=== PATIENT | female | born 1955 | race Caucasian/White ===

== ENCOUNTER 2018-04-08 09:37 | Inpatient (IN) | payer BC, SELFPAY ==
[2018-04-08] VITALS (13 sets, daily range): BP systolic 128–161; BP diastolic 90–116; PULSE 85–103; RESP 14–24; TEMP 36.3–36.7; O2SAT 93–98; BMI 27.7; BMI 28.2
--- NOTE | 2018-04-08 10:10 | EKG12_ITS ---
Test Reason : SOB Blood Pressure : / mmHG Vent. Rate : 084 BPM Atrial Rate : 084 BPM P-R Int : 236 ms QRS Dur : 114 ms QT Int : 410 ms P-R-T Axes : 074 -14 089 degrees QTc Int : 484 ms Sinus rhythm with 1st degree A-V block with occasional Premature ventricular complexes Possible Left atrial enlargement Nonspecific T wave abnormality Prolonged QT Abnormal ECG Confirmed by INGRID MALONE, JLUIS ([id number]), pictures editor ELVIA FIELD ([id number]) on 04/11/2018 1:54:45 PM Referred By: Michael Merino Confirmed By:JLUIS QUINTERO MD
[2018-04-08 10:29] LABS: Absolute Lymphocyte Count 1.28 X10^3/ul (0.83-4.51); Absolute Neutrophil Count 5.2 X10^3/uL (2.0-7.7); Basophil# 0.03 X10^3/uL; Basophil% 0.4 % (0-1); Eosinophil# 0.03 X10^3/uL; Eosinophils% 0.4 % (0-5); Hematocrit 42.3 % (37-47); Lymphocyte # 1.28 X10^3/ul (4.0); Lymphocyte % 18.2 % (19-41); Mean Corp Hgb Conc 33.1 g/gl (32-36); Mean Corpuscular Hgb 32.1 pg (27.0-32.0); Mean Platelet Vol. 11.6 fl (6.2-12.0); Monocyte# 0.46 X10^3/uL; Monocyte% 6.6 % (0-10); Neutrophil % 74.1 % (47-70); POSITIVE COUNT NO; POSITIVE DIFFERENTIAL NO; POSITIVE MORPHOLOGY NO; Platelet Count 203 K/mm3 (150-450); RBC Distribution Width CV 14.1 % (11.6-14.6); RBC Distribution Width SD 48.1 fl (35.1-43.9); Red Blood Count 4.36 M/mm3 (4.2-5.4)
[2018-04-08 10:45] LABS: Anion Gap 8 (5-15); BUN 15 mg/dL (7-18); BUN/Creat Ratio 19.9 RATIO (10-20); Calcium,Total 8.6 mg/dL (8.5-10.1); Chloride 110 mmol/L (98-107); Creatinine, Serum 0.75 mg/dL (0.55-1.02); D-Dimer Quantitative (DVT/PE) 2.89 FEU/ug/m (0.27-0.49); EST Glomerular Filtration Rate 82 mL/min (>60); Est Glom Filt Rate - Afr Amer 99 mL/min (>60); Estimated Creatinine Clearance 54.43 ml/min; Glucose 100 mg/dL (74-106); Potassium 3.8 mmol/L (3.5-5.1); Sodium Level 143 mmol/L (136-145)
[2018-04-08] MEDS: 0.9% Normal Saline 1,000 ML 150 ML IV (10:46)
--- NOTE | 2018-04-08 10:53 | CT_ITS ---
STUDY: CTA CHEST REASON FOR EXAM: Female, 62 years old. Shortness of breath. RADIATION DOSAGE (If Supplied By Facility): CTDIvol = ( 9.01 ) mGy, DLP = ( 245.35 ) mGycm TECHNIQUE: The examination was performed with the intravenous administration of 100 ml of Isovue 370 contrast material. Post-processing of the angiographic images was performed, with multiplanar reformation and 3D reconstruction. Individualized dose optimization techniques were used for this CT. COMPARISON: None. FINDINGS: Normal enhancement of the main pulmonary artery and right and left pulmonary arteries. Normal enhancement of the bilateral peripheral pulmonary arteries. There is no demonstrated pulmonary embolism. Normal thoracic aorta and visualized great vessels. There is no demonstrated aortic dissection. There are calcifications of the coronary arteries. Normal mediastinum. Normal hilar regions. Normal visualized trachea and bronchi. The lungs are well expanded. Bibasilar atelectasis. Small bilateral pleural effusions with fluid in the left major fissure. Normal chest wall structures. Focal sclerotic density measuring 8.2 mm x 9.1 mm seen along the posterior inferior aspect of the T7 or T8 thoracic vertebrae. Normal visualized upper abdomen. CT/CTA Chest W/WO Contrast IMPRESSION: Bilateral pleural effusions. Fluid is seen in the left major fissure. Bibasilar atelectasis. Focal sclerotic lesion is seen in the T7 or T8 vertebrae. Electronically Signed: Jayce Granger MD at 11:32 EST Tel [phone], Service support ,
[2018-04-08 10:55] LABS: Lactic Acid 1.1 mmol/L (0.4-2.0)
--- NOTE | 2018-04-08 11:32 | ED.DCSUM_ITS ---
- ER Visit Summary Date of Service: 04/08/18 Chief Complaint: Shortness of breath History of Present Illness: The patient is a [address] Jack Lorenzo. She reports she has shortness of breath with naproxen 1 week ago. States that severe when she walks around or lays flat. It is moderate at rest. Has a nonproductive cough that began 5 days ago. She denies any fever or chills. She reports that she has had intermittent chest tightness for the past week. She reports that this is increased with breathing or walking. She is pain-free currently. She reports her pain is 8 out of 10 at worst. Patient reports that they drove to [place] for Thanksgiving. This was a [address] She has bilateral calf pain. No ankle swelling. She also complains of a poor appetite. Physical Examination: Vitals: Stable. Afebrile. General: Well-nourished and well-developed. Head: Normocephalic atraumatic. Neck: Supple, no lymphadenopathy. No JVD. Nontender. Cardiovascular: Tachycardic regular rhythm. No murmurs. Respiratory: No respiratory distress. Clear to auscultation bilaterally. Abdominal: Soft, nontender, nondistended, normal bowel sounds. No guarding, rebound, or peritoneal signs. Back: Nontender. Extremities: Nontender, no edema. Skin: Normal color, no rash. Neurologic: Alert and oriented ?3. Cranial nerves II through XII are intact. Normal strength and sensation. Psych: Normal affect. Test Results: EKG is sinus at 84 with first-degree AV block and corrected QT interval of 484. Nonspecific ST changes. No old EKG for comparison. CBC is remarkable for 7 neutrophils 74 lymphocytes of 18. Chem-7 is more for chloride 110. Troponin 0 0.024. PT GROUP SEGMENT CONSULTANT is 1992.2. D-dimer is 2.89. CT of the chest shows no PE or dissection. She does have bilateral pleural effusions and bilateral atelectasis. There is fluid in the left major fissure. She has a focal sclerotic lesion in T7 or T8. Emergency Department Course and Treatment: Patient is resting comfortably. She was given a dose of Lasix IV. Treatment Plan: Patient was discussed with Dr. Merino. She will be admitted to the hospital for further evaluation and treatment. Disposition: Admitted in improved condition. Impression: 1. CHF, new onset. 2. Focal sclerotic lesion T7 or T8. This note was generated with [employer] dictation software. It may contain incorrect words, spelling, and punctuation that were not noted in review of the chart prior to signing ED Disposition - Plan for ED Patient: Chief Complaint: Shortness of Breath Referrals: Faina Cunningham NP-C [Primary Care Provider] -
[2018-04-08] MEDS: Furosemide 40 MG/4 ML Vial IV ×3 (12:32→22:14)
--- NOTE | 2018-04-08 13:39 | ED.RN ---
pt tp get echo prior to trasfer to unit. per dr plascencia.
--- NOTE | 2018-04-08 14:24 | ECHOD_ITS ---
Reason For Study: CHF Procedure This was a 2D Doppler, Color Flow transthoracic echocardiogram. Exam performed portable in ED. Left Ventricle Normal size and thickness. Moderately dilated left ventricle. The estimated ejection fraction is 10 %. Stage 2 diastolic dysfunction. There is severe global hypokinesis of the left ventricle. Right Ventricle Mildly dilated right ventricle. Normal systolic function. Atria The left atrium is moderately enlarged. Normal right atrium. Normal atrial septum. Mitral Valve The mitral valve is structurally normal. No prolapse or stenosis seen. Mild (1+) mitral valve insufficiency. Tricuspid Valve Normal tricuspid valve. Mild (1+) tricuspid valve insufficiency. Right ventricular systolic pressure estimated to be 35 mmHg. Aortic Valve Trisinus/trileaflet aortic valve. Normal aortic valve. Trivial aortic valve insufficiency. Pulmonic Valve Normal pulmonic valve. Trivial pulmonic valve insufficiency. Great Vessels Normal aortic root. Normal arch. Normal inferior vena cava. Inferior vena cava collapse with sniff. Pericardium/Pleural No pericardial effusion. Moderate size left pleural effusion. MMode/2D Measurements & Calculations LVIDd: 5.6 cm IVSd: 0.79 cm Ao root diam: 3.2 cm LVIDs: 5.1 cm LVPWd: 1.1 cm RVDd: 3.6 cm FS: 9.0 % LAV(MOD-bp): 87.2 ml EDV(MOD-sp4): 93.9 ml EDV(MOD-sp2): 100.7 ml LAV(MOD-bp) Indexed: 55.0 ml/m2 ESV(MOD-sp4): 81.0 ml EF(MOD-sp2): 24.9 % LAV(MOD-sp2): 81.0 ml EF(MOD-sp4): 13.7 % LAV(MOD-sp4): 86.0 ml SV(MOD-sp4): 12.9 ml SV(MOD-sp2): 25.1 ml LA A4 area: 23.4 cm2 LA dimension(2D): 3.9 cm RA A4 area: 18.2 cm2 Doppler Measurements & Calculations MV E max mellissa: 92.7 cm/sec Ao V2 max: 72.4 cm/sec LV V1 max: 69.6 cm/sec Ao max P.1 mmHg LV V1 max P.9 mmHg PA V2 max: 49.1 cm/sec TR max mellissa: 273.7 cm/sec TR max P.0 mmHg Interpretation Summary The estimated ejection fraction is 10 %. Stage 2 diastolic dysfunction. There is severe global hypokinesis of the left ventricle. Mildly dilated right ventricle. The left atrium is moderately enlarged. Mild (1+) mitral valve insufficiency. Mild (1+) tricuspid valve insufficiency. Right ventricular systolic pressure estimated to be 35 mmHg. Trivial aortic valve insufficiency. Moderate size left pleural effusion. d/w Dr Merino There is no comparison study available. Ordering Physician: Michael Merino Referring Physician: Michael Merino Performed By: Nickie Gillis RDCS, RVT
--- NOTE | 2018-04-08 15:07 | PCM.HP.STD ---
Problem List (1) Hypertension Status: Chronic History of Present Illness Date of Admission: 04/08/18 Chief Complaint: Shortness of breath. The patient is a 62 year old F who presents emergency room with 2 weeks of shortness of breath. Patient states over the past 2-3 days she has had to sleep sitting upright due to increased shortness of breath while lying flat. She complains of associated chest tightness. Denies cough, fever, chills. Was recently placed on antibiotics for suspected pneumonia which did not improve her dyspnea. She reports 10-12 pound weight gain over the past 2 weeks. She also reports lower extremity swelling, mostly at night. She states her thyroid medication was recently adjusted due to abnormal lab work. Her other past medical history includes hypertension. She denies other past medical history. Patient notes she has been under significant stress over the past few months due to her mother's poor health who lives in [place] and also a premature grandchild who has had significant medical issues. Past Medical History Past Medical History (Chronic Problems): Chronic Problems Hypertension (Chronic) Allergies acetaminophen [From Lortab] Adverse Reaction (Verified 04/08/18 09:42) Nausea hydrocodone [From Lortab] Adverse Reaction (Verified 04/08/18 09:42) Nausea Home Medications: Ambulatory Orders Medication Instructions Recorded Azithromycin [Zithromax] 250 mg PO DAILY 04/08/18 Calcium Citrate/Vitamin D3 1,000 mg PO DAILY 04/08/18 [Calcium Citrate +Vit D3 Tablet] Losartan Potassium [Cozaar] 75 mg PO DAILY 04/08/18 [place]-3 Fatty Acids [Fish Oil] 1,500 mg PO DAILY 04/08/18 Pnv No.121/Iron/Folic Acid 1 each PO DAILY 04/08/18 [ Multivitamin Tablet] Surgical History: - - Bilateral rotator cuff repair, x2, hysterectomy. 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 Review of Systems Constitutional: Denies: Chills, Fever, Weight Change HEENT: Denies: Head Aches, Sinus Congestion, Sinus Drainage Cardiovascular: Reports: Chest Tightness. Denies: Chest Pain, Edema, Palpitations, Syncope Respiratory: Reports: Shortness of Breath. Denies: Cough, Sputum production Gastrointestinal: Denies: Abdominal Pain, Nausea, Vomiting Genitourinary: Denies: Dysuria Musculoskeletal: Denies: Joint Pain, Joint Tenderness Skin: Denies: Rash, Wounds Neurological: Denies: Numbness, Tingling, Focal weakness Psychiatric: Denies: Anxiety, Depression, Homicidal Ideations, Suicidal Ideations Hematologic/ Lymphatic: Denies: Easy Bruising, Easy Bleeding VTE Information - Inpt Only VTE Present on Admission: No VTE Mechan Device Prophylaxis: None VTE Pharm Prophylaxis ordered?: Yes - Physical Exam General: Alert, Oriented x3, Cooperative, No apparent distress HEENT: Atraumatic, PERRLA, EOMI, Normocephalic Neck: Supple, No JVD, Negative Carotid Bruits Lungs: Normal air movement, - - Crackles bilateral bases Cardiovascular: Regular rate, Regular Rhythm, Normal S1, Normal S2, No murmurs Abdomen: Bowel Sounds Present, Soft, Non Tender, Non-Distended Extremities: No clubbing, No cyanosis, No edema, Capillary Refill Less than 3 Seconds Skin: No rashes, No breakdown Musculoskeletal: No Tenderness to Palpation of Joints or Extremities Neurological: Cranial nerves II-XII grossly intact, Neuro grossly intact Psych/Mental Status: Normal Affect, Appropriate Vital Signs Temp Pulse Resp BP Pulse Ox 97.7 F L 88 16 148/92 H 97 04/08/18 14:38 04/08/18 14:38 04/08/18 14:38 04/08/18 14:38 04/08/18 14:38 Oxygen Flow Rate (L/min) 2 Oxygen Delivery Method Room Air Weight: 139 lb 9.6 oz Body Mass Index (BMI) 28.2 Laboratory Tests Past 24 Hrs 04/08/18 04/08/18 04/08/18 10:13 10:13 10:13 WBC 7.0 RBC 4.36 Hgb 14.0 Hct 42.3 MCV 97.0 MCH 32.1 H MCHC 33.1 RDW 14.1 RDW Differential 48.1 H Plt Count 203 MPV 11.6 Immature Gran % (Auto) 0.300 Neut % (Auto) 74.1 H Lymph % (Auto) 18.2 L [place] % (Auto) 6.6 Eos % (Auto) 0.4 Baso % (Auto) 0.4 Absolute Neuts (auto) 5.2 Absolute Lymphs (auto) 1.28 Total Counted Not Reportable D-Dimer Quant (PE/DVT) 2.89 H* Sodium 143 Potassium 3.8 Chloride 110 H Carbon Dioxide 25.0 Anion Gap 8 BUN 15 Creatinine 0.75 Estim Creat Clear Calc 54.43 Est GFR (MDRD) Af Amer 99 Est GFR (MDRD) Non-Af 82 BUN/Creatinine Ratio 19.9 Glucose 100 Lactic Acid Calcium 8.6 Troponin I 0.024 B-Natriuretic Peptide 04/08/18 04/08/18 10:13 10:13 WBC RBC Hgb Hct MCV MCH MCHC RDW RDW Differential Plt Count MPV Immature Gran % (Auto) Neut % (Auto) Lymph % (Auto) [place] % (Auto) Eos % (Auto) Baso % (Auto) Absolute Neuts (auto) Absolute Lymphs (auto) Total Counted D-Dimer Quant (PE/DVT) Sodium Potassium Chloride Carbon Dioxide Anion Gap BUN Creatinine Estim Creat Clear Calc Est GFR (MDRD) Af Amer Est GFR (MDRD) Non-Af BUN/Creatinine Ratio Glucose Lactic Acid 1.1 Calcium Troponin I B-Natriuretic Peptide 1992.2 H Assessment/Plan 1. New onset CHF, unclear subtype- Trop 0.024. Trend enzymes. Cardiology consulted. Echo pending. Possible stress/cath pending cardiology evaluation. Continue IV Lasix. Strict I&O. Daily weight. Check TSH. 2. Hypertension- Stable, continue home losartan regimen. 3. Incidental finding focal sclerotic lesion T7 or T8 vertebrae- Obtain MRI thoracic spine. 4. Thyroid dysfunction-patient unclear which type of thyroid disorder she has. She reports she is taking a combination pill. Reports recent abnormal thyroid labs. No thyroid medication listed on home list. Check thyroid panel. We will need to reassess home medication list. 5. Elevated d-dimer-CTA without evidence of PE. DVT prophylaxis- Lovenox This patient was seen by FESTUS Miller under the supervision of Dr. Merino.
--- NOTE | 2018-04-08 15:39 | MRI_ITS ---
STUDY: MRI THORACIC SPINE WITH AND WITHOUT CONTRAST REASON FOR EXAM: Female, 62 years old. Abscess. SOB. Fluid in lungs. TECHNIQUE: 5 ml of Gadavist was administered intravenously for the contrast portion of the examination. COMPARISON: None. FINDINGS: This study is slightly limited by patient motion on multiple pulse sequences. Normal kyphosis of the thoracic spine. There is no substantial scoliosis. T1-2, T2-3, T3-4, T4-5, T5-6, T6-7, T7-8, T8-9, T9-10, T10-11, T11-12: Normal endplates. Normal disc hydration, heights and morphology of the corresponding intervertebral discs. Normal central canal and intervertebral neural foramina at the corresponding levels. Normal visualized thoracic cord. Normal conus medullaris that terminates at the T12-L1 level.. The soft tissue structures are unremarkable. There is no enhancing abnormality. Small bilateral pleural effusions are noted. The aorta is normal in caliber. MRI/Spine Thoracic W/WO Contrast IMPRESSION: Bilateral pleural effusions. Otherwise unremarkable MRI of the thoracic spine. Electronically Signed: Kareen Urban MD at 18:40 EST Tel , Service support ,
[2018-04-08 16:07] LABS: Free T3 2.6 pg/mL (2.18-3.98); Thyroid Stim Hormone (TSH) 1.98 uIU/mL (0.358-3.74)
[2018-04-08] MEDS: Enoxaparin 40 MG/0.4 ML Syringe SC (18:09)
[2018-04-08] MEDS: Losartan Potassium 50 MG Tablet PO (18:20)
[2018-04-09] VITALS (11 sets, daily range): BP systolic 109–129; BP diastolic 73–76; PULSE 74–106; RESP 14–18; TEMP 36.3–36.7; O2SAT 93–94
[2018-04-09] MEDS: Furosemide 40 MG/4 ML Vial IV ×2 (06:11→17:04)
[2018-04-09 06:44] LABS: Anion Gap 10 (5-15); BUN 13 mg/dL (7-18); BUN/Creat Ratio 16.4 RATIO (10-20); Calcium,Total 8.6 mg/dL (8.5-10.1); Chloride 100 mmol/L (98-107); Cholesterol 175 mg/dL (200); Creatinine, Serum 0.79 mg/dL (0.55-1.02); EST Glomerular Filtration Rate 78 mL/min (>60); Est Glom Filt Rate - Afr Amer 94 mL/min (>60); Estimated Creatinine Clearance 71.78 ml/min; Glucose 84 mg/dL (74-106); High Density Lipoprotein 53 mg/dL; Potassium 3.2 mmol/L (3.5-5.1); Sodium Level 142 mmol/L (136-145); Triglycerides 121 mg/dL; Very Low Density Lipoprotein 24 mg/dL (5-40)
[2018-04-09 08:05] LABS: Magnesium 1.6 mg/dL (1.6-2.6)
[2018-04-09] MEDS: Aspirin 81 MG TAB.CHEW PO (08:36)
[2018-04-09] MEDS: Enoxaparin 40 MG/0.4 ML Syringe SC (08:36)
[2018-04-09] MEDS: Losartan Potassium 100 MG Tablet PO (08:41)
--- NOTE | 2018-04-09 10:09 | PCM.CONS.C ---
Reason for Consult Date of Consultation: 04/09/18 Reason for Consultation: Shortness of breath History of Present Illness: The patient is a 62 year old F with no previous cardiac history other than hypertension who says that she has been feeling weak over the last few weeks. In addition she had market shortness of breath and saw her primary physician and was told that she probably had a pneumonia. She was treated with antibiotics and then went back to see her and was subsequently sent to the emergency room. In the emergency room she was evaluated and noted to have a dilated cardiac silhouette with an elevated natriuretic peptide level. She subsequently had an echocardiogram which demonstrated significant global left ventricular systolic dysfunction with an estimated ejection fraction of 15% plus minus. [She denies any chest pain or paroxysmal nocturnal dyspnea she has really not had any pedal edema. She has not been on any medication other than her antihypertensive medications. She has not received any chemotherapy in the past and does not know of any significant previous viral infection.] Past Medical History Allergies/Adverse Reactions: Allergies acetaminophen [From Lortab] Adverse Reaction (Verified 04/08/18 09:42) Nausea hydrocodone [From Lortab] Adverse Reaction (Verified 04/08/18 09:42) Nausea Home Medications: Ambulatory Orders Medication Instructions Recorded Azithromycin [Zithromax] 250 mg PO DAILY 04/08/18 Calcium Citrate/Vitamin D3 1,000 mg PO DAILY 04/08/18 [Calcium Citrate +Vit D3 Tablet] Losartan Potassium [Cozaar] 75 mg PO DAILY 04/08/18 [place]-3 Fatty Acids [Fish Oil] 1,500 mg PO DAILY 04/08/18 Pnv No.121/Iron/Folic Acid 1 each PO DAILY 04/08/18 [ Multivitamin Tablet] Past Medical History (Chronic Problems): Chronic Problems Hypertension (Chronic) Surgical History: - - Bilateral rotator cuff repair, x2, hysterectomy. 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 Lives: Spouse/ Significant Other Smoking Status: Never smoker Alcohol: Occasional Drugs: None Review of Systems - Review of Systems General: Reports: Fatigue. Denies: Fever, Night Sweats HEENT: Denies: Vision Change Cardiovascular: Reports: Shortness of Breath, Shortness of Breath at Rest, Shortness of Breath with Exertion, Orthopnea. Denies: Chest Discomfort, PND, Peripheral Edema, Palpitations, Lightheadedness, Dizziness, Near Syncope, Syncope Respiratory: Denies: Cough, Sputum Production, Hemoptysis Gastrointestinal: Denies: Indigestion, Hematemesis, Hematochezia, Melena Genitourinary: Denies: Dysuria, Hematuria Muscoloskeletal: Denies: Myalgias Skin: Denies: Rash Neurological: Denies: Dizziness Psychiatric: Denies: Anxiety Endocrine: Denies: Unexplained Weight Loss Hematologic/ Lymphatic: Denies: Anemia Subjectve: Pleasant lady in no apparent distress at this time sitting in bed Objective: Vital Signs Temp Pulse Resp BP Pulse Ox 98.1 F 79 14 129/76 H 93 04/09/18 04:10 04/09/18 06:47 04/09/18 04:10 04/09/18 04:10 04/09/18 04:10 Oxygen Flow Rate (L/min) 2 Oxygen Delivery Method Room Air Weight: 139 lb 5.314 oz Body Mass Index (BMI) 28.2 Intake and Output for Last 24 Hours 04/07/18 04/08/18 04/09/18 23:59 23:59 23:59 Intake Total 240 / 240 Output Total 1900 / 1900 500 / 500 Balance -1660 / -1660 -500 / -500 General: Awake, Alert, Oriented x 3 HEENT: PERRL, EOMI, Sclera Non Icteric Neck: Supple, Good ROM, No Lymph Node Enlargement Lungs: Clear to auscultation Cardiovascular: Regular Rhythm, Normal S1, Normal S2, No Murmurs, No Rubs, No Gallops, Positive S3 Vascular: No Carotid Bruits, Normal Femoral Pulses, Normal Radial Pulses, Normal Dorsalis Pedal Pulse, Normal Posterior Tibial Pulses Abdomen: Bowel Sounds Present, Soft, Non Tender, No HSM, No Organomegaly Extremities: No Cyanosis, No Clubbing, No edema Lymphatic: No Lymph Node Enlargement Neurological: No Focal Motor or Sensory Deficit Psych/Mental Status: Appropriate 04/08/18 10:13: WBC 7.0, RBC 4.36, Hgb 14.0, Hct 42.3, MCV 97.0, MCH 32.1 H, MCHC 33.1, RDW 14.1, RDW Differential 48.1 H, Plt Count 203, MPV 11.6, Immature Gran % (Auto) 0.300, Neut % (Auto) 74.1 H, Lymph % (Auto) 18.2 L, [place] % (Auto) 6.6, Eos % (Auto) 0.4, Baso % (Auto) 0.4, Absolute Neuts (auto) 5.2, Total Counted Not Reportable 04/08/18 10:13: D-Dimer Quant (PE/DVT) 2.89 H* 04/08/18 10:13: Sodium 143, Potassium 3.8, Chloride 110 H, Carbon Dioxide 25.0, Anion Gap 8, BUN 15, Creatinine 0.75, Est GFR (MDRD) Af Amer 99, Est GFR (MDRD) Non-Af 82, BUN/Creatinine Ratio 19.9, Glucose 100, Calcium 8.6, Troponin I 0.024 04/08/18 10:13: Lactic Acid 1.1 04/08/18 10:13: B-Natriuretic Peptide 1992.2 H 04/08/18 15:12: Troponin I 0.022 04/08/18 17:46: Troponin I 0.023 04/09/18 05:15: Sodium 142, Potassium 3.2 L, Chloride 100, Carbon Dioxide 32.0, Anion Gap 10, BUN 13, Creatinine 0.79, Est GFR (MDRD) Af Amer 94, Est GFR (MDRD) Non-Af 78, BUN/Creatinine Ratio 16.4, Glucose 84, Calcium 8.6, Triglycerides 121, Cholesterol 175, LDL Cholesterol 98, VLDL Cholesterol 24, HDL Cholesterol 53 04/09/18 05:15: Magnesium 1.6 Rhythm: EKG: Normal sinus rhythm with no acute changes ECHO: Globally reduced left ventricular ejection fraction estimated at 10-15% Assessment/Plan 1. Acute systolic congestive heart failure Patient presents with shortness of breath and orthopnea and is noted to have elevated natruretic peptide level as well as severely reduced left ventricular ejection fraction. Will recommend starting Coreg 3.125 mg twice a day Continue losartan Will start spironolactone Continue intravenous Lasix Would recommend a left heart catheterization to exclude obstructive coronary disease. Depending on those findings further recommendations will be made. 2. Left ventricular systolic dysfunction He has evidence of severe left ventricular systolic dysfunction. The etiology of the above is unclear as noted. We will continue to put her on the appropriate medications and then see how she does. Certainly if there is no improvement within 90 days she may need to be evaluated for possible implantable defibrillator. 3. Hypertension Her blood pressure appears to be under fairly good control at this time on the losartan. She will certainly need additional agents. Thank you for allowing me to participate in the care of your patient. Please don't hesitate to call if any issues arise
--- NOTE | 2018-04-09 10:14 | CON.PCM_ITS ---
Reason for Consult Date of Consultation: 04/09/18 Reason for Consultation: Shortness of breath History of Present Illness: The patient is a 62 year old F with no previous cardiac history other than hypertension who says that she has been feeling weak over the last few weeks. In addition she had market shortness of breath and saw her primary physician and was told that she probably had a pneumonia. She was treated with antibiotics and then went back to see her and was subsequently sent to the emergency room. In the emergency room she was evaluated and noted to have a dilated cardiac silhouette with an elevated natriuretic peptide level. She subsequently had an echocardiogram which demonstrated significant global left ventricular systolic dysfunction with an estimated ejection fraction of 15% plus minus. [She denies any chest pain or paroxysmal nocturnal dyspnea she has really not had any pedal edema. She has not been on any medication other than her antihypertensive medications. She has not received any chemotherapy in the past and does not know of any significant previous viral infection.] Past Medical History Allergies/Adverse Reactions: Allergies acetaminophen [From Lortab] Adverse Reaction (Verified 04/08/18 09:42) Nausea hydrocodone [From Lortab] Adverse Reaction (Verified 04/08/18 09:42) Nausea Home Medications: Ambulatory Orders Medication Instructions Recorded Azithromycin [Zithromax] 250 mg PO DAILY 04/08/18 Calcium Citrate/Vitamin D3 1,000 mg PO DAILY 04/08/18 [Calcium Citrate +Vit D3 Tablet] Losartan Potassium [Cozaar] 75 mg PO DAILY 04/08/18 [place]-3 Fatty Acids [Fish Oil] 1,500 mg PO DAILY 04/08/18 Pnv No.121/Iron/Folic Acid 1 each PO DAILY 04/08/18 [ Multivitamin Tablet] Past Medical History (Chronic Problems): Chronic Problems Hypertension (Chronic) Surgical History: - - Bilateral rotator cuff repair, x2, hysterectomy. 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 Lives: Spouse/ Significant Other Smoking Status: Never smoker Alcohol: Occasional Drugs: None Review of Systems - Review of Systems General: Reports: Fatigue. Denies: Fever, Night Sweats HEENT: Denies: Vision Change Cardiovascular: Reports: Shortness of Breath, Shortness of Breath at Rest, Shortness of Breath with Exertion, Orthopnea. Denies: Chest Discomfort, PND, Peripheral Edema, Palpitations, Lightheadedness, Dizziness, Near Syncope, Syncope Respiratory: Denies: Cough, Sputum Production, Hemoptysis Gastrointestinal: Denies: Indigestion, Hematemesis, Hematochezia, Melena Genitourinary: Denies: Dysuria, Hematuria Muscoloskeletal: Denies: Myalgias Skin: Denies: Rash Neurological: Denies: Dizziness Psychiatric: Denies: Anxiety Endocrine: Denies: Unexplained Weight Loss Hematologic/ Lymphatic: Denies: Anemia Subjectve: Pleasant lady in no apparent distress at this time sitting in bed Objective: Vital Signs Temp Pulse Resp BP Pulse Ox 98.1 F 79 14 129/76 H 93 04/09/18 04:10 04/09/18 06:47 04/09/18 04:10 04/09/18 04:10 04/09/18 04:10 Oxygen Flow Rate (L/min) 2 Oxygen Delivery Method Room Air Weight: 139 lb 5.314 oz Body Mass Index (BMI) 28.2 Intake and Output for Last 24 Hours 04/07/18 04/08/18 04/09/18 23:59 23:59 23:59 Intake Total 240 / 240 Output Total 1900 / 1900 500 / 500 Balance -1660 / -1660 -500 / -500 General: Awake, Alert, Oriented x 3 HEENT: PERRL, EOMI, Sclera Non Icteric Neck: Supple, Good ROM, No Lymph Node Enlargement Lungs: Clear to auscultation Cardiovascular: Regular Rhythm, Normal S1, Normal S2, No Murmurs, No Rubs, No Gallops, Positive S3 Vascular: No Carotid Bruits, Normal Femoral Pulses, Normal Radial Pulses, Normal Dorsalis Pedal Pulse, Normal Posterior Tibial Pulses Abdomen: Bowel Sounds Present, Soft, Non Tender, No HSM, No Organomegaly Extremities: No Cyanosis, No Clubbing, No edema Lymphatic: No Lymph Node Enlargement Neurological: No Focal Motor or Sensory Deficit Psych/Mental Status: Appropriate 04/08/18 10:13: WBC 7.0, RBC 4.36, Hgb 14.0, Hct 42.3, MCV 97.0, MCH 32.1 H, MCHC 33.1, RDW 14.1, RDW Differential 48.1 H, Plt Count 203, MPV 11.6, Immature Gran % (Auto) 0.300, Neut % (Auto) 74.1 H, Lymph % (Auto) 18.2 L, Osborne % (Auto) 6.6, Eos % (Auto) 0.4, Baso % (Auto) 0.4, Absolute Neuts (auto) 5.2, Total Counted Not Reportable 04/08/18 10:13: D-Dimer Quant (PE/DVT) 2.89 H* 04/08/18 10:13: Sodium 143, Potassium 3.8, Chloride 110 H, Carbon Dioxide 25.0, Anion Gap 8, BUN 15, Creatinine 0.75, Est GFR (MDRD) Af Amer 99, Est GFR (MDRD) Non-Af 82, BUN/Creatinine Ratio 19.9, Glucose 100, Calcium 8.6, Troponin I 0.024 04/08/18 10:13: Lactic Acid 1.1 04/08/18 10:13: B-Natriuretic Peptide 1992.2 H 04/08/18 15:12: Troponin I 0.022 04/08/18 17:46: Troponin I 0.023 04/09/18 05:15: Sodium 142, Potassium 3.2 L, Chloride 100, Carbon Dioxide 32.0, Anion Gap 10, BUN 13, Creatinine 0.79, Est GFR (MDRD) Af Amer 94, Est GFR (MDRD) Non-Af 78, BUN/Creatinine Ratio 16.4, Glucose 84, Calcium 8.6, Triglycerides 121, Cholesterol 175, LDL Cholesterol 98, VLDL Cholesterol 24, HDL Cholesterol 53 04/09/18 05:15: Magnesium 1.6 Rhythm: EKG: Normal sinus rhythm with no acute changes ECHO: Globally reduced left ventricular ejection fraction estimated at 10-15% Assessment/Plan 1. Acute systolic congestive heart failure * Patient presents with shortness of breath and orthopnea and is noted to have elevated natruretic peptide level as well as severely reduced left ventricular ejection fraction. * Will recommend starting Coreg 3.125 mg twice a day * Continue losartan * Will start spironolactone * Continue intravenous Lasix * Would recommend a left heart catheterization to exclude obstructive coronary disease. Depending on those findings further recommendations will be made. * 2. Left ventricular systolic dysfunction * He has evidence of severe left ventricular systolic dysfunction. The etiology of the above is unclear as noted. * We will continue to put her on the appropriate medications and then see how she does. * Certainly if there is no improvement within 90 days she may need to be evaluated for possible implantable defibrillator. * 3. Hypertension * Her blood pressure appears to be under fairly good control at this time on the losartan. She will certainly need additional agents. * * Thank you for allowing me to participate in the care of your patient. Please don't hesitate to call if any issues arise
--- NOTE | 2018-04-09 12:27 | PCM.PROGNOTE ---
Subjective: Patient seen and examined. Breathing improved. Patient voices concern over significant reduced EF. Dr. Carvajal entered room for further discussion on plan of care. Patient denies chest pain. - Physical Exam General: Alert, Oriented x3, Cooperative HEENT: Atraumatic, PERRLA, EOMI, Normocephalic Neck: Supple, No JVD, Negative Carotid Bruits Lungs: Clear to auscultation, Normal air movement Cardiovascular: Regular rate, Regular Rhythm, Normal S1, Normal S2, No murmurs Abdomen: Bowel Sounds Present, Soft, Non Tender, Non-Distended Extremities: No clubbing, No cyanosis, No edema, Capillary Refill Less than 3 Seconds Skin: No rashes, No breakdown Musculoskeletal: No Tenderness to Palpation of Joints or Extremities Neurological: Cranial nerves II-XII grossly intact, Neuro grossly intact Psych/Mental Status: Normal Affect, Appropriate Vital Signs Temp Pulse Resp BP Pulse Ox 97.4 F L 106 H 16 111/75 94 04/09/18 10:10 04/09/18 10:59 04/09/18 10:10 04/09/18 10:10 04/09/18 10:10 Oxygen Flow Rate (L/min) 2 Oxygen Delivery Method Room Air Weight: 139 lb 5.314 oz Body Mass Index (BMI) 28.2 Intake and Output for Last 24 Hours 04/07/18 04/08/18 04/09/18 23:59 23:59 23:59 Intake Total 240 / 240 Output Total 1900 / 1900 500 / 500 Balance -1660 / -1660 -500 / -500 Laboratory Tests Past 24 Hrs 04/08/18 04/08/18 04/08/18 15:12 15:12 17:46 Sodium Potassium Chloride Carbon Dioxide Anion Gap BUN Creatinine Estim Creat Clear Calc Est GFR (MDRD) Af Amer Est GFR (MDRD) Non-Af BUN/Creatinine Ratio Glucose Calcium Magnesium Troponin I 0.022 0.023 Triglycerides Cholesterol LDL Cholesterol VLDL Cholesterol HDL Cholesterol TSH 1.98 Free T4 1.00 Free T3 pg/dL 2.6 04/09/18 04/09/18 05:15 05:15 Sodium 142 Potassium 3.2 L Chloride 100 Carbon Dioxide 32.0 Anion Gap 10 BUN 13 Creatinine 0.79 Estim Creat Clear Calc 71.78 Est GFR (MDRD) Af Amer 94 Est GFR (MDRD) Non-Af 78 BUN/Creatinine Ratio 16.4 Glucose 84 Calcium 8.6 Magnesium 1.6 Troponin I Triglycerides 121 Cholesterol 175 LDL Cholesterol 98 VLDL Cholesterol 24 HDL Cholesterol 53 TSH Free T4 Free T3 pg/dL Medical Necessity - Tobacco Use Smoking Status: Never smoker Assessment/Plan 1. New onset systolic CHF- Cardiology consulted. Echo shows an EF of 10%, stage II diastolic dysfunction, mild mitral valve insufficiency, mild tricuspid valve insufficiency, RVSP estimated to be 35 mmHg. Continue IV Lasix. Strict I&O. Daily weight. Continue home losartan regimen. Started on carvedilol and spironolactone. Patient to undergo left heart cath Wednesday with further recommendations to follow per cardiology. 2. Hypertension- Stable, continue home losartan regimen. Carvedilol added as noted above. 3. Incidental finding focal sclerotic lesion T7 or T8 vertebrae- MRI thoracic spine unremarkable. 4. Hypothyroidism-thyroid levels within normal limits. Continue home regimen. 5. Elevated d-dimer-CTA without evidence of PE. DVT prophylaxis- Lovenox This patient was seen by FESTUS Miller under the supervision of Dr. Merino.
--- NOTE | 2018-04-09 12:47 | CM.UR ---
See clay puddler. Met face to face with patient and her . Plan is to do heart cath on Wednesday and as long as no blockages will send home on medications and monitor x 3 months. If still symptomatic or no improvement at that time--will consider pacemaker. Patient and are not anticipating any needs. Instructed that case management will remain available should any needs arise. Verb understanding. Tasia Kong RN, CCM.
--- NOTE | 2018-04-09 14:48 | CM.UR ---
Heart Cath planned for Wednesday. If transfer becomes necessary the following facilities are in-network according to [facility] website: [facility]. [facility] Should any questions arise, please contact case mgmt.
[2018-04-09] MEDS: Bisacodyl 5 MG Tablet PO (15:31)
[2018-04-09] MEDS: 0.9% NaCl Peripheral Flush Adult/Peds IV (17:04)
[2018-04-09] MEDS: Magnesium Oxide 400 MG Tablet PO (17:04)
[2018-04-09] MEDS: Carvedilol 3.125 MG TABLET PO (21:07)
[2018-04-10] VITALS (16 sets, daily range): BP systolic 108–128; BP diastolic 68–87; PULSE 73–92; RESP 14–16; TEMP 35.6–36.7; O2SAT 93–97
[2018-04-10] MEDS: NON-FORMULARY 1 PO (03:41)
[2018-04-10 06:20] LABS: Anion Gap 9 (5-15); BUN 16 mg/dL (7-18); BUN/Creat Ratio 23.7 RATIO (10-20); Calcium,Total 8.9 mg/dL (8.5-10.1); Chloride 101 mmol/L (98-107); Creatinine, Serum 0.67 mg/dL (0.55-1.02); EST Glomerular Filtration Rate 93 mL/min (>60); Est Glom Filt Rate - Afr Amer 113 mL/min (>60); Estimated Creatinine Clearance 83.43 ml/min; Glucose 105 mg/dL (74-106); Potassium 3.9 mmol/L (3.5-5.1); Sodium Level 139 mmol/L (136-145)
[2018-04-10] MEDS: Aspirin 81 MG TAB.CHEW PO (08:23)
[2018-04-10] MEDS: Magnesium Oxide 400 MG Tablet PO ×2 (08:23→17:26)
[2018-04-10] MEDS: Spironolactone 25 MG Tablet PO (09:45)
[2018-04-10] MEDS: Enoxaparin 40 MG/0.4 ML Syringe SC (09:45)
[2018-04-10] MEDS: Carvedilol 3.125 MG TABLET PO ×2 (09:45→20:44)
[2018-04-10] MEDS: Losartan Potassium 100 MG Tablet PO (09:46)
--- NOTE | 2018-04-10 09:50 | RAD_ITS ---
STUDY: X-RAY CHEST REASON FOR EXAM: Female, 62 years old. CHF TECHNIQUE: PA and lateral views of the chest. COMPARISON: None. FINDINGS: The lungs are clear and expanded. There is no demonstrated pleural abnormality. There is borderline cardiomegaly. Normal mediastinum and lea. Normal visualized pulmonary arteries. Normal visualized aortic arch and descending thoracic aorta. Normal visualized thoracic spine. Normal visualized ribs, clavicles, and shoulders. There is no demonstrated abnormality of the visualized soft tissue structures of the upper abdomen. RAD/Chest PA and Lateral IMPRESSION: Lungs are clear Electronically Signed: Omer Mayorga DO at 11:31 EST Tel , Service support ,
[2018-04-10] MEDS: Furosemide 40 MG/4 ML Vial IV (10:11)
[2018-04-10] MEDS: 0.9% NaCl Peripheral Flush Adult/Peds IV (10:11)
--- NOTE | 2018-04-10 10:25 | PN.CARD_ITS ---
Subjectve: Patient seen and evaluated. Appears to be breathing much better Objective: Vital Signs Temp Pulse Resp BP Pulse Ox 97.9 F 83 16 114/79 97 04/10/18 09:36 04/10/18 09:36 04/10/18 09:36 04/10/18 09:36 04/10/18 09:36 Oxygen Flow Rate (L/min) 2 Oxygen Delivery Method Room Air Weight: 137 lb 5.568 oz Body Mass Index (BMI) 28.2 Intake and Output for Last 24 Hours 04/08/18 04/09/18 04/10/18 23:59 23:59 23:59 Intake Total 240 / 240 1460 / 1460 30 / 30 Output Total 1900 / 1900 2200 / 2200 400 / 400 Balance -1660 / -1660 -740 / -740 -370 / -370 General: Awake, Alert, Oriented x 3 HEENT: PERRL, EOMI, Sclera Non Icteric Neck: Supple, Good ROM, No Lymph Node Enlargement Lungs: Clear to auscultation Cardiovascular: Regular Rhythm, Normal S1, Normal S2, No Murmurs, No Rubs, No Gallops, Positive S3 Vascular: No Carotid Bruits, Normal Femoral Pulses, Normal Radial Pulses, Normal Dorsalis Pedal Pulse, Normal Posterior Tibial Pulses Abdomen: Bowel Sounds Present, Soft, Non Tender, No HSM, No Organomegaly Extremities: No Cyanosis, No Clubbing, No edema Neurological: No Focal Motor or Sensory Deficit 04/10/18 05:08: Sodium 139, Potassium 3.9, Chloride 101, Carbon Dioxide 29.0, Anion Gap 9, BUN 16, Creatinine 0.67, Est GFR (MDRD) Af Amer 113, Est GFR (MDRD) Non-Af 93, BUN/Creatinine Ratio 23.7 H, Glucose 105, Calcium 8.9 Rhythm: EKG: ECHO: Stress Test: Cardiac Cath: PCI: CT Surgery: Holter monitor: EPS: PPM: CXR: Chest CT Scan: Medical Necessity - Tobacco Use Smoking Status: Never smoker Assessment/Plan 1. Acute systolic congestive heart failure * Patient presents with shortness of breath and orthopnea and is noted to have elevated natruretic peptide level as well as severely reduced left ventricular ejection fraction. * Will recommend continue Coreg 3.125 mg twice a day * Continue losartan * Will continue spironolactone * Continue Lasix * Would recommend a left heart catheterization to exclude obstructive coronary disease. Depending on those findings further recommendations will be made. The risks benefits and alternatives have been explained to them they understand and agreed to proceed * 2. Left ventricular systolic dysfunction * He has evidence of severe left ventricular systolic dysfunction. The etiology of the above is unclear as noted. * We will continue to put her on the appropriate medications and then see how she does. * Certainly if there is no improvement within 90 days she may need to be evaluated for possible implantable defibrillator. * 3. Hypertension * Her blood pressure appears to be under fairly good control at this time on the losartan. She will certainly need additional agents. * * Thank you for allowing me to participate in the care of your patient. Please don't hesitate to call if any issues arise
--- NOTE | 2018-04-10 11:24 | PCM.PROGNOTE ---
Subjective: Patient seen and examined. Notes improvement in breathing. States she slept comfortably, lying flat overnight. Reports anxiety regarding cath tomorrow. Further information provided and patient was given iPad with education regarding cardiac catheterization. - Physical Exam General: Alert, Oriented x3, Cooperative HEENT: Atraumatic, PERRLA, EOMI, Normocephalic Neck: Supple, No JVD, Negative Carotid Bruits Lungs: Clear to auscultation, Normal air movement Cardiovascular: Regular rate, Regular Rhythm, Normal S1, Normal S2, No murmurs Abdomen: Bowel Sounds Present, Soft, Non Tender, Non-Distended Extremities: No clubbing, No cyanosis, No edema, Capillary Refill Less than 3 Seconds Skin: No rashes, No breakdown Musculoskeletal: No Tenderness to Palpation of Joints or Extremities Neurological: Cranial nerves II-XII grossly intact, Neuro grossly intact Psych/Mental Status: Normal Affect, Appropriate Vital Signs Temp Pulse Resp BP Pulse Ox 97.9 F 83 16 114/79 97 04/10/18 09:36 04/10/18 09:36 04/10/18 09:36 04/10/18 09:36 04/10/18 09:36 Oxygen Flow Rate (L/min) 2 Oxygen Delivery Method Room Air Weight: 137 lb 5.568 oz Body Mass Index (BMI) 28.2 Intake and Output for Last 24 Hours 04/08/18 04/09/18 04/10/18 23:59 23:59 23:59 Intake Total 240 / 240 1460 / 1460 30 / 30 Output Total 1900 / 1900 2200 / 2200 400 / 400 Balance -1660 / -1660 -740 / -740 -370 / -370 Microbiology Past 72 Hours 04/08/18 10:45 Blood Culture - Preliminary Blood Culture (Wb) #2 - Left Hand No growth in 48 hours. 04/08/18 10:13 Blood Culture - Preliminary Blood Culture (Wb) - Anticubital Left No growth in 48 hours. Laboratory Tests Past 24 Hrs 04/10/18 05:08 Sodium 139 Potassium 3.9 Chloride 101 Carbon Dioxide 29.0 Anion Gap 9 BUN 16 Creatinine 0.67 Estim Creat Clear Calc 83.43 Est GFR (MDRD) Af Amer 113 Est GFR (MDRD) Non-Af 93 BUN/Creatinine Ratio 23.7 H Glucose 105 Calcium 8.9 Medical Necessity - Tobacco Use Smoking Status: Never smoker Assessment/Plan 1. New onset systolic CHF- Cardiology consulted. Echo shows an EF of 10%, stage II diastolic dysfunction, mild mitral valve insufficiency, mild tricuspid valve insufficiency, RVSP estimated to be 35 mmHg. Continue Lasix, transitioned to oral. Strict I&O. Daily weight. Continue home losartan regimen. Started on carvedilol and spironolactone. Patient to undergo left heart cath 04/11/19 with further recommendations to follow per cardiology. 2. Hypertension- Stable, continue home losartan regimen. Carvedilol added as noted above. 3. Incidental finding focal sclerotic lesion T7 or T8 vertebrae- MRI thoracic spine unremarkable. 4. Hypothyroidism-thyroid levels within normal limits. Continue home regimen. 5. Elevated d-dimer-CTA without evidence of PE. DVT prophylaxis- Lovenox This patient was seen by FESTUS Miller under the supervision of Dr. Merino.
[2018-04-10] MEDS: Furosemide 40 MG Tablet PO (17:25)
[2018-04-10] MEDS: ALPRAZolam 0.25 MG Tablet PO (22:52)
[2018-04-10 23:05] LABS: Bacteria 0 SEEN /hpf (None Seen); Mucous, Urine 0 SEEN /hpf (<or=2+); Red Blood Cells-Urine 0 SEEN /hpf (0-5); White Blood Cells 0 SEEN /hpf (0-5)
[2018-04-10 23:19] LABS: Color, Urine Yellow (Yellow); Glucose, Dipstick Normal (Normal); Ketone-Dipstick Negative (Negative); Leukocyte Esterase-Dipstick Negative /ul (Negative); Nitrite-Dipstick Negative (Negative); Occult Blood-Urine Negative /ul (Negative); Protein-Dipstick Negative (Negative); Urine Bilirubin Dipstick Negative (Negative); Urine Clarity Clear (Clear); Urine Urobilinogen Normal (Normal); Urine pH 6.5 (5.0 - 8.0)
[2018-04-10 23:30] LABS: Squamous Epithelial Cells - UA 0-5 SEEN /hpf (5-10)
[2018-04-11] VITALS (13 sets, daily range): BP systolic 90–117; BP diastolic 51–76; PULSE 70–85; RESP 16; TEMP 36.1–36.7; O2SAT 93–96
[2018-04-11 05:02] LABS: Absolute Lymphocyte Count 1.16 X10^3/ul (0.83-4.51); Absolute Neutrophil Count 3.7 X10^3/uL (2.0-7.7); Basophil# 0.03 X10^3/uL; Basophil% 0.6 % (0-1); Eosinophil# 0.07 X10^3/uL; Eosinophils% 1.3 % (0-5); Hematocrit 49.7 % (37-47); Hemoglobin 16.5 g/dl (12.0-15.0); Lymphocyte # 1.16 X10^3/ul (4.0); Lymphocyte % 21.5 % (19-41); Mean Corp Hgb Conc 33.2 g/gl (32-36); Mean Corpuscular Hgb 31.9 pg (27.0-32.0); Mean Corpuscular Volume 96.1 fL (81-99); Mean Platelet Vol. 11.4 fl (6.2-12.0); Monocyte% 7.4 % (0-10); Neutrophil # 3.73 X10^3/uL (2.7-7.7); Platelet Count 235 K/mm3 (150-450); RBC Distribution Width CV 13.8 % (11.6-14.6); RBC Distribution Width SD 47.3 fl (35.1-43.9); Red Blood Count 5.17 M/mm3 (4.2-5.4); White Blood Count 5.4 K/mm3 (4.4-11.0)
[2018-04-11 05:05] LABS: POSITIVE COUNT NO; POSITIVE DIFFERENTIAL NO; POSITIVE MORPHOLOGY NO
[2018-04-11 05:09] LABS: Prothrombin Time (Protime)PT. 13.2 SECONDS (11.7-14.9)
[2018-04-11 05:10] LABS: Partial Thromboplast Time 25.1 Seconds (24.1-36.2)
[2018-04-11 05:28] LABS: Anion Gap 10 (5-15); BUN 27 mg/dL (7-18); BUN/Creat Ratio 32.6 RATIO (10-20); Calcium,Total 9.2 mg/dL (8.5-10.1); Chloride 101 mmol/L (98-107); Creatinine, Serum 0.83 mg/dL (0.55-1.02); EST Glomerular Filtration Rate 74 mL/min (>60); Est Glom Filt Rate - Afr Amer 89 mL/min (>60); Estimated Creatinine Clearance 67.35 ml/min; Glucose 113 mg/dL (74-106); Potassium 4.5 mmol/L (3.5-5.1); Sodium Level 139 mmol/L (136-145)
[2018-04-11] MEDS: Aspirin 81 MG TAB.CHEW PO (05:52)
[2018-04-11] MEDS: NON-FORMULARY 1 PO (05:53)
[2018-04-11] MEDS: 0.9% NaCl Peripheral Flush Adult/Peds IV (05:53)
[2018-04-11] MEDS: Carvedilol 3.125 MG TABLET PO (05:53)
[2018-04-11] MEDS: Losartan Potassium 100 MG Tablet PO (05:53)
[2018-04-11] MEDS: 0.9% Normal Saline 1,000 ML 15 ML IV (05:54)
--- NOTE | 2018-04-11 05:55 | EKG12_ITS ---
Test Reason : AM EKG Blood Pressure : / mmHG Vent. Rate : 050 BPM Atrial Rate : 050 BPM P-R Int : 164 ms QRS Dur : 070 ms QT Int : 472 ms P-R-T Axes : 042 003 011 degrees QTc Int : 430 ms Sinus bradycardia Otherwise normal ECG When compared with ECG of 08-APR-2018 10:26, MANUAL COMPARISON REQUIRED, DATA IS UNCONFIRMED Confirmed by INGRID MALONE, JLUIS ([id number]), state editor ELVIA FIELD ([id number] on 04/12/2018 9:04:14 AM Referred By: Michael Merino Confirmed By:JLUIS QUINTERO MD
--- NOTE | 2018-04-11 08:16 | PCM.PN.CARD ---
Subjectve: Patient seen and evaluated. Appears to be doing well and underwent cardiac catheterization Objective: Vital Signs Temp Pulse Resp BP Pulse Ox 97.6 F L 81 16 100/63 95 04/11/18 05:45 04/11/18 07:00 04/11/18 05:45 04/11/18 05:45 04/11/18 05:45 Oxygen Flow Rate (L/min) 2 Oxygen Delivery Method Room Air Weight: 130 lb 8.218 oz Body Mass Index (BMI) 28.2 Intake and Output for Last 24 Hours 04/09/18 04/10/18 04/11/18 23:59 23:59 23:59 Intake Total 1460 / 1460 1090 / 1090 30 / 30 Output Total 2200 / 2200 2900 / 2900 300 / 300 Balance -740 / -740 -1810 / -1810 -270 / -270 General: Awake, Alert, Oriented x 3 HEENT: PERRL, EOMI, Sclera Non Icteric Neck: Supple, Good ROM, No Lymph Node Enlargement Lungs: Clear to auscultation Cardiovascular: Regular Rhythm, Normal S1, Normal S2, No Murmurs, No Rubs, No Gallops Vascular: No Carotid Bruits, Normal Femoral Pulses, Normal Radial Pulses, Normal Dorsalis Pedal Pulse, Normal Posterior Tibial Pulses Abdomen: Bowel Sounds Present, Soft, Non Tender, No HSM, No Organomegaly Extremities: No Cyanosis, No Clubbing, No edema Neurological: No Focal Motor or Sensory Deficit 04/10/18 22:55: Urine Color Yellow, Urine Clarity Clear, Urine pH 6.5, Ur Specific Justin 1.010, Urine Protein Negative, Urine Glucose (UA) Normal, Urine Ketones Negative, Urine Occult Blood Negative, Urine Nitrite Negative, Urine Bilirubin Negative, Urine Urobilinogen Normal, Ur Leukocyte Esterase Negative, Urine RBC 0 SEEN, Urine WBC 0 SEEN 04/11/18 04:48: WBC 5.4, RBC 5.17, Hgb 16.5 H, Hct 49.7 H, MCV 96.1, MCH 31.9, MCHC 33.2, RDW 13.8, RDW Differential 47.3 H, Plt Count 235, MPV 11.4, Immature Gran % (Auto) 0.200, Neut % (Auto) 69.0, Lymph % (Auto) 21.5, Warren % (Auto) 7.4, Eos % (Auto) 1.3, Baso % (Auto) 0.6, Absolute Neuts (auto) 3.7, Total Counted Not Reportable 04/11/18 04:48: PT 13.2, INR 1.0, APTT 25.1 04/11/18 04:48: Sodium 139, Potassium 4.5, Chloride 101, Carbon Dioxide 28.0, Anion Gap 10, BUN 27 H, Creatinine 0.83, Est GFR (MDRD) Af Amer 89, Est GFR (MDRD) Non-Af 74, BUN/Creatinine Ratio 32.6 H, Glucose 113 H, Calcium 9.2 Rhythm: EKG: ECHO: Stress Test: Cardiac Cath: PCI: CT Surgery: Holter monitor: EPS: PPM: CXR: Chest CT Scan: Medical Necessity - Tobacco Use Smoking Status: Never smoker Assessment/Plan 1. Acute systolic congestive heart failure Patient presents with shortness of breath and orthopnea and is noted to have elevated natriuretic peptide level as well as severely reduced left ventricular ejection fraction. Will recommend continue Coreg 3.125 mg twice a day Continue losartan Will continue spironolactone Continue Lasix Cardiac catheterization performed this morning demonstrated essentially normal coronary arteries with an estimated ejection fraction of 10-15%. 2. Left ventricular systolic dysfunction He has evidence of severe left ventricular systolic dysfunction. The etiology of the above is unclear as noted. We will continue to put her on the appropriate medications and then see how she does. Certainly if there is no improvement within 90 days she may need to be evaluated for possible implantable defibrillator. 3. Hypertension Her blood pressure appears to be under fairly good control at this time on the losartan. She will certainly need additional agents. She can probably be discharged later today for outpatient follow-up in my office Thank you for allowing me to participate in the care of your patient. Please don't hesitate to call if any issues arise
--- NOTE | 2018-04-11 08:25 | CL.D_ITS ---
Patient Name: TOOTIE CONNER Study Date: 04/11/2018 Performing: Med Carvajal MD Ht: 59 inches 150 cm : 1955 Wt: 130.2 lbs 59 kg Age: 62 Gender: female BSA: 1.54 PROCEDURE(S) PERFORMED TR14-DTY/COR/LV CLINICAL PROFILE AND INDICATIONS Indications: Cardiomyopathy Heart Failure: NYHA Class: 3, NYHA Class: 3, Newly Diagnosed: Yes, Heart Failure Type: Systolic Stress/Imaging Stress/Image Study Performed: No CAD Presentations: No Sxs, no angina. CONCLUSIONS Normal coronary arteries Cardiomyopathy: Dilated RECOMMENDATIONS Medical therapy DESCRIPTION OF PROCEDURE The patient arrived to the procedure lab. The risks and benefits of the procedure as well as a full d escription of our services here and current unavailability of surgical backup were fully explained to the patient and/or their significant other prior to the catheterization. The Timeout was completed, verifying the correct patient and procedure. The patient's procedural site was prepped and draped in the usual fashion. Local anesthetic was given subcutaneously to right groin region with Lidocaine 2%. Using a modified Seldinger technique, arterial access was obtained via the right femoral artery, a 5 Fr sheath was inserted. Left Coronary Artery selective angiography was performed in multiple views u sing a 5 Fr. JL 5 catheter. Right Coronary Artery selective angiography was then performed in multipl e views using a 5 Fr. 3DRC (Oneil) catheter. Left Ventriculography was performed in LANDERS projection using a 5 Fr. Pigtail catheter. LV to AO pullback pressures were then recorded.Contrast was injected through the sheath and the Right Iliac and Femoral artery were assessed for possible diana sure device.The arterial sheath was pulled and a Mynx closure device was deployed for hemostasis CORONARY ANGIOGRAPHY DOMINANCE: Right Dominant LEFT HEART ASSESSMENT Left Ventricular Ejection Fraction: by LV Gram 10 % Global Hypokinesis - Severe Depressed Left Ventricular systolic function Cardiomyopathy: Dilated LEFT MAIN: Angiographically normal LEFT ANTERIOR DECENDING ARTERY: Angiographically normal CIRCUMFLEX ARTERY: Angiographically normal RIGHT CORONARY ARTERY: Angiographically normal COMPLICATIONS No Complications PROCEDURE MEDICATIONS Versed 1 mg IV Oxygen: 2 L/min via nasal cannula SUMMARY OF HEMODYNAMIC DATA Time AIR REST ECG 07:32:29 AO 116/73 (91) SA 07:50:47 LV 112/2, 5 07:55:40 LV 112/3, 5 07:55:47 LV 96/0, 3 07:57:01 LV 99/-2, 3 07:57:05 AO 108/52 (74) 07:57:10 Signed By Med Carvajal MD On 04/11/2018 08:24:08 Med Carvajal MD
--- NOTE | 2018-04-11 08:57 | CASEMGMT ---
According to [facility] website, the following are in-network tertiary facilities: [facility], [facility], [facility], [facility], [facility], [facility], and . Farida SWEENEY CM
--- NOTE | 2018-04-11 09:02 | PN.CARD_ITS ---
Subjectve: Patient seen and evaluated. Appears to be doing well and underwent cardiac catheterization Objective: Vital Signs Temp Pulse Resp BP Pulse Ox 97.6 F L 81 16 100/63 95 04/11/18 05:45 04/11/18 07:00 04/11/18 05:45 04/11/18 05:45 04/11/18 05:45 Oxygen Flow Rate (L/min) 2 Oxygen Delivery Method Room Air Weight: 130 lb 8.218 oz Body Mass Index (BMI) 28.2 Intake and Output for Last 24 Hours 04/09/18 04/10/18 04/11/18 23:59 23:59 23:59 Intake Total 1460 / 1460 1090 / 1090 30 / 30 Output Total 2200 / 2200 2900 / 2900 300 / 300 Balance -740 / -740 -1810 / -1810 -270 / -270 General: Awake, Alert, Oriented x 3 HEENT: PERRL, EOMI, Sclera Non Icteric Neck: Supple, Good ROM, No Lymph Node Enlargement Lungs: Clear to auscultation Cardiovascular: Regular Rhythm, Normal S1, Normal S2, No Murmurs, No Rubs, No Gallops Vascular: No Carotid Bruits, Normal Femoral Pulses, Normal Radial Pulses, Normal Dorsalis Pedal Pulse, Normal Posterior Tibial Pulses Abdomen: Bowel Sounds Present, Soft, Non Tender, No HSM, No Organomegaly Extremities: No Cyanosis, No Clubbing, No edema Neurological: No Focal Motor or Sensory Deficit 04/10/18 22:55: Urine Color Yellow, Urine Clarity Clear, Urine pH 6.5, Ur Specific [place] 1.010, Urine Protein Negative, Urine Glucose (UA) Normal, Urine Ketones Negative, Urine Occult Blood Negative, Urine Nitrite Negative, Urine Bilirubin Negative, Urine Urobilinogen Normal, Ur Leukocyte Esterase Negative, Urine RBC 0 SEEN, Urine WBC 0 SEEN 04/11/18 04:48: WBC 5.4, RBC 5.17, Hgb 16.5 H, Hct 49.7 H, MCV 96.1, MCH 31.9, MCHC 33.2, RDW 13.8, RDW Differential 47.3 H, Plt Count 235, MPV 11.4, Immature Gran % (Auto) 0.200, Neut % (Auto) 69.0, Lymph % (Auto) 21.5, [place] % (Auto) 7.4, Eos % (Auto) 1.3, Baso % (Auto) 0.6, Absolute Neuts (auto) 3.7, Total Counted Not Reportable 04/11/18 04:48: PT 13.2, INR 1.0, APTT 25.1 04/11/18 04:48: Sodium 139, Potassium 4.5, Chloride 101, Carbon Dioxide 28.0, Anion Gap 10, BUN 27 H, Creatinine 0.83, Est GFR (MDRD) Af Amer 89, Est GFR (MDRD) Non-Af 74, BUN/Creatinine Ratio 32.6 H, Glucose 113 H, Calcium 9.2 Rhythm: EKG: ECHO: Stress Test: Cardiac Cath: PCI: CT Surgery: Holter monitor: EPS: PPM: CXR: Chest CT Scan: Medical Necessity - Tobacco Use Smoking Status: Never smoker Assessment/Plan 1. Acute systolic congestive heart failure * Patient presents with shortness of breath and orthopnea and is noted to have elevated natriuretic peptide level as well as severely reduced left ventricular ejection fraction. * Will recommend continue Coreg 3.125 mg twice a day * Continue losartan * Will continue spironolactone * Continue Lasix * Cardiac catheterization performed this morning demonstrated essentially normal coronary arteries with an estimated ejection fraction of 10-15%. 2. Left ventricular systolic dysfunction * He has evidence of severe left ventricular systolic dysfunction. The etiology of the above is unclear as noted. * We will continue to put her on the appropriate medications and then see how she does. * Certainly if there is no improvement within 90 days she may need to be evaluat ed for possible implantable defibrillator. * 3. Hypertension * Her blood pressure appears to be under fairly good control at this time on the losartan. She will certainly need additional agents. * * * She can probably be discharged later today for outpatient follow-up in my office * Thank you for allowing me to participate in the care of your patient. Please don't hesitate to call if any issues arise
[2018-04-11] MEDS: Magnesium Oxide 400 MG Tablet PO (09:34)
[2018-04-11] MEDS: Spironolactone 25 MG Tablet PO (09:34)
--- NOTE | 2018-04-11 11:06 | NURSING ---
Patient walked in marte at this time - end of bedrest. Pt sat at side of bed. Puncture site WNL - No signs of hematoma or bleeding. Pt denies any pain. Pulses present in right lower extrem. Pt ambulated in marte around nurses station. Pt tolerated well. Site still remains WNL.
--- NOTE | 2018-04-11 11:33 | PCM.DC ---
- Discharge Diagnoses Current Active Problems: Current Active and Chronic Problems Acute systolic CHF Hypertension You will use the following diet at home:: Cardiac Discharge Activity: - - Follow post-op cath instructions. Call your doctor if you observe: Shortness of breath, Dizziness, Fainting spells, Chest pain Instructions: Tips for Using Less Salt, Low-Salt Choices, Heart Failure: Making Changes to Your Diet Allergies/Adverse Reactions: Allergies acetaminophen [From Lortab] Adverse Reaction (Verified 04/08/18 09:42) Nausea hydrocodone [From Lortab] Adverse Reaction (Verified 04/08/18 09:42) Nausea Medications to take at Discharge Calcium Citrate/Vitamin D3 [Calcium Citrate-Vit D3 Tablet] 1,000 mg PO DAILY 04/08/18 Losartan Potassium [Cozaar] 75 mg PO DAILY 04/08/18 [place]-3 Fatty Acids [Fish Oil] 1,500 mg PO DAILY 04/08/18 Pnv No.121/Iron/Folic Acid [ Multivitamin Tablet] 1 each PO DAILY 04/08/18 Aspirin [Aspirin, Baby] 81 mg PO DAILY@0800 #30 tab.chew 04/11/18 Carvedilol [Coreg (Beta Argenis)] 3.125 mg PO BID #60 tablet 04/11/18 Furosemide [Lasix] 40 mg PO BID@1000,1800 #60 tablet 04/11/18 Magnesium Oxide [Mag-Ox 400] 400 mg PO BIDCM #60 tablet 04/11/18 Spironolactone [Aldactone] 25 mg PO DAILY #30 tablet 04/11/18 The following prescriptions were given: Aspirin [Aspirin, Baby] 81 mg PO DAILY@0800 #30 tab.chew Furosemide [Lasix] 40 mg PO BID@1000,1800 #60 tablet Spironolactone [Aldactone] 25 mg PO DAILY #30 tablet Carvedilol [Coreg (Beta Argenis)] 3.125 mg PO BID #60 tablet Magnesium Oxide [Mag-Ox 400] 400 mg PO BIDCM #60 tablet Primary Care Physician: Faina Cunningham NP-C [Primary Care Provider] - Please follow up with your Primary Care Physician in: 1 Week Test Results: Test results from this visit will be discussed in further detail at your follow-up appointment, if applicable. Please Follow Up With: Med Carvajal MD - See MATE CHIEF/PA When: 1-2 Weeks Proposed Discharge Date: 04/11/18
--- NOTE | 2018-04-11 11:36 | DCINST_ITS ---
- Discharge Diagnoses Current Active Problems: Current Active and Chronic Problems Acute systolic CHF Hypertension You will use the following diet at home:: Cardiac Discharge Activity: - - Follow post-op cath instructions. Call your doctor if you observe: Shortness of breath, Dizziness, Fainting spells, Chest pain Instructions: Tips for Using Less Salt, Low-Salt Choices, Heart Failure: Making Changes to Your Diet Allergies/Adverse Reactions: Allergies acetaminophen [From Lortab] Adverse Reaction (Verified 04/08/18 09:42) Nausea hydrocodone [From Lortab] Adverse Reaction (Verified 04/08/18 09:42) Nausea Medications to take at Discharge Calcium Citrate/Vitamin D3 [Calcium Citrate-Vit D3 Tablet] 1,000 mg PO DAILY 04/08/18 Losartan Potassium [Cozaar] 75 mg PO DAILY 04/08/18 [place]-3 Fatty Acids [Fish Oil] 1,500 mg PO DAILY 04/08/18 Pnv No.121/Iron/Folic Acid [ Multivitamin Tablet] 1 each PO DAILY 04/08/18 Aspirin [Aspirin, Baby] 81 mg PO DAILY@0800 #30 tab.chew 04/11/18 Carvedilol [Coreg (Beta Argenis)] 3.125 mg PO BID #60 tablet 04/11/18 Furosemide [Lasix] 40 mg PO BID@1000,1800 #60 tablet 04/11/18 Magnesium Oxide [Mag-Ox 400] 400 mg PO BIDCM #60 tablet 04/11/18 Spironolactone [Aldactone] 25 mg PO DAILY #30 tablet 04/11/18 The following prescriptions were given: Aspirin [Aspirin, Baby] 81 mg PO DAILY@0800 #30 tab.chew Furosemide [Lasix] 40 mg PO BID@1000,1800 #60 tablet Spironolactone [Aldactone] 25 mg PO DAILY #30 tablet Carvedilol [Coreg (Beta Argenis)] 3.125 mg PO BID #60 tablet Magnesium Oxide [Mag-Ox 400] 400 mg PO BIDCM #60 tablet Primary Care Physician: Faina Cunningham NP-C [Primary Care Provider] - Please follow up with your Primary Care Physician in: 1 Week Test Results: Test results from this visit will be discussed in further detail at your follow- up appointment, if applicable. Please Follow Up With: Med Carvajal MD - See DIRECT MARKETING SPECIALIST/PA When: 1-2 Weeks Proposed Discharge Date: 04/11/18
--- NOTE | 2018-04-11 11:37 | PCM.DC.SUM ---
<Catalina Bhardwaj - Last Filed: 04/11/18 11:50> Discharge Date and Diagnosis Date of Admission: 04/08/18 Date of Discharge: 04/11/18 - Primary Discharge Diagnosis 1. New onset systolic CHF 2. Hypertension 3. Hypothyroidism 4. Elevated d-dimer, PE ruled out - Secondary Discharge Diagnosis Chronic Problems Hypertension (Chronic) Hospital Course and Treatment Imaging Results: Diagnostic Data Chest CTA 04/08/18 10:53 IMPRESSION: Bilateral pleural effusions. Fluid is seen in the left major fissure. Bibasilar atelectasis. Focal sclerotic lesion is seen in the T7 or T8 vertebrae. Electronically Signed: Jayce Granger MD at 11:32 EST Tel [phone], Service support , Thoracic Spine MRI 04/08/18 15:39 IMPRESSION: Bilateral pleural effusions. Otherwise unremarkable MRI of the thoracic spine. Electronically Signed: Kareen Urban MD at 18:40 EST Tel , Service support , Chest X-Ray 04/10/18 09:50 IMPRESSION: Lungs are clear Electronically Signed: Omer Mayorga DO at 11:31 EST Tel , Service support , Dr. Carvajal- Cardiology Operations: None Procedures: 2-D Echocardiogram, Cardiac catheterization Summary of Care Provided: The patient is a 62 year old F admitted 04/08/2018 due to shortness of breath. 1. New onset systolic CHF- Cardiology consulted during admission. Echo shows an EF of 10%, stage II diastolic dysfunction, mild mitral valve insufficiency, mild tricuspid valve insufficiency, RVSP estimated to be 35 mmHg. Patient underwent left heart catheterization which showed essentially normal coronary arteries with an estimated ejection fraction of 10-15%. Patient will continue aspirin, carvedilol, losartan, spironolactone, Lasix. Follow-up with cardiology in 1-2 weeks. Plan for patient to have repeat echo in 60-90 days to reassess left ventricular systolic function. Follow-up with primary care physician in 1 week. 2. Hypertension- Stable, continue losartan, carvedilol, spironolactone, Lasix. 3. Incidental finding focal sclerotic lesion T7 or T8 vertebrae- MRI thoracic spine unremarkable. 4. Hypothyroidism-thyroid levels within normal limits. Continue home regimen. 5. Elevated d-dimer-CTA without evidence of PE. General: Alert, Oriented x3, Cooperative HEENT: Atraumatic, PERRLA, EOMI, Normocephalic Neck: Supple, No JVD, Negative Carotid Bruits Lungs: Clear to auscultation, Normal air movement Cardiovascular: Regular rate, Regular Rhythm, Normal S1, Normal S2, No murmurs Abdomen: Bowel Sounds Present, Soft, Non Tender, Non-Distended Extremities: No clubbing, No cyanosis, No edema, Capillary Refill Less than 3 Seconds Skin: No rashes, No breakdown Musculoskeletal: No Tenderness to Palpation of Joints or Extremities Neurological: Cranial nerves II-XII grossly intact, Neuro grossly intact Psych/Mental Status: Normal Affect, Appropriate Patient seen and examined prior to discharge. Physical assessment as noted above. Patient is stable for discharge with follow up recommendations as noted above. This patient was seen by FESTUS Miller under the supervision of Dr. Falk. - Physical Exam Vital Signs Temp Pulse Resp BP Pulse Ox 97.0 F L 80 16 90/51 L 94 04/11/18 11:00 04/11/18 11:00 04/11/18 11:00 04/11/18 11:00 04/11/18 11:00 Oxygen Flow Rate (L/min) 2 Oxygen Delivery Method Room Air Weight: 130 lb 8.218 oz Body Mass Index (BMI) 28.2 Intake and Output for Last 24 Hours 04/09/18 04/10/18 04/11/18 23:59 23:59 23:59 Intake Total 1460 / 1460 1090 / 1090 30 / 30 Output Total 2200 / 2200 2900 / 2900 300 / 300 Balance -740 / -740 -1810 / -1810 -270 / -270 Microbiology Past 72 Hours 04/08/18 10:45 Blood Culture - Preliminary Blood Culture (Wb) #2 - Left Hand No growth in 48 hours. 04/08/18 10:13 Blood Culture - Preliminary Blood Culture (Wb) - Anticubital Left No growth in 48 hours. Laboratory Tests Past 24 Hrs 04/10/18 04/11/18 04/11/18 22:55 04:48 04:48 WBC 5.4 RBC 5.17 Hgb 16.5 H Hct 49.7 H MCV 96.1 MCH 31.9 MCHC 33.2 RDW 13.8 RDW Differential 47.3 H Plt Count 235 MPV 11.4 Immature Gran % (Auto) 0.200 Neut % (Auto) 69.0 Lymph % (Auto) 21.5 [place] % (Auto) 7.4 Eos % (Auto) 1.3 Baso % (Auto) 0.6 Absolute Neuts (auto) 3.7 Absolute Lymphs (auto) 1.16 Total Counted Not Reportable PT 13.2 INR 1.0 APTT 25.1 Sodium Potassium Chloride Carbon Dioxide Anion Gap BUN Creatinine Estim Creat Clear Calc Est GFR (MDRD) Af Amer Est GFR (MDRD) Non-Af BUN/Creatinine Ratio Glucose Calcium Urine Color Yellow Urine Clarity Clear Urine pH 6.5 Ur Specific [place] 1.010 Urine Protein Negative Urine Glucose (UA) Normal Urine Ketones Negative Urine Occult Blood Negative Urine Nitrite Negative Urine Bilirubin Negative Urine Urobilinogen Normal Ur Leukocyte Esterase Negative Urine RBC 0 SEEN Urine WBC 0 SEEN Ur Squamous Epith Cells 0-5 SEEN Urine Bacteria 0 SEEN Urine Mucus 0 SEEN 04/11/18 04:48 WBC RBC Hgb Hct MCV MCH MCHC RDW RDW Differential Plt Count MPV Immature Gran % (Auto) Neut % (Auto) Lymph % (Auto) [place] % (Auto) Eos % (Auto) Baso % (Auto) Absolute Neuts (auto) Absolute Lymphs (auto) Total Counted PT INR APTT Sodium 139 Potassium 4.5 Chloride 101 Carbon Dioxide 28.0 Anion Gap 10 BUN 27 H Creatinine 0.83 Estim Creat Clear Calc 67.35 Est GFR (MDRD) Af Amer 89 Est GFR (MDRD) Non-Af 74 BUN/Creatinine Ratio 32.6 H Glucose 113 H Calcium 9.2 Urine Color Urine Clarity Urine pH Ur Specific [place] Urine Protein Urine Glucose (UA) Urine Ketones Urine Occult Blood Urine Nitrite Urine Bilirubin Urine Urobilinogen Ur Leukocyte Esterase Urine RBC Urine WBC Ur Squamous Epith Cells Urine Bacteria Urine Mucus Discharge Diet: Low fat/ Low Cholesterol, 2000 mg Sodium Diet Discharge Activity: - - Follow post-op cath instructions. Call your doctor if you observe: Shortness of breath, Dizziness, Fainting spells, Chest pain Home Medications: Medications to take at Discharge Calcium Citrate/Vitamin D3 [Calcium Citrate-Vit D3 Tablet] 1,000 mg PO DAILY 04/08/18 Losartan Potassium [Cozaar] 75 mg PO DAILY 04/08/18 [place]-3 Fatty Acids [Fish Oil] 1,500 mg PO DAILY 04/08/18 Pnv No.121/Iron/Folic Acid [ Multivitamin Tablet] 1 each PO DAILY 04/08/18 Aspirin [Aspirin, Baby] 81 mg PO DAILY@0800 #30 tab.chew 04/11/18 Carvedilol [Coreg (Beta Argenis)] 3.125 mg PO BID #60 tablet 04/11/18 Furosemide [Lasix] 40 mg PO BID@1000,1800 #60 tablet 04/11/18 Magnesium Oxide [Mag-Ox 400] 400 mg PO BIDCM #60 tablet 04/11/18 Spironolactone [Aldactone] 25 mg PO DAILY #30 tablet 04/11/18 Following Prescrptions Were Given to Patient: Aspirin [Aspirin, Baby] 81 mg PO DAILY@0800 #30 tab.chew Furosemide [Lasix] 40 mg PO BID@1000,1800 #60 tablet Spironolactone [Aldactone] 25 mg PO DAILY #30 tablet Carvedilol [Coreg (Beta Argenis)] 3.125 mg PO BID #60 tablet Magnesium Oxide [Mag-Ox 400] 400 mg PO BIDCM #60 tablet Primary Care Physician: Faina Cunningham NP-C [Primary Care Provider] - Please follow up with your Primary Care Physician in: 1 Week Please Follow Up With: Med Carvajal MD - See QC CHEMIST/PA When: 1-2 Weeks Patient Instructions: Tips for Using Less Salt, Low-Salt Choices, Heart Failure: Making Changes to Your Diet Disposition: Home Minutes spent on discharge:: 35 Patient Condition:: Stable Medical Necessity - Tobacco Use Smoking Status: Never smoker Meaningful Use Info Meaningful Use Diagnoses (Choose all that apply): CHF - CHF JANEL/ARB ordered at discharge?: Yes Documented LVEF (%): 10 <Magdy Falk - Last Filed: 04/11/18 14:40> Discharge Date and Diagnosis - Secondary Discharge Diagnosis Chronic Problems Hypertension (Chronic) Hospital Course and Treatment Operations: None Procedures: 2-D Echocardiogram, Cardiac catheterization Summary of Care Provided: Patient seen and examined independently. Data reviewed. I agree with the above note by the nurse practitioner. The patient is a 62 year old F presents with shortness of breath. Patient had bilateral pleural effusions and a BNP 1992. Patient was in clinical heart failure and was started on Lasix. Patient improved from that standpoint is currently on room air. Patient had an ejection fraction of 10-15% on echocardiogram. Patient underwent a left heart catheterization that showed normal coronaries. The etiology of the patient's cardiomyopathy is unknown at this time but it may be viral. Patient will continue with losartan, Lasix, spironolactone and carvedilol. Patient will follow up with cardiology for further left ventricular assessment. [] - Physical Exam General: Alert, Cooperative, No apparent distress HEENT: Atraumatic, Normocephalic Oral: Moist Mucosa, No Gingival or Mucosal Lesions/ Ulcerations Neck: No Nodes, Thyroid Normal Size and Texture Lungs: Clear to auscultation, Normal air movement, No rhonchi, No wheeze Cardiovascular: Regular rate, Regular Rhythm, Normal S1, Normal S2, No murmurs Abdomen: Bowel Sounds Present, Soft, Non Tender, Non-Distended, No Hepato-splenomegaly Extremities: No edema, No Calf Tenderness Skin: No rashes, No breakdown Vital Signs Temp Pulse Resp BP Pulse Ox 36.7 C 82 16 101/72 94 04/11/18 13:36 04/11/18 13:36 04/11/18 13:36 04/11/18 13:36 04/11/18 13:36 Oxygen Flow Rate (L/min) 2 Oxygen Delivery Method Room Air Weight: 59.2 kg Body Mass Index (BMI) 28.2 Intake and Output for Last 24 Hours 04/09/18 04/10/18 04/11/18 23:59 23:59 23:59 Intake Total 1460 / 1460 1090 / 1090 680 / 680 Output Total 2200 / 2200 2900 / 2900 300 / 300 Balance -740 / -740 -1810 / -1810 380 / 380 Microbiology Past 72 Hours 04/08/18 10:45 Blood Culture - Preliminary Blood Culture (Wb) #2 - Left Hand No growth in 48 hours. 04/08/18 10:13 Blood Culture - Preliminary Blood Culture (Wb) - Anticubital Left No growth in 48 hours. Laboratory Tests Past 24 Hrs 04/10/18 04/11/18 04/11/18 22:55 04:48 04:48 WBC 5.4 RBC 5.17 Hgb 16.5 H Hct 49.7 H MCV 96.1 MCH 31.9 MCHC 33.2 RDW 13.8 RDW Differential 47.3 H Plt Count 235 MPV 11.4 Immature Gran % (Auto) 0.200 Neut % (Auto) 69.0 Lymph % (Auto) 21.5 [place] % (Auto) 7.4 Eos % (Auto) 1.3 Baso % (Auto) 0.6 Absolute Neuts (auto) 3.7 Absolute Lymphs (auto) 1.16 Total Counted Not Reportable PT 13.2 INR 1.0 APTT 25.1 Sodium Potassium Chloride Carbon Dioxide Anion Gap BUN Creatinine Estim Creat Clear Calc Est GFR (MDRD) Af Amer Est GFR (MDRD) Non-Af BUN/Creatinine Ratio Glucose Calcium Urine Color Yellow Urine Clarity Clear Urine pH 6.5 Ur Specific [place] 1.010 Urine Protein Negative Urine Glucose (UA) Normal Urine Ketones Negative Urine Occult Blood Negative Urine Nitrite Negative Urine Bilirubin Negative Urine Urobilinogen Normal Ur Leukocyte Esterase Negative Urine RBC 0 SEEN Urine WBC 0 SEEN Ur Squamous Epith Cells 0-5 SEEN Urine Bacteria 0 SEEN Urine Mucus 0 SEEN 04/11/18 04:48 WBC RBC Hgb Hct MCV MCH MCHC RDW RDW Differential Plt Count MPV Immature Gran % (Auto) Neut % (Auto) Lymph % (Auto) [place] % (Auto) Eos % (Auto) Baso % (Auto) Absolute Neuts (auto) Absolute Lymphs (auto) Total Counted PT INR APTT Sodium 139 Potassium 4.5 Chloride 101 Carbon Dioxide 28.0 Anion Gap 10 BUN 27 H Creatinine 0.83 Estim Creat Clear Calc 67.35 Est GFR (MDRD) Af Amer 89 Est GFR (MDRD) Non-Af 74 BUN/Creatinine Ratio 32.6 H Glucose 113 H Calcium 9.2 Urine Color Urine Clarity Urine pH Ur Specific [place] Urine Protein Urine Glucose (UA) Urine Ketones Urine Occult Blood Urine Nitrite Urine Bilirubin Urine Urobilinogen Ur Leukocyte Esterase Urine RBC Urine WBC Ur Squamous Epith Cells Urine Bacteria Urine Mucus Discharge Diet: Low fat/ Low Cholesterol, 2000 mg Sodium Diet Discharge Activity: - Call your doctor if you observe: Shortness of breath, Dizziness, Fainting spells, Chest pain Disposition: Home Minutes spent on discharge:: 35 Patient Condition:: Stable Medical Necessity - Tobacco Use Smoking Status: Never smoker Meaningful Use Info Meaningful Use Diagnoses (Choose all that apply): CHF - CHF JANEL/ARB ordered at discharge?: Yes Documented LVEF (%): 10 Code Visit Inpatient E&M: 85963 Disch Hosp
--- NOTE | 2018-04-11 11:50 | DS.PCM_ITS ---
<Catalina Bhardwaj - Last Filed: 04/11/18 11:50> Discharge Date and Diagnosis Date of Admission: 04/08/18 Date of Discharge: 04/11/18 - Primary Discharge Diagnosis 1. New onset systolic CHF 2. Hypertension 3. Hypothyroidism 4. Elevated d-dimer, PE ruled out - Secondary Discharge Diagnosis Chronic Problems Hypertension (Chronic) Hospital Course and Treatment Imaging Results: Diagnostic Data Chest CTA 04/08/18 10:53 IMPRESSION: Bilateral pleural effusions. Fluid is seen in the left major fissure. Bibasilar atelectasis. Focal sclerotic lesion is seen in the T7 or T8 vertebrae. Electronically Signed: Jayce Granger MD at 11:32 EST Tel [phone], Service support , Thoracic Spine MRI 04/08/18 15:39 IMPRESSION: Bilateral pleural effusions. Otherwise unremarkable MRI of the thoracic spine. Electronically Signed: Kareen Urban MD at 18:40 EST Tel , Service support , Chest X-Ray 04/10/18 09:50 IMPRESSION: Lungs are clear Electronically Signed: Omer Mayorga DO at 11:31 EST Tel , Service support , Dr. Carvajal- Cardiology Operations: None Procedures: 2-D Echocardiogram, Cardiac catheterization Summary of Care Provided: The patient is a 62 year old F admitted 04/08/2018 due to shortness of breath. 1. New onset systolic CHF- Cardiology consulted during admission. Echo shows an EF of 10%, stage II diastolic dysfunction, mild mitral valve insufficiency, mild tricuspid valve insufficiency, RVSP estimated to be 35 mmHg. Patient underwent left heart catheterization which showed essentially normal coronary arteries with an estimated ejection fraction of 10-15%. Patient will continue aspirin, carvedilol, losartan, spironolactone, Lasix. Follow-up with cardiology in 1-2 weeks. Plan for patient to have repeat echo in 60-90 days to reassess left ventricular systolic function. Follow-up with primary care physician in 1 week. 2. Hypertension- Stable, continue losartan, carvedilol, spironolactone, Lasix. 3. Incidental finding focal sclerotic lesion T7 or T8 vertebrae- MRI thoracic spine unremarkable. 4. Hypothyroidism-thyroid levels within normal limits. Continue home regimen. 5. Elevated d-dimer-CTA without evidence of PE. General: Alert, Oriented x3, Cooperative HEENT: Atraumatic, PERRLA, EOMI, Normocephalic Neck: Supple, No JVD, Negative Carotid Bruits Lungs: Clear to auscultation, Normal air movement Cardiovascular: Regular rate, Regular Rhythm, Normal S1, Normal S2, No murmurs Abdomen: Bowel Sounds Present, Soft, Non Tender, Non-Distended Extremities: No clubbing, No cyanosis, No edema, Capillary Refill Less than 3 Seconds Skin: No rashes, No breakdown Musculoskeletal: No Tenderness to Palpation of Joints or Extremities Neurological: Cranial nerves II-XII grossly intact, Neuro grossly intact Psych/Mental Status: Normal Affect, Appropriate Patient seen and examined prior to discharge. Physical assessment as noted above. Patient is stable for discharge with follow up recommendations as noted above. This patient was seen by FESTUS Miller under the supervision of Dr. Falk. - Physical Exam Vital Signs Temp Pulse Resp BP Pulse Ox 97.0 F L 80 16 90/51 L 94 04/11/18 11:00 04/11/18 11:00 04/11/18 11:00 04/11/18 11:00 04/11/18 11:00 Oxygen Flow Rate (L/min) 2 Oxygen Delivery Method Room Air Weight: 130 lb 8.218 oz Body Mass Index (BMI) 28.2 Intake and Output for Last 24 Hours 04/09/18 04/10/18 04/11/18 23:59 23:59 23:59 Intake Total 1460 / 1460 1090 / 1090 30 / 30 Output Total 2200 / 2200 2900 / 2900 300 / 300 Balance -740 / -740 -1810 / -1810 -270 / -270 Microbiology Past 72 Hours 04/08/18 10:45 Blood Culture - Preliminary Blood Culture (Wb) #2 - Left Hand No growth in 48 hours. 04/08/18 10:13 Blood Culture - Preliminary Blood Culture (Wb) - Anticubital Left No growth in 48 hours. Laboratory Tests Past 24 Hrs 04/10/18 04/11/18 04/11/18 22:55 04:48 04:48 WBC 5.4 RBC 5.17 Hgb 16.5 H Hct 49.7 H MCV 96.1 MCH 31.9 MCHC 33.2 RDW 13.8 RDW Differential 47.3 H Plt Count 235 MPV 11.4 Immature Gran % (Auto) 0.200 Neut % (Auto) 69.0 Lymph % (Auto) 21.5 [place] % (Auto) 7.4 Eos % (Auto) 1.3 Baso % (Auto) 0.6 Absolute Neuts (auto) 3.7 Absolute Lymphs (auto) 1.16 Total Counted Not Reportable PT 13.2 INR 1.0 APTT 25.1 Sodium Potassium Chloride Carbon Dioxide Anion Gap BUN Creatinine Estim Creat Clear Calc Est GFR (MDRD) Af Amer Est GFR (MDRD) Non-Af BUN/Creatinine Ratio Glucose Calcium Urine Color Yellow Urine Clarity Clear Urine pH 6.5 Ur Specific [place] 1.010 Urine Protein Negative Urine Glucose (UA) Normal Urine Ketones Negative Urine Occult Blood Negative Urine Nitrite Negative Urine Bilirubin Negative Urine Urobilinogen Normal Ur Leukocyte Esterase Negative Urine RBC 0 SEEN Urine WBC 0 SEEN Ur Squamous Epith Cells 0-5 SEEN Urine Bacteria 0 SEEN Urine Mucus 0 SEEN 04/11/18 04:48 WBC RBC Hgb Hct MCV MCH MCHC RDW RDW Differential Plt Count MPV Immature Gran % (Auto) Neut % (Auto) Lymph % (Auto) [place] % (Auto) Eos % (Auto) Baso % (Auto) Absolute Neuts (auto) Absolute Lymphs (auto) Total Counted PT INR APTT Sodium 139 Potassium 4.5 Chloride 101 Carbon Dioxide 28.0 Anion Gap 10 BUN 27 H Creatinine 0.83 Estim Creat Clear Calc 67.35 Est GFR (MDRD) Af Amer 89 Est GFR (MDRD) Non-Af 74 BUN/Creatinine Ratio 32.6 H Glucose 113 H Calcium 9.2 Urine Color Urine Clarity Urine pH Ur Specific [place] Urine Protein Urine Glucose (UA) Urine Ketones Urine Occult Blood Urine Nitrite Urine Bilirubin Urine Urobilinogen Ur Leukocyte Esterase Urine RBC Urine WBC Ur Squamous Epith Cells Urine Bacteria Urine Mucus Discharge Diet: Low fat/ Low Cholesterol, 2000 mg Sodium Diet Discharge Activity: - - Follow post-op cath instructions. Call your doctor if you observe: Shortness of breath, Dizziness, Fainting spells, Chest pain Home Medications: Medications to take at Discharge Calcium Citrate/Vitamin D3 [Calcium Citrate-Vit D3 Tablet] 1,000 mg PO DAILY 04/08/18 Losartan Potassium [Cozaar] 75 mg PO DAILY 04/08/18 [place]-3 Fatty Acids [Fish Oil] 1,500 mg PO DAILY 04/08/18 Pnv No.121/Iron/Folic Acid [ Multivitamin Tablet] 1 each PO DAILY 04/08/18 Aspirin [Aspirin, Baby] 81 mg PO DAILY@0800 #30 tab.chew 04/11/18 Carvedilol [Coreg (Beta Argenis)] 3.125 mg PO BID #60 tablet 04/11/18 Furosemide [Lasix] 40 mg PO BID@1000,1800 #60 tablet 04/11/18 Magnesium Oxide [Mag-Ox 400] 400 mg PO BIDCM #60 tablet 04/11/18 Spironolactone [Aldactone] 25 mg PO DAILY #30 tablet 04/11/18 Following Prescrptions Were Given to Patient: Aspirin [Aspirin, Baby] 81 mg PO DAILY@0800 #30 tab.chew Furosemide [Lasix] 40 mg PO BID@1000,1800 #60 tablet Spironolactone [Aldactone] 25 mg PO DAILY #30 tablet Carvedilol [Coreg (Beta Argenis)] 3.125 mg PO BID #60 tablet Magnesium Oxide [Mag-Ox 400] 400 mg PO BIDCM #60 tablet Primary Care Physician: Faina Cunningham NP-C [Primary Care Provider] - Please follow up with your Primary Care Physician in: 1 Week Please Follow Up With: Med Carvaajl MD - See PATTERN DATA OPERATOR/PA When: 1-2 Weeks Patient Instructions: Tips for Using Less Salt, Low-Salt Choices, Heart Fa ilure: Making Changes to Your Diet Disposition: Home Minutes spent on discharge:: 35 Patient Condition:: Stable Medical Necessity - Tobacco Use Smoking Status: Never smoker Meaningful Use Info Meaningful Use Diagnoses (Choose all that apply): CHF - CHF JANEL/ARB ordered at discharge?: Yes Documented LVEF (%): 10 <Magdy Falk - Last Filed: 04/11/18 14:40> Discharge Date and Diagnosis - Secondary Discharge Diagnosis Chronic Problems Hypertension (Chronic) Hospital Course and Treatment Operations: None Procedures: 2-D Echocardiogram, Cardiac catheterization Summary of Care Provided: Patient seen and examined independently. Data reviewed. I agree with the above note by the nurse practitioner. The patient is a 62 year old F presents with shortness of breath. Patient had bilateral pleural effusions and a BNP 1992. Patient was in clinical heart failure and was started on Lasix. Patient improved from that standpoint is currently on room air. Patient had an ejection fraction of 10-15% on echocardiogram. Patient underwent a left heart catheterization that showed normal coronaries. The etiology of the patient's cardiomyopathy is unknown at this time but it may be viral. Patient will continue with losartan, Lasix, spironolactone and carvedilol. Patient will follow up with cardiology for further left ventricular assessment. [] - Physical Exam General: Alert, Cooperative, No apparent distress HEENT: Atraumatic, Normocephalic Oral: Moist Mucosa, No Gingival or Mucosal Lesions/ Ulcerations Neck: No Nodes, Thyroid Normal Size and Texture Lungs: Clear to auscultation, Normal air movement, No rhonchi, No wheeze Cardiovascular: Regular rate, Regular Rhythm, Normal S1, Normal S2, No murmurs Abdomen: Bowel Sounds Present, Soft, Non Tender, Non-Distended, No Hepato- splenomegaly Extremities: No edema, No Calf Tenderness Skin: No rashes, No breakdown Vital Signs Temp Pulse Resp BP Pulse Ox 36.7 C 82 16 101/72 94 04/11/18 13:36 04/11/18 13:36 04/11/18 13:36 04/11/18 13:36 04/11/18 13:36 Oxygen Flow Rate (L/min) 2 Oxygen Delivery Method Room Air Weight: 59.2 kg Body Mass Index (BMI) 28.2 Intake and Output for Last 24 Hours 04/09/18 04/10/18 04/11/18 23:59 23:59 23:59 Intake Total 1460 / 1460 1090 / 1090 680 / 680 Output Total 2200 / 2200 2900 / 2900 300 / 300 Balance -740 / -740 -1810 / -1810 380 / 380 Microbiology Past 72 Hours 04/08/18 10:45 Blood Culture - Preliminary Blood Culture (Wb) #2 - Left Hand No growth in 48 hours. 04/08/18 10:13 Blood Culture - Preliminary Blood Culture (Wb) - Anticubital Left No growth in 48 hours. Laboratory Tests Past 24 Hrs 04/10/18 04/11/18 04/11/18 22:55 04:48 04:48 WBC 5.4 RBC 5.17 Hgb 16.5 H Hct 49.7 H MCV 96.1 MCH 31.9 MCHC 33.2 RDW 13.8 RDW Differential 47.3 H Plt Count 235 MPV 11.4 Immature Gran % (Auto) 0.200 Neut % (Auto) 69.0 Lymph % (Auto) 21.5 Baldwin % (Auto) 7.4 Eos % (Auto) 1.3 Baso % (Auto) 0.6 Absolute Neuts (auto) 3.7 Absolute Lymphs (auto) 1.16 Total Counted Not Reportable PT 13.2 INR 1.0 APTT 25.1 Sodium Potassium Chloride Carbon Dioxide Anion Gap BUN Creatinine Estim Creat Clear Calc Est GFR (MDRD) Af Amer Est GFR (MDRD) Non-Af BUN/Creatinine Ratio Glucose Calcium Urine Color Yellow Urine Clarity Clear Urine pH 6.5 Ur Specific [place] 1.010 Urine Protein Negative Urine Glucose (UA) Normal Urine Ketones Negative Urine Occult Blood Negative Urine Nitrite Negative Urine Bilirubin Negative Urine Urobilinogen Normal Ur Leukocyte Esterase Negative Urine RBC 0 SEEN Urine WBC 0 SEEN Ur Squamous Epith Cells 0-5 SEEN Urine Bacteria 0 SEEN Urine Mucus 0 SEEN 04/11/18 04:48 WBC RBC Hgb Hct MCV MCH MCHC RDW RDW Differential Plt Count MPV Immature Gran % (Auto) Neut % (Auto) Lymph % (Auto) [place] % (Auto) Eos % (Auto) Baso % (Auto) Absolute Neuts (auto) Absolute Lymphs (auto) Total Counted PT INR APTT Sodium 139 Potassium 4.5 Chloride 101 Carbon Dioxide 28.0 Anion Gap 10 BUN 27 H Creatinine 0.83 Estim Creat Clear Calc 67.35 Est GFR (MDRD) Af Amer 89 Est GFR (MDRD) Non-Af 74 BUN/Creatinine Ratio 32.6 H Glucose 113 H Calcium 9.2 Urine Color Urine Clarity Urine pH Ur Specific [place] Urine Protein Urine Glucose (UA) Urine Ketones Urine Occult Blood Urine Nitrite Urine Bilirubin Urine Urobilinogen Ur Leukocyte Esterase Urine RBC Urine WBC Ur Squamous Epith Cells Urine Bacteria Urine Mucus Discharge Diet: Low fat/ Low Cholesterol, 2000 mg Sodium Diet Discharge Activity: - Call your doctor if you observe: Shortness of breath, Dizziness, Fainting spells, Chest pain Disposition: Home Minutes spent on discharge:: 35 Patient Condition:: Stable Medical Necessity - Tobacco Use Smoking Status: Never smoker Meaningful Use Info Meaningful Use Diagnoses (Choose all that apply): CHF - CHF JANEL/ARB ordered at discharge?: Yes Documented LVEF (%): 10 Code Visit Inpatient E&M: 38800 Disch Hosp
--- NOTE | 2018-04-11 13:55 | NURSING ---
Went over discharge with patient - patient wanted clarification of losartan dose and cardiac rehab. Spoke with Catalina Bronson LOCOMOTIVE CRANE OPERATOR - No changes to losartan at this time based on BP's and no cardiac rehab until follow up with cardiology. Family to readdress palomo with f/u. No further questions on concerns at this time per pt
== END 2018-04-11 14:09 | disposition home or self-care (01) | DRG 286 ==
LOC: ED 10:30 → PCU 04-11 07:10
PROVIDERS: Internal Medicine Cardiovascular Disease; Nurse Practitioner Family; Admitting Provider Internal Medicine; Emergency Provider Emergency Medicine; Family Provider Nurse Practitioner Adult Health; PCP Nurse Practitioner Adult Health; Referring Provider Internal Medicine
DX: I11.0 Hypertensive heart disease with heart failure (principal); I50.21 Acute systolic (congestive) heart failure; E03.9 Hypothyroidism, unspecified; Z79.899 Other long term (current) drug therapy; R79.1 Abnormal coagulation profile
CPT/HCPCS: 36415; 71046; 71275; 72157; 80048; 80061; 81001; 83605; 83735; 83880; 84439; 84443; 84481; 84484; 85025; 85379; 85610; 85730; 87040; 93005; 93306; 93458; 97802; 99152; 99284; A9585; C1760; J7030; Q9967; A4216; J1940

== ENCOUNTER → 2018-04-15 10:47 | Outpatient (CLI) | payer BC, SELFPAY ==
[2018-04-15 09:36] VITALS: BMI 26.0
[2018-04-15 14:02] LABS: Anion Gap 11 (5-15); BUN 45 mg/dL (7-18); BUN/Creat Ratio 36.9 RATIO (10-20); Calcium,Total 9.6 mg/dL (8.5-10.1); Chloride 101 mmol/L (98-107); Creatinine, Serum 1.22 mg/dL (0.55-1.02); EST Glomerular Filtration Rate 47 mL/min (>60); Est Glom Filt Rate - Afr Amer 57 mL/min (>60); Glucose 104 mg/dL (74-106); Potassium 4.4 mmol/L (3.5-5.1); Sodium Level 136 mmol/L (136-145)
--- OUTSIDE RECORDS SUMMARY | 2018-06-01 01:49 | XMS RPT_ITS ---
:1955 Author Organization OHIP Support Name Relationship Address Phone [place], [place] Unavailable Unavailable + UE Unavailable Unavailable Unavailable DALILA, LUCERO T Unavailable [address] + [place] [address] UE Unavailable Unavailable Unavailable DALILA, LUCERO T Unavailable [address] + [place] [address] UE Unavailable Unavailable Unavailable DALILA, LUCERO T Unavailable [address] + [place] [address] UE Unavailable Unavailable Unavailable DALILA, LUCERO T Unavailable [address] + [place] [address] UE Unavailable Unavailable Unavailable DALILA, LUCERO T Unavailable [address] + [place] [address] UE Unavailable Unavailable Unavailable DALILA, LUCERO T Unavailable [address] + [place] [address] UE Unavailable Unavailable Unavailable DALILA, LUCERO T Unavailable [address] + [place] [address] UE Unavailable Unavailable Unavailable DALILA, LUCERO T Unavailable [address] + [place] [address] UE Unavailable Unavailable Unavailable DALILA, LUCERO T Unavailable [address] + [place] [address] UE Unavailable Unavailable Unavailable DALILA, LUCERO T Unavailable [address] + [place] [address] UE Unavailable Unavailable Unavailable DALILA, LUCERO T Unavailable [address] + [place] [address] UE Unavailable Unavailable Unavailable DALILA, LUCERO T Unavailable [address] + [place] [address] Care Team Providers Name Role Phone ELHAM PALACIOS Attending Unavailable ELHAM PALACIOS Referring Unavailable SABINE HARDING (MACHINE BURRER) Attending Unavailable ADRI GOMEZ (IT INSTRUCTOR) Referring Unavailable ADRI GOMEZ (IT INSTRUCTOR) Attending Unavailable ELHAM PALACIOS Attending Unavailable RADHA, VANESSA (MACHINE BURRER) Referring Unavailable RADHA, VANESSA ([facility]) Referring Unavailable CORNIELLO, FAINA L ([facility]) Attending Unavailable CORNIELLO, FAINA L ([facility]) Referring Unavailable CORNIELLO, FAINA L ([facility]) Referring Unavailable CORNIELLO, FAINA L ([facility]) Referring Unavailable CORNIELLO, FAINA L ([facility]) Attending Unavailable CORNIELLO, FAINA L ([facility]) Attending Unavailable AMALFITANO, JANET L Attending Unavailable CORNIELLO, FAINA L ([facility]) Referring Unavailable AMALFITANO, JANET L Referring Unavailable MARTA VARGAS ([facility]) Attending Unavailable CORNIELLO, FAINA L ([facility]) Referring Unavailable CORNIELLO, FAINA L ([facility]) Referring Unavailable AMALFITANO, JANET L Referring Unavailable ELHAM BRAMBILA ([facility]) Attending Unavailable AMALFITANO, JANET L Referring Unavailable Magdy Falk Attending Unavailable Tereletsky, Michael Admitting Unavailable Tereletsky, Michael Referring Unavailable Corniello, Faina IT INSTRUCTOR-C Primary Care Unavailable Alena, [place] Consulting Unavailable Dileep, Magdy Consulting Unavailable Amanda Franks Attending Unavailable Corniello, Faina IT INSTRUCTOR-C Referring Unavailable Amanda Franks Attending Unavailable Corniello, Faina IT INSTRUCTOR-C Primary Care Unavailable Jax Neri Attending Unavailable Tereletsky, Michael Referring Unavailable Alena, Med Attending Unavailable Tereletsky, Michael Referring Unavailable SABINE VERDIN Attending Unavailable SABINE VERDIN Referring Unavailable Corniello, Faina IT INSTRUCTOR-C Primary Care Unavailable Alena, Med Consulting Unavailable Corniello, Faina IT INSTRUCTOR-C Primary Care Unavailable Tereletsky, Michael Admitting Unavailable Tereletsky, Michael Referring Unavailable Alena, Med Consulting Unavailable Magdy Falk Attending Unavailable Tereletsky, Michael Admitting Unavailable Tereletsky, Michael Referring Unavailable Corniello, Faina IT INSTRUCTOR-C Primary Care Unavailable Alena, [place] Consulting Unavailable Tereletsky, Michael Attending Unavailable Tereletsky, Michael Consulting Unavailable Tereletsky, Michael Admitting Unavailable Tereletsky, Michael Referring Unavailable Corniello, Faina IT INSTRUCTOR-C Primary Care Unavailable Alena, [place] Consulting Unavailable Tereletsky, Michael Attending Unavailable Tereletsky, Michael Consulting Unavailable Tereletsky, Michael Admitting Unavailable Alena, [place] Attending Unavailable Tereletsky, Michael Referring Unavailable Corniello, Faina IT INSTRUCTOR-C Primary Care Unavailable Alena, [place] Consulting Unavailable Tereletsky, Michael Consulting Unavailable Tereletsky, Michael Admitting Unavailable Tereletsky, Michael Referring Unavailable Corniello, Faina IT INSTRUCTOR-C Primary Care Unavailable Alena, Med Consulting Unavailable Tereletsky, Michael Attending Unavailable Tereletsky, Michael Consulting Unavailable Tereletsky, Michael Admitting Unavailable Alena, Med Attending Unavailable Tereletsky, Michael Referring Unavailable Corniello, Faina IT INSTRUCTOR-C Primary Care Unavailable Alena, [place] Consulting Unavailable Jopperi, Magdy Consulting Unavailable PROBLEMS PROBLEMS DATE TYPE CONDITION / CODE ATTENDING STATUS SOURCE 05/24/2018 Unknown I50.21 - Acute SABINE VERDIN Active [place] systolic [facility] (congestive[facility] heart Hospital failure / Repository I50.21(ICD-10) 05/16/2018 Active Other specified NA Active [place] hypothyroidism / Clinic Main E03.8(ICD-10) [place] Repository 05/16/2018 Active Autoimmune NA Active [place] thyroiditis / Clinic Main E06.3(ICD-10) [place] Repository 05/19/2018 Active Abnormal levels of NA Active [place] other serum enzymes Clinic Main / R74.8(ICD-10) [place] Repository 05/19/2018 Active Other specified NA Active [place] abnormal [facility] Main immunological [place] findings in serum / Repository R76.8(ICD-10) 04/13/2018 Active Other specified NA Active [place] symptoms and signs Clinic Main involving the [place] circulatory and Repository respiratory systems / R09.89(ICD-10) 05/09/2018 Active Acute on chronic NA Active [place] systolic [facility] Main (congestive) heart [place] failure / Repository I50.23(ICD-10) 04/15/2018 Unknown I10 - Essential [place], Active [place] (primary) [facility] Community hypertension / Hospital I10(ICD-10) Repository 04/15/2018 Unknown I42.9 - Franks, Active [place] Cardiomyopathy, [facility] Community unspecified / Hospital I42.9(ICD-10) Repository 04/27/2018 Unknown I11.0 - Hypertensive Med Carvajal Active [place] heart disease with Community heart failure / Hospital I11.0(ICD-10) Repository 04/05/2018 Active Palpitations / [facility], Active [place] R00.2(ICD-10) FAINA L (MACHINE BURRER) Clinic Main [place] Repository 04/05/2018 Active Shortness of breath [facility], Active [place] / R06.02(ICD-10) FAINA L (MACHINE BURRER) Clinic Main [place] Repository 04/05/2018 Active Lower abdominal JOBSTOWNIELLO, Active [place] pain, unspecified / FAINA L (MACHINE BURRER) Clinic Main R10.30(ICD-10) [place] Repository 02/08/2018 Active Other specified NA Active [place] abnormal findings of Clinic Main blood chemistry / [place] R79.89(ICD-10) Repository 02/07/2018 Active Disorder of thyroid, NA [facility] unspecified / Clinic Main E07.9(ICD-10) [place] Repository 02/07/2018 Active Essential (primary) ADRI GOMEZ Active [place] hypertension / (IT INSTRUCTOR) Clinic Main I10(ICD-10) [place] Repository 02/03/2018 Active Encounter for NA Active [place] general adult [facility] Main medical examination [place] without abnormal Repository findings / Z00.00(ICD-10) 12/22/2017 Active Unknown / SABINE HARDING Active [place] UNK(Unknown) (MACHINE BURRER) Clinic Main [place] Repository 11/26/2017 Active Other hair color and NA Active [place] hair shaft Clinic Main abnormalities / [place] L67.8(ICD-10) Repository 11/26/2017 Active Hirsutism / NA Active [place] L68.0(ICD-10) Clinic Main [place] Repository 11/26/2017 Active [place] / NA Active [place] R23.2(ICD-10) Clinic Main [place] Repository PROCEDURES PROCEDURES No Procedure Records FoundRESULTS RESULTS PROGRESS Observed: 05/23/2018 Status: COMPLETED Source: [place] 10:54 AM [facility] REPOSITORY HNO ID: [id number] Author: Todd Terrazas (Rcep) Service: (none) Author Type: Brickmason Supervisor Type: Progress Notes Filed: 05/23/2018 10:54 AM Note Text: Preliminary report complete; results under cardiac tab. T. COLETTE Ch CNOV Observed: 05/23/2018 Status: COMPLETED Source: [place] 10:00 AM [facility] REPOSITORY Office Visit ([facility]) TOOTIE WANG ([id number]) 1955 F Date Time Provider Department 05/23/18 10:00 [facility] During your visit today, we recorded the following information about you: COLETTE Delgado 05/23/2018 10:54 AM Signed Preliminary report complete; results under cardiac tab. COLETTE Delgado Referring Provider: JANET HINDS [[id number]] Allergies As of Date: 05/23/2018 Noted Allergy Reaction LORTAB (HYDROCODONE-ACETAMINOPHEN)02/07/2018 8 - GI Upset Comments: Severe nausea Date Reviewed: 05/16/2018 Reviewed by: Martha Marina Ma - Fully Assessed Primary Visit Diagnosis:Cardiomyopathy, nonischemic (HCC) [I42.8] Order(s):STRESS REGULAR W/TREAD [[id number]] Order #: [id number]: 1 FUTURE STRESS REGULAR W/TREAD [[id number]] Order #: [id number]: 1 Prescriptions as of 05/23/2018 Sig: LEVOTHYROXINE 75 MCG TABLET Take 1 tablet by mouth daily * FISH OIL ORAL Take 2,000 mg by mouth once d* MULTIVITAMIN CAPSULE Take 4 capsules by mouth once* CALCIUM ORAL Take 4 tablets by mouth once * PANTOTHENIC ACID ORAL Take 500 mcg by mouth once da* PERFLUTREN LIPID MICROSPHERES* Inject 1.3 mL intravenously a* SACUBITRIL 24 MG-VALSARTAN 26* Take 1 tablet by mouth twice * ASPIRIN 81 MG TABLET,DELAYED * Take 1 tablet by mouth once d* FUROSEMIDE 40 MG TABLET Take 1 tablet by mouth twice * MAGNESIUM OXIDE 400 MG CAPSULE Take 400 mg by mouth once abbey* SPIRONOLACTONE 25 MG TABLET Take 1 tablet by mouth once d* LOW-DOSE ASPIRIN ORAL Take 81 mg by mouth once marques* FUROSEMIDE 40 MG TABLET Take 40 mg by mouth twice abbey* MAGNESIUM OXIDE 420 MG TABLET Take 1 tablet by mouth twice * SPIRONOLACTONE 25 MG TABLET Take 25 mg by mouth once marques* IBUPROFEN 200 MG TABLET Take 1-2 tablets by mouth anders* OMEGA-3 FATTY ACIDS-FISH OIL * Take 1 capsule by mouth daily* VIT NO.95-FERROUS FU* Take 2 tablets by mouth once * CALCIUM CITRATE 250 MG TABLET Take 2 tablets by mouth once * COMPOUNDED PRESCRIPTION progesterone 40 mg/ML cream, * COMPOUNDED PRESCRIPTION estriol vaginal 0.1 % cream, * PROBIOTIC ORAL Take 1 capsule by mouth once * Problem List As Of Date 05/23/2018 Noted Resolved Hypertension, essential [I10] INVALID FOR* Family history of breast cancer [Z80.3] INVALID FOR* More... 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 [*INVALID FOR* Encounter Status:Closed by Todd LANZA on 05/23/18 COMP METABOLIC PANEL Collected: 05/19/2018 Status: F Source: [place] 10:42 AM [facility] [place] REPOSITORY TYPE CODE TESTS RESULT OUT OF REFERENCE UNITS RANGE LAB TP 6.3-8.0 g/dL Protein, Total 8.0 LAB ALB 3.9-4.9 g/dL Albumin 4.8 LAB CA 8.5-10.2 mg/dL Calcium, High Total 10.3 LAB TBIL 0.2-1.3 mg/dL Bilirubin, Total 0.4 LAB ALKP 34-123 U/L Alkaline Phosphatase 76 LAB AST 13-35 U/L AST 31 LAB GLU 74-99 mg/dL Low Glucose 46 Result Comment: The [place] [employer] (ADA) provides guidance for cutoff values for fasting glucose and random glucose. The ADA defines fasting as no caloric intake for at least 8 hours. Fas ting plasma glucose results between 100 to 125 mg/dL indicate increased risk for diabetes (prediabetes). Fasting plasma glucose results greater than or equal to 126 mg/dL meet the criteria for diagnosis of diabetes. In the absence of unequivocal hyperglycemia, results should be confirmed by repeat testing. In a patient with classic symptoms of hyperglycemia or hyperglycemic crisis, random plasma glucose results greater than or equal to 200 mg/dL meet the criteria for diagnosis of diabetes. Reference: Standards of Medical Care in Diabetes 2016, [place] [employer] Association. Diabetes Care. 2016.39(Suppl 1). This specimen may have been in contact with cells for a prolonged time. This causes a falsely decreased glucose value that will not be called as a critical value. Interpret results with caution. No call per procedure. 05/19/2018 [address] Jafrate. LAB BUN 7-21 mg/dL BUN High 27 LAB CRET 0.58-0.96 mg/dL Creatinine 0.84 LAB NA 136-144 mmol/L Sodium 140 LAB K 3.7-5.1 mmol/L Potassium 4.4 Result Comment: This specimen may have been in contact with cells for a prolonged time. This causes a falsely increased potassium value. Interpret with caution. LAB CL 97-105 mmol/L Chloride 97 LAB CO2 22-30 mmol/L CO2 High 31 LAB AGAP 9-18 mmol/L Anion Gap 12 LAB ALT 7-38 U/L ALT 28 LAB GFRAA eGFR- Amer. >60 LAB GFRNAA . eGFR-All Other Races >60 Result Comment: eGFR (Estimated GFR) Units of measure: mL/min/1.73 meters squared eGFR is derived from the reexpressed MDRD Study equation using the following parameters: serum creatinine, age, gender and race. The creatinine assay has been calibrated to be traceable to IDMS. An eGFR <60 mL/min/1.73m2 for >3 months is consistent with chronic kidney disease. Refer to KDOQI guidelines for clinical interpretation. In patients with unstable renal function, e.g. those with acute kidney injury, the eGFR may not accurately reflect actual GFR. Performed By: #### CMP, TSH, T4FTI, MICRO #### [facility] [address] [place], [place] [address] TSH Collected: 05/19/2018 Status: F Source: [place] 10:42 AM [facility] REPOSITORY TYPE CODE TESTS RESULT OUT OF RANGE REFERENCE UNITS LAB TSH 0.400-5.500 uU/mL TSH 1.220 Performed By: #### CMP, TSH, T4FTI, MICRO #### [facility] [address] [place], [place] [address] T4/FTI Collected: 05/19/2018 Status: F Source: [place] 10:42 AM [facility] REPOSITORY TYPE CODE TESTS RESULT OUT OF REFERENCE UNITS RANGE LAB T4 5.5-10.2 ug/dL T4 6.5 LAB T4U 0.91-1.19 T4 Uptake 1.08 LAB FTI 5.3-10.8 ug/dL FTI 6.0 Performed By: #### CMP, TSH, T4FTI, MICRO #### [facility] [address] [place] [address] TPO ANTIBODY Collected: 05/19/2018 Status: F Source: [place] 10:42 AM [facility] REPOSITORY TYPE CODE TESTS RESULT OUT OF REFERENCE UNITS RANGE LAB MICRO <5.6 IU/mL High TPO Antibody 11.9 Performed By: #### CMP, TSH, T4FTI, MICRO #### [facility] [address] [place] [address] FREE T3 Collected: 05/19/2018 Status: F Source: [place] 10:42 AM [facility] REPOSITORY TYPE CODE TESTS RESULT OUT OF RANGE REFERENCE UNITS LAB FREET3 2.3-4.1 pg/mL High Free T3 6.1 Performed By: #### FREET3, FT4 #### [facility] [address] [address] FREE T4 Collected: 05/19/2018 Status: F Source: [place] 10:42 AM [facility] REPOSITORY TYPE CODE TESTS RESULT OUT OF RANGE REFERENCE UNITS LAB FT4 0.9-1.7 ng/dL Free T4 1.2 Performed By: #### FREET3, FT4 #### [facility] [address] [place], [place] [address] PROGRESS Observed: 05/16/2018 Status: COMPLETED Source: [place] 12:45 PM [facility] REPOSITORY HNO ID: [id number] Author: Marta Vargas Service: (none) Author Type: Nurse Practitioner Type: Progress Notes Filed: 05/17/2018 1:27 PM Note Text: THYROID VISIT HISTORIES FAMILY HISTORY Problem Relation Age of Onset - Macular Degen Mother - COPD Mother - Heart Mother - other (Gastroparesis) Mother - other (Lung Cancer) Father - Hypertension Brother - Hypertension Maternal Grandmother passed at age 95 - Heart Maternal Grandmother - Stroke Maternal Grandmother - Stroke Paternal Grandfather - Breast Cancer Paternal Aunt - Breast Cancer Paternal Aunt - Breast Cancer Paternal Aunt - Breast Cancer Paternal Aunt - Breast Cancer Paternal Aunt PAST MEDICAL HISTORY Diagnosis Date - Arthritis - Dilated cardiomyopathy (HCC) EF % 10, following with Dr. Sullivan. negative cardiac cath - Hypertension - Pneumonia 2014 - Squamous cell skin cancer 2016 right hand - Thyroid disorder PAST SURGICAL HISTORY Procedure Laterality Date - COLONOSCOPY 04/04/2013 splenic fixure polyp, removed and sent for path- hyperplastic polyp; [facility] - LAPAROSCOPIC BLADDER REPAIR 2014 - ROTATOR CUFF REPAIR Bilateral 2015 Left arm. 2017 Right arm. 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 CR TVT 2012 done in [place] uncertain brand - VAGINAL HYSTERECTOMY Social History Marital status: Spouse name: Kris Pickard Years of education: Number of children: 3 Social History Main Topics Smoking status: Never Smoker Smokeless tobacco: Never Used Alcohol use: Yes Comment: Rare, wine Social History Narrative Lives in [place], relocated from [place], 3 adult children and 3 grandchildren in [place], and 1 in [place]. Immunization History Administered Date(s) Administered Influenza Seasonal Inj Age 3+ 01/18/2015 03/01/2017 Influenza Seasonal Inj Quadrivalent Age 3+ 02/07/2018 Pneumococcal-13 Vac Conjugate 05/17/2014 Pneumovax 01/29/2014 Tdap (Age 7+) 01/18/2015 04/13/2018 Zostavax 01/18/2015 ALLERGIES Allergen Reactions - Lortab [Hydrocodone* GI Upset Severe nausea Current Outpatient Prescriptions on File Prior to Visit: perflutren lipid microspheres (DEFINEnigmatec) 1.1 mg/mL injection (to be provided with echo procedure) Inject 1.3 mL intravenously as directed. sacubitril-valsartan (ENTRESTO) 24-26 mg tablet Take 1 tablet by mouth twice daily. Do not start until 05/11/17 when you have been off the losartan for 36 hours aspirin, enteric coated (ASPIRIN, ENTERIC COATED) 81 mg EC tablet Take 1 tablet by mouth once daily. furosemide (LASIX) 40 mg tablet Take 1 tablet by mouth twice daily. magnesium oxide 400 mg cap Take 1 capsule by mouth twice daily. spironolactone (ALDACTONE) 25 mg tablet Take 1 tablet by mouth once daily. LOW-DOSE ASPIRIN ORAL Take 81 mg by mouth once daily. furosemide (LASIX) 40 mg tablet Take 40 mg by mouth twice daily. Magnesium Oxide 420 mg tab Take 1 tablet by mouth twice daily. spironolactone (ALDACTONE) 25 mg tablet Take 25 mg by mouth once daily. COMPOUNDED PRESCRIPTION T4/T3 E4M 60 mcg/20 mcg capsule. Take 8 tablets by mouth weekly azithromycin (ZITHROMAX Z-LYDIA) 250 mg tablet Take 2 tablets by mouth day one, then 1 tablet daily until gone. (Patient not taking: Reported on 04/13/2018 ) ibuprofen (MOTRIN) 200 mg tablet Take 1-2 tablets by mouth every 4 hours as needed for Pain (Take with food.). [place]-3 Fatty Acids, FISH OIL, (FISH OIL) 360-1,200 mg cap Take 1 capsule by mouth daily with breakfast. vit-iron fumarate-fa ( MULTIVITAMINS) 28 mg iron- 800 mcg tab Take 2 tablets by mouth once daily. Calcium Citrate 250 mg calcium tab Take 2 tablets by mouth once daily. COMPOUNDED PRESCRIPTION progesterone 40 mg/ML cream, apply 0.5 ml twice daily, rub in well and rotate sites COMPOUNDED PRESCRIPTION estriol vaginal 0.1 % cream, insert one gram vaginally qhs twice per week, 0.5 gram once per week Lactobacillus acidophilus (PROBIOTIC ORAL) Take 1 capsule by mouth once daily. No current facility-administered medications on file prior to visit. LABS Component Latest Ref Rng AND Units 11/26/2017 02/07/2018 02/08/2018 04/05/2018 T3 79 - 165 ng/dL 78 (L) 108 120 T4 5.5 - 10.2 ug/dL 7.0 Microsomal Antibody <5.6 IU/mL 22.9 (H) 16.3 (H) 11.3 (H) TSH 0.400 - 5.500 uU/mL 1.760 Patient brings results (04/11/15) of Salivary hormone labs--labs reviewed Labs drawn Apr 11, 2018 ([facility]) showed TSH 1.98, free T4 1.0, free T3 2.6--all WNL I reviewed the Commercial Print Salesman's notes with this visit for vital signs, current allergies, medications, electronic medical record, lab(s), outside lab(s), and or back office lab(s) results, history of vaccinations, and chief complaints. I edited the information obtained, as required. HISTORY OF PRESENT ILLNESS Tootie Wang is a 62 year old female who is presenting today for an intial office visit for hypothyroidism. She reports having an autoimmune thyroid problem since 2014. She was treated with compounding Rxs by her INDUSTRIAL SPECIALIST when she lived in [place] and moved to [place] this past spring due to 's career. The patient is presently taking compounded thyroid hormone from [facility] in [place] with T3 20 mcg + T4 60 mcg one tablet daily except on Wednesday when she takes 2 tablets to manage her hypothyroidism (she has been on this dosage since Apr 11--it was increased from T4 40 mcg to 60 mcg and one extra tablet was added per week also). She was admitted to [facility] with SOB and edema, with the suspicion that she had pneumonia but was found to have CHF. States she has always been healthy--this hospitalization and diagnosis of CHF was a shock to her. She reports being under much stress this summer -elderly mother in [place] was ill -- she travelled to care for her -her daughter (daughter is a nurse) who lives in [place] had difficult and had premature of grandson---she went to assist with care also Has been busy and stressed with helping family She is accompanied by today, he is very supportive of her ROS: Weight: significant weight gain when in CHF and hospitalized Energy: Has improved since starting Entresto ~ 1 week ago Moods: good Sleep: Normal sleep pattern Temp. Intolerance: None; Diaphoresis: Not significant Memory: Good Thyroid Pain: no; Mass Effect: Patient states she notes hoarseness when her thyroid levels are off presently has mildchange in voice (hoarsenss), denies difficulty swallowing or local pressure CV: recent diagnosis of CHF, no pedal edema Resp:No cough, hemoptysis, asthma, recent chest infection, wheezing GI:No blood in stool, pain with BM, tarry stool, persistent diarrhea or constipation REPRODUCTIVE/Gyne: using compounding creams --followed by LABORATORY GENETICIST Eyes: denies any recent visual changes ; Skin: Negative M/S: negative ; Neuro: negative PHYSICAL EXAM BP 107/76 Pulse 87 Ht 4' 10.622 (1.49m) Wt 132 lb (59.9kg) SpO2 98% BMI 27.01 kg/(m2). Last weight and BMI: Wt: 60 kg (132 lb 4.8 oz) BMI: 26.72 kg/(m2) Wt: 60 kg (132 lb 4.8 oz) BMI: 26.72 kg/(m2) Last 2 Encounter Wt Readings: Date: Wt: 05/09/2018 60 kg (132 lb 4.8 oz) 04/13/2018 59 kg (130 lb) APPEARANCE: Well appearing, alert, in no acute distress, well-hydrated, well nourished. 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 She reports having an autoimmune thyroid problem since 2014. She was treated with compounding Rxs by her INDUSTRIAL SPECIALIST when she lived in [place] and moved to [place] this past spring due to 's career. The patient is presently taking compounded thyroid hormone from [facility] in [place] with T3 20 mcg + T4 60 mcg one tablet daily except on Wednesday when she takes 2 tablets to manage her hypothyroidism (she has been on this dosage since Apr 11--it was increased from T4 40 mcg to 60 mcg and one extra tablet was added per week also). She was admitted to [facility] last month for CHF. Plan -labs: TSH BLD, T3 FREE BLD, T4 FREE/FREE THYROX -medications: Continue present compounded Rx -discussed that after I review her labs, will switch to levothyroxine Patient to continue to follow up with her PCP and with other consultants regarding her other medical problems. Entire visit was 55 min with >50% of time spent as face to face counseling regarding Plan of Care and review of risks, benefits, and side effects of medication(s), explanation of diagnosis, further management and cordination of care Follow up in 3 months. Marta Vargas MSN, MACHINE BURRER, CDE Department of Endocrinology, Diabetes and Metabolism CNOV Observed: 05/16/2018 Status: COMPLETED Source: [place] 12:45 PM [facility] [place] REPOSITORY Office Visit (ENDMED) TOOTIE WANG ([id number]) 1955 F Date Time Provider Department 05/16/18 12:45 PM MARTA VARGAS (ISAIAS) CRIS During your visit today, we recorded the following information about you: Pulse Blood pressure Weight Height 87/minute 107/76 59.9 kg 1.489 m Marta Vargas APRN.CNP 05/17/2018 1:27 PM Signed THYROID VISIT HISTORIES FAMILY HISTORY Problem Relation Age of Onset - Macular Degen Mother - COPD Mother - Heart Mother - other (Gastroparesis) Mother - other (Lung Cancer) Father - Hypertension Brother - Hypertension Maternal Grandmother passed at age 95 - Heart Maternal Grandmother - Stroke Maternal Grandmother - Stroke Paternal Grandfather - Breast Cancer Paternal Aunt - Breast Cancer Paternal Aunt - Breast Cancer Paternal Aunt - Breast Cancer Paternal Aunt - Breast Cancer Paternal Aunt PAST MEDICAL HISTORY Diagnosis Date - Arthritis - Dilated cardiomyopathy (HCC) EF % 10, following with Dr. Sullivan. negative cardiac cath - Hypertension - Pneumonia 2014 - Squamous cell skin cancer 2016 right hand - Thyroid disorder PAST SURGICAL HISTORY Procedure Laterality Date - COLONOSCOPY 04/04/2013 splenic fixure polyp, removed and sent for path- hyperplastic polyp; [facility] - LAPAROSCOPIC BLADDER REPAIR 2013 - ROTATOR CUFF REPAIR Bilateral 2015 Left arm. 2017 Right arm. 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 CR TVT 2012 done in [place] uncertain brand - VAGINAL HYSTERECTOMY Social History Marital status: Spouse name: Lucero, Kris Years of education: Number of children: 3 Social History Main Topics Smoking status: Never Smoker Smokeless tobacco: Never Used Alcohol use: Yes Comment: Rare, wine Social History Narrative Lives in [place], relocated from [place], 3 adult children and 3 grandchildren in [place], and 1 in [place]. Immunization History Administered Date(s) Administered Influenza Seasonal Inj Age 3+ 01/18/2015 03/01/2017 Influenza Seasonal Inj Quadrivalent Age 3+ 02/07/2018 Pneumococcal-13 Vac Conjugate 05/17/2014 Pneumovax 01/29/2014 Tdap (Age 7+) 01/18/2015 04/13/2018 Zostavax 01/18/2015 ALLERGIES Allergen Reactions - Lortab [Hydrocodone* GI Upset Severe nausea Current Outpatient Prescriptions on File Prior to Visit: perflutren lipid microspheres ([employer]) 1.1 mg/mL injection (to be provided with echo procedure) Inject 1.3 mL intravenously as directed. sacubitril-valsartan (ENTRESTO) 24-26 mg tablet Take 1 tablet by mouth twice daily. Do not start until 05/11/17 when you have been off the losartan for 36 hours aspirin, enteric coated (ASPIRIN, ENTERIC COATED) 81 mg EC tablet Take 1 tablet by mouth once daily. furosemide (LASIX) 40 mg tablet Take 1 tablet by mouth twice daily. magnesium oxide 400 mg cap Take 1 capsule by mouth twice daily. spironolactone (ALDACTONE) 25 mg tablet Take 1 tablet by mouth once daily. LOW-DOSE ASPIRIN ORAL Take 81 mg by mouth once daily. furosemide (LASIX) 40 mg tablet Take 40 mg by mouth twice daily. Magnesium Oxide 420 mg tab Take 1 tablet by mouth twice daily. spironolactone (ALDACTONE) 25 mg tablet Take 25 mg by mouth once daily. COMPOUNDED PRESCRIPTION T4/T3 E4M 60 mcg/20 mcg capsule. Take 8 tablets by mouth weekly azithromycin (ZITHROMAX Z-LYDIA) 250 mg tablet Take 2 tablets by mouth day one, then 1 tablet daily until gone. (Patient not taking: Reported on 04/13/2018 ) ibuprofen (MOTRIN) 200 mg tablet Take 1-2 tablets by mouth every 4 hours as needed for Pain (Take with food.). [place]-3 Fatty Acids, FISH OIL, (FISH OIL) 360-1,200 mg cap Take 1 capsule by mouth daily with breakfast. vit-iron fumarate-fa ( MULTIVITAMINS) 28 mg iron- 800 mcg tab Take 2 tablets by mouth once daily. Calcium Citrate 250 mg calcium tab Take 2 tablets by mouth once daily. COMPOUNDED PRESCRIPTION progesterone 40 mg/ML cream, apply 0.5 ml twice daily, rub in well and rotate sites COMPOUNDED PRESCRIPTION estriol vaginal 0.1 % cream, insert one gram vaginally qhs twice per week, 0.5 gram once per week Lactobacillus acidophilus (PROBIOTIC ORAL) Take 1 capsule by mouth once daily. No current facility-administered medications on file prior to visit. LABS Component Latest Ref Rng AND Units 11/26/2017 02/07/2018 02/08/2018 04/05/2018 T3 79 - 165 ng/dL 78 (L) 108 120 T4 5.5 - 10.2 ug/dL 7.0 Microsomal Antibody <5.6 IU/mL 22.9 (H) 16.3 (H) 11.3 (H) TSH 0.400 - 5.500 uU/mL 1.760 Patient brings results (04/11/15) of Salivary hormone labs--labs reviewed Labs drawn Apr 11, 2018 ([facility]) showed TSH 1.98, free T4 1.0, free T3 2.6--all WNL I reviewed the Commercial Print Salesman's notes with this visit for vital signs, current allergies, medications, electronic medical record, lab(s), outside lab(s), and or back office lab(s) results, history of vaccinations, and chief complaints. I edited the information obtained, as required. HISTORY OF PRESENT ILLNESS Tootie Wang is a 62 year old female who is presenting today for an intial office visit for hypothyroidism. She reports having an autoimmune thyroid problem since 2014. She was treated with compounding Rxs by her INDUSTRIAL SPECIALIST when she lived in [place] and moved to [place] ([place] this past spring due to 's career. The patient is presently taking compounded thyroid hormone from [facility] in [place] with T3 20 mcg + T4 60 mcg one tablet daily except on Wednesday when she takes 2 tablets to manage her hypothyroidism (she has been on this dosage since Apr 11--it was increased from T4 40 mcg to 60 mcg and one extra tablet was added per week also). She was admitted to [facility] with SOB and edema, with the suspicion that she had pneumonia but was found to have CHF. States she has always been healthy--this hospitalization and diagnosis of CHF was a shock to her. She reports being under much stress this summer -elderly mother in [place] was ill -- she travelled to care for her -her daughter (daughter is a nurse) who lives in [place] had difficult and had premature of grandson---she went to assist with care also Has been busy and stressed with helping family She is accompanied by today, he is very supportive of her ROS: Weight: significant weight gain when in CHF and hospitalized Energy: Has improved since starting Entresto ~ 1 week ago Moods: good Sleep: Normal sleep pattern Temp. Intolerance: None; Diaphoresis: Not significant Memory: Good Thyroid Pain: no; Mass Effect: Patient states she notes hoarseness when her thyroid levels are off presently has mildchange in voice (hoarsenss), denies difficulty swallowing or local pressure CV: recent diagnosis of CHF, no pedal edema Resp:No cough, hemoptysis, asthma, recent chest infection, wheezing GI:No blood in stool, pain with BM, tarry stool, persistent diarrhea or constipation REPRODUCTIVE/Gyne: using compounding creams --followed by LABORATORY GENETICIST Eyes: denies any recent visual changes ; Skin: Negative M/S: negative ; Neuro: negative PHYSICAL EXAM BP 107/76 Pulse 87 Ht 4' 10.622 (1.49m) Wt 132 lb (59.9kg) SpO2 98% BMI 27.01 kg/(m2). Last weight and BMI: Wt: 60 kg (132 lb 4.8 oz) BMI: 26.72 kg/(m2) Wt: 60 kg (132 lb 4.8 oz) BMI: 26.72 kg/(m2) Last 2 Encounter Wt Readings: Date: Wt: 05/09/2018 60 kg (132 lb 4.8 oz) 04/13/2018 59 kg (130 lb) APPEARANCE: Well appearing, alert, in no acute distress, well- hydrated, well nourished. 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 She reports having an autoimmune thyroid problem since 2014. She was treated with compounding Rxs by her INDUSTRIAL SPECIALIST when she lived in [place] and moved to [place] ([facility] this past spring due to 's career. The patient is presently taking compounded thyroid hormone from [facility] in [place] with T3 20 mcg + T4 60 mcg one tablet daily except on Wednesday when she takes 2 tablets to manage her hypothyroidism (she has been on this dosage since Apr 11--it was increased from T4 40 mcg to 60 mcg and one extra tablet was added per week also). She was admitted to [facility] last month for CHF. Plan -labs: TSH BLD, T3 FREE BLD, T4 FREE/FREE THYROX -medications: Continue present compounded Rx -discussed that after I review her labs, will switch to levothyroxine Patient to continue to follow up with her PCP and with other consultants regarding her other medical problems. Entire visit was 55 min with >50% of time spent as face to face counseling regarding Plan of Care and review of risks, benefits, and side effects of medication(s), explanation of diagnosis, further management and cordination of care Follow up in 3 months. Marta Vargas MSN, MACHINE BURRER, CDE Department of Endocrinology, Diabetes and Metabolism Marta Vargas APRN.ISAIAS 05/16/2018 1:58 PM Signed Have labs drawn at the end of this week Free T3 Free T4 TSH I will send you message via The Shared Web and will send Rx of levothyroxine to your [facility] pharmacy after I review the labs Follow up here in 3 months AACE Referring Provider: FAINA KWON (MACHINE BURRER) [[id number]] Allergies As of Date: 05/16/2018 Noted Allergy Reaction LORTAB (HYDROCODONE-ACETAMINOPHEN)02/07/2018 8 - GI Upset Comments: Severe nausea Date Reviewed: 05/16/2018 Reviewed by: Martha Marina Ma - Fully Assessed Reason for Visit: Thyroid Problem [110] Visit Diagnosis: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 [E03.8, E06.3] Order(s):TSH BLD [SQTSH] Order #: [id number] FUTURE T3 FREE BLD [SQFREET3] Order #: [id number] FUTURE T4 FREE/FREE THYROX [SQFT4] Order #: [id number] FUTURE COMPOUNDED PRESCRIPTIONCompounded formulation of T3 20 mcg + T4 60 mcg one tablet daily except two tablet on WednesdayDisp: Rfl: Prescriptions as of 05/16/2018 Sig: COMPOUNDED PRESCRIPTION Compounded formulation of T3 * FISH OIL ORAL Take 2,000 mg by mouth once d* MULTIVITAMIN CAPSULE Take 4 capsules by mouth once* CALCIUM ORAL Take 4 tablets by mouth once * PANTOTHENIC ACID ORAL Take 500 mcg by mouth once da* SACUBITRIL 24 MG-VALSARTAN 26* Take 1 tablet by mouth twice * ASPIRIN 81 MG TABLET,DELAYED * Take 1 tablet by mouth once d* FUROSEMIDE 40 MG TABLET Take 1 tablet by mouth twice * MAGNESIUM OXIDE 400 MG CAPSULE Take 400 mg by mouth once abbey* SPIRONOLACTONE 25 MG TABLET Take 1 tablet by mouth once d* COMPOUNDED PRESCRIPTION T4/T3 E4M 60 mcg/20 mcg capsu* IBUPROFEN 200 MG TABLET Take 1-2 tablets by mouth anders* COMPOUNDED PRESCRIPTION progesterone 40 mg/ML cream, * COMPOUNDED PRESCRIPTION estriol vaginal 0.1 % cream, * PROBIOTIC ORAL Take 1 capsule by mouth once * PERFLUTREN LIPID MICROSPHERES* Inject 1.3 mL intravenously a* LOW-DOSE ASPIRIN ORAL Take 81 mg by mouth once marques* FUROSEMIDE 40 MG TABLET Take 40 mg by mouth twice abbey* MAGNESIUM OXIDE 420 MG TABLET Take 1 tablet by mouth twice * SPIRONOLACTONE 25 MG TABLET Take 25 mg by mouth once marques* AZITHROMYCIN 250 MG TABLET Take 2 tablets by mouth day o* Patient not taking: Reported on 04/13/2018 OME[place]-3 FATTY ACIDS-FISH OIL * Take 1 capsule by mouth daily* VIT NO.95-FERROUS FU* Take 2 tablets by mouth once * CALCIUM CITRATE 250 MG TABLET Take 2 tablets by mouth once * Problem List As Of Date 05/16/2018 Noted Resolved Hypertension, essential [I10] INVALID FOR* Family history of breast cancer [Z80.3] INVALID FOR* More... 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 [*INVALID FOR* Other instructions from your clinician: Have labs drawn at the end of this week Free T3 Free T4 TSH I will send you message via The Shared Web and will send Rx of levothyroxine to your [facility] pharmacy after I review the labs Follow up here in 3 months AACE Prescriptions ordered this encounter Disp Refills Start End COMPOUNDED PRESCRIPTION 05/17/2018 Class: Med Update Sig: Compounded formulation of T3 20 mcg + T4 60 mcg one tablet daily except two tablet on Wednesday Medications Discontinued During This Encounter COMPOUNDED PRESCRIPTION 05/17/2018 Class: Historical Med Route: ORAL Sig: Take 1 tablet by mouth once daily. Thyroid Supplement Disc: Reason for discontinue is not on file. Disposition: Return in about 3 months (around 08/14/2018). Follow-up and Disposition History Recorded Encounter Status:Closed by MARTA VARGAS CNP on 05/17/18 MANUEL Observed: 05/12/2018 Status: COMPLETED Source: [place] 12:00 AM [facility] [facility] REPOS[facility] Telephone (CARDMM) TOOTIE WANG ([id number]) 1955 F Date Time Provider Department 05/12/18 JANET HINDS During your visit today, we recorded the following information about you: Terrell Wynn RN 05/12/2018 11:24 AM Signed Patient started on Entresto on 05/11, took one at 6A, then another dose at 6P Patient had trouble sleeping, woke up many times with her hands and feet tingling throughout the night. Patient actually states she felt like th medication made her feel better. Patient states she did not have the hurting around her heart like she had, actually felt stronger, even commented that he noticed above. Took another dose this an, is not having any S/E. Please advise about above. Elham Tyson APRN.ISAIAS 05/12/2018 3:31 PM Signed Glad to hear she thinks the medication is making her feel better. I reviewed this with Dr. Hinds: Continue the medication, and let us know if this becomes a recurrent and bothersome issue. Make sure you're checking blood pressure and heart rate daily for the first week on Entresto, and then can move to 2-3 times a week. Let us know of any abnormally high or low readings. Thanks, Elham Tyson APRN.ISAIAS Wynn RN 05/13/2018 12:16 PM Signed Patient did not have any numbness or tingling last night. 79/44-79 last pm at 9:30 P Check 15 minutes later 90/60- 100% o2 today 129.2 weight Patient has cut out fast food, salt, alcohol. Feels pretty good today. Has an Endo appt. Wednesday at [facility] Elham Tyson APRN.ISAIAS 05/13/2018 3:51 PM Signed Tell her thank you for calling and giving us an update. If she's not having any symptoms, Dr. Hinds is okay with your blood pressures trending high-80's to 90's on the top number (systolic). Make sure you're drinking 5 8oz glasses of water a day. Let us know if the blood pressures continue to trend lower than high-80's, or if you develop any new symptoms. Thanks, Elham Tyson APRN.ISAIAS Wynn RN 05/16/2018 11:08 AM Signed Message given to patient. Had one low reading of 86/44 then went to 96/77 Feels better, still gets tired but feels better until later in the day. Sees Endo today, will start Cardiac Rehab the end of the month . Allergies As of Date: 05/12/2018 Noted Allergy Reaction LORTAB (HYDROCODONE-ACETAMINOPHEN)02/07/2018 8 - GI Upset Comments: Severe nausea Date Reviewed: 05/09/2018 Reviewed by: Genie Dee Ma - Fully Assessed Reason for Visit: question about medication [Other] Prescriptions as of 05/12/2018 Sig: PERFLUTREN LIPID MICROSPHERES* Inject 1.3 mL intravenously a* SACUBITRIL 24 MG-VALSARTAN 26* Take 1 tablet by mouth twice * ASPIRIN 81 MG TABLET,DELAYED * Take 1 tablet by mouth once d* FUROSEMIDE 40 MG TABLET Take 1 tablet by mouth twice * MAGNESIUM OXIDE 400 MG CAPSULE Take 1 capsule by mouth twice* SPIRONOLACTONE 25 MG TABLET Take 1 tablet by mouth once d* LOW-DOSE ASPIRIN ORAL Take 81 mg by mouth once marques* FUROSEMIDE 40 MG TABLET Take 40 mg by mouth twice abbey* MAGNESIUM OXIDE 420 MG TABLET Take 1 tablet by mouth twice * SPIRONOLACTONE 25 MG TABLET Take 25 mg by mouth once marques* COMPOUNDED PRESCRIPTION T4/T3 E4M 60 mcg/20 mcg capsu* AZITHROMYCIN 250 MG TABLET Take 2 tablets by mouth day o* Patient not taking: Reported on 04/13/2018 IBUPROFEN 200 MG TABLET Take 1-2 tablets by mouth anders* [place]ME[place]-3 FATTY ACIDS-FISH OIL * Take 1 capsule by mouth daily* VIT NO.95-FERROUS FU* Take 2 tablets by mouth once * CALCIUM CITRATE 250 MG TABLET Take 2 tablets by mouth once * COMPOUNDED PRESCRIPTION progesterone 40 mg/ML cream, * COMPOUNDED PRESCRIPTION estriol vaginal 0.1 % cream, * PROBIOTIC ORAL Take 1 capsule by mouth once * Problem List As Of Date 05/12/2018 Noted Resolved Hypertension, essential [I10] INVALID FOR* Family history of breast cancer [Z80.3] INVALID FOR* More... Cardiac LV ejection fraction 10-20% [R09.89] INVALID FOR* Encounter Status:Closed by TERRELL WYNN RN on 05/13/18 ECG COMPLETE W Observed: 05/09/2018 Status: F Source: [place] INTERPRETATION 2:00 PM CLINIC MAIN [facility]AMP[facility] REPOSITORY NAME : TOOTIE WANG PID : [id number] : 1955 Gender : Female Race : ORD : [id number] Procedure Date : May 09 2018 14:00:39 Edit Date : May 11 2018 15:09:42 Diagnosis:SINUS RHYTHM WITH 1ST DEGREE AV BLOCK BIATRIAL ENLARGEMENT INCOMPLETE RIGHT BUNDLE BRANCH BLOCK LEFT VENTRICULAR HYPERTROPHY WITH REPOLARIZATION ABNORMALITY ABNORMAL ECG Confirmed by JANET HINDS D.O. ([id number]) on 05/11/2018 3:09:41 PM Ventricular Rate : 78 BPM Atrial Rate : 78 BPM P-R Interval : 220 ms QRS Duration : 112 ms Q-T Interval : 418 ms QTC Calculation(Bezet) : 476 ms P [place] : 74 degrees R [place]coe : 1 degrees T [place] : 67 degrees Test Reason : Location : 158 : MEFM Overread By : JANET HINDS D.O. Edited By : JANET HINDS D.O. Referred By : JANET HINDS Acquired by : PDG, PROGRESS Observed: 05/09/2018 Status: COMPLETED Source: [place] 1:59 PM [facility] [place] REPOSITORY HNO ID: [id number] Author: Janet Hinds Service: (none) Author Type: Physician Type: Progress Notes Filed: 05/09/2018 6:01 PM Note Text: [facility] [place] Rosy Wade Department of Cardiovascular Medicine SECTION OF REGIONAL CARDIOLOGY Consultation requested by Faina Kwon APRN.CNP for an opinion regarding Tootie Wang. My final recommendations will be communicated back to the requesting physician by way of shared Medical record or letter to requesting physician via US mail. CC: shortness of breath HPI: Tootie Wang is a 62 year old female who is here today for establishment of cardiac care, shortness of breath, palpitations, abnormal echo findings, congestive heart failure and cardiomyopathy. She presents for another opinion after the admission to [facility] to the hospital for progressive shortness of breath early last month in April 2018. She states that she had been doing well and quite active with exercising using the T 25 disc program through the middle of last year without difficulty. She relocated from [place] in July 2017 and had some challenges with her daughter's requiring her to go back and forth to [place] this past summer in October where she spent 2 weeks there and then came back and immediately had to go to assist her mother in [place]. She states socially quite stressful period for her. She also relates that her mother had congestive heart failure in her early 60s. She was very short of breath and is slightly better now since discharge but is fairly tired after doing her usual activities daily living. During her admit at [facility] she had an echocardiogram on 04/08/18 and this reported a LVEF of 10%. She underwent left heart catheterization demonstrating normal coronaries. She does have a history of hypertension and thyroid issues with possible auto immune basis and had a TSH of over 20 during that admit. She is pending endo follow up. She was placed on losartan 75 mg daily, aspirin, carvedilol 3.125 twice a day, Lasix 40 mg twice a day magnesium and spironolactone 25 mg daily. She does have improved orthopnea after this regimen. She denies any lower extremity edema. She admits to 2 glasses of alcohol a day. The patient is involved in sporadic irregular exercise Patient denies chest pain, dizziness, lightheadedness, lower extremity edema, PND, presyncope, syncope or claudication symptoms. PAST MEDICAL HISTORY Diagnosis Date - Arthritis - Dilated cardiomyopathy (HCC) EF % 10, following with Dr. Sullivan. negative cardiac cath - Hypertension - Pneumonia 2014 - Squamous cell skin cancer 2016 right hand - Thyroid disorder PAST SURGICAL HISTORY Procedure Laterality Date - COLONOSCOPY 04/04/2013 splenic fixure polyp, removed and sent for path- hyperplastic polyp; [facility] - LAPAROSCOPIC BLADDER REPAIR 2013 - ROTATOR CUFF REPAIR Bilateral 2015 Left arm. 2017 Right arm. 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 CR TVT 2013 done in [place] uncertain brand - VAGINAL HYSTERECTOMY FAMILY HISTORY Problem Relation Age of Onset - Macular Degen Mother - COPD Mother - Heart Mother - other (Gastroparesis) Mother - other (Lung Cancer) Father - Hypertension Brother - Hypertension Maternal Grandmother passed at age 95 - Heart Maternal Grandmother - Stroke Maternal Grandmother - Stroke Paternal Grandfather - Breast Cancer Paternal Aunt - Breast Cancer Paternal Aunt - Breast Cancer Paternal Aunt - Breast Cancer Paternal Aunt - Breast Cancer Paternal Aunt SOCIAL HISTORY Social History Marital status: Spouse name: Kris Pickard Years of education: Number of children: 3 Social History Main Topics Smoking status: Never Smoker Smokeless tobacco: Never Used Alcohol use: Yes Comment: Rare, wine Social History Narrative Lives in [place], relocated from [place], 3 adult children and 3 grandchildren in [place], and 1 in [place]. ALLERGIES: Lortab [Hydrocodone-Acetaminophen] CURRENT MEDICATIONS: Current Outpatient Prescriptions: losartan (COZAAR) 50 mg tablet Take 1.5 tablets by mouth once daily. aspirin, enteric coated (ASPIRIN, ENTERIC COATED) 81 mg EC tablet Take 1 tablet by mouth once daily. carvedilol (COREG) 3.125 mg tablet Take 1 tablet by mouth twice daily. furosemide (LASIX) 40 mg tablet Take 1 tablet by mouth twice daily. magnesium oxide 400 mg cap Take 1 capsule by mouth twice daily. spironolactone (ALDACTONE) 25 mg tablet Take 1 tablet by mouth once daily. LOW-DOSE ASPIRIN ORAL Take 81 mg by mouth once daily. carvedilol (COREG) 3.125 mg tablet Take 3.125 mg by mouth twice daily with meals. COMPOUNDED PRESCRIPTION T4/T3 E4M 60 mcg/20 mcg capsule. Take 8 tablets by mouth weekly ibuprofen (MOTRIN) 200 mg tablet Take 1-2 tablets by mouth every 4 hours as needed for Pain (Take with food.). [place]-3 Fatty Acids, FISH OIL, (FISH OIL) 360-1,200 mg cap Take 1 capsule by mouth daily with breakfast. vit-iron fumarate-fa ( MULTIVITAMINS) 28 mg iron- 800 mcg tab Take 2 tablets by mouth once daily. Calcium Citrate 250 mg calcium tab Take 2 tablets by mouth once daily. COMPOUNDED PRESCRIPTION progesterone 40 mg/ML cream, apply 0.5 ml twice daily, rub in well and rotate sites COMPOUNDED PRESCRIPTION estriol vaginal 0.1 % cream, insert one gram vaginally qhs twice per week, 0.5 gram once per week Lactobacillus acidophilus (PROBIOTIC ORAL) Take 1 capsule by mouth once daily. furosemide (LASIX) 40 mg tablet Take 40 mg by mouth twice daily. Magnesium Oxide 420 mg tab Take 1 tablet by mouth twice daily. spironolactone (ALDACTONE) 25 mg tablet Take 25 mg by mouth once daily. losartan (COZAAR) 50 mg tablet Take 1.5 tablets by mouth once daily. azithromycin (ZITHROMAX Z-LYDIA) 250 mg tablet Take 2 tablets by mouth day one, then 1 tablet daily until gone. (Patient not taking: Reported on 04/13/2018 ) No current facility-administered medications for this visit. ROS: Card: See present history. Pulm: See HPI Gastro: No nausea, vomiting, or diarrhea GenUr: No history of dysuria, frequency or incontinence Endo: Negative for cold or heat intolerance, polyuria or polydipsia. Neuro: no focal weakness, focal sensory loss, headache, visual changes, seizure activity, ataxia, speech/language loss. Musculoskeletal: Negative for joint or muscle pain, back pain, or swelling. Infect: no fevers, chills, rigors or night sweats. Skin: Negative for lesions, rash, and itching. Heme: Negative for prolonged bleeding, bruising easily or swollen nodes. The remainder of the review of systems is negative. PHYSICAL EXAMINATION: GENERAL: alert cooperative, pleasant oriented x 3 (self, time and place) in no acute distress BP 130/70 (BP Site: Left Arm, BP Position: Sitting, BP Cuff Size: Regular Adult) Pulse 76 Ht 149.9 cm (4' 11) Wt 60 kg (132 lb 4.8 oz) SpO2 99% BMI 26.72 kg/m? Last 3 Encounter BP Readings: Date: BP: 05/09/2018 130/70 04/13/2018 104/60 04/08/2018 164/110 Last 3 Encounter Pulse Readings: Date: Pulse: 05/09/2018 76 04/13/2018 88 04/08/2018 108 Last 3 Encounter Wt Readings: Date: Wt: 05/09/2018 60 kg (132 lb 4.8 oz) 04/13/2018 59 kg (130 lb) 04/08/2018 64 kg (141 lb) SKIN: warm, dry, no rash. NECK: supple, no palpable masses, no JVD, carotids well felt, no bruits. CARDIAC: [place] palpable in the 5th intercostal space mid clavicular line, normal S1 and S2, no murmurs, gallops, or rubs. CHEST: Normal respiratory efforts, lungs clear to auscultation bilaterally. ABDOMEN: Soft, no tenderness, rigidity, or masses. No palpable liver or spleen. Normal bowel sounds, no bruits. NEURO: intact cranial nerves II through XII, no motor or sensory deficits in all 4 extremities. EXTREMITIES: No cyanosis, clubbing, or edema. Peripheral pulses well felt. CARDIAC (AND OTHER IMPORTANT) TESTING: [place] Echo: ECHOCARDIOGRAM COMPLETE Observed: 04/08/2018 4:11 PM Status: F Source: [facility] REPOSITORY [facility] Cardiovascular Services [address] [place] [address] Echo Complete 04/08/18 1347 MR#: [id number] Acct: [id number] Name: TOOTIE WANG Rep #: [id number] : 1955 62 From: Jax Neri MD Attending Dr: Michael Merino DO Status: ADM IN Ordering Dr: Michael Merino DO Date: 04/08/18 Location: [facility] Sex: F C Admitted: 04/08/18 Reason For Study: CHF Procedure This was a 2D Doppler, Color Flow transthoracic echocardiogram. Exam performed portable in ED. Left Ventricle Normal size and thickness. Moderately dilated left ventricle. The estimated ejection fraction is 10 %. Stage 2 diastolic dysfunction. There is severe global hypokinesis of the left ventricle. Right Ventricle Mildly dilated right ventricle. Normal systolic function. Atria The left atrium is moderately enlarged. Normal right atrium. Normal atrial septum. Mitral Valve The mitral valve is structurally normal. No prolapse or stenosis seen. Mild (1+) mitral valve insufficiency. Tricuspid Valve Normal tricuspid valve. Mild (1+) tricuspid valve insufficiency. Right ventricular systolic pressure estimated to be 35 mmHg. Aortic Valve Trisinus/trileaflet aortic valve. Normal aortic valve. Trivial aortic valve insufficiency. Pulmonic Valve Normal pulmonic valve. Trivial pulmonic valve insufficiency. Great Vessels Normal aortic root. Normal arch. Normal inferior vena cava. Inferior vena cava collapse with sniff. Pericardium/Pleural No pericardial effusion. Moderate size left pleural effusion. MMode/2D Measurements AND Calculations LVIDd: 5.6 cm IVSd: 0.79 cm Ao root diam: 3.2 cm LVIDs: 5.1 cm LVPWd: 1.1 cm RVDd: 3.6 cm FS: 9.0 % LAV(MOD-bp): 87.2 ml EDV(MOD-sp4): 93.9 ml EDV(MOD-sp2): 100.7 ml LAV(MOD-bp) Indexed: 55.0 ml/m2 ESV(MOD-sp4): 81.0 ml EF(MOD- sp2): 24.9 % LAV(MOD-sp2): 81.0 ml EF(MOD-sp4): 13.7 % LAV(MOD-sp4): 86.0 ml SV(MOD-sp4): 12.9 ml SV(MOD-sp2): 25.1 ml LA A4 area: 23.4 cm2 LA dimension(2D): 3.9 cm RA A4 area: 18.2 cm2 Doppler Measurements AND Calculations MV E max mellissa: 92.7 cm/sec Ao V2 max: 72.4 cm/sec LV V1 max: 69.6 cm/sec Ao max P.1 mmHg LV V1 max P.9 mmHg PA V2 max: 49.1 cm/sec TR max mellissa: 273.7 cm/sec TR max P.0 mmHg Interpretation Summary The estimated ejection fraction is 10 %. Stage 2 diastolic dysfunction. There is severe global hypokinesis of the left ventricle. Mildly dilated right ventricle. The left atrium is moderately enlarged. Mild (1+) mitral valve insufficiency. Mild (1+) tricuspid valve insufficiency. Right ventricular systolic pressure estimated to be 35 mmHg. Trivial aortic valve insufficiency. Moderate size left pleural effusion. d/w Dr Merino There is no comparison study available. LABS: Cholesterol, Total (mg/dL) Date Value 02/03/2018 232 HDL Cholesterol (mg/dL) Date Value 02/03/2018 79 LDL Cholesterol (mg/dL) Date Value 02/03/2018 134 Triglyceride (mg/dL) Date Value 02/03/2018 96 ASSESSMENT/PLAN: 1. Acute on chronic systolic heart failure (HCC) - ICD9: 428.23, ICD10: I50.23 (primary diagnosis) - NYHA III - Etiology unclear at this time - [facility] [place] with normal coronaries 04/2018 - ECHO 3 months - CONSULT TO CARD REHAB PHASE II - switch to ARNI (Entresto) from losartan after hold 36 hrs - Titrate carvedilol and ARNI as tolerated - Continue spironolactone and furosemide however we will cut down Lasix to once daily 2. Cardiac LV ejection fraction 10-20% - ICD9: 785.9, ICD10: R09.89 3. Hypertension, essential - ICD9: 401.9, ICD10: I10 - good control - Encouraged dietary sodium restriction/DASH diet - Recommended regular aerobic exercise. - Discussed need and benefit for weight loss. - Goal of BP <130/80 4. Hypothyroidism, unspecified type - ICD9: 244.9, ICD10: E03.9 - Pending follow-up with endocrinology We had a long discussion regarding her recent findings of acute systolic heart failure and severe LV systolic dysfunction with ejection fraction of 10%. It is not clear as to the etiology of this however she did not have any evidence of coronary artery disease on left heart catheterization. She has had a stressful summer and certainly a stress-induced cardiomyopathy can be considered however these are usually short lived post stress and the echocardiogram did not describe a classic Takotsubo morphology. She does have other contributing issues such as hypertension and hypothyroidism. She has had a prolonged viral illness however this was only for approximately 10 days or so. I did go over the pathophysiology, treatment and prognosis of heart failure with she and her in great detail. We will adjust her medications and follow her closely. I will switch her to sacubitril-valsartan after holding losartan for 36 hrs due to a borderline BP. We will titrate both the ARNI and carvedilol as tolerated from a BP standpoint. I will cut back Lasix to once a day from twice a day to help with blood pressure support for her medication changes as she does not appear to be fluid overloaded and in fact is slightly volume contracted per examination. She should continue spironolactone. We discuss cardiac rehabilitation for congestive heart flow we will try to arrange this for her as well. We will recheck her echocardiogram in July which will be 3 months after her initial study and I will see her at that time. If this shows her EF is still less than 35% we will recommend evaluation for primary prevention ICD. She states that they did discuss getting a polysomnogram in the future and while this is not unreasonable she does not seem to have classic sleep apnea symptoms at this time. I will hold off on this test for now however we will reconsider in the future. Thank you for allowing me the privilege of participating in the care of your patient. Please do not hesitate to contact me if there are any questions. Janet Hinds DO, FACC, FCCP, FACOI CC: Faina Kwon APRN.[facility] [address] [place] [address] CNOV Observed: 05/09/2018 Status: COMPLETED Source: [place] 1:40 PM [facility] REPOSITORY Office Visit (DANIELA) TOOTIE WANG ([id number]) 1955 F Date Time Provider Department 05/09/18 1:40 PM JANET HINDS During your visit today, we recorded the following information about you: Pulse Blood pressure Weight Height 78/minute 130/70 60 kg 1.499 m Janet Hinds DO 05/09/2018 6:01 PM Signed [facility] [place] Rosy Wade Department of Cardiovascular Medicine SECTION OF REGIONAL CARDIOLOGY Consultation requested by Faina Kwon APRN.CNP for an opinion regarding Tootie Wang. My final recommendations will be communicated back to the requesting physician by way of shared Medical record or letter to requesting physician via US mail. CC: shortness of breath HPI: Tootie Wang is a 62 year old female who is here today for establishment of cardiac care, shortness of breath, palpitations, abnormal echo findings, congestive heart failure and cardiomyopathy. She presents for another opinion after the admission to [facility] to the hospital for progressive shortness of breath early last month in April 2018. She states that she had been doing well and quite active with exercising using the T 25 disc program through the middle of last year without difficulty. She relocated from [place] in July 2017 and had some challenges with her daughter's requiring her to go back and forth to [place] this past summer in October where she spent 2 weeks there and then came back and immediately had to go to assist her mother in [place]. She states socially quite stressful period for her. She also relates that her mother had congestive heart failure in her early 60s. She was very short of breath and is slightly better now since discharge but is fairly tired after doing her usual activities daily living. During her admit at [facility] she had an echocardiogram on 04/08/18 and this reported a LVEF of 10%. She underwent left heart catheterization demonstrating normal coronaries. She does have a history of hypertension and thyroid issues with possible auto immune basis and had a TSH of over 20 during that admit. She is pending endo follow up. She was placed on losartan 75 mg daily, aspirin, carvedilol 3.125 twice a day, Lasix 40 mg twice a day magnesium and spironolactone 25 mg daily. She does have improved orthopnea after this regimen. She denies any lower extremity edema. She admits to 2 glasses of alcohol a day. The patient is involved in sporadic irregular exercise Patient denies chest pain, dizziness, lightheadedness, lower extremity edema, PND, presyncope, syncope or claudication symptoms. PAST MEDICAL HISTORY Diagnosis Date - Arthritis - Dilated cardiomyopathy (HCC) EF % 10, following with Dr. Sullivan. negative cardiac cath - Hypertension - Pneumonia 2014 - Squamous cell skin cancer 2016 right hand - Thyroid disorder PAST SURGICAL HISTORY Procedure Laterality Date - COLONOSCOPY 04/04/2013 splenic fixure polyp, removed and sent for path- hyperplastic polyp; [facility] - LAPAROSCOPIC BLADDER REPAIR 2014 - ROTATOR CUFF REPAIR Bilateral 2015 Left arm. 2017 Right arm. 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 CR TVT 2012 done in [place] uncertain brand - VAGINAL HYSTERECTOMY FAMILY HISTORY Problem Relation Age of Onset - Macular Degen Mother - COPD Mother - Heart Mother - other (Gastroparesis) Mother - other (Lung Cancer) Father - Hypertension Brother - Hypertension Maternal Grandmother passed at age 95 - Heart Maternal Grandmother - Stroke Maternal Grandmother - Stroke Paternal Grandfather - Breast Cancer Paternal Aunt - Breast Cancer Paternal Aunt - Breast Cancer Paternal Aunt - Breast Cancer Paternal Aunt - Breast Cancer Paternal Aunt SOCIAL HISTORY Social History Marital status: Spouse name: Kris Pickard Years of education: Number of children: 3 Social History Main Topics Smoking status: Never Smoker Smokeless tobacco: Never Used Alcohol use: Yes Comment: Rare, wine Social History Narrative Lives in [place], relocated from [place], 3 adult children and 3 grandchildren in [place], and 1 in [place]. ALLERGIES: Lortab [Hydrocodone-Acetaminophen] CURRENT MEDICATIONS: Current Outpatient Prescriptions: losartan (COZAAR) 50 mg tablet Take 1.5 tablets by mouth once daily. aspirin, enteric coated (ASPIRIN, ENTERIC COATED) 81 mg EC tablet Take 1 tablet by mouth once daily. carvedilol (COREG) 3.125 mg tablet Take 1 tablet by mouth twice daily. furosemide (LASIX) 40 mg tablet Take 1 tablet by mouth twice daily. magnesium oxide 400 mg cap Take 1 capsule by mouth twice daily. spironolactone (ALDACTONE) 25 mg tablet Take 1 tablet by mouth once daily. LOW-DOSE ASPIRIN ORAL Take 81 mg by mouth once daily. carvedilol (COREG) 3.125 mg tablet Take 3.125 mg by mouth twice daily with meals. COMPOUNDED PRESCRIPTION T4/T3 E4M 60 mcg/20 mcg capsule. Take 8 tablets by mouth weekly ibuprofen (MOTRIN) 200 mg tablet Take 1-2 tablets by mouth every 4 hours as needed for Pain (Take with food.). [place]-3 Fatty Acids, FISH OIL, (FISH OIL) 360-1,200 mg cap Take 1 capsule by mouth daily with breakfast. vit-iron fumarate-fa ( MULTIVITAMINS) 28 mg iron- 800 mcg tab Take 2 tablets by mouth once daily. Calcium Citrate 250 mg calcium tab Take 2 tablets by mouth once daily. COMPOUNDED PRESCRIPTION progesterone 40 mg/ML cream, apply 0.5 ml twice daily, rub in well and rotate sites COMPOUNDED PRESCRIPTION estriol vaginal 0.1 % cream, insert one gram vaginally qhs twice per week, 0.5 gram once per week Lactobacillus acidophilus (PROBIOTIC ORAL) Take 1 capsule by mouth once daily. furosemide (LASIX) 40 mg tablet Take 40 mg by mouth twice daily. Magnesium Oxide 420 mg tab Take 1 tablet by mouth twice daily. spironolactone (ALDACTONE) 25 mg tablet Take 25 mg by mouth once daily. losartan (COZAAR) 50 mg tablet Take 1.5 tablets by mouth once daily. azithromycin (ZITHROMAX Z-LYDIA) 250 mg tablet Take 2 tablets by mouth day one, then 1 tablet daily until gone. (Patient not taking: Reported on 04/13/2018 ) No current facility-administered medications for this visit. ROS: Card: See present history. Pulm: See HPI Gastro: No nausea, vomiting, or diarrhea GenUr: No history of dysuria, frequency or incontinence Endo: Negative for cold or heat intolerance, polyuria or polydipsia. Neuro: no focal weakness, focal sensory loss, headache, visual changes, seizure activity, ataxia, speech/language loss. Musculoskeletal: Negative for joint or muscle pain, back pain, or swelling. Infect: no fevers, chills, rigors or night sweats. Skin: Negative for lesions, rash, and itching. Heme: Negative for prolonged bleeding, bruising easily or swollen nodes. The remainder of the review of systems is negative. PHYSICAL EXAMINATION: GENERAL: alert cooperative, pleasant oriented x 3 (self, time and place) in no acute distress BP 130/70 (BP Site: Left Arm, BP Position: Sitting, BP Cuff Size: Regular Adult) Pulse 76 Ht 149.9 cm (4' 11) Wt 60 kg (132 lb 4.8 oz) SpO2 99% BMI 26.72 kg/m? Last 3 Encounter BP Readings: Date: BP: 05/09/2018 130/70 04/13/2018 104/60 04/08/2018 164/110 Last 3 Encounter Pulse Readings: Date: Pulse: 05/09/2018 76 04/13/2018 88 04/08/2018 108 Last 3 Encounter Wt Readings: Date: Wt: 05/09/2018 60 kg (132 lb 4.8 oz) 04/13/2018 59 kg (130 lb) 04/08/2018 64 kg (141 lb) SKIN: warm, dry, no rash. NECK: supple, no palpable masses, no JVD, carotids well felt, no bruits. CARDIAC: [place] palpable in the 5th intercostal space mid clavicular line, normal S1 and S2, no murmurs, gallops, or rubs. CHEST: Normal respiratory efforts, lungs clear to auscultation bilaterally. ABDOMEN: Soft, no tenderness, rigidity, or masses. No palpable liver or spleen. Normal bowel sounds, no bruits. NEURO: intact cranial nerves II through XII, no motor or sensory deficits in all 4 extremities. EXTREMITIES: No cyanosis, clubbing, or edema. Peripheral pulses well felt. CARDIAC (AND OTHER IMPORTANT) TESTING: [place] Echo: ECHOCARDIOGRAM COMPLETE Observed: 04/08/2018 4:11 PM Status: F Source: [facility] REPOSITORY [facility] Cardiovascular Services [address] [place] [id number] Echo Complete 04/08/18 1347 MR#: [id number] Acct: [id number] Name: TOOTIE WANG Rep #: [id number] : 1955 62 From: Jax Neri MD Attending Dr: Michael Merino DO Status: ADM IN Ordering Dr: Michael Merino DO Date: 04/08/18 Location: U Sex: F C Admitted: 04/08/18 Reason For Study: CHF Procedure This was a 2D Doppler, Color Flow transthoracic echocardiogram. Exam performed portable in ED. Left Ventricle Normal size and thickness. Moderately dilated left ventricle. The estimated ejection fraction is 10 %. Stage 2 diastolic dysfunction. There is severe global hypokinesis of the left ventricle. Right Ventricle Mildly dilated right ventricle. Normal systolic function. Atria The left atrium is moderately enlarged. Normal right atrium. Normal atrial septum. Mitral Valve The mitral valve is structurally normal. No prolapse or stenosis seen. Mild (1+) mitral valve insufficiency. Tricuspid Valve Normal tricuspid valve. Mild (1+) tricuspid valve insufficiency. Right ventricular systolic pressure estimated to be 35 mmHg. Aortic Valve Trisinus/trileaflet aortic valve. Normal aortic valve. Trivial aortic valve insufficiency. Pulmonic Valve Normal pulmonic valve. Trivial pulmonic valve insufficiency. Great Vessels Normal aortic root. Normal arch. Normal inferior vena cava. Inferior vena cava collapse with sniff. Pericardium/Pleural No pericardial effusion. Moderate size left pleural effusion. MMode/2D Measurements AND Calculations LVIDd: 5.6 cm IVSd: 0.79 cm Ao root diam: 3.2 cm LVIDs: 5.1 cm LVPWd: 1.1 cm RVDd: 3.6 cm FS: 9.0 % - __ LAV(MOD-bp): 87.2 ml EDV(MOD-sp4): 93.9 ml EDV(MOD-sp2): 100.7 ml LAV(MOD-bp) Indexed: 55.0 ml/m2 ESV(MOD-sp4): 81.0 ml EF(MOD- sp2): 24.9 % LAV(MOD-sp2): 81.0 ml EF(MOD-sp4): 13.7 % LAV(MOD-sp4): 86.0 ml - __ SV(MOD-sp4): 12.9 ml SV(MOD-sp2): 25.1 ml LA A4 area: 23.4 cm2 - __ LA dimension(2D): 3.9 cm RA A4 area: 18.2 cm2 Doppler Measurements AND Calculations MV E max mellissa: 92.7 cm/sec Ao V2 max: 72.4 cm/sec LV V1 max: 69.6 cm/sec Ao max P.1 mmHg LV V1 max P.9 mmHg - __ PA V2 max: 49.1 cm/sec TR max mellissa: 273.7 cm/sec TR max P.0 mmHg Interpretation Summary The estimated ejection fraction is 10 %. Stage 2 diastolic dysfunction. There is severe global hypokinesis of the left ventricle. Mildly dilated right ventricle. The left atrium is moderately enlarged. Mild (1+) mitral valve insufficiency. Mild (1+) tricuspid valve insufficiency. Right ventricular systolic pressure estimated to be 35 mmHg. Trivial aortic valve insufficiency. Moderate size left pleural effusion. d/w Dr Merino There is no comparison study available. LABS: Cholesterol, Total (mg/dL) Date Value 02/03/2018 232 HDL Cholesterol (mg/dL) Date Value 02/03/2018 79 LDL Cholesterol (mg/dL) Date Value 02/03/2018 134 Triglyceride (mg/dL) Date Value 02/03/2018 96 ASSESSMENT/PLAN: 1. Acute on chronic systolic heart failure (HCC) - ICD9: 428.23, ICD10: I50.23 (primary diagnosis) - NYHA III - Etiology unclear at this time - [facility] [place] with normal coronaries 04/2018 - ECHO 3 months - CONSULT TO CARD REHAB PHASE II - switch to ARNI (Entresto) from losartan after hold 36 hrs - Titrate carvedilol and ARNI as tolerated - Continue spironolactone and furosemide however we will cut down Lasix to once daily 2. Cardiac LV ejection fraction 10-20% - ICD9: 785.9, ICD10: R09.89 3. Hypertension, essential - ICD9: 401.9, ICD10: I10 - good control - Encouraged dietary sodium restriction/DASH diet - Recommended regular aerobic exercise. - Discussed need and benefit for weight loss. - Goal of BP <130/80 4. Hypothyroidism, unspecified type - ICD9: 244.9, ICD10: E03.9 - Pending follow-up with endocrinology We had a long discussion regarding her recent findings of acute systolic heart failure and severe LV systolic dysfunction with ejection fraction of 10%. It is not clear as to the etiology of this however she did not have any evidence of coronary artery disease on left heart catheterization. She has had a stressful summer and certainly a stress-induced cardiomyopathy can be considered however these are usually short lived post stress and the echocardiogram did not describe a classic Takotsubo morphology. She does have other contributing issues such as hypertension and hypothyroidism. She has had a prolonged viral illness however this was only for approximately 10 days or so. I did go over the pathophysiology, treatment and prognosis of heart failure with she and her in great detail. We will adjust her medications and follow her closely. I will switch her to sacubitril-valsartan after holding losartan for 36 hrs due to a borderline BP. We will titrate both the ARNI and carvedilol as tolerated from a BP standpoint. I will cut back Lasix to once a day from twice a day to help with blood pressure support for her medication changes as she does not appear to be fluid overloaded and in fact is slightly volume contracted per examination. She should continue spironolactone. We discuss cardiac rehabilitation for congestive heart flow we will try to arrange this for her as well. We will recheck her echocardiogram in July which will be 3 months after her initial study and I will see her at that time. If this shows her EF is still less than 35% we will recommend evaluation for primary prevention ICD. She states that they did discuss getting a polysomnogram in the future and while this is not unreasonable she does not seem to have classic sleep apnea symptoms at this time. I will hold off on this test for now however we will reconsider in the future. Thank you for allowing me the privilege of participating in the care of your patient. Please do not hesitate to contact me if there are any questions. Janet Hinds DO, JEANC, FCCP, FACOI CC: Faina Kwon APRN.[facility] [address] [place] [address] Janet Hinds DO 05/09/2018 2:54 PM Addendum We will have you hold the losartan and on 05/11/17 if you blood pressure is over 100 on the top number start taking the Entresto medicine twice a day We will increase carvedilol in the future but will wait to see how you do with the Entresto first Return in 2 weeks to check everything with our cardiology nurse practitioner, Elham Hinds DO, JEANC, FCCP, FACOI Referring Provider: FAINA KWON ([facility]) [[id number]] Allergies As of Date: 05/09/2018 Noted Allergy Reaction LORTAB (HYDROCODONE-ACETAMINOPHEN)02/07/2018 8 - GI Upset Comments: Severe nausea Date Reviewed: 05/09/2018 Reviewed by: Genie Dee Ma - Fully Assessed Reason for Visit: CARD New Patient Consult [1228] Primary Visit Diagnosis:Acute on chronic systolic heart failure (HCC) [I50.23] Other Visit Diagnoses:Cardiac LV ejection fraction 10-20% [R09.89] Hypertension, essential [I10] Essential hypertension [I10] Hypothyroidism, unspecified type [E03.9] Order(s):ECG COMPLETE W INTERPRETATION [ECG01] Order #: [id number] FUTURE ECHO [703967] Order #: [id number]: 1 FUTURE perflutren lipid microspheres (DEFINITY) 1.1 mg/mL injection (to be provided with echo procedure)Inject 1.3 mL intravenously as directed.Disp: 1.3 mLRfl: 0 sacubitril-valsartan (ENTRESTO) 24-26 mg tabletTake 1 tablet by mouth twice daily. Do not start until 05/11/17 when you have been off the losartan for 36 hoursDisp: 60 tabletRfl: 1 CONSULT TO [facility] PHASE II [] Order #: [id number]: 1 Prescriptions as of 05/09/2018 Sig: ASPIRIN 81 MG TABLET,DELAYED * Take 1 tablet by mouth once d* FUROSEMIDE 40 MG TABLET Take 1 tablet by mouth twice * MAGNESIUM OXIDE 400 MG CAPSULE Take 1 capsule by mouth twice* SPIRONOLACTONE 25 MG TABLET Take 1 tablet by mouth once d* LOW-DOSE ASPIRIN ORAL Take 81 mg by mouth once marques* COMPOUNDED PRESCRIPTION T4/T3 E4M 60 mcg/20 mcg capsu* IBUPROFEN 200 MG TABLET Take 1-2 tablets by mouth anders* [place]-3 FATTY ACIDS-FISH OIL * Take 1 capsule by mouth daily* VIT NO.95-FERROUS FU* Take 2 tablets by mouth once * CALCIUM CITRATE 250 MG TABLET Take 2 tablets by mouth once * COMPOUNDED PRESCRIPTION progesterone 40 mg/ML cream, * COMPOUNDED PRESCRIPTION estriol vaginal 0.1 % cream, * PROBIOTIC ORAL Take 1 capsule by mouth once * PERFLUTREN LIPID MICROSPHERES* Inject 1.3 mL intravenously a* SACUBITRIL 24 MG-VALSARTAN 26* Take 1 tablet by mouth twice * FUROSEMIDE 40 MG TABLET Take 40 mg by mouth twice abbey* MAGNESIUM OXIDE 420 MG TABLET Take 1 tablet by mouth twice * SPIRONOLACTONE 25 MG TABLET Take 25 mg by mouth once marques* AZITHROMYCIN 250 MG TABLET Take 2 tablets by mouth day o* Patient not taking: Reported on 04/13/2018 Medication notes this encounter FUROSEMIDE 40 MG TABLET >> Genie Dee Ma 05/09/2018 1:44 PM >> GENIE DEE MA WedMay 09, 2018 1:44 PM duplicate SPIRONOLACTONE 25 MG TABLET >> Genie Dee Ma 05/09/2018 1:46 PM >> GENIE DEE MA May 09, 2018 1:46 PM duplicate CARVEDILOL 3.125 MG TABLET >> Genie HurtadoFrandyBalbirrahul Man 05/09/2018 1:44 PM >> LISYFrandyBALBIRRAHUL GENIE MAN WedMay 09, 2018 1:44 PM duplicate LOSARTAN 50 MG TABLET >> Genie Campbellrahul Man 05/09/2018 1:45 PM >> GENIE DEE MA WedMay 09, 2018 1:45 PM duplicate Problem List As Of Date 05/09/2018 Noted Resolved Hypertension, essential [I10] INVALID FOR* Family history of breast cancer [Z80.3] INVALID FOR* More... Cardiac LV ejection fraction 10-20% [R09.89] INVALID FOR* Other instructions from your clinician: We will have you hold the losartan and on 05/11/17 if you blood pressure is over 100 on the top number start taking the Entresto medicine twice a day We will increase carvedilol in the future but will wait to see how you do with the Entresto first Return in 2 weeks to check everything with our cardiology nurse practitioner, Elham Hinds, DO, FACC, FCCP, FACOI Prescriptions ordered this encounter Disp Refills Start End PERFLUTREN LIPID MICROSPHERES 1.1 MG* 1.3 * 0 05/09/2018 05/09/2019 Class: In Office Route: INTRAVENOUS Sig: Inject 1.3 mL intravenously as directed. SACUBITRIL 24 MG-VALSARTAN 26 MG TAB* 60 t* 1 05/09/2018 Route: ORAL Sig: Take 1 tablet by mouth twice daily. Do not start until 05/11/17 when you have been off the losartan for 36 hours CARVEDILOL 6.25 MG TABLET 60 t* 6 05/09/2018 05/09/2018 Route: ORAL Sig: Take 1 tablet by mouth twice daily. Medications Discontinued During This Encounter losartan (COZAAR) 50 mg tablet 30 t* 2 04/12/2018 05/09/2018 Class: Historical Med Route: ORAL Sig: Take 1.5 tablets by mouth once daily. Disc: Clinical Decision losartan (COZAAR) 50 mg tablet 135 * 1 04/13/2018 05/09/2018 Route: ORAL Sig: Take 1.5 tablets by mouth once daily. Disc: Clinical Decision carvedilol (COREG) 3.125 mg tablet 05/09/2018 Class: Historical Med Route: ORAL Sig: Take 3.125 mg by mouth twice daily with meals. Disc: Reason for discontinue is not on file. carvedilol (COREG) 3.125 mg tablet 04/12/2018 05/09/2018 Class: Historical Med Route: ORAL Sig: Take 1 tablet by mouth twice daily. Disc: Reason for discontinue is not on file. carvedilol (COREG) 6.25 mg tablet 60 t* 6 05/09/2018 05/09/2018 Route: ORAL Sig: Take 1 tablet by mouth twice daily. Disc: Reason for discontinue is not on file. Disposition: Return in about 3 weeks (around 05/30/2018). Follow-up and Disposition History Recorded Encounter Status:Closed by JANET HINDS DO on 05/09/18 CARDIOLOGY VISIT Observed: 04/16/2018 Status: F Source: [place] [facility] 11:46 AM [facility] REPOSITORY [facility] [address] [place] [address]. [address] [place] [address] OFFICE VISIT Date of Service: 04/15/18 MR#: [id number] Acct: [id number] Name: TOOTIE WANG Rep #: [id number] : 1955 Provider: Amanda Franks Age/Sex: 62/F Location: [facility] Status: Signed HPI HPI Chief Complaint: CHF Details: TOOTIE WANG, is a 62 F who presents to the office today for newly diagnosed cardiomyopathy. Patient was in the hospital last week for acute shortness of breath. She was noted to have an ejection fraction of 10%. Patient underwent a heart catheterization which demonstrated normal coronary arteries. Prior to hospitalization patient does have a history of hypertension and autoimmune concerns with her thyroid. Patient does have multiple questions since her hospitalization. She is getting ready to leave to visit her grandchildren next week. Patient states that now she is able to lay flat, previously she was unable to lay flat. She thinks her symptoms were slowly worsening since October of this year. She does have multiple stressors at home. She currently does not have any chest pain or heaviness. She does have some shortness of breath with exertion but it is improved since her hospital stay. She normally is a very active person and would like to get back to this. She does not have any palpitations. She does not have any lightheadedness or dizziness. She currently does not have any lower extremity edema. Intake Vital Signs04/15/18 Height 4 ft 11 in 04/15/18 Weight: 129 lb 04/15/18 Body Mass Index (BMI) 26.0 04/15/18 Blood Pressure 110/74 04/15/18 Blood Pressure Location Lt brachial Intake Visit Reasons: DC 12-10 post-cath, wants sooner than 1 mo Furnace Cleaner Required: No Accompanied by: none Is patient in pain?: No Allergies acetaminophen [From Lortab] Adverse Reaction (Verified 04/15/18 09:36) Nausea hydrocodone [From Lortab] Adverse Reaction (Verified 04/15/18 09:36) Nausea Medications Calcium Citrate/Vitamin D3 [Calcium Citrate-Vit D3 Tablet] 1,000 mg PO DAILY 04/08/18 [History Confirmed 04/08/18] Losartan Potassium [Cozaar] 75 mg PO DAILY 04/08/18 [History Confirmed 04/08/18] [place]-3 Fatty Acids [Fish Oil] 1,500 mg PO DAILY 04/08/18 [History Confirmed 04/08/18] Pnv No.121/Iron/Folic Acid [ Multivitamin Tablet] 1 ea PO DAILY 04/08/18 [History Confirmed 04/08/18] Aspirin [Aspirin, Baby] 81 mg PO DAILY@0800 #30 tab.chew 04/11/18 [Rx] carvedilol 3.125 mg tablet 3.125 mg PO BID #60 tab 04/15/18 [Rx Confirmed 04/15/18] furosemide 40 mg tablet 40 mg PO BID #60 tab 04/15/18 [Rx Confirmed 04/15/18] magnesium oxide 400 mg (241.3 mg magnesium) tablet 400 mg PO BIDCM #60 tab 04/15/18 [Rx Confirmed 04/15/18] spironolactone 25 mg tablet 25 mg PO DAILY #30 tab 04/15/18 [Rx Confirmed 04/15/18] PFSH Social History Smoking Status: Never smoker Assessment AND Plan 1. Dilated cardiomyopathy I42.0 Plan - ERIN Hu Did review in detail disease process with patient. Reviewed the benefits of each 1 of the medications. After patient returns from her trip to see her grandchildren she will call her office with an update on her blood pressure readings. If she is able to tolerate it we will then increase her Coreg. For now she will continue on her current dose of losartan. She will continue with her spironolactone and her diuretic. Would also like to refer patient to cardiac rehab when she returns from her vacation. Patient is aware that we will repeat her echocardiogram in 3 months. If her EF has not improved she may need a prophylactic ICD. Orders Referrals: 2. Essential hypertension I10 Plan - ERIN Hu Blood pressure is adequately controlled on current medications. Will not make any adjustments. Orders Orders: Plan Detail Other Orders Orders: Referrals: Other Medications Changed: Refilled: Additional Comments - ERIN Hu The above patient was discussed with Dr. Carvajal, he agrees with plan of care. Thank you for allowing us to participate in patient's plan of care, if you have any questions please do not hesitate to call. This note was generated using a voice recognition system and there may be incorrect words, spelling or punctuation errors that were not noted when reviewing the office note prior to saving. Follow Up 1 Month ([employer]/MMM) Coding Level of Care Code Off vis,est,level 4 Diagnoses Dilated cardiomyopathy I42.0 Cardiomyopathy type: dilated Essential hypertension I10 Hypertension type: essential hypertension Coding Level of Care Code Off vis,est,level 4 Diagnoses Dilated cardiomyopathy I42.0 Cardiomyopathy type: dilated Essential hypertension I10 Hypertension type: essential hypertension 04/16/18 0927 <Electronically signed by Amanda KHAN> Date Amanda KHAN 04/16/18 1146<Electronically signed by Med Carvajal MD> Cosigner Signature: Date (if applicable) Med Carvajal MD CC: MAHAD Kwon BASIC METABOLIC Collected: 04/15/2018 Status: F Source: [place] [facility] ([facility]) 10:49 AM [facility] REPOSITORY TYPE CODE TESTS RESULT OUT OF RANGE REFERENCE UNITS LAB L501.0100 74-106 mg/dL Normal GLU 104 Result Comment: Fasting Glucose result from 100 to 125 mg/dL suggests IMPAIRED HOMEOSTASIS per A.D.A. criteria. Please note revised GLUCOSE reference range effective 2017. LAB L501.1000 7-18 mg/dL High BUN 45 LAB L501.1100 0.55-1.02 mg/dL High CREAT,SERUM 1.22 Result Comment: The validity of the calculated GFR AND GFRAA in patients over 70 years has not been determined. Clinical correlation is essential. LAB L501.1110 >60 mL/min Low EST GFR 47 Result Comment: Non- GFR Calc LAB L501.1115 >60 mL/min Low EST GFR - AA 57 Result Comment: GFR Calc LAB L501.1300 10-20 RATIO High BUN/CRE 36.9 LAB L501.2200 8.5-10.1 mg/dL CA Normal 9.6 LAB L501.5300 136-145 mmol/L NA Normal 136 LAB L501.5600 3.5-5.1 mmol/L K Normal 4.4 Result Comment: Slight Hemolysis, Result may be falsely increased. LAB L501.5900 98-107 mmol/L Normal CL 101 LAB L501.6100 21.0-32.0 mmol/L Normal CO2 24.0 LAB L501.6200 5-15 Normal GAP 11 Performed By: #### L500.2500 #### [facility] [address] [place], [address] PROGRESS Observed: 04/14/2018 Status: COMPLETED Source: [place] 11:42 AM [facility] [place] REPOSITORY HNO ID: [id number] Author: Marc Steel (Rn) Service: (none) Author Type: Registered Nurse Type: Progress Notes Filed: 04/14/2018 5:46 PM Note Text: PRIMARY CARE COORDINATION FOLLOW-UP NOTE Provider Action/FYI The new / changed medications were pended 04/12/18 for PCP/MACHINE BURRER review Patient identified by name and date of . YES Signature Tawny Tran RN April 14, 2018 PROGRESS Observed: 04/13/2018 Status: COMPLETED Source: [place] 3:22 PM [facility] REPOSITORY HNO ID: [id number] Author: Manjit Sandhu (Sw) Service: (none) Author Type: Ride Attendant Type: Progress Notes Filed: 04/13/2018 3:23 PM Note Text: Sw provided patient and spouse both with healthcare poa and living will copies. Patient and spouse will review and then have witnesses sign forms. PROGRESS Observed: 04/13/2018 Status: COMPLETED Source: [place] 3:04 PM [facility] REPOSITORY HNO ID: [id number] Author: Faina Wilson) Marisa Service: (none) Author Type: Nurse Practitioner Type: Progress Notes Filed: 04/13/2018 4:36 PM Note Text: Transitional Care Management TCM Eligibility Documentation The following information was gathered during the initial Patient Outreach Encounter. Date of Outreach: 04/12/2018 Outreach Attempt 1: Contact Made Date of Discharge 04/11/2018 Some recent data might be hidden Provider Documentation: Tootie Wang is a 62 year old female here today for a follow up to recent hospitalization. I have reviewed the patient's hospital course including diagnostic testing performed during this hospitalization, their discharge medications, and my assessment and plan with the patient and any family members present at today's visit. HPI/CC: Tootie Wang is a 62 year old female who presents for TCM after hospitalization at [facility] New onset CHF, EF 10%. PHYSICAL EXAMINATION BP 104/60 Pulse 88 Temp (Src) 98.1 (Temporal Artery) Resp 12 Wt 130 lb (59.0kg) General appearance: well appearing, alert, in no acute distress and well-hydrated, well nourished, motor and sensory appear to be normal Lungs: clear to auscultation no wheezing or rhonchi Heart: RRR without murmur, gallop, or rubs. No ectopy Abdomen: Normal abdominal exam, Abdomen soft, non-tender. Bowel sounds normal. No masses, organomegaly Extremities: Extremities normal. No deformities, edema, or skin discoloration. Good capillary refill. ASSESSMENT/PLAN: 1. Acute systolic CHF (congestive heart failure) (HCC) - ICD9: 428.21, 428.0, ICD10: I50.21 (primary diagnosis) 2. Cardiac LV ejection fraction 10-20% - ICD9: 785.9, ICD10: R09.89 - continue care as discussed - f/u with cardiology. 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 - per patient request would like to see endocrinology - f/u in 1 month Faina Kwon APRN.ISAIAS CNOV Observed: 04/13/2018 Status: COMPLETED Source: [place] 1:20 PM [facility] REPOSITORY Office Visit (FAMPWS) DALILATOOTIE Bautista ([id number]) 1955 F Date Time Provider Department 04/13/18 1:20 PM FAINA KWON (ISAIAS) [facility] During your visit today, we recorded the following information about you: Temperature Pulse Respiration Blood pressure 98.1 degrees 88/minute 12/minute 104/60 Weight 59 kg Suzy Coates LPN 04/13/2018 2:00 PM Signed Transitional Care Management Progress Note The patients TCM visit was performed within the 7 days of discharge. TCM Eligibility Documentation The following information was gathered during the initial Patient Outreach Encounter. Date of Outreach: 04/12/2018 Outreach Attempt 1: Contact Made Date of Discharge 04/11/2018 Some recent data might be hidden If no data exists please enter it manually. If data exists please delete date of discharge and date of initial contact seen below. Patient's Date of discharge: 04/11/2018 Date of initial coordinator contact after discharge: 04/12/2018 Discharge diagnosis: New onset systolic CHF, HTN, Hypothyroidism, Elevated d-dimer, PE ruled out Medication review completed Yes Suzy Coates LPN Provider Documentation: In follow-up of hospitalization, Tootieabhishek Wang is a 62 year old female with the chief complaint of n/a I have reviewed the patient?s last hospital course including diagnostic testing performed during this hospitalization, their discharge medications, and my assessment and plan with the patient and any family members present at today?s visit. TRANSITION CARE MANAGEMENT (TCM) INITIAL CONTACT ? ? Provider Action/FYI: 1. Pt denies CP, Sob on RA, calves and ankles are not tight like they were, no edema, or other unusual symptoms 2. Pt is traveling out of town next week awaiting a call from Dr. Carvajal's office for appt 3. Pt noted wt was 141 on 04/08/18, now is 130 lbs, Instructed to weigh daily and report wt gain of 3 lbs or more. Pt verbalized understanding. 3. Pt denies feeling light headed or dizziness, BP 118/80 P 81, Pulse ox 99%, Instructed to get up slowly to avoid falls, with new medications. Pt verbalized understanding. 3. Reviewed foods high in sodium to avoid, rinse canned vegetables 4. Medications reviewed in detail. 5. Pt will discuss at Appt -wants to verify if she should take more than 1500 mg of Fish oil per day? 6. Discussed ACP: Left a vm for Manjit Sandhu Pt is from [place] and wants to complete POA paper work. ? Initial contact with patient post discharge, spoke to Pt. Patient identified by name and . ? TRANSITION CARE MANAGEMENT: Date of Outreach: 04/12/2018 Outreach Attempt 1: Contact Made Date of Discharge 04/11/2018 Some recent data might be hidden ? ? SUMMARY: -Pt discharged from [facility] on 04/11/18. -Follow up appointment on 04/13/18. -Medication review done 04/12/18. -Admitted for: CHF ? NEW MEDICATIONS: Medications pended for review ? MEDS HELD/DISCONTINUED: ? ? BRIEF HOSPITAL COURSE: [facility] Discharge Excerpt ? Pt is a 62 yr old with New Onset CHF, Cardiology Consulted Echo EF 10%, stage 2 diastolic Dysfunction, Mild mitral valve insufficiency, mild tricuspid valve insufficiency, RVSP est to be 35 mmHg, Pt underwent a heart cath which showed essentially normal coronary arteries with est EF 10-15% Pt will continue ASA, Carvedilol, Losartan, spironolactone, Lasix, f/u with cardiology 1-2 wks, plan for repeat echo in 60-90 days, f/u with Pcp in 1 wk. ? Received Discharge info to Pcp/MACHINE BURRER for review Tawny Tran RN April 12, 2018 10:11 AM ? ? Patient Outreach Open 04/12/2018 Family Medicine Siobhan Steel (Rn) Transition Of Care Reason for Visit Progress Notes Unsigned TRANSITION CARE MANAGEMENT (TCM) INITIAL CONTACT ? ? Provider Action/FYI: 1. Pt denies CP, Sob on RA, calves and ankles are not tight like they were, no edema, or other unusual symptoms 2. Pt is traveling out of town next week awaiting a call from Dr. Carvajal's office for appt 3. Pt noted wt was 141 on 04/08/18, now is 130 lbs, Instructed to weigh daily and report wt gain of 3 lbs or more. Pt verbalized understanding. 3. Pt denies feeling light headed or dizziness, BP 118/80 P 81, Pulse ox 99%, Instructed to get up slowly to avoid falls, with new medications. Pt verbalized understanding. 3. Reviewed foods high in sodium to avoid, rinse canned vegetables 4. Medications reviewed in detail. 5. Pt will discuss at Appt -wants to verify if she should take more than 1500 mg of Fish oil per day? 6. Discussed ACP: Left a vm for Manjit Sandhu Pt is from [place] and wants to complete POA paper work. ? Initial contact with patient post discharge, spoke to Pt. Patient identified by name and . ? TRANSITION CARE MANAGEMENT: Date of Outreach: 04/12/2018 Outreach Attempt 1: Contact Made Date of Discharge 04/11/2018 Some recent data might be hidden ? ? SUMMARY: -Pt discharged from [facility] on 04/11/18. -Follow up appointment on 04/13/18. -Medication review done 04/12/18. -Admitted for: CHF ? NEW MEDICATIONS: Medications pended for review ? MEDS HELD/DISCONTINUED: ? ? BRIEF HOSPITAL COURSE: [facility] Discharge Excerpt ? Pt is a 62 yr old with New Onset CHF, Cardiology Consulted Echo EF 10%, stage 2 diastolic Dysfunction, Mild mitral valve insufficiency, mild tricuspid valve insufficiency, RVSP est to be 35 mmHg, Pt underwent a heart cath which showed essentially normal coronary arteries with est EF 10-15% Pt will continue ASA, Carvedilol, Losartan, spironolactone, Lasix, f/u with cardiology 1-2 wks, plan for repeat echo in 60-90 days, f/u with Pcp in 1 wk. ? Received Discharge info to Pcp/MACHINE BURRER for review Tawny Tran RN April 12, 2018 10:11 AM ? Faina Kwon APRN.CNP 04/13/2018 4:36 PM Signed Transitional Care Management TCM Eligibility Documentation The following information was gathered during the initial Patient Outreach Encounter. Date of Outreach: 04/12/2018 Outreach Attempt 1: Contact Made Date of Discharge 04/11/2018 Some recent data might be hidden Provider Documentation: Tootie Wang is a 62 year old female here today for a follow up to recent hospitalization. I have reviewed the patient's hospital course including diagnostic testing performed during this hospitalization, their discharge medications, and my assessment and plan with the patient and any family members present at today's visit. HPI/CC: Tootie Wang is a 62 year old female who presents for TCM after hospitalization at [facility] New onset CHF, EF 10%. PHYSICAL EXAMINATION BP 104/60 Pulse 88 Temp (Src) 98.1 (Temporal Artery) Resp 12 Wt 130 lb (59.0kg) General appearance: well appearing, alert, in no acute distress and well-hydrated, well nourished, motor and sensory appear to be normal Lungs: clear to auscultation no wheezing or rhonchi Heart: RRR without murmur, gallop, or rubs. No ectopy Abdomen: Normal abdominal exam, Abdomen soft, non-tender. Bowel sounds normal. No masses, organomegaly Extremities: Extremities normal. No deformities, edema, or skin discoloration. Good capillary refill. ASSESSMENT/PLAN: 1. Acute systolic CHF (congestive heart failure) (HCC) - ICD9: 428.21, 428.0, ICD10: I50.21 (primary diagnosis) 2. Cardiac LV ejection fraction 10-20% - ICD9: 785.9, ICD10: R09.89 - continue care as discussed - f/u with cardiology. 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 - per patient request would like to see endocrinology - f/u in 1 month Faina Kwon APRN.CNP Referring Provider: ER STAFF [[id number]] Allergies As of Date: 04/13/2018 Noted Allergy Reaction LORTAB (HYDROCODONE-ACETAMINOPHEN)02/07/2018 8 - GI Upset Comments: Severe nausea Date Reviewed: 04/13/2018 Reviewed by: Suzy Coates LPN - Fully Assessed Reason for Visit: TCM [Other] Reason For Visit History Recorded Primary Visit Diagnosis:Acute systolic CHF (congestive heart failure) (HCC) [I50.21] Other Visit Diagnoses:Cardiac LV ejection fraction 10-20% [R09.89] Jt's disease [E06.3] Order(s):losartan (COZAAR) 50 mg tabletTake 1.5 tablets by mouth once daily.Disp: 135 tabletRfl: 1 TDAP VACCINE AGE 7+ IM [[id number]] Order #: [id number] Prescriptions as of 04/13/2018 Sig: CALCIUM CITRATE 250 MG TABLET Take 2 tablets by mouth once * CARVEDILOL 3.125 MG TABLET Take 3.125 mg by mouth twice * COMPOUNDED PRESCRIPTION progesterone 40 mg/ML cream, * COMPOUNDED PRESCRIPTION estriol vaginal 0.1 % cream, * COMPOUNDED PRESCRIPTION T4/T3 E4M 60 mcg/20 mcg capsu* FUROSEMIDE 40 MG TABLET Take 40 mg by mouth twice abbey* IBUPROFEN 200 MG TABLET Take 1-2 tablets by mouth anders* PROBIOTIC ORAL Take 1 capsule by mouth once * LOSARTAN 50 MG TABLET Take 1.5 tablets by mouth onc* LOW-DOSE ASPIRIN ORAL Take 81 mg by mouth once marques* MAGNESIUM OXIDE 420 MG TABLET Take 1 tablet by mouth twice * [place]ME[place]-3 FATTY ACIDS-FISH OIL * Take 1 capsule by mouth daily* VIT NO.95-FERROUS FU* Take 2 tablets by mouth once * SPIRONOLACTONE 25 MG TABLET Take 25 mg by mouth once marques* AZITHROMYCIN 250 MG TABLET Take 2 tablets by mouth day o* Patient not taking: Reported on 04/13/2018 Problem List As Of Date 04/13/2018 Noted Resolved Hypertension, essential [I10] INVALID FOR* Family history of breast cancer [Z80.3] INVALID FOR* More... Cardiac LV ejection fraction 10-20% [R09.89] INVALID FOR* Visit Notes: >> Suzy Coates LPN WedApr 13, 2018 1:46 PM Status: Signed Transitional Care Management Progress Note The patients TCM visit was performed within the 7 days of discharge. TCM Eligibility Documentation The following information was gathered during the initial Patient Outreach Encounter. Date of Outreach: 04/12/2018 Outreach Attempt 1: Contact Made Date of Discharge 04/11/2018 Some recent data might be hidden If no data exists please enter it manually. If data exists please delete date of discharge and date of initial contact seen below. Patient's Date of discharge: 04/11/2018 Date of initial coordinator contact after discharge: 04/12/2018 Discharge diagnosis: New onset systolic CHF, HTN, Hypothyroidism, Elevated d-dimer, PE ruled out Medication review completed Yes Suzy Coates LPN Provider Documentation: In follow-up of hospitalization, Tootie Wang is a 62 year old female with the chief complaint of n/a I have reviewed the patient?s last hospital course including diagnostic testing performed during this hospitalization, their discharge medications, and my assessment and plan with the patient and any family members present at today?s visit. TRANSITION CARE MANAGEMENT (TCM) INITIAL CONTACT ? ? Provider Action/FYI: 1. Pt denies CP, Sob on RA, calves and ankles are not tight like they were, no edema, or other unusual symptoms 2. Pt is traveling out of town next week awaiting a call from Dr. Carvajal's office for appt 3. Pt noted wt was 141 on 04/08/18, now is 130 lbs, Instructed to weigh daily and report wt gain of 3 lbs or more. Pt verbalized understanding. 3. Pt denies feeling light headed or dizziness, BP 118/80 P 81, Pulse ox 99%, Instructed to get up slowly to avoid falls, with new medications. Pt verbalized understanding. 3. Reviewed foods high in sodium to avoid, rinse canned vegetables 4. Medications reviewed in detail. 5. Pt will discuss at Appt -wants to verify if she should take more than 1500 mg of Fish oil per day? 6. Discussed ACP: Left a for Manjit Sandhu Pt is from [place] and wants to complete POA paper work. ? Initial contact with patient post discharge, spoke to Pt. Patient identified by name and . ? TRANSITION CARE MANAGEMENT: Date of Outreach: 04/12/2018 Outreach Attempt 1: Contact Made Date of Discharge 04/11/2018 Some recent data might be hidden ? ? SUMMARY: -Pt discharged from [facility] on 04/11/18. -Follow up appointment on 04/13/18. -Medication review done 04/12/18. -Admitted for: CHF ? NEW MEDICATIONS: Medications pended for review ? MEDS HELD/DISCONTINUED: ? ? BRIEF HOSPITAL COURSE: [facility] Discharge Excerpt ? Pt is a 62 yr old with New Onset CHF, Cardiology Consulted Echo EF 10%, stage 2 diastolic Dysfunction, Mild mitral valve insufficiency, mild tricuspid valve insufficiency, RVSP est to be 35 mmHg, Pt underwent a heart cath which showed essentially normal coronary arteries with est EF 10-15% Pt will continue ASA, Carvedilol, Losartan, spironolactone, Lasix, f/u with cardiology 1-2 wks, plan for repeat echo in 60-90 days, f/u with Pcp in 1 wk. ? Received Discharge info to Pcp/MACHINE BURRER for review Tawny Tran RN April 12, 2018 10:11 AM ? ? Patient Outreach Open 04/12/2018 Family Medicine [place] Marc Steel (Rn) Transition Of Care Reason for Visit Progress Notes Unsigned TRANSITION CARE MANAGEMENT (TCM) INITIAL CONTACT ? ? Provider Action/FYI: 1. Pt denies CP, Sob on RA, calves and ankles are not tight like they were, no edema, or other unusual symptoms 2. Pt is traveling out of town next week awaiting a call from Dr. Carvajal's office for appt 3. Pt noted wt was 141 on 04/08/18, now is 130 lbs, Instructed to weigh daily and report wt gain of 3 lbs or more. Pt verbalized understanding. 3. Pt denies feeling light headed or dizziness, BP 118/80 P 81, Pulse ox 99%, Instructed to get up slowly to avoid falls, with new medications. Pt verbalized understanding. 3. Reviewed foods high in sodium to avoid, rinse canned vegetables 4. Medications reviewed in detail. 5. Pt will discuss at Appt -wants to verify if she should take more than 1500 mg of Fish oil per day? 6. Discussed ACP: Left a vm for Manjit Sandhu Pt is from [place] and wants to complete POA paper work. ? Initial contact with patient post discharge, spoke to Pt. Patient identified by name and . ? TRANSITION CARE MANAGEMENT: Date of Outreach: 04/12/2018 Outreach Attempt 1: Contact Made Date of Discharge 04/11/2018 Some recent data might be hidden ? ? SUMMARY: -Pt discharged from [facility] on 04/11/18. -Follow up appointment on 04/13/18. -Medication review done 04/12/18. -Admitted for: CHF ? NEW MEDICATIONS: Medications pended for review ? MEDS HELD/DISCONTINUED: ? ? BRIEF HOSPITAL COURSE: [facility] Discharge Excerpt ? Pt is a 62 yr old with New Onset CHF, Cardiology Consulted Echo EF 10%, stage 2 diastolic Dysfunction, Mild mitral valve insufficiency, mild tricuspid valve insufficiency, RVSP est to be 35 mmHg, Pt underwent a heart cath which showed essentially normal coronary arteries with est EF 10-15% Pt will continue ASA, Carvedilol, Losartan, spironolactone, Lasix, f/u with cardiology 1-2 wks, plan for repeat echo in 60-90 days, f/u with Pcp in 1 wk. ? Received Discharge info to Pcp/MACHINE BURRER for review Tawny Tran RN April 12, 2018 10:11 AM ? Prescriptions ordered this encounter Disp Refills Start End LOSARTAN 50 MG TABLET 135 * 1 04/13/2018 10/10/2018 Route: ORAL Sig: Take 1.5 tablets by mouth once daily. Medications Discontinued During This Encounter losartan (COZAAR) 50 mg tablet 02/07/2018 04/13/2018 Class: Med Update Route: ORAL Sig: Take 1 tablet by mouth once daily. Patient taking differently: Take 75 mg by mouth once daily. Disc: Reason for discontinue is not on file. Encounter Status:Closed by FAINA KWON CNP on 04/13/18 CNSW Observed: 04/13/2018 Status: COMPLETED Source: [place] 12:00 AM [facility] REPOSITORY Social Work (ANDREAS) TOOTIE WANG ([id number]) 1955 F Date Time Provider Department 04/13/18 MANJIT SANDHU (SW) During your visit today, we recorded the following information about you: IRIS Mukherjee-VARINDER 04/13/2018 3:23 PM Signed Sw provided patient and spouse both with healthcare poa and living will copies. Patient and spouse will review and then have witnesses sign forms. Allergies As of Date: 04/13/2018 Noted Allergy Reaction LORTAB (HYDROCODONE-ACETAMINOPHEN)02/07/2018 8 - GI Upset Comments: Severe nausea Date Reviewed: 04/13/2018 Reviewed by: Suzy Coates LPN - Fully Assessed Prescriptions as of 04/13/2018 Sig: AZITHROMYCIN 250 MG TABLET Take 2 tablets by mouth day o* Patient not taking: Reported on 04/13/2018 CALCIUM CITRATE 250 MG TABLET Take 2 tablets by mouth once * CARVEDILOL 3.125 MG TABLET Take 3.125 mg by mouth twice * COMPOUNDED PRESCRIPTION progesterone 40 mg/ML cream, * COMPOUNDED PRESCRIPTION estriol vaginal 0.1 % cream, * COMPOUNDED PRESCRIPTION T4/T3 E4M 60 mcg/20 mcg capsu* FUROSEMIDE 40 MG TABLET Take 40 mg by mouth twice abbey* IBUPROFEN 200 MG TABLET Take 1-2 tablets by mouth anders* PROBIOTIC ORAL Take 1 capsule by mouth once * LOSARTAN 50 MG TABLET Take 1.5 tablets by mouth onc* LOW-DOSE ASPIRIN ORAL Take 81 mg by mouth once marques* MAGNESIUM OXIDE 420 MG TABLET Take 1 tablet by mouth twice * OMEGA-3 FATTY ACIDS-FISH OIL * Take 1 capsule by mouth daily* VIT NO.95-FERROUS FU* Take 2 tablets by mouth once * SPIRONOLACTONE 25 MG TABLET Take 25 mg by mouth once marques* Problem List As Of Date 04/13/2018 Noted Resolved Hypertension, essential [I10] INVALID FOR* Family history of breast cancer [Z80.3] INVALID FOR* More... Cardiac LV ejection fraction 10-20% [R09.89] INVALID FOR* Encounter Status:Closed by MANJIT KAY on 04/13/18 PROGRESS Observed: 04/12/2018 Status: COMPLETED Source: [place] 10:10 AM [facility] REPOSITORY [facility] ID: [id number] Author: Marc Steel (Rn) Service: (none) Author Type: Registered Nurse Type: Progress Notes Filed: 04/14/2018 5:46 PM Note Text: TRANSITION CARE MANAGEMENT (TCM) INITIAL CONTACT Provider Action/FYI: 1. Pt denies CP, Sob on RA, calves and ankles are not tight like they were, no edema, or other unusual symptoms 2. Pt is traveling out of town next week awaiting a call from Dr. Carvajal's office for appt 3. Pt noted wt was 141 on 04/08/18, now is 130 lbs, Instructed to weigh daily and report wt gain of 3 lbs or more. Pt verbalized understanding. 3. Pt denies feeling light headed or dizziness, BP 118/80 P 81, Pulse ox 99%, Instructed to get up slowly to avoid falls, with new medications. Pt verbalized understanding. 3. Reviewed foods high in sodium to avoid, rinse canned vegetables 4. Medications reviewed in detail. 5. Pt will discuss at Appt -wants to verify if she should take more than 1500 mg of Fish oil per day? 6. Discussed ACP: Left a vm for Manjit Phoebe Pt is from [place] and wants to complete POA paper work. Initial contact with patient post discharge, spoke to Pt. Patient identified by name and . TRANSITION CARE MANAGEMENT: Date of Outreach: 04/12/2018 Outreach Attempt 1: Contact Made Date of Discharge 04/11/2018 Some recent data might be hidden SUMMARY: -Pt discharged from [facility] on 04/11/18. -Follow up appointment on 04/13/18. -Medication review done 04/12/18. -Admitted for: CHF NEW MEDICATIONS: Medications pended for review MEDS HELD/DISCONTINUED: BRIEF HOSPITAL COURSE: [facility] Discharge Excerpt Pt is a 62 yr old with New Onset CHF, Cardiology Consulted Echo EF 10%, stage 2 diastolic Dysfunction, Mild mitral valve insufficiency, mild tricuspid valve insufficiency, RVSP est to be 35 mmHg, Pt underwent a heart cath which showed essentially normal coronary arteries with est EF 10-15% Pt will continue ASA, Carvedilol, Losartan, spironolactone, Lasix, f/u with cardiology 1-2 wks, plan for repeat echo in 60-90 days, f/u with Pcp in 1 wk. Received Discharge info to Pcp/MACHINE BURRER for review Tawny Tran RN April 12, 2018 10:11 AM 12 LEAD ELECTROCARDIOGRAM Observed: 04/12/2018 Status: F Source: [place] 9:02 AM [facility] REPOSITORY [facility] Cardiovascular Services [facility] [place] [address] 12 Lead EKG 04/11/18 0459 MR#: [id number] Acct: [id number] Name: TOOTIE WANG Rep #: [id number] : 1955 62 From: Med Carvajal MD Attending Dr: Magdy Falk DO Status: DIS IN Ordering Dr: Med Carvajal MD Date: 04/11/18 Location: [facility] Sex: F C Admitted: 04/08/18 Test Reason : AM EKG Blood Pressure : / mmHG Vent. Rate : 050 BPM Atrial Rate : 050 BPM P-R Int : 164 ms QRS Dur : 070 ms QT Int : 472 ms P-R-T Axes : 042 003 011 degrees QTc Int : 430 ms Sinus bradycardia Otherwise normal ECG When compared with ECG of 08-APR-2018 10:26, MANUAL COMPARISON REQUIRED, DATA IS UNCONFIRMED Confirmed by ALENA MALONE, MED ([id number]), graphics editor ELVIA FIELD ([id number]) on 04/12/2018 9:04:14 AM Referred By: Michael Merino Confirmed By:MED CARVAJAL MD 04/12/18 0904 Date Med Carvajal MD CC: MAHAD Kwon; Med Carvajal MD; Magdy Falk DO; Michael Merino DO Signed CNPTOUTREA Observed: 04/12/2018 Status: COMPLETED Source: [place] 12:00 AM [facility] REPOSITORY Patient Outreach (FAMPWS) TOOTIE WANG ([id number]) 1955 F Date Time Provider Department 04/12/18 MARC LOPEZ) FAMPWS During your visit today, we recorded the following information about you: Tawny Tran RN 04/14/2018 5:46 PM Signed TRANSITION CARE MANAGEMENT (TCM) INITIAL CONTACT Provider Action/FYI: 1. Pt denies CP, Sob on RA, calves and ankles are not tight like they were, no edema, or other unusual symptoms 2. Pt is traveling out of town next week awaiting a call from Dr. Carvajal's office for appt 3. Pt noted wt was 141 on 04/08/18, now is 130 lbs, Instructed to weigh daily and report wt gain of 3 lbs or more. Pt verbalized understanding. 3. Pt denies feeling light headed or dizziness, BP 118/80 P 81, Pulse ox 99%, Instructed to get up slowly to avoid falls, with new medications. Pt verbalized understanding. 3. Reviewed foods high in sodium to avoid, rinse canned vegetables 4. Medications reviewed in detail. 5. Pt will discuss at Appt -wants to verify if she should take more than 1500 mg of Fish oil per day? 6. Discussed ACP: Left a vm for Manjit Sandhu Pt is from [place] and wants to complete POA paper work. Initial contact with patient post discharge, spoke to Pt. Patient identified by name and . TRANSITION CARE MANAGEMENT: Date of Outreach: 04/12/2018 Outreach Attempt 1: Contact Made Date of Discharge 04/11/2018 Some recent data might be hidden SUMMARY: -Pt discharged from [facility] on 04/11/18. -Follow up appointment on 04/13/18. -Medication review done 04/12/18. -Admitted for: CHF NEW MEDICATIONS: Medications pended for review MEDS HELD/DISCONTINUED: BRIEF HOSPITAL COURSE: [facility] Discharge Excerpt Pt is a 62 yr old with New Onset CHF, Cardiology Consulted Echo EF 10%, stage 2 diastolic Dysfunction, Mild mitral valve insufficiency, mild tricuspid valve insufficiency, RVSP est to be 35 mmHg, Pt underwent a heart cath which showed essentially normal coronary arteries with est EF 10-15% Pt will continue ASA, Carvedilol, Losartan, spironolactone, Lasix, f/u with cardiology 1-2 wks, plan for repeat echo in 60-90 days, f/u with Pcp in 1 wk. Received Discharge info to Pcp/MACHINE BURRER for review Tawny Tran RN April 12, 2018 10:11 AM Tawny Tran RN 04/14/2018 5:46 PM Signed PRIMARY CARE COORDINATION FOLLOW-UP NOTE Provider Action/FYI The new / changed medications were pended 04/12/18 for PCP/MACHINE BURRER review Patient identified by name and date of . YES Signature Tawny Tran RN April 14, 2018 Allergies As of Date: 04/12/2018 Noted Allergy Reaction LORTAB (HYDROCODONE-ACETAMINOPHEN)02/07/2018 8 - GI Upset Comments: Severe nausea Date Reviewed: 04/08/2018 Reviewed by: Bucky Cavanaugh LPN - Fully Assessed Reason for Visit: Transition Of Care [4074] Cmt: [facility] D/C 04/11/18 DX: CHF Reason For Visit History Recorded Prescriptions as of 04/12/2018 Sig: CALCIUM CITRATE 250 MG TABLET Take 2 tablets by mouth once * COMPOUNDED PRESCRIPTION progesterone 40 mg/ML cream, * COMPOUNDED PRESCRIPTION estriol vaginal 0.1 % cream, * COMPOUNDED PRESCRIPTION T4/T3 E4M 60 mcg/20 mcg capsu* PROBIOTIC ORAL Take 1 capsule by mouth once * OMEGA-3 FATTY ACIDS-FISH OIL * Take 1 capsule by mouth daily* VIT NO.95-FERROUS FU* Take 2 tablets by mouth once * ASPIRIN 81 MG TABLET,DELAYED * Take 1 tablet by mouth once d* AZITHROMYCIN 250 MG TABLET Take 2 tablets by mouth day o* Patient not taking: Reported on 04/13/2018 CARVEDILOL 3.125 MG TABLET Take 1 tablet by mouth twice * FUROSEMIDE 40 MG TABLET Take 1 tablet by mouth twice * IBUPROFEN 200 MG TABLET Take 1-2 tablets by mouth anders* LOSARTAN 50 MG TABLET Take 1.5 tablets by mouth onc* MAGNESIUM OXIDE 400 MG CAPSULE Take 1 capsule by mouth twice* SPIRONOLACTONE 25 MG TABLET Take 1 tablet by mouth once d* X LOSARTAN 50 MG TABLET Take 1 tablet by mouth once d* Patient taking differently: Take 75 mg by mouth once marques* Problem List As Of Date 04/12/2018 Noted Resolved Hypertension, essential [I10] INVALID FOR* Family history of breast cancer [Z80.3] INVALID FOR* More... Encounter Status:Closed by TAWNY TRAN on 04/14/18 DISCHARGE SUMMARY Observed: 04/11/2018 Status: F Source: [place] 2:40 PM [facility] REPOSITORY [facility] Medical Records Department [address] [place] [address] Discharge Summary 04/11/18 1137 MR#: [id number] Acct: [id number] Name: TOOTIE WANG Rep #: [id number] : 1955 62 From: Catalina Bhardwaj IT INSTRUCTOR-C PCP: Faina Kwon NP Status: DIS IN Y Location: [place] [id number] <Catalina Bhardwaj - Last Filed: 04/11/18 11:50> Discharge Date and Diagnosis Date of Admission: 04/08/18 Date of Discharge: 04/11/18 - Primary Discharge Diagnosis 1. New onset systolic CHF 2. Hypertension 3. Hypothyroidism 4. Elevated d-dimer, PE ruled out - Secondary Discharge Diagnosis Chronic Problems Hypertension (Chronic) Hospital Course and Treatment Imaging Results: Diagnostic Data Chest CTA 04/08/18 10:53 IMPRESSION: Bilateral pleural effusions. Fluid is seen in the left major fissure. Bibasilar atelectasis. Focal sclerotic lesion is seen in the T7 or T8 vertebrae. Electronically Signed: Jayce Granger MD at 11:32 EST Tel [phone], Service support , Thoracic Spine MRI 04/08/18 15:39 IMPRESSION: Bilateral pleural effusions. Otherwise unremarkable MRI of the thoracic spine. Electronically Signed: Kareen Urban MD at 18:40 EST Tel , Service support , Chest X-Ray 04/10/18 09:50 IMPRESSION: Lungs are clear Electronically Signed: Omer Mayorga DO at 11:31 EST Tel , Service support , Dr. Carvajal- Cardiology Operations: None Procedures: 2-D Echocardiogram, Cardiac catheterization Summary of Care Provided: The patient is a 62 year old F admitted 04/08/2018 due to shortness of breath. 1. New onset systolic CHF- Cardiology consulted during admission. Echo shows an EF of 10%, stage II diastolic dysfunction, mild mitral valve insufficiency, mild tricuspid valve insufficiency, RVSP estimated to be 35 mmHg. Patient underwent left heart catheterization which showed essentially normal coronary arteries with an estimated ejection fraction of 10-15%. Patient will continue aspirin, carvedilol, losartan, spironolactone, Lasix. Follow-up with cardiology in 1-2 weeks. Plan for patient to have repeat echo in 60-90 days to reassess left ventricular systolic function. Follow-up with primary care physician in 1 week. 2. Hypertension- Stable, continue losartan, carvedilol, spironolactone, Lasix. 3. Incidental finding focal sclerotic lesion T7 or T8 vertebrae- MRI thoracic spine unremarkable. 4. Hypothyroidism-thyroid levels within normal limits. Continue home regimen. 5. Elevated d-dimer-CTA without evidence of PE. General: Alert, Oriented x3, Cooperative HEENT: Atraumatic, PERRLA, EOMI, Normocephalic Neck: Supple, No JVD, Negative Carotid Bruits Lungs: Clear to auscultation, Normal air movement Cardiovascular: Regular rate, Regular Rhythm, Normal S1, Normal S2, No murmurs Abdomen: Bowel Sounds Present, Soft, Non Tender, Non-Distended Extremities: No clubbing, No cyanosis, No edema, Capillary Refill Less than 3 Seconds Skin: No rashes, No breakdown Musculoskeletal: No Tenderness to Palpation of Joints or Extremities Neurological: Cranial nerves II-XII grossly intact, Neuro grossly intact Psych/Mental Status: Normal Affect, Appropriate Patient seen and examined prior to discharge. Physical assessment as noted above. Patient is stable for discharge with follow up recommendations as noted above. This patient was seen by FESTUS Miller under the supervision of Dr. Falk. - Physical Exam Vital Signs Temp Pulse Resp BP Pulse Ox 97.0 F L 80 16 90/51 L 94 04/11/18 11:00 04/11/18 11:00 04/11/18 11:00 04/11/18 11:00 04/11/18 11:00 Oxygen Flow Rate (L/min) 2 Oxygen Delivery Method Room Air Weight: 130 lb 8.218 oz Body Mass Index (BMI) 28.2 Intake and Output for Last 24 Hours Intake Total 1460 / 1460 1090 / 1090 30 / 30 Output Total 2200 / 2200 2900 / 2900 300 / 300 Balance -740 / -740 -1810 / -1810 -270 / -270 Microbiology Past 72 Hours 04/08/18 10:45 Blood Culture - Preliminary Laboratory Tests Past 24 Hrs WBC RBC Hgb Hct MCV MCH MCHC RDW RDW Differential Plt Count Discharge Diet: Low fat/ Low Cholesterol, 2000 mg Sodium Diet Discharge Activity: - - Follow post-op cath instructions. Call your doctor if you observe: Shortness of breath, Dizziness, Fainting spells, Chest pain Home Medications: Medications to take at Discharge Calcium Citrate/Vitamin D3 [Calcium Citrate-Vit D3 Tablet] 1,000 mg PO DAILY 04/08/18 Losartan Potassium [Cozaar] 75 mg PO DAILY 04/08/18 [place]-3 Fatty Acids [Fish Oil] 1,500 mg PO DAILY 04/08/18 Pnv No.121/Iron/Folic Acid [ Multivitamin Tablet] 1 each PO DAILY 04/08/18 Aspirin [Aspirin, Baby] 81 mg PO DAILY@0800 #30 tab.chew 04/11/18 Carvedilol [Coreg (Beta Argenis)] 3.125 mg PO BID #60 tablet 04/11/18 Furosemide [Lasix] 40 mg PO BID@1000,1800 #60 tablet 04/11/18 Magnesium Oxide [Mag-Ox 400] 400 mg PO BIDCM #60 tablet 04/11/18 Spironolactone [Aldactone] 25 mg PO DAILY #30 tablet 04/11/18 Following Prescrptions Were Given to Patient: Aspirin [Aspirin, Baby] 81 mg PO DAILY@0800 #30 tab.chew Furosemide [Lasix] 40 mg PO BID@1000,1800 #60 tablet Spironolactone [Aldactone] 25 mg PO DAILY #30 tablet Carvedilol [Coreg (Beta Argenis)] 3.125 mg PO BID #60 tablet Magnesium Oxide [Mag-Ox 400] 400 mg PO BIDCM #60 tablet Primary Care Physician: Faina Kwon NP-C [Primary Care Provider] - Please follow up with your Primary Care Physician in: 1 Week Please Follow Up With: Med Carvajal MD - See IT INSTRUCTOR/PA When: 1-2 Weeks Patient Instructions: Tips for Using Less Salt, Low-Salt Choices, Heart Failure: Making Changes to Your Diet Disposition: Home Minutes spent on discharge:: 35 Patient Condition:: Stable Medical Necessity - Tobacco Use Smoking Status: Never smoker Meaningful Use Info Meaningful Use Diagnoses (Choose all that apply): CHF - CHF JANEL/ARB ordered at discharge?: Yes Documented LVEF (%): 10 <Magdy Falk - Last Filed: 04/11/18 14:40> Discharge Date and Diagnosis - Secondary Discharge Diagnosis Chronic Problems Hypertension (Chronic) Hospital Course and Treatment Operations: None Procedures: 2-D Echocardiogram, Cardiac catheterization Summary of Care Provided: Patient seen and examined independently. Data reviewed. I agree with the above note by the nurse practitioner. The patient is a 62 year old F presents with shortness of breath. Patient had bilateral pleural effusions and a BNP 1991. Patient was in clinical heart failure and was started on Lasix. Patient improved from that standpoint is currently on room air. Patient had an ejection fraction of 10-15% on echocardiogram. Patient underwent a left heart catheterization that showed normal coronaries. The etiology of the patient's cardiomyopathy is unknown at this time but it may be viral. Patient will continue with losartan, Lasix, spironolactone and carvedilol. Patient will follow up with cardiology for further left ventricular assessment. [] - Physical Exam General: Alert, Cooperative, No apparent distress HEENT: Atraumatic, Normocephalic Oral: Moist Mucosa, No Gingival or Mucosal Lesions/ Ulcerations Neck: No Nodes, Thyroid Normal Size and Texture Lungs: Clear to auscultation, Normal air movement, No rhonchi, No wheeze Cardiovascular: Regular rate, Regular Rhythm, Normal S1, Normal S2, No murmurs Abdomen: Bowel Sounds Present, Soft, Non Tender, Non-Distended, No Hepato-splenomegaly Extremities: No edema, No Calf Tenderness Skin: No rashes, No breakdown Vital Signs Temp Pulse Resp BP Pulse Ox 36.7 C 82 16 101/72 94 04/11/18 13:36 04/11/18 13:36 04/11/18 13:36 04/11/18 13:36 04/11/18 13:36 Oxygen Flow Rate (L/min) 2 Oxygen Delivery Method Room Air Weight: 59.2 kg Body Mass Index (BMI) 28.2 Intake and Output for Last 24 Hours Intake Total 1460 / 1460 1090 / 1090 680 / 680 Output Total 2200 / 2200 2900 / 2900 300 / 300 Balance -740 / -740 -1810 / -1810 380 / 380 Microbiology Past 72 Hours 04/08/18 10:45 Blood Culture - Preliminary Laboratory Tests Past 24 Hrs WBC RBC Hgb Hct MCV MCH MCHC RDW RDW Differential Plt Count Discharge Diet: Low fat/ Low Cholesterol, 2000 mg Sodium Diet Discharge Activity: - Call your doctor if you observe: Shortness of breath, Dizziness, Fainting spells, Chest pain Disposition: Home Minutes spent on discharge:: 35 Patient Condition:: Stable Medical Necessity - Tobacco Use Smoking Status: Never smoker Meaningful Use Info Meaningful Use Diagnoses (Choose all that apply): CHF - CHF JANEL/ARB ordered at discharge?: Yes Documented LVEF (%): 10 Code Visit Inpatient E AND M: [id number] Disch Hosp 04/11/18 1151 <Electronically signed by Catalina POSEYC> Date Catalina POSEYC 04/11/18 1440<Electronically signed by Magdy Falk DO> Cosigner Signature (if applicable): Date Magdy Falk DO CC: MAHAD Kwon; IT INSTRUCTOR-C Catalina Bhardwaj; Magdy Falk DO Signed 12 LEAD ELECTROCARDIOGRAM Observed: 04/11/2018 Status: F Source: [place] 1:55 PM [facility] REPOSITORY [facility] Cardiovascular Services [address] [place] [address] 12 Lead EKG 04/08/18 1026 MR#: [id number] Acct: [id number] Name: TOOTIE WANG Rep #: [id number] : 1955 62 From: Med Carvajal MD Attending Dr: Magdy Falk DO Status: ADM IN Ordering Dr: Lucero Vicente MD Date: 04/08/18 Location: [facility] Sex: F C Admitted: 04/08/18 Test Reason : SOB Blood Pressure : / mmHG Vent. Rate : 084 BPM Atrial Rate : 084 BPM P-R Int : 236 ms QRS Dur : 114 ms QT Int : 410 ms P-R-T Axes : 074 -14 089 degrees QTc Int : 484 ms Sinus rhythm with 1st degree A-V block with occasional Premature ventricular complexes Possible Left atrial enlargement Nonspecific T wave abnormality Prolonged QT Abnormal ECG Confirmed by MED CARVAJAL MD ([id number]), graphics editor ELVIA FIELD ([id number]) on 04/11/2018 1:54:45 PM Referred By: Michael Merino Confirmed By:MED CARVAJAL MD 04/11/18 1354 Date Med Carvajal MD CC: MAHAD Kwon; Magdy Falk DO; Michael Merino DO; Lucero Vicente MD Signed DISCHARGE INSTRUCTION Observed: 04/11/2018 Status: F Source: [place] 11:37 [facility] REPOSITORY [facility] Medical Records Department [address] [place] [address] Instructions for Home/Discharge Instructions 04/11/18 1133 MR#: [id number] Acct: [id number] Name: TOOTIE WANG Rep #: [id number] : 1955 62 From: Catalina POSEYC PCP: Faina Kwon NP Status: ADM IN - Discharge Diagnoses Current Active Problems: Current Active and Chronic Problems Acute systolic CHF Hypertension You will use the following diet at home:: Cardiac Discharge Activity: - - Follow post-op cath instructions. Call your doctor if you observe: Shortness of breath, Dizziness, Fainting spells, Chest pain Instructions: Tips for Using Less Salt, Low-Salt Choices, Heart Failure: Making Changes to Your Diet Allergies/Adverse Reactions: Allergies acetaminophen [From Lortab] Adverse Reaction (Verified 04/08/18 09:42) Nausea hydrocodone [From Lortab] Adverse Reaction (Verified 04/08/18 09:42) Nausea Medications to take at Discharge Calcium Citrate/Vitamin D3 [Calcium Citrate-Vit D3 Tablet] 1,000 mg PO DAILY 04/08/18 Losartan Potassium [Cozaar] 75 mg PO DAILY 04/08/18 [place]-3 Fatty Acids [Fish Oil] 1,500 mg PO DAILY 04/08/18 Pnv No.121/Iron/Folic Acid [ Multivitamin Tablet] 1 each PO DAILY 04/08/18 Aspirin [Aspirin, Baby] 81 mg PO DAILY@0800 #30 tab.chew 04/11/18 Carvedilol [Coreg (Beta Argenis)] 3.125 mg PO BID #60 tablet 04/11/18 Furosemide [Lasix] 40 mg PO BID@1000,1800 #60 tablet 04/11/18 Magnesium Oxide [Mag-Ox 400] 400 mg PO BIDCM #60 tablet 04/11/18 Spironolactone [Aldactone] 25 mg PO DAILY #30 tablet 04/11/18 The following prescriptions were given: Aspirin [Aspirin, Baby] 81 mg PO DAILY@0800 #30 tab.chew Furosemide [Lasix] 40 mg PO BID@1000,1800 #60 tablet Spironolactone [Aldactone] 25 mg PO DAILY #30 tablet Carvedilol [Coreg (Beta Argenis)] 3.125 mg PO BID #60 tablet Magnesium Oxide [Mag-Ox 400] 400 mg PO BIDCM #60 tablet Primary Care Physician: Faina Kwon NP-C [Primary Care Provider] - Please follow up with your Primary Care Physician in: 1 Week Test Results: Test results from this visit will be discussed in further detail at your follow-up appointment, if applicable. Please Follow Up With: Med Carvajal MD - See IT INSTRUCTOR/PA When: 1-2 Weeks Proposed Discharge Date: 04/11/18 04/11/18 1137 <Electronically signed by Catalina MORTENSEN> Date Catalina MORTENSEN CC: MAHAD Kwon; Med Carvajal MD CONSULTATION Observed: 04/11/2018 Status: F Source: [place] 7:29 AM [facility] Medical Records Department [address] [place] [address] [place] [address] Consultation 04/09/18 1009 MR#: [id number] Acct: [id number] Name: TOOTIE WANG Rep #: [id number] : 1955 62 From: Med Carvajal MD PCP: Faina Kwon NP Status: ADM IN Y Location: [place] [address] Reason for Consult Date of Consultation: 04/09/18 Reason for Consultation: Shortness of breath History of Present Illness: The patient is a 62 year old F with no previous cardiac history other than hypertension who says that she has been feeling weak over the last few weeks. In addition she had market shortness of breath and saw her primary physician and was told that she probably had a pneumonia. She was treated with antibiotics and then went back to see her and was subsequently sent to the emergency room. In the emergency room she was evaluated and noted to have a dilated cardiac silhouette with an elevated natriuretic peptide level. She subsequently had an echocardiogram which demonstrated significant global left ventricular systolic dysfunction with an estimated ejection fraction of 15% plus minus. [She denies any chest pain or paroxysmal nocturnal dyspnea she has really not had any pedal edema. She has not been on any medication other than her antihypertensive medications. She has not received any chemotherapy in the past and does not know of any significant previous viral infection.] Past Medical History Allergies/Adverse Reactions: Allergies acetaminophen [From Lortab] Adverse Reaction (Verified 04/08/18 09:42) Nausea hydrocodone [From Lortab] Adverse Reaction (Verified 04/08/18 09:42) Nausea Home Medications: Ambulatory Orders Medication Instructions Recorded Azithromycin [Zithromax] 250 mg PO DAILY 04/08/18 Calcium Citrate/Vitamin D3 1,000 mg PO DAILY 04/08/18 [Calcium Citrate +Vit D3 Tablet] Losartan Potassium [Cozaar] 75 mg PO DAILY 04/08/18 Past Medical History (Chronic Problems): Chronic Problems Hypertension (Chronic) Surgical History: - - Bilateral rotator cuff repair, x2, hysterectomy. Psychiatric History: No pertinent psych hx LABORATORY GENETICIST History: No pertinent LABORATORY GENETICIST history - *Family History Maternal History Items: - - Atrial fibrillation Paternal History Items: Stroke, - - from lung cancer. Lives: Spouse/ Significant Other Smoking Status: Never smoker Alcohol: Occasional Drugs: None Review of Systems - Review of Systems General: Reports: Fatigue. Denies: Fever, Night Sweats HEENT: Denies: Vision Change Cardiovascular: Reports: Shortness of Breath, Shortness of Breath at Rest, Shortness of Breath with Exertion, Orthopnea. Denies: Chest Discomfort, PND, Peripheral Edema, Palpitations, Lightheadedness, Dizziness, Near Syncope, Syncope Respiratory: Denies: Cough, Sputum Production, Hemoptysis Gastrointestinal: Denies: Indigestion, Hematemesis, Hematochezia, Melena Genitourinary: Denies: Dysuria, Hematuria Muscoloskeletal: Denies: Myalgias Skin: Denies: Rash Neurological: Denies: Dizziness Psychiatric: Denies: Anxiety Endocrine: Denies: Unexplained Weight Loss Hematologic/ Lymphatic: Denies: Anemia Subjectve: Pleasant lady in no apparent distress at this time sitting in bed Objective: Vital Signs Temp Pulse Resp BP Pulse Ox 98.1 F 79 14 129/76 H 93 04/09/18 04:10 04/09/18 06:47 04/09/18 04:10 04/09/18 04:10 04/09/18 04:10 Oxygen Flow Rate (L/min) 2 Oxygen Delivery Method Room Air Weight: 139 lb 5.314 oz Body Mass Index (BMI) 28.2 Intake and Output for Last 24 Hours Intake Total 240 / 240 Output Total 1900 / 1900 500 / 500 Balance -1660 / -1660 -500 / -500 General: Awake, Alert, Oriented x 3 HEENT: PERRL, EOMI, Sclera Non Icteric Neck: Supple, Good ROM, No Lymph Node Enlargement Lungs: Clear to auscultation Cardiovascular: Regular Rhythm, Normal S1, Normal S2, No Murmurs, No Rubs, No Gallops, Positive S3 Vascular: No Carotid Bruits, Normal Femoral Pulses, Normal Radial Pulses, Normal Dorsalis Pedal Pulse, Normal Posterior Tibial Pulses Abdomen: Bowel Sounds Present, Soft, Non Tender, No HSM, No Organomegaly Extremities: No Cyanosis, No Clubbing, No edema Lymphatic: No Lymph Node Enlargement Neurological: No Focal Motor or Sensory Deficit Psych/Mental Status: Appropriate 04/08/18 10:13: WBC 7.0, RBC 4.36, Hgb 14.0, Hct 42.3, MCV 97.0, MCH 32.1 H, MCHC 33.1, RDW 14.1, RDW Differential 48.1 H, Plt Count 203, MPV 11.6, Immature Gran % (Auto) 0.300, Neut % (Auto) 74.1 H, Lymph % (Auto) 18.2 L, Dillon % (Auto) 6.6, Eos % (Auto) 0.4, Baso % (Auto) 0.4, Absolute Neuts (auto) 5.2, Total Counted Not Reportable 04/08/18 10:13: D-Dimer Quant (PE/DVT) 2.89 H* 04/08/18 10:13: Sodium 143, Potassium 3.8, Chloride 110 H, Carbon Dioxide 25.0, Anion Gap 8, BUN 15, Creatinine 0.75, Est GFR (MDRD) Af Amer 99, Est GFR (MDRD) Non-Af 82, BUN/Creatinine Ratio 19.9, Glucose 100, Calcium 8.6, Troponin I 0.024 04/08/18 10:13: Lactic Acid 1.1 04/08/18 10:13: B-Natriuretic Peptide 1992.2 H 04/08/18 15:12: Troponin I 0.022 04/08/18 17:46: Troponin I 0.023 04/09/18 05:15: Sodium 142, Potassium 3.2 L, Chloride 100, Carbon Dioxide 32.0, Anion Gap 10, BUN 13, Creatinine 0.79, Est GFR (MDRD) Af Amer 94, Est GFR (MDRD) Non-Af 78, BUN/Creatinine Ratio 16.4, Glucose 84, Calcium 8.6, Triglycerides 121, Cholesterol 175, LDL Cholesterol 98, VLDL Cholesterol 24, HDL Cholesterol 53 04/09/18 05:15: Magnesium 1.6 Rhythm: EKG: Normal sinus rhythm with no acute changes ECHO: Globally reduced left ventricular ejection fraction estimated at 10-15% Assessment/Plan 1. Acute systolic congestive heart failure * Patient presents with shortness of breath and orthopnea and is noted to have elevated natruretic peptide level as well as severely reduced left ventricular ejection fraction. * Will recommend starting Coreg 3.125 mg twice a day * Continue losartan * Will start spironolactone * Continue intravenous Lasix * Would recommend a left heart catheterization to exclude obstructive coronary disease. Depending on those findings further recommendations will be made. * 2. Left ventricular systolic dysfunction * He has evidence of severe left ventricular systolic dysfunction. The etiology of the above is unclear as noted. * We will continue to put her on the appropriate medications and then see how she does. * Certainly if there is no improvement within 90 days she may need to be evaluated for possible implantable defibrillator. * 3. Hypertension * Her blood pressure appears to be under fairly good control at this time on the losartan. She will certainly need additional agents. * * Thank you for allowing me to participate in the care of your patient. Please don't hesitate to call if any issues arise 04/11/18 0729 <Electronically signed by Med Carvajal MD> Date Med Carvajal MD Cosigner Signature (if applicable): Date CC: IT INSTRUCTOR Faina Kwon; Med Carvajal MD; Michael Merino DO Signed CBC W/DIFF, AUTOMATED Collected: 04/11/2018 Status: F Source: [place] 4:48 AM [facility] REPOSITORY TYPE CODE TESTS RESULT OUT OF RANGE REFERENCE UNITS LAB L100.1000 4.4-11.0 K/mm3 Normal WBC 5.4 LAB L100.1200 4.2-5.4 M/mm3 Normal RBC 5.17 LAB L100.1300 12.0-15.0 g/dl High HGB 16.5 LAB L100.1400 37-47 % High HCT 49.7 LAB L100.1500 81-99 fL Normal MCV 96.1 LAB L100.1600 27.0-32.0 pg Normal MCH 31.9 LAB L100.1700 32-36 g/gl Normal MCHC 33.2 LAB L100.1810 11.6-14.6 % Normal RDW CV 13.8 LAB L100.1820 35.1-43.9 fl High RDW SD 47.3 LAB L100.1900 150-450 K/mm3 Normal PLT 235 LAB L100.2000 6.2-12.0 fl Normal MPV 11.4 LAB L100.2100 47-70 % Normal NEUT% 69.0 LAB L100.2200 19-41 % Normal LY% 21.5 LAB L100.2300 0-10 % Normal MONO% 7.4 LAB L100.2400 0-5 % Normal EO% 1.3 LAB L100.2500 0-1 % Normal BASO% 0.6 LAB L100.2550 0.0-0.9 % Normal IM GRAN % 0.200 Result Comment: IG% - Immature Granulocytes (promyelocytes, myelocytes and metamyelocytes) > 1% indicates that a LEFT SHIFT is Present. LAB L100.2620 2.0-7.7 X10 3/uL Normal Absolute Neut 3.7 LAB L100.2720 0.83-4.51 X10 3/ul Normal Absolute Lymph 1.16 Performed By: #### L100.0100 #### [facility] [address] [place], [place], [id number] PROTHROMBIN TIME W/INR Collected: 04/11/2018 Status: F Source: [place] 4:48 AM [facility] REPOSITORY TYPE CODE TESTS RESULT OUT OF RANGE REFERENCE UNITS LAB L300.4150 11.7-14.9 SECONDS Normal PROTIME 13.2 LAB L300.4200 Normal INR 1.0 Performed By: #### L300.3900, L300.4310 #### [facility] [address] [facility] [id number] PARTIAL THROMBOPLAST Collected: 04/11/2018 Status: F Source: [place] TIME 4:48 AM [facility] REPOSITORY TYPE CODE TESTS RESULT OUT OF RANGE REFERENCE UNITS LAB L300.4310 24.1-36.2 Seconds Normal PTT 25.1 Performed By: #### L300.3900, L300.4310 #### [facility] [address] [place], [place], [id number] BASIC METABOLIC Collected: 04/11/2018 Status: F Source: [place] PROFILE (BMP) 4:48 AM [facility] REPOSITORY TYPE CODE TESTS RESULT OUT OF RANGE REFERENCE UNITS LAB L501.0100 74-106 mg/dL High GLU 113 Result Comment: Fasting Glucose result from 100 to 125 mg/dL suggests IMPAIRED HOMEOSTASIS per A.D.A. criteria. Please note revised GLUCOSE reference range effective 2017. LAB L501.1000 7-18 mg/dL High BUN 27 LAB L501.1100 0.55-1.02 mg/dL Normal CREAT,SERUM 0.83 Result Comment: The validity of the calculated GFR AND GFRAA in patients over 70 years has not been determined. Clinical correlation is essential. LAB L501.1110 >60 mL/min Normal EST GFR 74 Result Comment: Non- GFR Calc LAB L501.1115 >60 mL/min Normal EST GFR - AA 89 Result Comment: GFR Calc LAB L501.1255 ml/min Normal Estimated CRCL 67.35 LAB L501.1300 10-20 RATIO High BUN/CRE 32.6 LAB L501.2200 8.5-10 mg/dL Normal .1 CA 9.2 LAB L501.5300 136-14 mmol/L Normal 5 NA 139 LAB L501.5600 3.5-5. mmol/L Normal 1 K 4.5 LAB L501.5900 98-107 mmol/L Normal CL 101 LAB L501.6100 21.0-3 mmol/L Normal 2.0 CO2 28.0 LAB L501.6200 5-15 Normal GAP 10 Performed By: #### L500.2500 #### [facility] [address] [place], [address] URINALYSIS, COMPLETE Collected: 04/10/2018 Status: F Source: [place] 10:55 PM [facility] REPOSITORY Order Comment: How was Urine Obtained? EXPLOSIVE OPERATOR SUPERVISOR TO SPECIFY TYPE CODE TESTS RESULT OUT OF RANGE REFERENCE UNITS LAB L400.3000 Yellow COLOR Normal Yellow LAB L400.3050 Clear Normal CLARITY Clear LAB L400.3200 Normal mg/dl Normal GLUCOSE, UR Normal LAB L400.3300 Negative mg/dL Normal BILIRUBIN URINE Negative LAB L400.3400 Negative mg/dl Normal KETONE UR Negative LAB L400.3465 1.002-1.030 Normal SP.GR. DIPSTX 1.010 LAB L400.3550 5.0 - 8.0 pH UR Normal 6.5 LAB L400.3600 Negative mg/dl PROT Normal DIPSTX Negative LAB L400.3700 Normal mg/dl Normal UROBILI Normal LAB L400.3750 Negative Normal NITRITE UR Negative LAB L400.3780 Negative /ul Normal OCCULT BLOOD-UR Negative LAB L400.3800 Negative /ul LEUK Normal ESTERASE Negative LAB L400.4050 0-5 /hpf WBC 0 Normal SEEN LAB L400.4100 0-5 /hpf 0 Normal RBC-UA SEEN LAB L400.4150 5-10 /hpf SQUAM Normal EPI 0-5 SEEN LAB L400.4300 None Seen /hpf 0 Normal BACTERIA SEEN LAB L400.4350 <or=2+ /hpf 0 Normal MUCUS, URINE SEEN Performed By: #### L400.0001 #### [facility] [address] [place], [address] CHEST PA AND LATERAL Observed: 04/10/2018 Status: F Source: [place] 7:54 AM [facility] REPOSITORY [facility] Imaging Services [address] [place] [address] Chest PA and Lateral MR#: [id number] Acct: [id number] Name: TOOTIE WANG Rep #: [id number] : 1955 F 62 From: Omer Mayorga DO PCP: Faina Kwon NP Status: ADM IN Study: Chest PA and Lateral Date of Exam: 04/10/18 Exam# [id number] Ordering Dr: Michael Merino DO STUDY: X-RAY CHEST REASON FOR EXAM: Female, 62 years old. CHF TECHNIQUE: PA and lateral views of the chest. COMPARISON: None. FINDINGS: The lungs are clear and expanded. There is no demonstrated pleural abnormality. There is borderline cardiomegaly. Normal mediastinum and lea. Normal visualized pulmonary arteries. Normal visualized aortic arch and descending thoracic aorta. Normal visualized thoracic spine. Normal visualized ribs, clavicles, and shoulders. There is no demonstrated abnormality of the visualized soft tissue structures of the upper abdomen. RAD/Chest PA and Lateral IMPRESSION: Lungs are clear Electronically Signed: Omer Mayorga DO at 11:31 EST Tel , Service support , CC: MAHAD Kwon; Michael Merino DO Ring Striker: Signed BASIC METABOLIC Collected: 04/10/2018 Status: F Source: [place] PROFILE (BMP) 5:08 AM [facility] REPOSITORY TYPE CODE TESTS RESULT OUT OF RANGE REFERENCE UNITS LAB L501.0100 74-106 mg/dL Normal GLU 105 Result Comment: Fasting Glucose result from 100 to 125 mg/dL suggests IMPAIRED HOMEOSTASIS per A.D.A. criteria. Please note revised GLUCOSE reference range effective 2017. LAB L501.1000 7-18 mg/dL Normal BUN 16 LAB L501.1100 0.55-1.02 mg/dL Normal CREAT,SERUM 0.67 Result Comment: The validity of the calculated GFR AND GFRAA in patients over 70 years has not been determined. Clinical correlation is essential. LAB L501.1110 >60 mL/min Normal EST GFR 93 Result Comment: Non- GFR Calc LAB L501.1115 >60 mL/min Normal EST GFR - AA 113 Result Comment: GFR Calc LAB L501.1255 ml/min Normal Estimated CRCL 83.43 LAB L501.1300 10-20 RATIO High BUN/CRE 23.7 LAB L501.2200 8.5-10 mg/dL Normal .1 CA 8.9 LAB L501.5300 136-14 mmol/L Normal 5 NA 139 LAB L501.5600 3.5-5. mmol/L Normal 1 K 3.9 LAB L501.5900 98-107 mmol/L Normal CL 101 LAB L501.6100 21.0-3 mmol/L Normal 2.0 CO2 29.0 LAB L501.6200 5-15 Normal GAP 9 Performed By: #### L500.2500 #### [facility] [address] [place], [address] BASIC METABOLIC Collected: 04/09/2018 Status: F Source: [place] PROFILE (BMP) 5:15 AM [facility] REPOSITORY TYPE CODE TESTS RESULT OUT OF RANGE REFERENCE UNITS LAB L501.0100 74-106 mg/dL Normal GLU 84 Result Comment: Please note revised GLUCOSE reference range effective 2017. LAB L501.1000 7-18 mg/dL Normal BUN 13 LAB L501.1100 0.55-1.02 mg/dL Normal CREAT,SERUM 0.79 Result Comment: The validity of the calculated GFR AND GFRAA in patients over 70 years has not been determined. Clinical correlation is essential. LAB L501.1110 >60 mL/min Normal EST GFR 78 Result Comment: Non- GFR Calc LAB L501.1115 >60 mL/min Normal EST GFR - AA 94 Result Comment: GFR Calc LAB L501.1255 ml/min Normal Estimated CRCL 71.78 LAB L501.1300 10-20 RATIO Normal BUN/CRE 16.4 LAB L501.2200 8.5-10 mg/dL Normal .1 CA 8.6 LAB L501.5300 136-14 mmol/L Normal 5 NA 142 LAB L501.5600 3.5-5. mmol/L Low 1 K 3.2 LAB L501.5900 98-107 mmol/L Normal CL 100 LAB L501.6100 21.0-3 mmol/L Normal 2.0 CO2 32.0 LAB L501.6200 5-15 Normal GAP 10 Performed By: #### L500.2500, L500.4100 #### [facility] [address] [place], [address] LIPID PROFILE Collected: 04/09/2018 Status: F Source: [place] 5:15 AM [facility] REPOSITORY TYPE CODE TESTS RESULT OUT OF RANGE REFERENCE UNITS LAB L501.4900 200 mg/dL Normal CHOL 175 Result Comment: <200 mg/dL Desirable 200-240 mg/dL Borderline >240 mg/dL High Risk LAB L501.5000 mg/dL Normal TRIG 121 Result Comment: The drugs N-Acetylcysteine and Metamizole may falsely depress this assay. Serum Triglycerides Reference Interval Normal <150 mg/dL Borderline high 150 - 199 mg/dL High 200 - 499 mg/dL Very High > or = 500 mg/dL LAB L501.6400 mg/dL Normal HDL 53 Result Comment: The drugs N-Acetylcysteine and Metamizole may falsely depress this assay. Reference Range HDL <40 mg/dL Low HDL Cholesterol HDL >or= 60 mg/dL High HDL Cholesterol LAB L501.6500 0-130 mg/dL Normal LDL 98 LAB L501.6600 5-40 mg/dL Normal VLDL 24 Performed By: #### L500.2500, L500.4100 #### [facility] [address] [place], [address] MAGNESIUM Collected: 04/09/2018 Status: F Source: [place] 5:15 AM [facility] REPOSITORY TYPE CODE TESTS RESULT OUT OF RANGE REFERENCE UNITS LAB L501.5200 1.6-2.6 mg/dL Normal MG 1.6 Performed By: #### L501.5200 #### [facility] [address] [place], [address] HISTORY AND PHYSICAL Observed: 04/08/2018 Status: F Source: [place] EXAM 6:57 PM [facility] REPOSITORY [facility] Medical Records Department [address] [facility] [place] [address] History and Physical 04/08/18 1507 MR#: [id number] Acct: [id number] Name: TOOTIE WANG Rep #: [id number] : 1955 62 From: Catalina Bhardwaj IT INSTRUCTOR-C PCP: Faina Kwon NP Status: ADM IN Y Location: [place] [address] ADDENDUM by Michael Merino DO on 04/08/18 at 1856 Code Visit Patient was seen and examined today in the emergency room independently of Catalina Bhardwaj, she came to the emergency room for evaluation of shortness of breath. Patient was found to have bilateral pleural effusions on her chest CTA, patient's beta natruretic peptide was markedly elevated. Patient required no supplemental oxygen on ambulation but her pulse ox was 89%. EKG showed normal sinus rhythm with 1 PVC. Patient's CTA of her chest indicated an abnormality of T7 or T8 of the thoracic vertebrae, she underwent an MRI this afternoon which did not show any abnormality. Patient was admitted to [facility] for acute congestive heart failure, echocardiogram was performed which showed a severely reduced ejection fraction at 10%. Patient will be seen by cardiology, she will continue on IV Lasix and continue her Cozaar. Patient will undoubtedly need a cardiac catheterization performed which will probably be this Wednesday. Cardiac enzymes will be cycled and she will be monitored on telemetry. Physical exam: On examination she appeared fatigued but in good spirits. Vital signs as documented. Skin warm and dry and without overt rashes. Neck without JVD. Lungs clear. Heart exam notable for regular rhythm, normal sounds and absence of murmurs, rubs or gallops. Abdomen unremarkable and without evidence of organomegaly, masses, or abdominal aortic enlargement. Extremities-+1 mm pitting edema was noted in the pretibial areas bilaterally. Neuro: Cranial nerves II through XII are grossly intact, no focal motor deficits were noted. Psych: Patient is alert and oriented x3, she does not appear depressed or anxious I have reviewed Catalina Bhardwaj's history and physical including her assessment and medical plan of care and endorse it Inpatient E AND M: [id number] Init Hosp L3 04/08/18 8287 <Electronically signed by Michael Merino DO> Date Michael Merino DO cc: MAHAD Kwon; FESTUS Bhardwaj; Michael Merino DO * Signed Problem List (1) Hypertension Status: Chronic History of Present Illness Date of Admission: 04/08/18 Chief Complaint: Shortness of breath. The patient is a 62 year old F who presents emergency room with 2 weeks of shortness of breath. Patient states over the past 2-3 days she has had to sleep sitting upright due to increased shortness of breath while lying flat. She complains of associated chest tightness. Denies cough, fever, chills. Was recently placed on antibiotics for suspected pneumonia which did not improve her dyspnea. She reports 10-12 pound weight gain over the past 2 weeks. She also reports lower extremity swelling, mostly at night. She states her thyroid medication was recently adjusted due to abnormal lab work. Her other past medical history includes hypertension. She denies other past medical history. Patient notes she has been under significant stress over the past few months due to her mother's poor health who lives in [place] and also a premature grandchild who has had significant medical issues. Past Medical History Past Medical History (Chronic Problems): Chronic Problems Hypertension (Chronic) Allergies acetaminophen [From Lortab] Adverse Reaction (Verified 04/08/18 09:42) Nausea hydrocodone [From Lortab] Adverse Reaction (Verified 04/08/18 09:42) Nausea Home Medications: Ambulatory Orders Medication Instructions Recorded Azithromycin [Zithromax] 250 mg PO DAILY 04/08/18 Calcium Citrate/Vitamin D3 1,000 mg PO DAILY 04/08/18 [Calcium Citrate +Vit D3 Tablet] Losartan Potassium [Cozaar] 75 mg PO DAILY 04/08/18 Surgical History: - - Bilateral rotator cuff repair, x2, hysterectomy. Psychiatric History: No pertinent psych hx LABORATORY GENETICIST History: No pertinent LABORATORY GENETICIST history Lives: Spouse/ Significant Other Smoking Status: Never smoker Alcohol: Occasional Drugs: None - *Family History Maternal History Items: - - Atrial fibrillation Paternal History Items: Stroke, - - from lung cancer. Review of Systems Constitutional: Denies: Chills, Fever, Weight Change HEENT: Denies: Head Aches, Sinus Congestion, Sinus Drainage Cardiovascular: Reports: Chest Tightness. Denies: Chest Pain, Edema, Palpitations, Syncope Respiratory: Reports: Shortness of Breath. Denies: Cough, Sputum production Gastrointestinal: Denies: Abdominal Pain, Nausea, Vomiting Genitourinary: Denies: Dysuria Musculoskeletal: Denies: Joint Pain, Joint Tenderness Skin: Denies: Rash, Wounds Neurological: Denies: Numbness, Tingling, Focal weakness Psychiatric: Denies: Anxiety, Depression, Homicidal Ideations, Suicidal Ideations Hematologic/ Lymphatic: Denies: Easy Bruising, Easy Bleeding VTE Information - Inpt Only VTE Present on Admission: No VTE Mechan Device Prophylaxis: None VTE Pharm Prophylaxis ordered?: Yes - Physical Exam General: Alert, Oriented x3, Cooperative, No apparent distress HEENT: Atraumatic, PERRLA, EOMI, Normocephalic Neck: Supple, No JVD, Negative Carotid Bruits Lungs: Normal air movement, - - Crackles bilateral bases Cardiovascular: Regular rate, Regular Rhythm, Normal S1, Normal S2, No murmurs Abdomen: Bowel Sounds Present, Soft, Non Tender, Non-Distended Extremities: No clubbing, No cyanosis, No edema, Capillary Refill Less than 3 Seconds Skin: No rashes, No breakdown Musculoskeletal: No Tenderness to Palpation of Joints or Extremities Neurological: Cranial nerves II-XII grossly intact, Neuro grossly intact Psych/Mental Status: Normal Affect, Appropriate Vital Signs Temp Pulse Resp BP Pulse Ox 97.7 F L 88 16 148/92 H 97 04/08/18 14:38 04/08/18 14:38 04/08/18 14:38 04/08/18 14:38 04/08/18 14:38 Oxygen Flow Rate (L/min) 2 Oxygen Delivery Method Room Air Weight: 139 lb 9.6 oz Body Mass Index (BMI) 28.2 Laboratory Tests Past 24 Hrs WBC 7.0 RBC 4.36 WBC RBC Assessment/Plan 1. New onset CHF, unclear subtype- Trop 0.024. Trend enzymes. Cardiology consulted. Echo pending. Possible stress/cath pending cardiology evaluation. Continue IV Lasix. Strict I AND O. Daily weight. Check TSH. 2. Hypertension- Stable, continue home losartan regimen. 3. Incidental finding focal sclerotic lesion T7 or T8 vertebrae- Obtain MRI thoracic spine. 4. Thyroid dysfunction-patient unclear which type of thyroid disorder she has. She reports she is taking a combination pill. Reports recent abnormal thyroid labs. No thyroid medication listed on home list. Check thyroid panel. We will need to reassess home medication list. 5. Elevated d-dimer-CTA without evidence of PE. DVT prophylaxis- Lovenox This patient was seen by FESTUS Miller under the supervision of Dr. Merino. 04/08/18 1544 <Electronically signed by Catalina MORTENSEN> Date Catalina MORTENSEN 04/08/18 1831<Electronically signed by Michael Merino DO> Cosigner Signature: Date (if applicable) Michael Merino DO CC: MAHAD Kwon; FESTUS Bhardwaj; Michael Merino DO Signed EMERGENCY DEPARTMENT Observed: 04/08/2018 Status: F Source: [place] SUMMARY 5:53 PM [facility] REPOSITORY [facility] Medical Records Department [address] [place] [address] Emergency Department Summary 04/08/18 1130 MR#: [id number] Acct: [id number] Name: TOOTIE WANG Rep #: [id number] : 1955 62 From: Lucero Vicente MD PCP: Faina Kwon NP Status: ADM IN - ER Visit Summary Date of Service: 04/08/18 Chief Complaint: Shortness of breath History of Present Illness: The patient is a [address] Jack Lorenzo. She reports she has shortness of breath with naproxen 1 week ago. States that severe when she walks around or lays flat. It is moderate at rest. Has a nonproductive cough that began 5 days ago. She denies any fever or chills. She reports that she has had intermittent chest tightness for the past week. She reports that this is increased with breathing or walking. She is pain-free currently. She reports her pain is 8 out of 10 at worst. Patient reports that they drove to [place] for Thanksgiving. This was a [address] She has bilateral calf pain. No ankle swelling. She also complains of a poor appetite. Physical Examination: Vitals: Stable. Afebrile. General: Well-nourished and well-developed. Head: Normocephalic atraumatic. Neck: Supple, no lymphadenopathy. No JVD. Nontender. Cardiovascular: Tachycardic regular rhythm. No murmurs. Respiratory: No respiratory distress. Clear to auscultation bilaterally. Abdominal: Soft, nontender, nondistended, normal bowel sounds. No guarding, rebound, or peritoneal signs. Back: Nontender. Extremities: Nontender, no edema. Skin: Normal color, no rash. Neurologic: Alert and oriented 3. Cranial nerves II through XII are intact. Normal strength and sensation. Psych: Normal affect. Test Results: EKG is sinus at 84 with first-degree AV block and corrected QT interval of 484. Nonspecific ST changes. No old EKG for comparison. CBC is remarkable for 7 neutrophils 74 lymphocytes of 18. Chem-7 is more for chloride 110. Troponin 0 0.024. PT IT INSTRUCTOR is 1991.2. D-dimer is 2.89. CT of the chest shows no PE or dissection. She does have bilateral pleural effusions and bilateral atelectasis. There is fluid in the left major fissure. She has a focal sclerotic lesion in T7 or T8. Emergency Department Course and Treatment: Patient is resting comfortably. She was given a dose of Lasix IV. Treatment Plan: Patient was discussed with Dr. Merino. She will be admitted to the hospital for further evaluation and treatment. Disposition: Admitted in improved condition. Impression: 1. CHF, new onset. 2. Focal sclerotic lesion T7 or T8. This note was generated with [employer] dictation software. It may contain incorrect words, spelling, and punctuation that were not noted in review of the chart prior to signing ED Disposition - Plan for ED Patient: Chief Complaint: Shortness of Breath Referrals: Faina Kwon, TATYC [Primary Care Provider] - What to do if you have Problems For any increased pain, shortness of breath, bleeding, nausea or vomiting, chest pain, or any unexpected problems, contact your Primary Care Provider. Call [facility] ([phone]) or report to the closest Emergency Room. Call 911 if necessary. 04/08/18 5784 <Electronically signed by Lucero Vicente MD> Date Lucero Vicente MD Cosigner Signature (If Indicated): Date CC: MAHAD Kwon TROPONIN-I Collected: 04/08/2018 Status: F Source: [place] 5:46 PM [facility] REPOSITORY Order Comment: 'TROP' Serial specimen #1, #2 or #3: 3 TYPE CODE TESTS RESULT OUT OF RANGE REFERENCE UNITS LAB L501.4010 <0.045 ng/mL Normal 0.023 TROPONIN-I Result Comment: TROPONIN-I EXPECTED VALUES <0.045 Negative 0.045 - 0.590 Consistent with Cardiac Damage > OR = 0.600 Critical Value Not every elevated troponin is indicative of OK. These values should be used with clinical judgement in examining the patient's clinical picture for diagnosis. To establish a diagnosis of OK versus myocardial injury, there must be a demonstrated rise and/or fall in the troponin values, in addition to ischemic symptoms, EKG changes, new regional wall motion abnormality, and/or angiographical evidence. PLEASE NOTE: REFERENCE RANGES EDITED 17 Performed By: #### L501.4010 #### [facility] [address] [place], [address] ECHOCARDIOGRAM COMPLETE Observed: 04/08/2018 Status: F Source: [place] 4:11 PM [facility] REPOSITORY [facility] Cardiovascular Services [address] [place] [address] Echo Complete 04/08/18 1347 MR#: [id number] Acct: [id number] Name: TOOTIE WANG Rep #: [id number] : 1955 62 From: Jax Neri MD Attending Dr: Michael Merino DO Status: ADM IN Ordering Dr: Michael Merino DO Date: 04/08/18 Location: PCU Sex: F C Admitted: 04/08/18 Reason For Study: CHF Procedure This was a 2D Doppler, Color Flow transthoracic echocardiogram. Exam performed portable in ED. Left Ventricle Normal size and thickness. Moderately dilated left ventricle. The estimated ejection fraction is 10 %. Stage 2 diastolic dysfunction. There is severe global hypokinesis of the left ventricle. Right Ventricle Mildly dilated right ventricle. Normal systolic function. Atria The left atrium is moderately enlarged. Normal right atrium. Normal atrial septum. Mitral Valve The mitral valve is structurally normal. No prolapse or stenosis seen. Mild (1+) mitral valve insufficiency. Tricuspid Valve Normal tricuspid valve. Mild (1+) tricuspid valve insufficiency. Right ventricular systolic pressure estimated to be 35 mmHg. Aortic Valve Trisinus/trileaflet aortic valve. Normal aortic valve. Trivial aortic valve insufficiency. Pulmonic Valve Normal pulmonic valve. Trivial pulmonic valve insufficiency. Great Vessels Normal aortic root. Normal arch. Normal inferior vena cava. Inferior vena cava collapse with sniff. Pericardium/Pleural No pericardial effusion. Moderate size left pleural effusion. MMode/2D Measurements AND Calculations LVIDd: 5.6 cm IVSd: 0.79 cm Ao root diam: 3.2 cm LVIDs: 5.1 cm LVPWd: 1.1 cm RVDd: 3.6 cm FS: 9.0 % LAV(MOD-bp): 87.2 ml EDV(MOD-sp4): 93.9 ml EDV(MOD-sp2): 100.7 ml LAV(MOD-bp) Indexed: 55.0 ml/m2 ESV(MOD-sp4): 81.0 ml EF(MOD-sp2): 24.9 % LAV(MOD-sp2): 81.0 ml EF(MOD-sp4): 13.7 % LAV(MOD-sp4): 86.0 ml SV(MOD-sp4): 12.9 ml SV(MOD-sp2): 25.1 ml LA A4 area: 23.4 cm2 LA dimension(2D): 3.9 cm RA A4 area: 18.2 cm2 Doppler Measurements AND Calculations MV E max mellissa: 92.7 cm/sec Ao V2 max: 72.4 cm/sec LV V1 max: 69.6 cm/sec Ao max P.1 mmHg LV V1 max P.9 mmHg PA V2 max: 49.1 cm/sec TR max mellissa: 273.7 cm/sec TR max P.0 mmHg Interpretation Summary The estimated ejection fraction is 10 %. Stage 2 diastolic dysfunction. There is severe global hypokinesis of the left ventricle. Mildly dilated right ventricle. The left atrium is moderately enlarged. Mild (1+) mitral valve insufficiency. Mild (1+) tricuspid valve insufficiency. Right ventricular systolic pressure estimated to be 35 mmHg. Trivial aortic valve insufficiency. Moderate size left pleural effusion. d/w Dr Merino There is no comparison study available. Ordering Physician: Michael Merino Referring Physician: Michael Merino Performed By: Nickie Gillis, BARBARA, RVT 04/08/181609 Date Jax Neri MD CC: MAHAD Kwon; Michael Merino DO Date Dictated: 04/08/18 1347 Date Transcribed: 04/08/181609 Ring Striker: Signed SPINE THORACIC W/WO Observed: 04/08/2018 Status: F Source: [place] CONTRAST 3:40 PM [facility] REPOSITORY [facility] Imaging Services [address] [place] [address] Spine Thoracic W/WO Contrast MR#: [id number] Acct: [id number] Name: TOOTIE WANG Rep #: [id number] : 1955 F 62 From: Kareen Urban MD PCP: Faina Kwon NP Status: ADM IN Study: Spine Thoracic W/WO Contrast Date of Exam: 04/08/18 Exam# [id number] Ordering Dr: Catalina Bhardwaj STUDY: MRI THORACIC SPINE WITH AND WITHOUT CONTRAST REASON FOR EXAM: Female, 62 years old. Abscess. SOB. Fluid in lungs. TECHNIQUE: 5 ml of Gadavist was administered intravenously for the contrast portion of the examination. COMPARISON: None. FINDINGS: This study is slightly limited by patient motion on multiple pulse sequences. Normal kyphosis of the thoracic spine. There is no substantial scoliosis. T1-2, T2-3, T3-4, T4-5, T5-6, T6-7, T7-8, T8-9, T9-10, T10- 11, T11-12: Normal endplates. Normal disc hydration, heights and morphology of the corresponding intervertebral discs. Normal central canal and intervertebral neural foramina at the corresponding levels. Normal visualized thoracic cord. Normal conus medullaris that terminates at the T12-L1 level.. The soft tissue structures are unremarkable. There is no enhancing abnormality. Small bilateral pleural effusions are noted. The aorta is normal in caliber. MRI/Spine Thoracic W/WO Contrast IMPRESSION: Bilateral pleural effusions. Otherwise unremarkable MRI of the thoracic spine. Electronically Signed: Kareen Urban MD at 18:40 EST Tel , Service support , CC: MAHAD Kwon; FESTUS Bhardwaj Ring Striker: Signed TROPONIN-I Collected: 04/08/2018 Status: F Source: [place] 3:12 PM [facility] REPOSITORY Order Comment: 'TROP' Serial specimen #1, #2 or #3: 2 TYPE CODE TESTS RESULT OUT OF RANGE REFERENCE UNITS LAB L501.4010 <0.045 ng/mL Normal 0.022 TROPONIN-I Result Comment: TROPONIN-I EXPECTED VALUES <0.045 Negative 0.045 - 0.590 Consistent with Cardiac Damage > OR = 0.600 Critical Value Not every elevated troponin is indicative of OK. These values should be used with clinical judgement in examining the patient's clinical picture for diagnosis. To establish a diagnosis of OK versus myocardial injury, there must be a demonstrated rise and/or fall in the troponin values, in addition to ischemic symptoms, EKG changes, new regional wall motion abnormality, and/or angiographical evidence. PLEASE NOTE: REFERENCE RANGES EDITED 17 Performed By: #### L501.4010 #### [facility] [address] [place], [place], [id number] FREE T3 Collected: 04/08/2018 Status: F Source: [place] 3:12 PM [facility] REPOSITORY Order Comment: Comments: add on to admission labs if possible TYPE CODE TESTS RESULT OUT OF RANGE REFERENCE UNITS LAB L501.72808 2.18-3.98 pg/mL Normal FREE T3 2.6 Performed By: #### L501.50149, L501.9520, L506.0400 #### [facility] [address] [place], [place], [id number] THYROID STIM HORMONE Collected: 04/08/2018 Status: F Source: [place] (TSH) 3:12 PM [facility] REPOSITORY Order Comment: Comments: add on to admission labs if possible TYPE CODE TESTS RESULT OUT OF RANGE REFERENCE UNITS LAB L501.9520 0.358-3.74 uIU/mL Normal TSH 1.98 Performed By: #### L501.21097, L501.9520, L506.0400 #### [facility] [address] [place], [address] T4 FREE DIRECT Collected: 04/08/2018 Status: F Source: [place] 3:12 [facility] REPOSITORY Order Comment: Comments: add on to admission labs if possible TYPE CODE TESTS RESULT OUT OF RANGE REFERENCE UNITS LAB L506.0400 0.76-1.46 ng/dL Normal T4 FREE 1.00 DIRECT Performed By: #### L501.96819, L501.9520, L506.0400 #### [facility] [address] [place], [address] CTA CHEST W/WO Observed: 04/08/2018 Status: F Source: [place] CONTRAST 10:53 AM [facility] REPOSITORY [facility] Imaging Services [address] [place] [address] CTA Chest W/WO Contrast MR#: [id number] Acct: [id number] Name: TOOTIE WANG Rep #: [id number] : 1955 F 62 From: Jayce Granger MD PCP: Faina Kwon NP Status: REG ER Study: CTA Chest W/WO Contrast Date of Exam: 04/08/18 Exam# [id number] Ordering Dr: Lucero Vicente MD STUDY: CTA CHEST REASON FOR EXAM: Female, 62 years old. Shortness of breath. RADIATION DOSAGE (If Supplied By Facility): CTDIvol = ( 9.01 ) mGy, DLP = ( 245.35 ) mGycm TECHNIQUE: The examination was performed with the intravenous administration of 100 ml of Isovue 370 contrast material. Post-processing of the angiographic images was performed, with multiplanar reformation and 3D reconstruction. Individualized dose optimization techniques were used for this CT. COMPARISON: None. FINDINGS: Normal enhancement of the main pulmonary artery and right and left pulmonary arteries. Normal enhancement of the bilateral peripheral pulmonary arteries. There is no demonstrated pulmonary embolism. Normal thoracic aorta and visualized great vessels. There is no demonstrated aortic dissection. There are calcifications of the coronary arteries. Normal mediastinum. Normal hilar regions. Normal visualized trachea and bronchi. The lungs are well expanded. Bibasilar atelectasis. Small bilateral pleural effusions with fluid in the left major fissure. Normal chest wall structures. Focal sclerotic density measuring 8.2 mm x 9.1 mm seen along the posterior inferior aspect of the T7 or T8 thoracic vertebrae. Normal visualized upper abdomen. CT/CTA Chest W/WO Contrast IMPRESSION: Bilateral pleural effusions. Fluid is seen in the left major fissure. Bibasilar atelectasis. Focal sclerotic lesion is seen in the T7 or T8 vertebrae. Electronically Signed: Jayce Granger MD at 11:32 EST Tel [phone], Service support , CC: MAHAD Kwon; Lucero Vicente MD Ring Striker: Signed Observed: 04/08/2018 Status: F Source: [place] CULTURE, BLOOD (WB) 10:45 AM [facility] REPOSITORY BC No growth in 5 days. Performed By: #### M200.1000 #### [facility] [place], [address] CBC W/DIFF, AUTOMATED Collected: 04/08/2018 Status: F Source: [place] 10:13 AM [facility] REPOSITORY TYPE CODE TESTS RESULT OUT OF RANGE REFERENCE UNITS LAB L100.1000 4.4-11.0 K/mm3 Normal WBC 7.0 LAB L100.1200 4.2-5.4 M/mm3 Normal RBC 4.36 LAB L100.1300 12.0-15.0 g/dl Normal HGB 14.0 LAB L100.1400 37-47 % Normal HCT 42.3 LAB L100.1500 81-99 fL Normal MCV 97.0 LAB L100.1600 27.0-32.0 pg High MCH 32.1 LAB L100.1700 32-36 g/gl Normal MCHC 33.1 LAB L100.1810 11.6-14.6 % Normal RDW CV 14.1 LAB L100.1820 35.1-43.9 fl High RDW SD 48.1 LAB L100.1900 150-450 K/mm3 Normal PLT 203 LAB L100.2000 6.2-12.0 fl Normal MPV 11.6 LAB L100.2100 47-70 % High NEUT% 74.1 LAB L100.2200 19-41 % Low LY% 18.2 LAB L100.2300 0-10 % Normal MONO% 6.6 LAB L100.2400 0-5 % Normal EO% 0.4 LAB L100.2500 0-1 % Normal BASO% 0.4 LAB L100.2550 0.0-0.9 % Normal IM GRAN % 0.300 Result Comment: IG% - Immature Granulocytes (promyelocytes, myelocytes and metamyelocytes) > 1% indicates that a LEFT SHIFT is Present. LAB L100.2620 2.0-7.7 X10 3/uL Normal Absolute Neut 5.2 LAB L100.2720 0.83-4.51 X10 3/ul Normal Absolute Lymph 1.28 Performed By: #### L100.0100 #### [facility] [address] [place], [place], [id number] D-DIMER QUANTITATIVE Collected: 04/08/2018 Status: F Source: [place] (DVT/PE) 10:13 AM [facility] REPOSITORY TYPE CODE TESTS RESULT OUT OF RANGE REFERENCE UNITS LAB L300.8000 0.27-0.49 FEU/ug/m High alert D-DIMER 2.89 QUANT Result Comment: CRITICAL VALUE VERIFIED. CALLED TO [facility] 04/08/18 Carolin5 Rinku Navas. RESULTS READ BACK BY SAME . D-Dimer ELEVATED (>0.49): Additional studies and clinical assessments are indicated to conclude diagnosis of: Deep Vein Thrombosis (DVT) or Pulmonary Embolism (PE) Performed By: #### L300.8000 #### [facility] [address] [place], [place], [id number] BASIC METABOLIC Collected: 04/08/2018 Status: F Source: [place] PROFILE (BMP) 10:13 AM [facility] REPOSITORY TYPE CODE TESTS RESULT OUT OF RANGE REFERENCE UNITS LAB L501.0100 74-106 mg/dL Normal GLU 100 Result Comment: Fasting Glucose result from 100 to 125 mg/dL suggests IMPAIRED HOMEOSTASIS per A.D.A. criteria. Please note revised GLUCOSE reference range effective 2017. LAB L501.1000 7-18 mg/dL Normal BUN 15 LAB L501.1100 0.55-1.02 mg/dL Normal CREAT,SERUM 0.75 Result Comment: The validity of the calculated GFR AND GFRAA in patients over 70 years has not been determined. Clinical correlation is essential. LAB L501.1110 >60 mL/min Normal EST GFR 82 Result Comment: Non- GFR Calc LAB L501.1115 >60 mL/min Normal EST GFR - AA 99 Result Comment: GFR Calc LAB L501.1255 ml/min Normal Estimated CRCL 54.43 LAB L501.1300 10-20 RATIO Normal BUN/CRE 19.9 LAB L501.2200 8.5-10 mg/dL Normal .1 CA 8.6 LAB L501.5300 136-14 mmol/L Normal 5 NA 143 LAB L501.5600 3.5-5. mmol/L Normal 1 K 3.8 LAB L501.5900 98-107 mmol/L High CL 110 LAB L501.6100 21.0-3 mmol/L Normal 2.0 CO2 25.0 LAB L501.6200 5-15 Normal GAP 8 Performed By: #### L500.2500, L501.4010 #### [facility] [address] [place], [place], [address] TROPONIN-I Collected: 04/08/2018 Status: F Source: [place] 10:13 AM [facility] REPOSITORY TYPE CODE TESTS RESULT OUT OF RANGE REFERENCE UNITS LAB L501.4010 <0.045 ng/mL Normal 0.024 TROPONIN-I Result Comment: TROPONIN-I EXPECTED VALUES <0.045 Negative 0.045 - 0.590 Consistent with Cardiac Damage > OR = 0.600 Critical Value Not every elevated troponin is indicative of OK. These values should be used with clinical judgement in examining the patient's clinical picture for diagnosis. To establish a diagnosis of OK versus myocardial injury, there must be a demonstrated rise and/or fall in the troponin values, in addition to ischemic symptoms, EKG changes, new regional wall motion abnormality, and/or angiographical evidence. PLEASE NOTE: REFERENCE RANGES EDITED 17 Performed By: #### L500.2500, L501.4010 #### [facility] [address] [place], [address] LACTIC ACID Collected: 04/08/2018 Status: F Source: [place] 10:13 AM [facility] REPOSITORY Order Comment: Yes/No query for Sepsis Lactate Rule Y TYPE CODE TESTS RESULT OUT OF RANGE REFERENCE UNITS LAB L503.6005 0.4-2.0 mmol/L Normal LACTIC ACID 1.1 Performed By: #### L503.6005 #### [facility] [address] [place], [address] BNP,B-TYPE NATRIURETIC Collected: 04/08/2018 Status: F Source: [place] PEPTIDE 10:13 AM [facility] REPOSITORY TYPE CODE TESTS RESULT OUT OF RANGE REFERENCE UNITS LAB L503.6620 0-100 pg/mL High B-TYPE 1992.2 JESSICA PEP Performed By: #### L503.6620 #### [facility] [address] [place], [address] Observed: 04/08/2018 Status: F Source: [place] CULTURE, BLOOD (WB) 10:13 AM [facility] REPOSITORY BC No growth in 5 days. Performed By: #### M200.1000 #### [facility] [address] [place], [address] PROGRESS Observed: 04/08/2018 Status: COMPLETED Source: [place] 9:16 AM [facility] REPOSITORY HNO ID: [id number] Author: Faina Lei (Suhail Kwon Service: (none) Author Type: Nurse Practitioner Type: Progress Notes Filed: 04/08/2018 11:34 AM Note Text: HPI/CC: Tootie Wang is a 62 year old female who presents for Recheck (pneumonia- not feeling any better, felt more short of breath last night when lying down, difficulty sleeping). Patient seen on 04/05 for the same. Xray showed Patchy airspace opacities right medial lower lung may represent atelectasis or developing infiltrate. Started on zpak, patient states overall worsening SOB and fatigue. ROS as above, otherwise non-contributory. Reviewed PMHx, PSHx, social Hx, medications and allergies. PHYSICAL EXAMINATION: BP 164/110 Pulse 108 Resp 16 Wt 64 kg (141 lb) SpO2 97% BMI 28.48 kg/m? eneral appearance: Well appearing, alert, in no acute distress, well-hydrated, well nourished. Skin: Skin color, texture, turgor normal, no suspicious rashes or lesions Lungs: lungs diminished to auscultation. No wheezing Heart: RRR without murmur, gallop, or rubs. No ectopy Extremities: No deformities, edema, skin discoloration, clubbing or cyanosis. Good capillary refill. ASSESSMENT/PLAN: 1. Pneumonia due to infectious organism, unspecified laterality, unspecified part of lung - ICD9: 136.9, 484.8, ICD10: J18.9 - recommended eval in ER d/t worsening s/s, low pulse ox (see nurse notes), elevated BP and HR. Patient agreeable to [facility] ER - called report to ER. Faina Kwon APRN.CNP CNOV Observed: 04/08/2018 Status: COMPLETED Source: [place] 9:00 AM [facility] REPOSITORY Office Visit (FAMPWS) TOOTIE WANG ([id number]) 1955 F Date Time Provider Department 04/08/18 9:00 AM FAINA KWON (ISAIAS) FAMPWS During your visit today, we recorded the following information about you: Pulse Respiration Blood pressure Weight 108/minute 16/minute 164/110 64 kg Faina Kwon APRN.CNP 04/08/2018 11:34 AM Signed HPI/CC: Tootie Wang is a 62 year old female who presents for Recheck (pneumonia- not feeling any better, felt more short of breath last night when lying down, difficulty sleeping). Patient seen on 04/05 for the same. Xray showed Patchy airspace opacities right medial lower lung may represent atelectasis or developing infiltrate. Started on zpak, patient states overall worsening SOB and fatigue. ROS as above, otherwise non-contributory. Reviewed PMHx, PSHx, social Hx, medications and allergies. PHYSICAL EXAMINATION: BP 164/110 Pulse 108 Resp 16 Wt 64 kg (141 lb) SpO2 97% BMI 28.48 kg/m? eneral appearance: Well appearing, alert, in no acute distress, well-hydrated, well nourished. Skin: Skin color, texture, turgor normal, no suspicious rashes or lesions Lungs: lungs diminished to auscultation. No wheezing Heart: RRR without murmur, gallop, or rubs. No ectopy Extremities: No deformities, edema, skin discoloration, clubbing or cyanosis. Good capillary refill. ASSESSMENT/PLAN: 1. Pneumonia due to infectious organism, unspecified laterality, unspecified part of lung - ICD9: 136.9, 484.8, ICD10: J18.9 - recommended eval in ER d/t worsening s/s, low pulse ox (see nurse notes), elevated BP and HR. Patient agreeable to [facility] ER - called report to ER. Faina Kwon APRN.MACHINE BURRER Referring Provider: SELF [200] Allergies As of Date: 04/08/2018 Noted Allergy Reaction LORTAB (HYDROCODONE-ACETAMINOPHEN)02/07/2018 8 - GI Upset Comments: Severe nausea Date Reviewed: 04/08/2018 Reviewed by: Bucky Cavanaugh LPN - Fully Assessed Reason for Visit: Recheck [92] Cmt: pneumonia- not feeling any better, felt more short of breath last night when lying down, difficulty sleeping Primary Visit Diagnosis:Pneumonia due to infectious organism, unspecified laterality, unspecified part of lung [J18.9] Prescriptions as of 04/08/2018 Sig: COMPOUNDED PRESCRIPTION T4/T3 E4M 60 mcg/20 mcg capsu* AZITHROMYCIN 250 MG TABLET Take 2 tablets by mouth day o* LOSARTAN 50 MG TABLET Take 1 tablet by mouth once d* IBUPROFEN 200 MG TABLET Take 1-2 tablets by mouth anders* OMEGA-3 FATTY ACIDS-FISH OIL * Take 1 capsule by mouth daily* VIT NO.95-FERROUS FU* Take 2 tablets by mouth once * CALCIUM CITRATE 250 MG TABLET Take 4 tablets by mouth once * COMPOUNDED PRESCRIPTION progesterone 40 mg/ML cream, * COMPOUNDED PRESCRIPTION estriol vaginal 0.1 % cream, * PROBIOTIC ORAL Take 1 capsule by mouth once * Problem List As Of Date 04/08/2018 Noted Resolved Hypertension, essential [I10] INVALID FOR* Family history of breast cancer [Z80.3] INVALID FOR* More... Encounter Status:Closed by FAINA KWON CNP on 04/08/18 PROGRESS Observed: 04/05/2018 Status: COMPLETED Source: [place] 1:39 PM [facility] [place] REPOSITORY HNO ID: [id number] Author: Faina Lei (Isaias) Marisa Service: (none) Author Type: Nurse Practitioner Type: Progress Notes Filed: 04/05/2018 1:48 PM Note Text: HPI/CC: Tootie Wang is a 62 year old female who presents for Acute Visit. Reports fluctuating blood pressure (take BP ans HR BID), palpitations, elevated HR, loss of appetite, SOB,+ hoarse voice, intermittent chest tightness, cough, fatigue, lower abdominal disocmfort and headache. Symptoms have occurred daily over the last 1.5- 2 weeks. Denies fever, chills, vomiting, sore throat, ear pain/fullness, vomiting, edema, dizziness, lightheadedness, syncope, change in bowel or bladder function. Recently with change to thyroid compound. ROS as above, otherwise non-contributory. Reviewed PMHx, PSHx, social Hx, medications and allergies. PHYSICAL EXAMINATION: BP 144/96 Pulse 104 Resp 16 Wt 63.5 kg (140 lb) BMI 28.28 kg/m? General appearance: Well appearing, alert, in no acute distress, well-hydrated, well nourished. Skin: Skin color, texture, turgor normal, no suspicious rashes or lesions Head: Normocephalic, Eyes: Anicteric sclera. Lungs: lungs clear to auscultation. No wheezing, rhonchi, rales Heart: RRR without murmur, gallop, or rubs. No ectopy. ECG ST with 1 degree AVB, LVH, ?left atrial enlargement, nonspecific ST and T wave abnormality. No previous ECG to conpare. Abdomen: Normal abdominal exam, Abdomen soft, non-tender. Bowel sounds normal. No masses, organomegaly Extremities: No edema, skin discoloration ASSESSMENT/PLAN: 1. Palpitations - ICD9: 785.1, ICD10: R00.2 (primary diagnosis) - TSH BLD - T3 BLD - T4 FREE/FREE THYROX - THYROID PEROXIDASE ANTIBODY BLOOD - CBC + DIFF - COMP METABOLIC PANEL 2. SOB (shortness of breath) - ICD9: 786.05, ICD10: R06.02 - ECG COMPLETE W INTERPRETATION - TSH BLD - T3 BLD - T4 FREE/FREE THYROX - THYROID PEROXIDASE ANTIBODY BLOOD - CBC + DIFF - XR CHEST 2V FRONTAL/LAT - COMP METABOLIC PANEL 3. Hypertension, essential - ICD9: 401.9, ICD10: I10 - TSH BLD - T3 BLD - T4 FREE/FREE THYROX - THYROID PEROXIDASE ANTIBODY BLOOD - COMP METABOLIC PANEL 4. Lower abdominal pain - ICD9: 789.09, ICD10: R10.30 - URINE CULTURE - UA DIP W/MICRO B/O - COMP METABOLIC PANEL - f/u based on above. May need echo, cardiology. Faina Kwon APRN.MACHINE BURRER XR CHEST 2V FRONTAL/LAT Observed: 04/05/2018 Status: F Source: [place] 12:34 PM [facility]POS[facility] * * *Final Report* * * DATE OF EXAM: Apr 05 2018 12:34PM WOX [id number] - XR CHEST 2V FRONTAL/LAT / PROCEDURE REASON: SOB (shortness of breath) * * * * Physician Interpretation * * * * EXAMINATION: CHEST RADIOGRAPH (2 VIEW FRONTAL and LATERAL) CLINICAL HISTORY: SOB (shortness of breath) MQ: XC2_5 Comparison: None RESULT: There is mild pulmonary interstitial edema. Subtle patchy airspace opacities in the right medial lower lung may represent atelectasis and/or developing infiltrate. No pneumothorax. Heart size is mildly enlarged. Atherosclerotic calcifications along the aortic arch, minimal. No acute osseous findings. IMPRESSION: Patchy airspace opacities right medial lower lung may represent atelectasis or developing infiltrate. Follow-up to resolution recommended. Ring Striker: PSCB Transcribe Date/Time: Apr 06 2018 9:00A Dictated by : GARY FORDE MD This examination was interpreted and the report reviewed and electronically signed by: GARY FORDE MD on Apr 06 2018 9:13AM EST [id number] Observed: 04/05/2018 Status: F Source: [place] URINE CULTURE 12:24 PM [facility] REPOS[facility] Sp. Request/Comment: - Specimen received in preservative Culture Result - 10,000 - <50,000 CFU/ml Normal urogenital power Performed By: #### URCUL #### [facility] [address] [place], [place] [address] PROGRESS Observed: 04/05/2018 Status: COMPLETED Source: [place] 12:22 PM [facility] HNO ID: [id number] Author: Amelia Lei (Rt) Vance Singh Service: (none) Author Type: Radiographic Technologist Type: Progress Notes Filed: 04/05/2018 12:35 PM Note Text: Radiology Service Progress Note PATIENT NAME: Tootie Wang DATE OF SERVICE: April 05, 2018 TIME: 12:22 PM PATIENT IDENTITY VERIFICATION COMPLETED USING TWO (2) METHODS: Patient confirmed name verbally and Date of . PATIENT GENDER DATA: Female. status: : No status: NO. PATIENT RELEVANT IMPLANT DATA REVIEWED: Not Applicable RADIOLOGY DEPARTMENT: General X-ray: Exam(s) Completed: Chest X-Ray PERIPHERAL IV DATA: Not applicable SIGNED BY: RT Hermila April 05, 2018 12:22 PM CBC AND DIFFERENTIAL Collected: 04/05/2018 Status: F Source: [place] 12:20 PM [facility] REPOS[facility] TYPE CODE TESTS RESULT OUT OF REFERENCE UNITS RANGE LAB WBC 3.70-11.00 k/uL WBC 5.84 LAB RBC 3.90-5.20 m/uL RBC 4.31 LAB HGB 11.5-15.5 g/dL Hemoglobin 13.8 LAB HCT 36.0-46.0 % Hematocrit 42.9 LAB MCV 80.0-100.0 fL MCV 99.5 LAB MCH 26.0-34.0 pG MCH 32.0 LAB MCHC 30.5-36.0 g/dL MCHC 32.2 LAB RDWCV 11.5-15.0 % RDW-CV 13.7 LAB PLTCT 150-400 k/uL Platelet Count 202 Result Comment: No clot detected. LAB MPV 9.0-12.7 fL MPV 11.9 LAB ANEUT % Neut% 71.8 LAB AANEUT 1.45-7.50 k/uL Abs Neut 4.18 LAB ALYMP % Lymph% 19.2 LAB AALYMP 1.00-4.00 k/uL Abs Lymph 1.12 LAB AMONO % Dillon% 7.4 LAB AAMONO <0.87 k/uL Abs Dillon 0.43 LAB AEOS % Eosin% 0.7 LAB AAEOS <0.46 k/uL Abs Eosin 0.04 LAB ABASO % Baso% 0.9 LAB AABASO <0.11 k/uL Abs Baso 0.05 LAB AUNRBC 0 /100 WBC NRBCs 0.0 LAB ABNRBC <0.01 k/uL Absolute nRBC <0.01 LAB DTYP DTYPE Auto Diff Performed By: #### CBCDIF, CMP, TSH, FT4, T3, MICRO #### [facility] [address] [place], [place] [address] COMP METABOLIC PANEL Collected: 04/05/2018 Status: F Source: [place] 12:20 PM [facility] REPOSITORY TYPE CODE TESTS RESULT OUT OF REFERENCE UNITS RANGE LAB TP 6.3-8.0 g/dL Protein, Total 6.8 LAB ALB 3.9-4.9 g/dL Albumin 4.3 LAB CA 8.5-10.2 mg/dL Calcium, Total 9.0 LAB TBIL 0.2-1.3 mg/dL Bilirubin, Total 0.6 LAB ALKP 34-123 U/L Alkaline Phosphatase 102 LAB AST 13-35 U/L AST High 62 LAB GLU 74-99 mg/dL Glucose High 103 Result Comment: The [place] [employer] (ADA) provides guidance for cutoff values for fasting glucose and random glucose. The ADA defines fasting as no caloric intake for at least 8 hours. Fas ting plasma glucose results between 100 to 125 mg/dL indicate increased risk for diabetes (prediabetes). Fasting plasma glucose results greater than or equal to 126 mg/dL meet the criteria for diagnosis of diabetes. In the absence of unequivocal hyperglycemia, results should be confirmed by repeat testing. In a patient with classic symptoms of hyperglycemia or hyperglycemic crisis, random plasma glucose results greater than or equal to 200 mg/dL meet the criteria for diagnosis of diabetes. Reference: Standards of Medical Care in Diabetes 2016, [place] [employer]. Diabetes Care. 2016.39(Suppl 1). LAB BUN 7-21 mg/dL BUN 14 LAB CRET 0.58-0.96 mg/dL Creatinine 0.77 LAB NA 136-144 mmol/L Sodium 143 LAB K 3.7-5.1 mmol/L Potassium 4.0 LAB CL 97-105 mmol/L Chloride High 107 LAB CO2 22-30 mmol/L CO2 23 LAB AGAP 9-18 mmol/L Anion Gap 13 LAB ALT 7-38 U/L ALT High 102 LAB GFRAA eGFR- Amer. >60 LAB GFRNAA . eGFR-All Other Races >60 Result Comment: eGFR (Estimated GFR) Units of measure: mL/min/1.73 meters squared eGFR is derived from the reexpressed MDRD Study equation using the following parameters: serum creatinine, age, gender and race. The creatinine assay has been calibrated to be traceable to IDMS. An eGFR <60 mL/min/1.73m2 for >3 months is consistent with chronic kidney disease. Refer to KDOQI guidelines for clinical interpretation. In patients with unstable renal function, e.g. those with acute kidney injury, the eGFR may not accurately reflect actual GFR. Performed By: #### CBCDIF, CMP, TSH, FT4, T3, MICRO #### [facility] [address] [address] TSH Collected: 04/05/2018 Status: F Source: [place] 12:20 PM [facility] REPOS[facility] TYPE CODE TESTS RESULT OUT OF RANGE REFERENCE UNITS LAB TSH 0.400-5.500 uU/mL TSH 1.760 Performed By: #### CBCDIF, CMP, TSH, FT4, T3, MICRO #### [facility] [address] [address] FREE T4 Collected: 04/05/2018 Status: F Source: [place] 12:20 PM [facility] REPOS[facility] TYPE CODE TESTS RESULT OUT OF RANGE REFERENCE UNITS LAB FT4 0.9-1.7 ng/dL Free T4 1.2 Performed By: #### CBCDIF, CMP, TSH, FT4, T3, MICRO #### [facility] [address] [id number] T3 Collected: 04/05/2018 Status: F Source: [facility] 12:20 PM [facility] REPOSITORY TYPE CODE TESTS RESULT OUT OF RANGE REFERENCE UNITS LAB T3 79-165 ng/dL T3 120 Performed By: #### CBCDIF, CMP, TSH, FT4, T3, MICRO #### [facility] [address] [place], [place] [address] TPO ANTIBODY Collected: 04/05/2018 Status: F Source: [place] 12:20 PM [facility] REPOS[facility] TYPE CODE TESTS RESULT OUT OF REFERENCE UNITS RANGE LAB MICRO <5.6 IU/mL High TPO Antibody 11.3 Performed By: #### CBCDIF, CMP, TSH, FT4, T3, MICRO #### [facility] [address] [place], [place] [address] ECG COMPLETE W Observed: 04/05/2018 Status: F Source: [place] INTERPRETATION 11:39 AM [facility] REPOS[facility] NAME : TOOTIE WANG PID : [id number] : 1955 Gender : Female Race : ORD : [id number] Procedure Date : Apr 05 2018 11:39:30 Edit Date : Apr 06 2018 10:14:29 Diagnosis:SINUS TACHYCARDIA WITH 1ST DEGREE AV BLOCK POSSIBLE LEFT ATRIAL ENLARGEMENT LEFT VENTRICULAR HYPERTROPHY NONSPECIFIC ST AND T WAVE ABNORMALITY ABNORMAL ECG Confirmed by JANET HINDS D.O. ([id number]) on 04/06/2018 10:14:15 AM Ventricular Rate : 102 BPM Atrial Rate : 102 BPM P-R Interval : 214 ms QRS Duration : 110 ms Q-T Interval : 358 ms QTC Calculation(Bezet) : 466 ms P [place] : 78 degrees R [place] : -23 degrees T [place] : 99 degrees Test Reason : Location : 185 : [facility] Overread By : JANET HINDS D.O. Edited By : JANET HINDS D.O. Referred By : FAINA KWON Acquired by : BUCKY CAVANAUGH CNOV Observed: 04/05/2018 Status: COMPLETED Source: [place] 11:20 AM [facility] REPOS[facility] Office Visit (FAMPWS) TOOTIE WANG ([id number]) 1955 F Date Time Provider Department 04/05/18 11:20 FAINA SAHU (ISAIAS) SAM During your visit today, we recorded the following information about you: Pulse Respiration Blood pressure Weight 104/minute 16/minute 144/96 63.5 kg Faina Kwon APRN.CNP 04/05/2018 1:48 PM Signed HPI/CC: Tootie Wang is a 62 year old female who presents for Acute Visit. Reports fluctuating blood pressure (take BP ans HR BID), palpitations, elevated HR, loss of appetite, SOB,+ hoarse voice, intermittent chest tightness, cough, fatigue, lower abdominal disocmfort and headache. Symptoms have occurred daily over the last 1.5-2 weeks. Denies fever, chills, vomiting, sore throat, ear pain/fullness, vomiting, edema, dizziness, lightheadedness, syncope, change in bowel or bladder function. Recently with change to thyroid compound. ROS as above, otherwise non-contributory. Reviewed PMHx, PSHx, social Hx, medications and allergies. PHYSICAL EXAMINATION: BP 144/96 Pulse 104 Resp 16 Wt 63.5 kg (140 lb) BMI 28.28 kg/m? General appearance: Well appearing, alert, in no acute distress, well-hydrated, well nourished. Skin: Skin color, texture, turgor normal, no suspicious rashes or lesions Head: Normocephalic, Eyes: Anicteric sclera. Lungs: lungs clear to auscultation. No wheezing, rhonchi, rales Heart: RRR without murmur, gallop, or rubs. No ectopy. ECG ST with 1 degree AVB, LVH, ?left atrial enlargement, nonspecific ST and T wave abnormality. No previous ECG to conpare. Abdomen: Normal abdominal exam, Abdomen soft, non-tender. Bowel sounds normal. No masses, organomegaly Extremities: No edema, skin discoloration ASSESSMENT/PLAN: 1. Palpitations - ICD9: 785.1, ICD10: R00.2 (primary diagnosis) - TSH BLD - T3 BLD - T4 FREE/FREE THYROX - THYROID PEROXIDASE ANTIBODY BLOOD - CBC + DIFF - COMP METABOLIC PANEL 2. SOB (shortness of breath) - ICD9: 786.05, ICD10: R06.02 - ECG COMPLETE W INTERPRETATION - TSH BLD - T3 BLD - T4 FREE/FREE THYROX - THYROID PEROXIDASE ANTIBODY BLOOD - CBC + DIFF - XR CHEST 2V FRONTAL/LAT - COMP METABOLIC PANEL 3. Hypertension, essential - ICD9: 401.9, ICD10: I10 - TSH BLD - T3 BLD - T4 FREE/FREE THYROX - THYROID PEROXIDASE ANTIBODY BLOOD - COMP METABOLIC PANEL 4. Lower abdominal pain - ICD9: 789.09, ICD10: R10.30 - URINE CULTURE - UA DIP W/MICRO B/O - COMP METABOLIC PANEL - f/u based on above. May need echo, cardiology. Faina Kwon APRN.MACHINE BURRER Referring Provider: SELF [[id number]] Allergies As of Date: 04/05/2018 Noted Allergy Reaction LORTAB (HYDROCODONE-ACETAMINOPHEN)02/07/2018 8 - GI Upset Comments: Severe nausea Date Reviewed: 04/05/2018 Reviewed by: Bucky Cavanaugh LPN - Fully Assessed Reason for Visit: Acute Visit [896] Cmt: blood pressure all over the place, heart is racing, loss of appetite, short of breath Primary Visit Diagnosis:Palpitations [R00.2] Other Visit Diagnoses:SOB (shortness of breath) [R06.02] Hypertension, essential [I10] Lower abdominal pain [R10.30] Order(s):ECG COMPLETE W INTERPRETATION [ECG01] Order #: [id number] FUTURE TSH BLD [SQTSH] Order #: [id number] FUTURE T3 BLD [SQT3] Order #: [id number] FUTURE T4 FREE/FREE THYROX [SQFT4] Order #: [id number] FUTURE THYROID PEROXIDASE ANTIBODY BLOOD [SQMICRO] Order #: [id number] FUTURE CBC + DIFF [SQCBCDIF] Order #: [id number] FUTURE XR CHEST 2V FRONTAL/LAT [0087015] Order #: [id number] FUTURE COMPLETE ECG [3252992] Order #: [id number]. #:[id number]--[id number]: 1 URINE CULTURE [SQURCUL] Order #: [id number] FUTURE UA DIP W/MICRO B/O [4200682] Order #: [id number] COMP METABOLIC PANEL [SQCMP] Order #: [id number] FUTURE Prescriptions as of 04/05/2018 Sig: LOSARTAN 50 MG TABLET Take 1 tablet by mouth once d* IBUPROFEN 200 MG TABLET Take 1-2 tablets by mouth anders* OMEGA-3 FATTY ACIDS-FISH OIL * Take 1 capsule by mouth daily* VIT NO.95-FERROUS FU* Take 2 tablets by mouth once * CALCIUM CITRATE 250 MG TABLET Take 4 tablets by mouth once * COMPOUNDED PRESCRIPTION T4/T3 E4M 60 mcg/20 mcg capsu* COMPOUNDED PRESCRIPTION progesterone 40 mg/ML cream, * COMPOUNDED PRESCRIPTION estriol vaginal 0.1 % cream, * PROBIOTIC ORAL Take 1 capsule by mouth once * Problem List As Of Date 04/05/2018 Noted Resolved Hypertension, essential [I10] INVALID FOR* Family history of breast cancer [Z80.3] INVALID FOR* More... Medications Discontinued During This Encounter pantothenic acid, vit B5, (PANTOTHEN* 04/05/2018 Class: Historical Med Route: ORAL Sig: Take 1 capsule by mouth once daily. Disc: Course of therapy completed omega-3 fatty acids 1,000 mg cap 04/05/2018 Class: Historical Med Route: ORAL Sig: Take 2 g by mouth twice daily. Disc: Course of therapy completed Encounter Status:Closed by FAINA KWON CNP on 04/05/18 PROGRESS Observed: 02/09/2018 Status: COMPLETED Source: [place] 8:39 AM [facility] REPOSIT[facility] HNO ID: [id number] Author: Lanette Adorno Service: (none) Author Type: (none) Type: Progress Notes Filed: 02/09/2018 8:39 AM Note Text: Scheduled patient for open access colonoscopy with Dr. Morris on 04/08/2018, patient had to have a Wednesday, mailing colonoscopy instructions Lanette Adorno TPO ANTIBODY Collected: 02/08/2018 Status: F Source: [place] 3:40 PM [facility] REPOSIT[facility] TYPE CODE TESTS RESULT OUT OF REFERENCE UNITS RANGE LAB MICRO <5.6 IU/mL High TPO Antibody 16.3 Performed By: #### MICRO #### [facility] [address] [address] FREE T4 Collected: 02/07/2018 Status: F Source: [place] 3:40 PM [facility] REPOSITORY TYPE CODE TESTS RESULT OUT OF RANGE REFERENCE UNITS LAB FT4 0.9-1.7 ng/dL Free T4 1.1 Performed By: #### FT4, T3 #### [facility] [address] [place], [place] [address] T3 Collected: 02/07/2018 Status: F Source: [facility] 3:40 PM [facility] REPOSITORY TYPE CODE TESTS RESULT OUT OF RANGE REFERENCE UNITS LAB T3 79-165 ng/dL T3 108 Performed By: #### FT4, T3 #### [facility] [address] [place], [place] [address] PROGRESS Observed: 02/07/2018 Status: COMPLETED Source: [place] 2:38 PM [facility] REPOSITORY HNO ID: [id number] Author: Vanessa Wilson) Radha Service: (none) Author Type: Nurse Practitioner Type: Progress Notes Filed: 02/07/2018 3:15 PM Note Text: Tootie Wang is a 62 year old who presents for her annual gynecologic exam without complaints. Postmenopausal: Yes HRT use: Yes, compounding hormones How lon-4 yrs. History of abnormal pap: Yes Last mammogram: 2017 normal History of abnormal mammogram: Yes benign Sexually active: Yes Pain with intercourse: No Postcoital bleeding: No Hot flashes: Yes Night sweats: Yes Vaginal dryness: No Obstetric History T0 L3 SAB0 TAB0 Ectopic0 Multiple0 Live Births0 PAST MEDICAL HISTORY Diagnosis Date - Arthritis - Hypertension - Pneumonia 2014 - Squamous cell skin cancer 2016 right hand - Thyroid disorder PAST SURGICAL HISTORY Procedure Laterality Date - COLONOSCOPY 04/04/2013 splenic fixure polyp, removed and sent for path- hyperplastic polyp; [facility] - LAPAROSCOPIC BLADDER REPAIR 2013 - ROTATOR CUFF REPAIR Bilateral 2015 Left arm. 2017 Right arm. 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 CR TVT 2012 done in [place] uncertain brand - VAGINAL HYSTERECTOMY FAMILY HISTORY Problem Relation Age of Onset - Macular Degen Mother - COPD Mother - Heart Mother - other (Gastroparesis) Mother - other (Lung Cancer) Father - Hypertension Brother - Hypertension Maternal Grandmother passed at age 95 - Heart Maternal Grandmother - Stroke Maternal Grandmother - Stroke Paternal Grandfather - Breast Cancer Paternal Aunt - Breast Cancer Paternal Aunt - Breast Cancer Paternal Aunt - Breast Cancer Paternal Aunt - Breast Cancer Paternal Aunt SOCIAL HISTORY Social History Substance Use Topics - Smoking status: Never Smoker - Smokeless tobacco: Never Used - Alcohol use Yes Comment: Rare, wine REVIEW OF SYSTEMS Abdomen: No abdominal pain, nausea, vomiting, diarrhea, or constipation. No bloating, early satiety, indigestion, or increased flatulence. Bladder: No dysuria, gross hematuria, urinary urgency, or incontinence. +frequency Breast: No breast lumps, nipple d/c, overlying skin changes, redness or skin retraction Allergies and current medication updated:Yes EXAM: Ht 4' 11 (1.50m) Wt 138 lb (62.6kg) BMI 27.86 kg/(m2). GENERAL: pleasant, female in no apparent distress HEENT: Normocephalic, atraumatic, mucus membranes moist and no lesions NECK: Supple, full range of motion, no adenopathy and thyroid normal DERMATOLOGY: Normal, without lesions, non-icteric and non-hirsute BREAST: soft, non-tender, symmetric, no dominant mass, normal nipple-areolar complex, no lymphadenopathy and no nipple discharge CHEST: Normal inspiratory effort ABDOMEN: soft, non-tender and no masses PELVIC: external genitalia normal, normal Bartholin's glands, urethra, [place]'s glands, no vulvar lesions, no cervical lesions, physiologic discharge present, normal appearing perineal body and perianal region, cervix surgically absent BIMANUAL: no adnexal masses, non-tender and uterus surgically absent RECTOVAGINAL: deferred. NEURO: alert and oriented x3,exam grossly non-focal EXTREMITIES: normal ASSESSMENT/PLAN: 1) Health maintenance: Pap/HPV screening no longer needed Mammogram ordered Nutrition, exercise and routine health maintenance exams reviewed. Calcium/Vitamin D supplementation information provided. Colon cancer screening: scheduled for later this year. 2) Follow up one year or sooner as needed Vanessa Garcia APRN.ISAIAS CNOV Observed: 02/07/2018 Status: COMPLETED Source: [place] 2:30 PM [facility] REPOSITORY Office Visit (WOOB) TOOTIE WANG ([id number]) 1955 F Date Time Provider Department 02/07/18 2:30 PM VANESSA GARCIA) MANDIE During your visit today, we recorded the following information about you: Weight Height 62.6 kg 1.499 m Vanessa Garcia APRN.CNP 02/07/2018 3:15 PM Signed Tootie Wang is a 62 year old who presents for her annual gynecologic exam without complaints. Postmenopausal: Yes HRT use: Yes, compounding hormones How lon-4 yrs. History of abnormal pap: Yes Last mammogram: 2016 normal History of abnormal mammogram: Yes benign Sexually active: Yes Pain with intercourse: No Postcoital bleeding: No Hot flashes: Yes Night sweats: Yes Vaginal dryness: No Obstetric History T0 L3 SAB0 TAB0 Ectopic0 Multiple0 Live Births0 PAST MEDICAL HISTORY Diagnosis Date - Arthritis - Hypertension - Pneumonia 2015 - Squamous cell skin cancer 2016 right hand - Thyroid disorder PAST SURGICAL HISTORY Procedure Laterality Date - COLONOSCOPY 04/04/2013 splenic fixure polyp, removed and sent for path- hyperplastic polyp; [facility] - LAPAROSCOPIC BLADDER REPAIR 2014 - ROTATOR CUFF REPAIR Bilateral 2015 Left arm. 2017 Right arm. 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 CR TVT 2012 done in [place] uncertain brand - VAGINAL HYSTERECTOMY FAMILY HISTORY Problem Relation Age of Onset - Macular Degen Mother - COPD Mother - Heart Mother - other (Gastroparesis) Mother - other (Lung Cancer) Father - Hypertension Brother - Hypertension Maternal Grandmother passed at age 95 - Heart Maternal Grandmother - Stroke Maternal Grandmother - Stroke Paternal Grandfather - Breast Cancer Paternal Aunt - Breast Cancer Paternal Aunt - Breast Cancer Paternal Aunt - Breast Cancer Paternal Aunt - Breast Cancer Paternal Aunt SOCIAL HISTORY Social History Substance Use Topics - Smoking status: Never Smoker - Smokeless tobacco: Never Used - Alcohol use Yes Comment: Rare, wine REVIEW OF SYSTEMS Abdomen: No abdominal pain, nausea, vomiting, diarrhea, or constipation. No bloating, early satiety, indigestion, or increased flatulence. Bladder: No dysuria, gross hematuria, urinary urgency, or incontinence. +frequency Breast: No breast lumps, nipple d/c, overlying skin changes, redness or skin retraction Allergies and current medication updated:Yes EXAM: Ht 4' 11 (1.50m) Wt 138 lb (62.6kg) BMI 27.86 kg/(m2). GENERAL: pleasant, female in no apparent distress HEENT: Normocephalic, atraumatic, mucus membranes moist and no lesions NECK: Supple, full range of motion, no adenopathy and thyroid normal DERMATOLOGY: Normal, without lesions, non-icteric and non-hirsute BREAST: soft, non-tender, symmetric, no dominant mass, normal nipple-areolar complex, no lymphadenopathy and no nipple discharge CHEST: Normal inspiratory effort ABDOMEN: soft, non-tender and no masses PELVIC: external genitalia normal, normal Bartholin's glands, urethra, [place]'s glands, no vulvar lesions, no cervical lesions, physiologic discharge present, normal appearing perineal body and perianal region, cervix surgically absent BIMANUAL: no adnexal masses, non-tender and uterus surgically absent RECTOVAGINAL: deferred. NEURO: alert and oriented x3,exam grossly non-focal EXTREMITIES: normal ASSESSMENT/PLAN: 1) Health maintenance: Pap/HPV screening no longer needed Mammogram ordered Nutrition, exercise and routine health maintenance exams reviewed. Calcium/Vitamin D supplementation information provided. Colon cancer screening: scheduled for later this year. 2) Follow up one year or sooner as needed Vanessa Garcia APRN.ISAIAS Referring Provider: SELF [200] Allergies As of Date: 02/07/2018 Noted Allergy Reaction LORTAB (HYDROCODONE-ACETAMINOPHEN)02/07/2018 8 - GI Upset Comments: Severe nausea Date Reviewed: 02/07/2018 Reviewed by: Vanessa Garcia - Fully Assessed Reason for Visit: Yearly Exam [187] Primary Visit Diagnosis:Encounter for gynecological examination (general) (routine) without abnormal findings [Z01.419] Other Visit Diagnosis:Thyroid condition [E07.9] Order(s):T3 BLD [SQT3] Order #: [id number] FUTURE T4 FREE/FREE THYROX [SQFT4] Order #: [id number] FUTURE Prescriptions as of 02/07/2018 Sig: LOSARTAN 50 MG TABLET Take 1 tablet by mouth once d* PEG 3350 240 GRAM-ELECTROLYTE* Take 4,000 mL by mouth one ti* IBUPROFEN 200 MG TABLET Take 1-2 tablets by mouth anders* OMEGA-3 FATTY ACIDS-FISH OIL * Take 1 capsule by mouth daily* VIT NO.95-FERROUS FU* Take 2 tablets by mouth once * CALCIUM CITRATE 250 MG TABLET Take 4 tablets by mouth once * COMPOUNDED PRESCRIPTION T4/T3 E4M 60 mcg/20 mcg capsu* COMPOUNDED PRESCRIPTION progesterone 40 mg/ML cream, * COMPOUNDED PRESCRIPTION estriol vaginal 0.1 % cream, * OMEGA-3 FATTY ACIDS 1,000 MG * Take 2 g by mouth twice daily. PANTOTHENIC ACID ORAL Take 1 capsule by mouth once * PROBIOTIC ORAL Take 1 capsule by mouth once * X TRAMADOL 50 MG TABLET Take 2 tablets by mouth every* X SELENIUM 200 MCG TABLET Take 1 tablet by mouth. X LOSARTAN 50 MG TABLET Take 1.5 tablets by mouth onc* X IODINE 150 MCG TABLET Take 1 tablet by mouth once d* X MULTIVITAMIN TABLET Take 1 tablet by mouth once d* X CLOTRIMAZOLE 10 MG ROYAL Use 1 Royal as instructed fo* Problem List As Of Date 02/07/2018 Noted Resolved Hypertension, essential [I10] INVALID FOR* Family history of breast cancer [Z80.3] INVALID FOR* More... Medications Discontinued During This Encounter [facility] 02/07/2018 Class: Historical Med Route: Miscell. (Med.Supl.;Non-Drugs) Si mg three times daily. Disc: Duplicate Entry Estradiol 1 mg/gram (0.1 %) [facility] 02/07/2018 Class: Historical Med Route: TRANSDERMAL Sig: Apply as directed. Disc: Duplicate Entry Disposition: Return in 1 year (on 02/07/2019) for Annual Exam. Follow-up and Disposition History Recorded Encounter Status:Closed by VANESSA GARCIA on 02/07/18 PROGRESS Observed: 02/07/2018 Status: COMPLETED Source: [place] 9:00 AM [facility] HNO ID: [id number] Author: Adri Escamilla (Mahad) Jason Service: (none) Author Type: Nurse Practitioner Type: Progress Notes Filed: 02/07/2018 10:38 AM Note Text: 62 year old female here for INACTIVATED INFLUENZA VACCINE. 8899-4030 Season Patient is identified by name and date of : Yes [] CONTRAINDICATIONS color enhanced section Age less than 6 months? No Allergy to eggs, chicken, chicken feathers, or chicken dander? No Allergy to thimerosal (a preservative) or formaldehyde, gelatin? No History of severe reaction to any vaccine component or a previous dose of influenza vaccination? No History of Guillain-Woodhull Syndrome within 6 weeks after a previous influenza vaccine? No Patient is not moderately or severely ill? No Current temperature greater or equal to 100.4F? No History of Bone Marrow Transplant prior 6 months or solid organ transplant in the past 3 months ? No History of fainting after a prior injection or medical procedure? No- ? If patient has fainted in the past, the CDC recommends sitting or lying down for 15 minutes after the vaccination. [] VERIFICATION color enhanced section Was the answer Yes for any of the above contraindications? No contraindications present. Acceptable to proceed with vaccine. Patient/guardian agrees the above answers are true to the best of their knowledge? Yes Flu vaccine information sheet given? Yes See immunization activity in [facility] for details of immunizations adminstered today. Patient age: [age] year old For The 1384-7546 Flu Season 6-35 months old: Fluzone 0.25 ml - IM (Preservative Free) 3 years of age: Fluzone 0.5 ml - IM (Preservative Free) 3 years and older: Fluzone 0.5 ml- IM-(with Preservatives) 65+ years old: 2-49 years old Fluzone High-Dose 0.5 ml - IM (Preservative Free) FLUMIST- intranasal REMEMBER: If patient is less than 9 years of age and this is the first vaccine of Influenza to be received in any flu season, they should receive a second dose in one months time. [facility] OPEN ACCESS QUESTIONNAIRE 1. Are you or could you be ? No 2. Are you currently having any stomach/gastrointestinal issues at this time such as constipation, diarrhea, abdominal pain, rectal bleeding etc? No 3. Do you have an implanted device such as a defibrillator, pacemaker, Cardiac Stent or deep brain stimulation device? No 4. Do you have any new or past cardiac (heart) or pulmonary (lung) issues? No 5. Is the patient's BMI 40 or greater? No:Body mass index is 27.67 kg/m?.. Last Wt 02/07/18 : 62.1 kg (137 lb) Last Ht 02/07/18 : 149.9 cm (4' 11) 6. Have you had difficulty with prior sedations or complications with other procedures? No 7. Have you had difficulty with anesthesia previously re: ? Difficult intubation? No ? Other difficulty or allergic reaction to anesthesia other than post op N/V? No 8. Do you currently use oxygen or a breathing machine at night? No 9. Do you take any narcotics, depression or anti-Anxiety medications or 3 or more prescription drugs on a daily basis? No 10. Do you use any illegal or recreational drugs? No 11. Have you been hospitalized in the past 6 weeks? No 12. Are you on dialysis or have Chronic Kidney Disease? No 13. Have you been diagnosed with chronic liver disease such as hepatitis or cirrhosis? No 14. Do you have a seizure disorder? No 15. Do you have difficulty swallowing? No 16. Do you have ulcerative colitis or Crohn's disease? No 17. Do you take any Blood thinners, including Aspirin or fish oil? No 18. Do you have any blood disorders (re:hemophiliac)? No 19. Are you Diabetic? No 20. Any other important health information we should be made aware of prior to your colonoscopy? No 21. Any alcohol use: YES: What type of alcohol, how much and how often do you drink? : Rare glass of wine To be completed by LIP: Patient appropriate for Open Access Colonoscopy: Yes: appropriate for Open Access Procedure Checklist: Prior to closing the encounter: ? Complete questionnaire: Yes ? Confirm Prep order has been Ordered/Pended: Yes. ? Patient's procedure could be delayed if not given the script for the prep. Please ensure the prep is escripted to pharmacy or printed. Instructions for the prep will print upon filing or pending this smartset. ? Please send all open access questionnaires to [facility] Sched Pool #[id number] CNOV Observed: 02/07/2018 Status: COMPLETED Source: [place] 9:00 AM [facility] RE[facility]IT[facility] Office Visit (FAMPWS) TOOTIE WANG ([id number]) 1955 F Date Time Provider Department 02/07/18 9:00 AM ADRI GOMEZ (IT INSTRUCTOR) FAMPWS During your visit today, we recorded the following information about you: Temperature Pulse Respiration Blood pressure 98.4 degrees 88/minute 16/minute 133/82 Weight Height 62.1 kg 1.499 m Adri Gomez, MSN DIRECTOR CONTENT MARKETING.MACHINE BURRER 02/07/2018 1:17 PM Addendum SUBJECTIVE: Chief Complaint: Tootie Wang is a 62 year old female who presents for a comprehensive problem evaluation. Lab review. 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 New to [facility], recent move from [place]. New to [facility], will eventually establish with new provider. New concerns today include None. HTN: Ms. Wang indicates that she is feeling well and denies any symptoms referable to elevated blood pressure. Specifically denies headache, chest pain, palpitations, dyspnea and peripheral edema. Patient denies any side effects of her medication(s) and is compliant with their regimen. She does check BP's away from this office with average BP's in the 110-120/70's range. Tootie denies regular aerobic exercise. She watches her diet for sodium, low fat and low cholesterol most of the time. 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 Using bioidentical hormonal manipulation. Also Thyroid therapy through [facility]ORATORY GENETIC[facility]. Exercises regularly - Yes, Walking and aerobic DVD's Does monthly breast self examination - No Mammogram is due - No Last mammogram was 06/2017-Negative, normal History of abnormal mammogram - Yes PAP is due - Yes History of abnormal PAP - Yes, years ago Diet is adequate for calcium intake - Yes, Calcium supplelment DEXA is due - No Last Colonoscopy was done 04/2013 Cholesterol screening is up to date - Yes Living Will/DPOAHC - Yes, copy is not on chart. PAST MEDICAL HISTORY Diagnosis Date - Arthritis - Hypertension - Pneumonia 2014 - Thyroid disorder HORMONE REPLACEMENT: never PAST SURGICAL HISTORY Procedure Laterality Date - COLONOSCOPY 04/04/2013 splenic fixure polyp, removed and sent for path- hyperplastic polyp; [facility] - LAPAROSCOPIC BLADDER REPAIR 2013 - ROTATOR CUFF REPAIR Bilateral 2015 Left arm. 2016 Right arm. 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 CR TVT 2012 done in [place] uncertain brand - VAGINAL HYSTERECTOMY FAMILY HISTORY Problem Relation Age of Onset - Macular Degen Mother - COPD Mother - Heart Mother - other (Gastroparesis) Mother - other (Lung Cancer) Father - Hypertension Brother - Hypertension Maternal Grandmother passed at age 95 - Heart Maternal Grandmother - Stroke Maternal Grandmother - Stroke Paternal Grandfather - Breast Cancer Paternal Aunt - Breast Cancer Paternal Aunt - Breast Cancer Paternal Aunt - Breast Cancer Paternal Aunt - Breast Cancer Paternal Aunt Social History Marital status: Spouse name: Kris Pickard Years of education: Number of children: 3 Social History Main Topics Smoking status: Never Smoker Smokeless tobacco: Never Used Alcohol use: Yes Comment: Rare, wine Social History Narrative Lives in [place], relocated from [place], 3 adult children and 3 grandchildren in [place], and 1 in [place]. Immunization History Administered Date(s) Administered Influenza Seasonal Inj Age 3+ 01/18/2015 03/01/2017 Pneumococcal-13 Vac Conjugate 05/17/2014 Pneumovax 01/29/2014 Tdap (Age 7+) 01/18/2015 Zostavax 01/18/2015 ACTIVE PROBLEM LIST Hypertension, Essential Family History of Breast Cancer REVIEW OF SYSTEMS: GENERAL:Denies fever, chills, night sweats, or changes in weight. DERMATOLOGIC: Denies any new skin conditions, rashes or changing moles. EYES: Denies recent visual changes. ENT: Denies hearing loss or tinnitus RESPIRATORY: Denies any cough, dyspnea, or wheezing. CARDIOVASCULAR: Denies any chest pain with exertion or at rest, palpitations, syncope, or edema. BREASTS: Denies any breast lumps, tenderness, dimpling, skin changes, or nipple discharge. GASTROINTESTINAL: Denies any nausea, vomiting, abdominal pain, heartburn, changes in bowel habit, Denies any rectal bleeding. GENITOURINARY: Denies any urinary frequency, urgency, incontinence, dysuria. Denies vaginal odor, discharge or lesions. Denies irregular vaginal bleeding or spotting. MUSCULOSKELETAL: Denies any joint swelling, crepitus, joint pain, or loss of range of motion., Denies back pain. NEURO: Denies any headaches, tremors, dizziness, vertigo, memory loss, confusion., Denies weakness, numbness or tingling.. PSYCHIATRIC: Denies any sleeping problems, history of abuse, marital discord., Denies any anxiety or depression. HEMATOLOGIC/LYMPHATIC/IMMUNOLOGIC: Denies anemia, bruising, bleeding abnormalities. ENDOCRINE: Denies any heat or cold intolerance, polyuria or polydipsia. OBJECTIVE: PHYSICAL EXAMINATION: BP 133/82 (BP Site: Right Arm, BP Position: Sitting, BP Cuff Size: Regular Adult) Pulse 88 Temp 36.9 ?C (98.4 ?F) (Tympanic) Resp 16 Ht 149.9 cm (4' 11) Wt 62.1 kg (137 lb) BMI 27.67 kg/m? GENERAL APPEARANCE: Well appearing, alert, in no acute distress, well-hydrated, well nourished. SKIN: Skin color, texture, turgor normal, no suspicious rashes or lesions HEAD: No significant findings. EYES: PERRLA, EOMI EARS: External ears normal, canals clear, Positive findings: otosclerosis noted NOSE/SINUSES: Nares normal. Septum midline. OROPHARYNX: Lips, mucosa, and tongue normal, teeth and gums normal, oropharynx normal NECK: Supple, full range of motion, no lymphadenopathy, normal thyroid, no carotid bruits and no JVD BACK: Back symmetric, Normal curvature, ROM normal, No CVAT. LUNGS: Normal breath sounds, Clear to auscultation, No wheezes, No crackles HEART:Normal PMI, Regular rate and rhythm, Normal heart sounds, S1 and S2 and No murmurs. ABDOMEN: Soft, Non-tender, No palpable masses, Normal bowel sounds and No hepatosplenomegaly. EXTREMITIES:Normal, No deformities, No skin discoloration, No edema and Normal pulses bilaterally. NEURO: Awake, alert and oriented x 3, Cranial nerves II-XII grossly intact, Normal gait and No involuntary motions. Component Latest Ref Rng AND Units 02/03/2018 Protein, Total 6.3 - 8.0 g/dL 7.1 Albumin 3.9 - 4.9 g/dL 4.5 Calcium 8.5 - 10.2 mg/dL 9.6 Bilirubin, Total 0.2 - 1.3 mg/dL 0.7 Alkaline Phosphatase 34 - 123 U/L 76 AST 13 - 35 U/L 31 Glucose 74 - 99 mg/dL 95 BUN 7 - 21 mg/dL 15 Creatinine 0.58 - 0.96 mg/dL 0.82 Sodium 136 - 144 mmol/L 141 Potassium 3.7 - 5.1 mmol/L 4.3 Chloride 97 - 105 mmol/L 103 CO2 22 - 30 mmol/L 22 Anion Gap 9 - 18 mmol/L 16 ALT 7 - 38 U/L 29 eGFR- >60 eGFR-All Other Races . >60 Cholesterol, Total <200 mg/dL 232 (H) Triglyceride <150 mg/dL 96 HDL Cholesterol >39 mg/dL 79 LDL Cholesterol <100 mg/dL 134 (H) Non HDL Cholesterol <130 mg/dL 153 (H) Fasting Time hrs 12 VLDL Cholesterol <30 mg/dL 19 TC:HDL Ratio <5.10 2.94 LDL:HDL Ratio <2.54 1.70 ASSESSMENT/PLAN: 1. Encounter for wellness examination in adult - ICD9: V70.0, ICD10: Z00.00 (primary diagnosis) -Wellness form completed and faxed, copy to patient and to scanning - Encouraged monthly Breast Self Exam - Recommended calcium intake with supplements or by diet (goal of 8314-1589 mg/day - Colon cancer screening reviewed and colonoscopy recommended. Patient agrees and order placed. Open Access - Recommended regular aerobic exercise. - Vaccination(s) recommended today of Influenza - Follow up for annual exam in one year. 2. Hypertension, essential - ICD9: 401.9, ICD10: I10 - fair control - Continue current medication(s) - Recommended regular aerobic exercise. - Recommend home blood pressure monitoring, to bring results in on next visit - Recheck in 6 months, sooner should new symptoms or problems arise. - Goal of BP <130/80 3. Need for vaccination - ICD9: V05.9, ICD10: Z23 - INFLUENZA VACCINE QUADRIVALENT AGE 3 YRS PLUS + IM 4. Family history of breast cancer - ICD9: V16.3, ICD10: Z80.3 - Mammogram ordered and will be getting done 06/2018. She notes she was tested and negative for gene mutation 5. Special screening for malignant neoplasms, colon - ICD9: V76.51, ICD10: Z12.11 - COLONOSCOPY SCRN NOT HIGH RISK Adri Gomez, MSN DIRECTOR CONTENT MARKETING.MACHINE BURRER Adri Gomez, MSN DIRECTOR CONTENT MARKETING.MACHINE BURRER 02/07/2018 10:38 AM Signed 62 year old female here for INACTIVATED INFLUENZA VACCINE. 1189-4154 Season Patient is identified by name and date of : Yes [] CONTRAINDICATIONS color enhanced section Age less than 6 months? No Allergy to eggs, chicken, chicken feathers, or chicken dander? No Allergy to thimerosal (a preservative) or formaldehyde, gelatin? No History of severe reaction to any vaccine component or a previous dose of influenza vaccination? No History of Guillain-Woodhull Syndrome within 6 weeks after a previous influenza vaccine? No Patient is not moderately or severely ill? No Current temperature greater or equal to 100.4F? No History of Bone Marrow Transplant prior 6 months or solid organ transplant in the past 3 months ? No History of fainting after a prior injection or medical procedure? No- ? If patient has fainted in the past, the CDC recommends sitting or lying down for 15 minutes after the vaccination. [] VERIFICATION color enhanced section Was the answer Yes for any of the above contraindications? No contraindications present. Acceptable to proceed with vaccine. Patient/guardian agrees the above answers are true to the best of their knowledge? Yes Flu vaccine information sheet given? Yes See immunization activity in [facility] for details of immunizations adminstered today. Patient age: [age] year old For The 8605-7079 Flu Season 6-35 months old: Fluzone 0.25 ml - IM (Preservative Free) 3 years of age: Fluzone 0.5 ml - IM (Preservative Free) 3 years and older: Fluzone 0.5 ml- IM-(with Preservatives) 65+ years old: 2-49 years old Fluzone High-Dose 0.5 ml - IM (Preservative Free) FLUMIST- intranasal REMEMBER: If patient is less than 9 years of age and this is the first vaccine of Influenza to be received in any flu season, they should receive a second dose in one months time. [facility] OPEN ACCESS QUESTIONNAIRE 1. Are you or could you be ? No 2. Are you currently having any stomach/gastrointestinal issues at this time such as constipation, diarrhea, abdominal pain, rectal bleeding etc? No 3. Do you have an implanted device such as a defibrillator, pacemaker, Cardiac Stent or deep brain stimulation device? No 4. Do you have any new or past cardiac (heart) or pulmonary (lung) issues? No 5. Is the patient's BMI 40 or greater? No:Body mass index is 27.67 kg/m?.. Last Wt 02/07/18 : 62.1 kg (137 lb) Last Ht 02/07/18 : 149.9 cm (4' 11) 6. Have you had difficulty with prior sedations or complications with other procedures? No 7. Have you had difficulty with anesthesia previously re: ? Difficult intubation? No ? Other difficulty or allergic reaction to anesthesia other than post op N/V? No 8. Do you currently use oxygen or a breathing machine at night? No 9. Do you take any narcotics, depression or anti-Anxiety medications or 3 or more prescription drugs on a daily basis? No 10. Do you use any illegal or recreational drugs? No 11. Have you been hospitalized in the past 6 weeks? No 12. Are you on dialysis or have Chronic Kidney Disease? No 13. Have you been diagnosed with chronic liver disease such as hepatitis or cirrhosis? No 14. Do you have a seizure disorder? No 15. Do you have difficulty swallowing? No 16. Do you have ulcerative colitis or Crohn's disease? No 17. Do you take any Blood thinners, including Aspirin or fish oil? No 18. Do you have any blood disorders (re:hemophiliac)? No 19. Are you Diabetic? No 20. Any other important health information we should be made aware of prior to your colonoscopy? No 21. Any alcohol use: YES: What type of alcohol, how much and how often do you drink? : Rare glass of wine To be completed by LIP: Patient appropriate for Open Access Colonoscopy: Yes: appropriate for Open Access Procedure Checklist: Prior to closing the encounter: ? Complete questionnaire: Yes ? Confirm Prep order has been Ordered/Pended: Yes. ? Patient's procedure could be delayed if not given the script for the prep. Please ensure the prep is escripted to pharmacy or printed. Instructions for the prep will print upon filing or pending this smartset. ? Please send all open access questionnaires to [facility] Sched Pool #[id number] James Hill LPN 02/07/2018 9:13 AM Signed Patient's waist circumference 32 James Gomez, MSN DIRECTOR CONTENT MARKETING.MACHINE BURRER 02/07/2018 10:[address] Suzy Gresham with [facility], office in [facility]-Dr. Cory Bruner-[place] Health Information For Patients and the Community How to Prepare for Your Colonoscopy Using Golytely, Nulytely, Trilyte or Colyte Preparations IMPORTANT - Please Read These Instructions at Least 2 Weeks Before Your Colonoscopy Solomon Instructions: ?Your bowel must be empty so that your doctor can clearly view your colon. Follow all of the instructions in this handout EXACTLY as they are written. If you do NOT follow the directions for when to start drinking the bowel preparation (see next page), your colonoscopy WILL be cancelled. ?Do NOT eat any solid food the ENTIRE day before your colonoscopy. ?Buy your bowel preparation at least 5 days before your colonoscopy. ?Do NOT mix the solution until the day before your colonoscopy. Designated Accounts Payable Professional on the Day of Your Exam A responsible family member or friend MUST come with you to your colonoscopy and REMAIN in the endoscopy area until you are discharged! You are NOT ALLOWED to drive, take a taxi or bus, or leave the Endoscopy Center ALONE. If you do not have a responsible local delivery truck driver (family member or friend) with you to take you home, your exam cannot be done with sedation and will be cancelled. Medications Some of the medicines you take may need to be stopped or adjusted before your colonoscopy. You MUST call the doctor who ordered any of the following medicines at least 2 weeks before your colonoscopy. ?Blood thinners -- such as Coumadin? (warfarin), Plavix? (clopidogrel), Ticlid? (ticlopidine hydrochloride), Agrylin? (anagrelide), Xarelto? (Rivaroxaban), Pradaxa? (Dabigatran), Eliquis? (Apixaban), and Effient? (Prasugrel). ?Insulin or diabetes pills. Please call the doctor that monitors your glucose levels. Your insulin dosage may need to be adjusted due to the diet restrictions required with this bowel preparation. (Please bring your diabetes medicines with you on the day of your procedure.) If you take aspirin, take it and ALL other medications prescribed by your doctor. On the day of your colonoscopy, take your medications with a sip of water. Revised 06/2016 1 Five (5) Days Before Your Colonoscopy ?Do NOT take medicines that stop diarrhea -- such as Imodium?, Kaopectate?, or Pepto Bismol?. ?Do NOT take fiber supplements -- such as Metamucil?, Citrucel?, or Perdiem?. ?Do NOT take products that contain iron -- such as multi-vitamins -- (the label lists what is in the products). ?Do NOT take vitamin E. Buy the prescription bowel preparation solution at your local pharmacy or drugstore pharmacy. Three (3) Days Before Your Colonoscopy Do NOT eat high-fiber foods -- such as popcorn, beans, seeds (flax, sunflower, quinoa), multigrain bread, nuts, salad/vegetables, or fresh and dried fruit. One (1) Day Before Your Colonoscopy Only drink clear liquids the ENTIRE DAY before your colonoscopy. Do NOT eat any solid foods. Drink at least 8 ounces of clear liquids every hour after waking up. The clear liquids you can drink include: ?water, apple, or white grape juice; broth; coffee or tea (without milk or creamer); clear carbonated beverages such as subhash maria c or lemon-lower brule soda; Gatorade? or other sports drinks (not red); Jay-Aid? or other flavored drinks (not red). You may eat plain jello or other gelatins (not red) or popsicles (not red). Do NOT drink alcohol on the day before or the day of the procedure. 2 Revised 06/2016 When to Mix and Drink Your Bowel Prep Follow the instructions on the label. After mixing, place the solution in the refrigerator for a couple of hours before drinking. You may add the flavor packet that came with the bowel preparation. DO NOT add ice, sugar or any flavorings to the solution. Evening Before Your Colonoscopy ?Start drinking the bowel preparation at 6 PM the evening before your colonoscopy. Drink an 8-oz glass of bowel preparation every 10 minutes. You must finish drinking the solution by 9 PM the night before your scheduled procedure. ?You may continue to drink clear liquids only until midnight. Do NOT eat or drink ANYTHING after midnight the night before your procedure or your procedure may be cancelled. This is for your safety and will reduce the risk of having any food or liquid in your stomach move into your lungs (aspiration) during a procedure. If you take aspirin, take it and ALL other prescribed medicines with a sip of water on the day of your colonoscopy. Contact Information: If you are unable to keep your appointment or have any questions about the instructions, please call the facility where the procedure is being performed. Call between the hours of 8:00 AM and 5:00 PM. If you are calling after 5:00 PM, please call Nurse recreation manager at [phone]. [facility] [address] [place] [id number] Index # [id number] Revised 06/2016 3 Colonoscopy Procedure Overview Please Read Prior to the Procedure What is a Colonoscopy A colonoscopy is an outpatient procedure in which the inside of the large intestine (colon and rectum) is examined. A colonoscopy is commonly used to evaluate gastrointestinal symptoms, such as rectal and intestinal bleeding, abdominal pain, or changes in bowel habits. Colonoscopies are also performed in individuals without symptoms to check for colorectal polyps or cancer. A screening colonoscopy is recommended for anyone 50 years of age and older, and for anyone with parents, siblings or children with a history of colorectal cancer or polyps. What Happens Before a Colonoscopy To have a successful colonoscopy, your bowel must be empty so that your physician can clearly view the colon. To do this, it is very important to read and follow all of the instructions given to you at least 2 weeks BEFORE your exam. If your bowel is not empty, your colonoscopy will not be successful and may have to be repeated. If you feel nauseated or vomit while taking the bowel preparation, wait 30 minutes before drinking more fluid and start with small sips of solution. Some activity (such as walking) or a few soda crackers may help decrease the nausea you are feeling. If the nausea persists, please contact nurse inventory control associate at [phone]. You may experience skin irritation around the anus due to the passage of liquid stools. To prevent and treat skin irritation, you should: ?Apply Vaseline? or Desitin? ointment to the skin around the anus before drinking the bowel preparation medications. These products can be purchased at any [employer]. ?Wipe the skin after each bowel movement with disposable wet wipes instead of toilet paper. These are found in the toilet paper area of the store. ?Sit in a bathtub filled with warm water for 10 to 15 minutes after you finish passing a stool; after soaking, blot the skin dry with a soft cloth, apply Vaseline? or Desitin? ointment to the anal area, and place a cotton ball just outside your anus to absorb leaking fluid. What Happens During a Colonoscopy During a colonoscopy, an experienced physician uses a colonoscope (a long, flexible instrument about 1/2 inch in diameter) to view the lining of the colon. The colonoscope is inserted into the rectum and advanced through the large intestine. If necessary during a colonoscopy, small amounts of tissue can be removed for analysis (a biopsy) and polyps can be identified and entirely removed. In many cases, a colonoscopy allows accurate diagnosis and treatment of colorectal problems without the need for a major operation. Revised 06/2016 5 ?You are asked to wear a hospital gown and an IV will be started. ?You are given a pain reliever and a sedative intravenously (in your vein). You will feel relaxed and somewhat drowsy. ?You will lie on your left side, with your knees drawn up towards your chest. ?A small amount of air is used to expand the colon so the physician can see the colon britton. ?You may feel mild cramping during the procedure. Cramping can be reduced by taking slow, deep breaths. ?The colonoscope is slowly withdrawn while the lining of your bowel is carefully examined. ?The procedure lasts from 30 minutes to 1 hour. What Happens After a Colonoscopy ?You will stay in a recovery room for observation until you are ready for discharge. ?You may feel some cramping or a sensation of having gas, but this quickly passes. ?If sedation has been given, a responsible family member or friend must drive you home. ?Avoid alcohol, driving, and operating machinery for 24 hours following the procedure. ?Unless otherwise instructed, you may immediately return to your normal diet. We recommend you wait until the day after your procedure to resume normal activities. ?If polyps were removed or a biopsy was taken, the physician performing your colonoscopy will tell you when it is safe to resume taking your blood thinners. ?If a biopsy was taken or a polyp was removed, you may notice a little amount of rectal bleeding for 1 to 2 days after the procedure. If you have a large amount of rectal bleeding, high or persistent fevers, or severe abdominal pain within the next 2 weeks, please go to your local emergency room and call the physician who performed your exam. 6 Revised 06/2016 ?Copyright 5121-3194 The [facility]. All rights reserved. Revised 06/2016 Lanette Adorno 02/09/2018 8:39 AM Signed Scheduled patient for open access colonoscopy with Dr. Morris on 04/08/2018, patient had to have a Wednesday, mailing colonoscopy instructions Lanette Adorno Referring Provider: SELF [[id number]] Allergies As of Date: 02/07/2018 Noted Allergy Reaction LORTAB (HYDROCODONE-ACETAMINOPHEN)02/07/2018 8 - GI Upset Comments: Severe nausea Date Reviewed: 02/07/2018 Reviewed by: Vanessa Wilson) Radha - Fully Assessed Reason for Visit: Physical [83] Cmt: and form completion for insurance Imm/Inj [58] Cmt: Flu Vaccine Reason For Visit History Recorded Primary Visit Diagnosis:Encounter for wellness examination in adult [Z00.00] Other Visit Diagnoses:Hypertension, essential [I10] Need for vaccination [Z23] Family history of breast cancer [Z80.3] Special screening for malignant neoplasms, colon [Z12.11] Order(s):INFLUENZA VACCINE QUADRIVALENT AGE 3 YRS PLUS + IM [[id number]] Order #: [id number] losartan (COZAAR) 50 mg tabletTake 1 tablet by mouth once daily.Disp: Rfl: [] peg 3350-electrolytes (COLYTE) 240-22.72-6.72 -5.84 gram solutionTake 4,000 mL by mouth one time only for 1 dose.Disp: 4000 mLRfl: 0 COLONOSCOPY SCRN NOT HIGH RISK [[id number]] Order #: [id number] FUTURE Prescriptions as of 02/07/2018 Sig: LOSARTAN 50 MG TABLET Take 1 tablet by mouth once d* IBUPROFEN 200 MG TABLET Take 1-2 tablets by mouth anders* OMEGA-3 FATTY ACIDS-FISH OIL * Take 1 capsule by mouth daily* VIT NO.95-FERROUS FU* Take 2 tablets by mouth once * CALCIUM CITRATE 250 MG TABLET Take 4 tablets by mouth once * COMPOUNDED PRESCRIPTION T4/T3 E4M 60 mcg/20 mcg capsu* COMPOUNDED PRESCRIPTION progesterone 40 mg/ML cream, * COMPOUNDED PRESCRIPTION estriol vaginal 0.1 % cream, * PANTOTHENIC ACID ORAL Take 1 capsule by mouth once * PROBIOTIC ORAL Take 1 capsule by mouth once * PEG 3350 240 GRAM-ELECTROLYTE* Take 4,000 mL by mouth one ti* OMEGA-3 FATTY ACIDS 1,000 MG * Take 2 g by mouth twice daily. X PROGESTERONE MISC 40 mg three times daily. X ESTRADIOL 1 MG/GRAM (0.1 %) T* Apply as directed. Problem List As Of Date 02/07/2018 Noted Resolved Hypertension, essential [I10] INVALID FOR* Family history of breast cancer [Z80.3] INVALID FOR* More... Other instructions from your clinician: Dr. Suzy Gresham with [facility], office in [facility]. [facility]-Dr. Croy Bruner-[place] Health Information For Patients and the Community How to Prepare for Your Colonoscopy Using Golytely, Nulytely, Trilyte or Colyte Preparations IMPORTANT - Please Read These Instructions at Least 2 Weeks Before Your Colonoscopy Solomon Instructions: ?Your bowel must be empty so that your doctor can clearly view your colon. Follow all of the instructions in this handout EXACTLY as they are written. If you do NOT follow the directions for when to start drinking the bowel preparation (see next page), your colonoscopy WILL be cancelled. ?Do NOT eat any solid food the ENTIRE day before your colonoscopy. ?Buy your bowel preparation at least 5 days before your colonoscopy. ?Do NOT mix the solution until the day before your colonoscopy. Designated Accounts Payable Professional on the Day of Your Exam A responsible family member or friend MUST come with you to your colonoscopy and REMAIN in the endoscopy area until you are discharged! You are NOT ALLOWED to drive, take a taxi or bus, or leave the Endoscopy Center ALONE. If you do not have a responsible local delivery truck driver (family member or friend) with you to take you home, your exam cannot be done with sedation and will be cancelled. Medications Some of the medicines you take may need to be stopped or adjusted before your colonoscopy. You MUST call the doctor who ordered any of the following medicines at least 2 weeks before your colonoscopy. ?Blood thinners -- such as Coumadin? (warfarin), Plavix? (clopidogrel), Ticlid? (ticlopidine hydrochloride), Agrylin? (anagrelide), Xarelto? (Rivaroxaban), Pradaxa? (Dabigatran), Eliquis? (Apixaban), and Effient? (Prasugrel). ?Insulin or diabetes pills. Please call the doctor that monitors your glucose levels. Your insulin dosage may need to be adjusted due to the diet restrictions required with this bowel preparation. (Please bring your diabetes medicines with you on the day of your procedure.) If you take aspirin, take it and ALL other medications prescribed by your doctor. On the day of your colonoscopy, take your medications with a sip of water. Revised 06/2016 1 Five (5) Days Before Your Colonoscopy ?Do NOT take medicines that stop diarrhea -- such as Imodium?, Kaopectate?, or Pepto Bismol?. ?Do NOT take fiber supplements -- such as Metamucil?, Citrucel?, or Perdiem?. ?Do NOT take products that contain iron -- such as multi- vitamins -- (the label lists what is in the products). ?Do NOT take vitamin E. Buy the prescription bowel preparation solution at your local pharmacy or drugstore pharmacy. Three (3) Days Before Your Colonoscopy Do NOT eat high-fiber foods -- such as popcorn, beans, seeds (flax, sunflower, quinoa), multigrain bread, nuts, salad/vegetables, or fresh and dried fruit. One (1) Day Before Your Colonoscopy Only drink clear liquids the ENTIRE DAY before your colonoscopy. Do NOT eat any solid foods. Drink at least 8 ounces of clear liquids every hour after waking up. The clear liquids you can drink include: ?water, apple, or white grape juice; broth; coffee or tea (without milk or creamer); clear carbonated beverages such as subhash maria c or lemon-lower brule soda; Gatorade? or other sports drinks (not red); Jay-Aid? or other flavored drinks (not red). You may eat plain jello or other gelatins (not red) or popsicles (not red). Do NOT drink alcohol on the day before or the day of the procedure. 2 Revised 06/2016 When to Mix and Drink Your Bowel Prep Follow the instructions on the label. After mixing, place the solution in the refrigerator for a couple of hours before drinking. You may add the flavor packet that came with the bowel preparation. DO NOT add ice, sugar or any flavorings to the solution. Evening Before Your Colonoscopy ?Start drinking the bowel preparation at 6 PM the evening before your colonoscopy. Drink an 8-oz glass of bowel preparation every 10 minutes. You must finish drinking the solution by 9 PM the night before your scheduled procedure. ?You may continue to drink clear liquids only until midnight. Do NOT eat or drink ANYTHING after midnight the night before your procedure or your procedure may be cancelled. This is for your safety and will reduce the risk of having any food or liquid in your stomach move into your lungs (aspiration) during a procedure. If you take aspirin, take it and ALL other prescribed medicines with a sip of water on the day of your colonoscopy. Contact Information: If you are unable to keep your appointment or have any questions about the instructions, please call the facility where the procedure is being performed. Call between the hours of 8:00 AM and 5:00 PM. If you are calling after 5:00 PM, please call Nurse recreation manager at [phone]. [facility] [address] [place] [id number] Index # [id number] Revised 06/2016 3 Colonoscopy Procedure Overview Please Read Prior to the Procedure What is a Colonoscopy A colonoscopy is an outpatient procedure in which the inside of the large intestine (colon and rectum) is examined. A colonoscopy is commonly used to evaluate gastrointestinal symptoms, such as rectal and intestinal bleeding, abdominal pain, or changes in bowel habits. Colonoscopies are also performed in individuals without symptoms to check for colorectal polyps or cancer. A screening colonoscopy is recommended for anyone 50 years of age and older, and for anyone with parents, siblings or children with a history of colorectal cancer or polyps. What Happens Before a Colonoscopy To have a successful colonoscopy, your bowel must be empty so that your physician can clearly view the colon. To do this, it is very important to read and follow all of the instructions given to you at least 2 weeks BEFORE your exam. If your bowel is not empty, your colonoscopy will not be successful and may have to be repeated. If you feel nauseated or vomit while taking the bowel preparation, wait 30 minutes before drinking more fluid and start with small sips of solution. Some activity (such as walking) or a few soda crackers may help decrease the nausea you are feeling. If the nausea persists, please contact nurse inventory control associate at [phone]. You may experience skin irritation around the anus due to the passage of liquid stools. To prevent and treat skin irritation, you should: ?Apply Vaseline? or Desitin? ointment to the skin around the anus before drinking the bowel preparation medications. These products can be purchased at any drugstore. ?Wipe the skin after each bowel movement with disposable wet wipes instead of toilet paper. These are found in the toilet paper area of the store. ?Sit in a bathtub filled with warm water for 10 to 15 minutes after you finish passing a stool; after soaking, blot the skin dry with a soft cloth, apply Vaseline? or Desitin? ointment to the anal area, and place a cotton ball just outside your anus to absorb leaking fluid. What Happens During a Colonoscopy During a colonoscopy, an experienced physician uses a colonoscope (a long, flexible instrument about 1/2 inch in diameter) to view the lining of the colon. The colonoscope is inserted into the rectum and advanced through the large intestine. If necessary during a colonoscopy, small amounts of tissue can be removed for analysis (a biopsy) and polyps can be identified and entirely removed. In many cases, a colonoscopy allows accurate diagnosis and treatment of colorectal problems without the need for a major operation. Revised 06/2016 5 ?You are asked to wear a hospital gown and an IV will be started. ?You are given a pain reliever and a sedative intravenously (in your vein). You will feel relaxed and somewhat drowsy. ?You will lie on your left side, with your knees drawn up towards your chest. ?A small amount of air is used to expand the colon so the physician can see the colon britton. ?You may feel mild cramping during the procedure. Cramping can be reduced by taking slow, deep breaths. ?The colonoscope is slowly withdrawn while the lining of your bowel is carefully examined. ?The procedure lasts from 30 minutes to 1 hour. What Happens After a Colonoscopy ?You will stay in a recovery room for observation until you are ready for discharge. ?You may feel some cramping or a sensation of having gas, but this quickly passes. ?If sedation has been given, a responsible family member or friend must drive you home. ?Avoid alcohol, driving, and operating machinery for 24 hours following the procedure. ?Unless otherwise instructed, you may immediately return to your normal diet. We recommend you wait until the day after your procedure to resume normal activities. ?If polyps were removed or a biopsy was taken, the physician performing your colonoscopy will tell you when it is safe to resume taking your blood thinners. ?If a biopsy was taken or a polyp was removed, you may notice a little amount of rectal bleeding for 1 to 2 days after the procedure. If you have a large amount of rectal bleeding, high or persistent fevers, or severe abdominal pain within the next 2 weeks, please go to your local emergency room and call the physician who performed your exam. 6 Revised 06/2016 ?Copyright 8542-7183 The [facility]. All rights reserved. Revised 06/2016 Visit Notes: >> James Hill LPN Mon Feb 07, 2018 9:06 AM Status: Signed Patient's waist circumference 32 James Hill LPN Prescriptions ordered this encounter Disp Refills Start End LOSARTAN 50 MG TABLET 02/07/2018 Class: Med Update Route: ORAL Sig: Take 1 tablet by mouth once daily. PEG 3350 240 GRAM-ELECTROLYTES 22.72* 4000* 0 02/07/2018 02/07/2018 Route: ORAL Sig: Take 4,000 mL by mouth one time only for 1 dose. Medications Discontinued During This Encounter Pantothenic Acid 500 mg tab 01/31/2018 02/07/2018 Class: Historical Med Route: ORAL Sig: Take 1 tablet by mouth once daily. Disc: Duplicate Entry losartan (COZAAR) 50 mg tablet 02/07/2018 Class: Historical Med Route: ORAL Sig: Take 50 mg by mouth once daily. Disc: Duplicate Entry losartan (COZAAR) 50 mg tablet 01/31/2018 02/07/2018 Class: Historical Med Route: ORAL Sig: Take 1.5 tablets by mouth once daily. Disc: Reason for discontinue is not on file. traMADol (ULTRAM) 50 mg tablet 01/31/2018 02/07/2018 Class: Historical Med Route: ORAL Sig: Take 2 tablets by mouth every 6 hours as needed for Pain. Disc: Course of therapy completed selenium 200 mcg tab 01/31/2018 02/07/2018 Class: Historical Med Route: ORAL Sig: Take 1 tablet by mouth. Disc: Discontinued by Patient iodine 150 mcg tab 01/31/2018 02/07/2018 Class: Historical Med Route: ORAL Sig: Take 1 tablet by mouth once daily. Disc: Discontinued by Patient multivitamin tablet 01/31/2018 02/07/2018 Class: Historical Med Route: ORAL Sig: Take 1 tablet by mouth once daily. Disc: Discontinued by Patient clotrimazole (MYCELEX) 10 mg royal 01/31/2018 02/07/2018 Class: Historical Med Route: MUCOUS MEMBRANE (TOPICAL MOUTH AND THROAT) Sig: Use 1 Royal as instructed four times daily. Disc: Course of therapy completed Follow-up and Disposition History Recorded Encounter Status:Closed by ADRI GOMEZ MACHINE BURRER on 02/07/18 PROGRESS Observed: 02/07/2018 Status: COMPLETED Source: [place] 7:22 AM [facility] RE[facility]IT[facility] O ID: [id number] Author: Adri Escamilla (Extermination Inspector) Jason Service: (none) Author Type: Nurse Practitioner Type: Progress Notes Filed: 02/07/2018 1:17 PM Note Text: SUBJECTIVE: Chief Complaint: Tootie Wang is a 62 year old female who presents for a comprehensive problem evaluation. Lab review. 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 New to area, recent move from [place]. New to [facility], will eventually establish with new provider. New concerns today include None. HTN: Ms. Wang indicates that she is feeling well and denies any symptoms referable to elevated blood pressure. Specifically denies headache, chest pain, palpitations, dyspnea and peripheral edema. Patient denies any side effects of her medication(s) and is compliant with their regimen. She does check BP's away from this office with average BP's in the 110-120/70's range. Tootie denies regular aerobic exercise. She watches her diet for sodium, low fat and low cholesterol most of the time. 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 Using bioidentical hormonal manipulation. Also Thyroid therapy through [facility]. Exercises regularly - Yes, Walking and aerobic DVD's Does monthly breast self examination - No Mammogram is due - No Last mammogram was 06/2017-Negative, normal History of abnormal mammogram - Yes PAP is due - Yes History of abnormal PAP - Yes, years ago Diet is adequate for calcium intake - Yes, Calcium supplelment DEXA is due - No Last Colonoscopy was done 04/2013 Cholesterol screening is up to date - Yes Living Will/DPOAHC - Yes, copy is not on chart. PAST MEDICAL HISTORY Diagnosis Date - Arthritis - Hypertension - Pneumonia 2014 - Thyroid disorder HORMONE REPLACEMENT: never PAST SURGICAL HISTORY Procedure Laterality Date - COLONOSCOPY 04/04/2013 splenic fixure polyp, removed and sent for path- hyperplastic polyp; [facility] - LAPAROSCOPIC BLADDER REPAIR 2013 - ROTATOR CUFF REPAIR Bilateral 2015 Left arm. 2017 Right arm. 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 CR TVT 2012 done in [place] uncertain brand - VAGINAL HYSTERECTOMY FAMILY HISTORY Problem Relation Age of Onset - Macular Degen Mother - COPD Mother - Heart Mother - other (Gastroparesis) Mother - other (Lung Cancer) Father - Hypertension Brother - Hypertension Maternal Grandmother passed at age 95 - Heart Maternal Grandmother - Stroke Maternal Grandmother - Stroke Paternal Grandfather - Breast Cancer Paternal Aunt - Breast Cancer Paternal Aunt - Breast Cancer Paternal Aunt - Breast Cancer Paternal Aunt - Breast Cancer Paternal Aunt Social History Marital status: Spouse name: Kris Pickard Years of education: Number of children: 3 Social History Main Topics Smoking status: Never Smoker Smokeless tobacco: Never Used Alcohol use: Yes Comment: Rare, wine Social History Narrative Lives in [place], relocated from [place], 3 adult children and 3 grandchildren in [place], and 1 in [place]. Immunization History Administered Date(s) Administered Influenza Seasonal Inj Age 3+ 01/18/2015 03/01/2017 Pneumococcal-13 Vac Conjugate 05/17/2014 Pneumovax 01/29/2014 Tdap (Age 7+) 01/18/2015 Zostavax 01/18/2015 ACTIVE PROBLEM LIST Hypertension, Essential Family History of Breast Cancer REVIEW OF SYSTEMS: GENERAL:Denies fever, chills, night sweats, or changes in weight. DERMATOLOGIC: Denies any new skin conditions, rashes or changing moles. EYES: Denies recent visual changes. ENT: Denies hearing loss or tinnitus RESPIRATORY: Denies any cough, dyspnea, or wheezing. CARDIOVASCULAR: Denies any chest pain with exertion or at rest, palpitations, syncope, or edema. BREASTS: Denies any breast lumps, tenderness, dimpling, skin changes, or nipple discharge. GASTROINTESTINAL: Denies any nausea, vomiting, abdominal pain, heartburn, changes in bowel habit, Denies any rectal bleeding. GENITOURINARY: Denies any urinary frequency, urgency, incontinence, dysuria. Denies vaginal odor, discharge or lesions. Denies irregular vaginal bleeding or spotting. MUSCULOSKELETAL: Denies any joint swelling, crepitus, joint pain, or loss of range of motion., Denies back pain. NEURO: Denies any headaches, tremors, dizziness, vertigo, memory loss, confusion., Denies weakness, numbness or tingling.. PSYCHIATRIC: Denies any sleeping problems, history of abuse, marital discord., Denies any anxiety or depression. HEMATOLOGIC/LYMPHATIC/IMMUNOLOGIC: Denies anemia, bruising, bleeding abnormalities. ENDOCRINE: Denies any heat or cold intolerance, polyuria or polydipsia. OBJECTIVE: PHYSICAL EXAMINATION: BP 133/82 (BP Site: Right Arm, BP Position: Sitting, BP Cuff Size: Regular Adult) Pulse 88 Temp 36.9 ?C (98.4 ?F) (Tympanic) Resp 16 Ht 149.9 cm (4' 11) Wt 62.1 kg (137 lb) BMI 27.67 kg/m? GENERAL APPEARANCE: Well appearing, alert, in no acute distress, well-hydrated, well nourished. SKIN: Skin color, texture, turgor normal, no suspicious rashes or lesions HEAD: No significant findings. EYES: PERRLA, EOMI EARS: External ears normal, canals clear, Positive findings: otosclerosis noted NOSE/SINUSES: Nares normal. Septum midline. OROPHARYNX: Lips, mucosa, and tongue normal, teeth and gums normal, oropharynx normal NECK: Supple, full range of motion, no lymphadenopathy, normal thyroid, no carotid bruits and no JVD BACK: Back symmetric, Normal curvature, ROM normal, No CVAT. LUNGS: Normal breath sounds, Clear to auscultation, No wheezes, No crackles HEART:Normal PMI, Regular rate and rhythm, Normal heart sounds, S1 and S2 and No murmurs. ABDOMEN: Soft, Non-tender, No palpable masses, Normal bowel sounds and No hepatosplenomegaly. EXTREMITIES:Normal, No deformities, No skin discoloration, No edema and Normal pulses bilaterally. NEURO: Awake, alert and oriented x 3, Cranial nerves II-XII grossly intact, Normal gait and No involuntary motions. Component Latest Ref Rng AND Units 02/03/2018 Protein, Total 6.3 - 8.0 g/dL 7.1 Albumin 3.9 - 4.9 g/dL 4.5 Calcium 8.5 - 10.2 mg/dL 9.6 Bilirubin, Total 0.2 - 1.3 mg/dL 0.7 Alkaline Phosphatase 34 - 123 U/L 76 AST 13 - 35 U/L 31 Glucose 74 - 99 mg/dL 95 BUN 7 - 21 mg/dL 15 Creatinine 0.58 - 0.96 mg/dL 0.82 Sodium 136 - 144 mmol/L 141 Potassium 3.7 - 5.1 mmol/L 4.3 Chloride 97 - 105 mmol/L 103 CO2 22 - 30 mmol/L 22 Anion Gap 9 - 18 mmol/L 16 ALT 7 - 38 U/L 29 eGFR- >60 eGFR-All Other Races . >60 Cholesterol, Total <200 mg/dL 232 (H) Triglyceride <150 mg/dL 96 HDL Cholesterol >39 mg/dL 79 LDL Cholesterol <100 mg/dL 134 (H) Non HDL Cholesterol <130 mg/dL 153 (H) Fasting Time hrs 12 VLDL Cholesterol <30 mg/dL 19 TC:HDL Ratio <5.10 2.94 LDL:HDL Ratio <2.54 1.70 ASSESSMENT/PLAN: 1. Encounter for wellness examination in adult - ICD9: V70.0, ICD10: Z00.00 (primary diagnosis) -Wellness form completed and faxed, copy to patient and to scanning - Encouraged monthly Breast Self Exam - Recommended calcium intake with supplements or by diet (goal of [phone] mg/day - Colon cancer screening reviewed and colonoscopy recommended. Patient agrees and order placed. Open Access - Recommended regular aerobic exercise. - Vaccination(s) recommended today of Influenza - Follow up for annual exam in one year. 2. Hypertension, essential - ICD9: 401.9, ICD10: I10 - fair control - Continue current medication(s) - Recommended regular aerobic exercise. - Recommend home blood pressure monitoring, to bring results in on next visit - Recheck in 6 months, sooner should new symptoms or problems arise. - Goal of BP <130/80 3. Need for vaccination - ICD9: V05.9, ICD10: Z23 - INFLUENZA VACCINE QUADRIVALENT AGE 3 YRS PLUS + IM 4. Family history of breast cancer - ICD9: V16.3, ICD10: Z80.3 - Mammogram ordered and will be getting done 06/2018. She notes she was tested and negative for gene mutation 5. Special screening for malignant neoplasms, colon - ICD9: V76.51, ICD10: Z12.11 - COLONOSCOPY SCRN NOT HIGH RISK Adri Gomez, MSN DIRECTOR [employer]ETING.MACHINE BURRER COMP METABOLIC PANEL Collected: 02/03/2018 Status: F Source: [place] 9:12 AM [facility] RE[facility] TYPE CODE TESTS RESULT OUT OF REFERENCE UNITS RANGE LAB TP 6.3-8.0 g/dL Protein, Total 7.1 LAB ALB 3.9-4.9 g/dL Albumin 4.5 LAB CA 8.5-10.2 mg/dL Calcium, Total 9.6 LAB TBIL 0.2-1.3 mg/dL Bilirubin, Total 0.7 LAB ALKP 34-123 U/L Alkaline Phosphatase 76 LAB AST 13-35 U/L AST 31 LAB GLU 74-99 mg/dL Glucose 95 Result Comment: The [place] Diabetes Association (ADA) provides guidance for cutoff values for fasting glucose and random glucose. The ADA defines fasting as no caloric intake for at least 8 hours. Fas ting plasma glucose results between 100 to 125 mg/dL indicate increased risk for diabetes (prediabetes). Fasting plasma glucose results greater than or equal to 126 mg/dL meet the criteria for diagnosis of diabetes. In the absence of unequivocal hyperglycemia, results should be confirmed by repeat testing. In a patient with classic symptoms of hyperglycemia or hyperglycemic crisis, random plasma glucose results greater than or equal to 200 mg/dL meet the criteria for diagnosis of diabetes. Reference: Standards of Medical Care in Diabetes 2016, [place] Diabetes Association. Diabetes Care. 2016.39(Suppl 1). LAB BUN 7-21 mg/dL BUN 15 LAB CRET 0.58-0.96 mg/dL Creatinine 0.82 LAB NA 136-144 mmol/L Sodium 141 LAB K 3.7-5.1 mmol/L Potassium 4.3 LAB CL 97-105 mmol/L Chloride 103 LAB CO2 22-30 mmol/L CO2 22 LAB AGAP 9-18 mmol/L Anion Gap 16 LAB ALT 7-38 U/L ALT 29 LAB GFRAA eGFR- Amer. >60 LAB GFRNAA . eGFR-All Other Races >60 Result Comment: eGFR (Estimated GFR) Units of measure: mL/min/1.73 meters squared eGFR is derived from the reexpressed MDRD Study equation using the following parameters: serum creatinine, age, gender and race. The creatinine assay has been calibrated to be traceable to IDMS. An eGFR <60 mL/min/1.73m2 for >3 months is consistent with chronic kidney disease. Refer to KDOQI guidelines for clinical interpretation. In patients with unstable renal function, e.g. those with acute kidney injury, the eGFR may not accurately reflect actual GFR. Performed By: #### CMP, LIPB #### [facility] [address] [address] LIPID PANEL, BASIC Collected: 02/03/2018 Status: F Source: [place] 9:12 AM [facility] REPOSITORY TYPE CODE TESTS RESULT OUT OF REFERENCE UNITS RANGE LAB CHOL <200 mg/dL Cholesterol High 232 Result Comment: <200 mg/dL, Desirable 200-239 mg/dL, Borderline high >239 mg/dL, High LAB TRIGLY <150 mg/dL Triglyceride 96 Result Comment: <150 mg/dL, Normal 150-199 mg/dL, Borderline high 200-499 mg/dL, High >499 mg/dL, Very high LAB HDL >39 mg/dL HDL-Cholesterol 79 Result Comment: 40-59 mg/dL, Acceptable >59 mg/dL, High: Negative risk factor for coronary heart disease <40 mg/dL, Low: Positive risk factor for coronary heart disease LAB LDL <100 mg/dL LDL-Cholesterol High 134 Result Comment: <100 mg/dL, Optimal 100-129 mg/dL, Near optimal/above optimal 130-159 mg/dL, Borderline high 160-189 mg/dL, High >189 mg/dL, Very high Secondary prevention optimal LDL Cholesterol levels are recommended to be < 70 mg/dL LAB NONHDL <130 mg/dL Non HDL High Cholesterol 153 Result Comment: <130 mg/dL, Optimal 130-159 mg/dL, Near optimal/above optimal 160-189 mg/dL, Borderline high 190-219 mg/dL, High >219 mg/dL, Very high Secondary prevention optimal non HDL Cholesterol levels are recommended to be < 100 mg/dL LAB FT hrs Fasting Time 12 LAB VLDL <30 mg/dL VLDL Cholesterol 19 LAB TCHDL <5.10 TC:HDL Ratio 2.94 LAB LDLHDL <2.54 LDL:HDL Ratio 1.70 Result Comment: Reference: 1. National Cholesterol Education Program ATP III Guideline At-A-Glance Quick Desk Reference: National Heart, Lung, and Blood National City. National Institutes of Health. 2001: NIH Publication No. 01-3305. 2. An International Atherosclerosis Society position paper: global recommendations for the management of dyslipidemia: executive summary, Atherosclerosis. 2014: 232(2):410-413. Performed By: #### CMP, LIPB #### [facility] [address] [place] [address] Observed: 12/22/2017 Status: F Source: [place] BACT/CAND VAG [facility] 8:30 AM [facility] REPOSITORY Sp. Request/Comment: - Swab Smear Result - BACTERIAL VAGINOSIS RESULT: Stain results consistent with normal vaginal power. No Yeast observed Rare Polymorphonuclear leukocytes Many Epithelial cells Performed By: #### BVCNSM #### [facility] [address] [place] [address] PROGRESS Observed: 12/22/2017 Status: COMPLETED Source: [place] 8:03 AM [facility] RE[facility]IT[facility] HNO ID: [id number] Author: Sabine Harding Service: (none) Author Type: Nurse Practitioner Type: Progress Notes Filed: 12/22/2017 2:34 PM Note Text: Tootie Wang is a 62 year old female who presents for problem visit vaginal itching. HPI: Treated for vaginal yeast infection with Monistat OTC and 2 doses of Diflucan. Symptoms have improved but not resolved. Continues with vaginal irritation and pain with contact with material, mild intermittent vaginal itching mostiy in the morning and at bedtime. Has noticed that urination is slow to start in the morning and wonders if she is beginning with a UTI. No fever or chills. Odor of strong urine. Does not wear pad. Uses Dove unscented bar soap. Does not use any scented feminine hygiene products. No new laundry products. When symptoms began, [place] being [place] and sweating a lot and wearing Spandex type clothing. Began vaginal estriol cream and progesterone creams just prior to onset of symptoms. Has history of yeast infections - last severe one was 4 years ago. Seems to happen when I am really tired. Leaving to go out of town until 12/31/17. PAST MEDICAL HISTORY Diagnosis Date - Arthritis - Hypertension - Pneumonia 2014 - Thyroid disorder PAST SURGICAL HISTORY Procedure Laterality Date - LAPAROSCOPIC BLADDER REPAIR 2014 - ROTATOR CUFF REPAIR Bilateral 2015 Left arm. 2017 Right arm. 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 CR TVT 2013 done in [place] uncertain brand - VAGINAL HYSTERECTOMY FAMILY HISTORY Problem Relation Age of Onset - Macular Degen Mother - COPD Mother - Heart Mother - other (Gastroparesis) Mother - other (Lung Cancer) Father Social History Marital status: Spouse name: Years of education: Number of children: Social History Main Topics Smoking status: Never Smoker Smokeless tobacco: Never Used Alcohol use: Yes Comment: Rare, wine Current Outpatient Prescriptions: COMPOUNDED PRESCRIPTION T4/T3 E4M 60 mcg/20 mcg capsule COMPOUNDED PRESCRIPTION progesterone 40 mg/ML cream, apply 0.5 ml twice daily, rub in well and rotate sites COMPOUNDED PRESCRIPTION estriol vaginal 0.1 % cream, insert one gram vaginally qhs twice per week, 0.5 gram once per week losartan (COZAAR) 50 mg tablet Take 50 mg by mouth once daily. PROGESTERONE MISC 40 mg three times daily. Estradiol 1 mg/gram (0.1 %) glpk Apply as directed. omega-3 fatty acids 1,000 mg cap Take 2 g by mouth twice daily. pantothenic acid, vit B5, (PANTOTHENIC ACID ORAL) Take 1 capsule by mouth once daily. Lactobacillus acidophilus (PROBIOTIC ORAL) Take 1 capsule by mouth once daily. No current facility-administered medications for this visit. Allergies As of Date: 12/22/2017 (Not on File) Fully Assessed 11/26/2017 REVIEW OF SYSTEMS Abdomen: No bloating, early satiety, indigestion, or increased flatulence. No abdominal pain, nausea, vomiting, diarrhea, or constipation. Bladder: See HPI. Allergies and current medication updated:Yes EXAM: BP 138/82 Wt 136 lb 6.4 oz (61.9kg) GENERAL: pleasant, female in no apparent distress CHEST: Normal inspiratory effort ABDOMEN: soft, non-tender and no masses PELVIC: external genitalia normal, normal Bartholin's glands, urethra, [place]'s glands, no vulvar lesions, no cervical lesions, normal appearing perineal body and perianal region, abnormal discharge small amount thick white BIMANUAL: uterus normal size, shape and consistency, no adnexal masses and non-tender NEURO: alert and oriented x3,exam grossly non-focal ASSESSMENT/PLAN: 1. Acute vaginitis - ICD9: 616.10, ICD10: N76.0 (primary diagnosis) - BACT/ALYSIA VAG GRAM STAIN - FLUCONAZOLE 150 MG TABLET- one tablet to take tomorrow, 2 tabs to take with her on vacation for recurring symptoms. 2. Dysuria - ICD9: 788.1, ICD10: R30.0 acute - UA negative - UA DIP B/O Will notify with results. Follow-up as needed. Sabine Harding APRN.MACHINE BURRER CNOV Observed: 12/22/2017 Status: COMPLETED Source: [place] 8:00 AM [facility] Office Visit (WOOB) TOOTIE WANG ([id number]) 1955 F Date Time Provider Department 12/22/17 8:00 AM SABINE HARDING CNP During your visit today, we recorded the following information about you: Blood pressure Weight 138/82 61.9 kg Sabine Harding APRN.CNP 12/22/2017 2:34 PM Signed Tootie Wang is a 62 year old female who presents for problem visit vaginal itching. HPI: Treated for vaginal yeast infection with Monistat OTC and 2 doses of Diflucan. Symptoms have improved but not resolved. Continues with vaginal irritation and pain with contact with material, mild intermittent vaginal itching mostiy in the morning and at bedtime. Has noticed that urination is slow to start in the morning and wonders if she is beginning with a UTI. No fever or chills. Odor of strong urine. Does not wear pad. Uses Dove unscented bar soap. Does not use any scented feminine hygiene products. No new laundry products. When symptoms began, she [place] being in [place] and sweating a lot and wearing Spandex type clothing. Began vaginal estriol cream and progesterone creams just prior to onset of symptoms. Has history of yeast infections - last severe one was 4 years ago. Seems to happen when I am really tired. Leaving to go out of town until 12/31/17. PAST MEDICAL HISTORY Diagnosis Date - Arthritis - Hypertension - Pneumonia 2014 - Thyroid disorder PAST SURGICAL HISTORY Procedure Laterality Date - LAPAROSCOPIC BLADDER REPAIR 2014 - ROTATOR CUFF REPAIR Bilateral 2015 Left arm. 2017 Right arm. 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 CR TVT 2013 done in [place] uncertain brand - VAGINAL HYSTERECTOMY FAMILY HISTORY Problem Relation Age of Onset - Macular Degen Mother - COPD Mother - Heart Mother - other (Gastroparesis) Mother - other (Lung Cancer) Father Social History Marital status: Spouse name: Years of education: Number of children: Social History Main Topics Smoking status: Never Smoker Smokeless tobacco: Never Used Alcohol use: Yes Comment: Rare, wine Current Outpatient Prescriptions: COMPOUNDED PRESCRIPTION T4/T3 E4M 60 mcg/20 mcg capsule COMPOUNDED PRESCRIPTION progesterone 40 mg/ML cream, apply 0.5 ml twice daily, rub in well and rotate sites COMPOUNDED PRESCRIPTION estriol vaginal 0.1 % cream, insert one gram vaginally qhs twice per week, 0.5 gram once per week losartan (COZAAR) 50 mg tablet Take 50 mg by mouth once daily. PROGESTERONE MISC 40 mg three times daily. Estradiol 1 mg/gram (0.1 %) glpk Apply as directed. omega-3 fatty acids 1,000 mg cap Take 2 g by mouth twice daily. pantothenic acid, vit B5, (PANTOTHENIC ACID ORAL) Take 1 capsule by mouth once daily. Lactobacillus acidophilus (PROBIOTIC ORAL) Take 1 capsule by mouth once daily. No current facility-administered medications for this visit. Allergies As of Date: 12/22/2017 (Not on File) Fully Assessed 11/26/2017 REVIEW OF SYSTEMS Abdomen: No bloating, early satiety, indigestion, or increased flatulence. No abdominal pain, nausea, vomiting, diarrhea, or constipation. Bladder: See HPI. Allergies and current medication updated:Yes EXAM: BP 138/82 Wt 136 lb 6.4 oz (61.9kg) GENERAL: pleasant, female in no apparent distress CHEST: Normal inspiratory effort ABDOMEN: soft, non-tender and no masses PELVIC: external genitalia normal, normal Bartholin's glands, urethra, [place]'s glands, no vulvar lesions, no cervical lesions, normal appearing perineal body and perianal region, abnormal discharge small amount thick white BIMANUAL: uterus normal size, shape and consistency, no adnexal masses and non-tender NEURO: alert and oriented x3,exam grossly non-focal ASSESSMENT/PLAN: 1. Acute vaginitis - ICD9: 616.10, ICD10: N76.0 (primary diagnosis) - BACT/ALYSIA VAG GRAM STAIN - FLUCONAZOLE 150 MG TABLET- one tablet to take tomorrow, 2 tabs to take with her on vacation for recurring symptoms. 2. Dysuria - ICD9: 788.1, ICD10: R30.0 acute - UA negative - UA DIP B/O Will notify with results. Follow-up as needed. Sabine Harding APRN.MACHINE BURRER Referring Provider: SELF [[id number]] Allergies As of Date: 12/22/2017 (Not on File) Date Reviewed: 12/22/2017 Reviewed by: Sabine (Bearing Press Machine Operator) Edis - Fully Assessed Primary Visit Diagnosis:Acute vaginitis [N76.0] Other Visit Diagnosis:Dysuria [R30.0] Order(s):UA DIP B/O [[id number]] Order #: [id number] BACT/ALYSIA VAG GRAM STAIN [SQBVCNSM] Order #: [id number] FUTURE fluconazole (DIFLUCAN) 150 mg tabletTake 1 tablet by mouth one time only for 1 dose. Take 1 tablet every 3 days.Disp: 3 tabletRfl: 0 Prescriptions as of 12/22/2017 Sig: FLUCONAZOLE 150 MG TABLET Take 1 tablet by mouth one ti* COMPOUNDED PRESCRIPTION T4/T3 E4M 60 mcg/20 mcg capsu* COMPOUNDED PRESCRIPTION progesterone 40 mg/ML cream, * COMPOUNDED PRESCRIPTION estriol vaginal 0.1 % cream, * LOSARTAN 50 MG TABLET Take 50 mg by mouth once marques* PROGESTERONE MISC 40 mg three times daily. ESTRADIOL 1 MG/GRAM (0.1 %) T* Apply as directed. OMEGA-3 FATTY ACIDS 1,000 MG * Take 2 g by mouth twice daily. PANTOTHENIC ACID ORAL Take 1 capsule by mouth once * PROBIOTIC ORAL Take 1 capsule by mouth once * Problem List As Of Date: 12/22/2017 (None) Prescriptions ordered this encounter Disp Refills Start End FLUCONAZOLE 150 MG TABLET 3 ta* 0 12/22/2017 12/22/2017 Route: ORAL Sig: Take 1 tablet by mouth one time only for 1 dose. Take 1 tablet every 3 days. Encounter Status:Closed by SABINE HARDING on 12/22/17 TESTOSTERONE Collected: 11/26/2017 Status: F Source: [place] 4:26 PM [facility] REPOSITORY TYPE CODE TESTS RESULT OUT OF REFERENCE UNITS RANGE LAB TESTO <40 ng/dL Testosterone 17 Performed By: #### TESTO, PROG, T3, T4, MICRO #### [facility] [address], [place] [address] PROGESTERONE Collected: 11/26/2017 Status: F Source: [place] 4:26 PM [facility] REPOSITORY TYPE CODE TESTS RESULT OUT OF REFERENCE UNITS RANGE LAB PROG ng/mL Progesterone 1.0 Result Comment: Menstrual Cycle Progesterone Reference Ranges: Follicular:<1.0 ng/mL Ovulation:<12.1 ng/mL Luteal:1.8 to 23.9 ng/mL Progesterone Reference Ranges vary by gestational period: First Trimester:11.0 to 44.3 ng/mL Second Trimester:25.4 to >60.0 ng/mL Third Trimester:58.7 to >60.0 ng/mL Post menopausal Progesterone:<0.5 ng/mL Reference: 1. Progesterone (Progesterone III) [package insert V 1.0 [place] Citizen]. [facility], [place], [place]. January 2015. Performed By: #### TESTO, PROG, T3, T4, MICRO #### [facility] [address] [address] T3 Collected: 11/26/2017 Status: F Source: [facility] 4:26 PM [facility] REPOSITORY TYPE CODE TESTS RESULT OUT OF RANGE REFERENCE UNITS LAB T3 79-165 ng/dL Low T3 78 Performed By: #### TESTO, PROG, T3, T4, MICRO #### [facility] [address] [address] T4 Collected: 11/26/2017 Status: F Source: [facility] 4:26 PM [facility] REPOSITORY TYPE CODE TESTS RESULT OUT OF RANGE REFERENCE UNITS LAB T4 5.5-10.2 ug/dL T4 7.0 Performed By: #### TESTO, PROG, T3, T4, MICRO #### [facility] [address] [address] TPO ANTIBODY Collected: 11/26/2017 Status: F Source: [place] 4:26 PM [facility] REPOS[facility] TYPE CODE TESTS RESULT OUT OF REFERENCE UNITS RANGE LAB MICRO <5.6 IU/mL High TPO Antibody 22.9 Performed By: #### TESTO, PROG, T3, T4, MICRO #### [facility] [address] [address] CNOV Observed: 11/26/2017 Status: COMPLETED Source: [place] 3:20 PM [facility] Office Visit (WOOB) TOOTIE WANG ([id number]) 1955 F Date Time Provider Department 11/26/17 3:20 PM ELHAM PALACIOS During your visit today, we recorded the following information about you: Blood pressure Weight Height 142/86 62.6 kg 1.49 m Elham Palacios MD 11/30/2017 6:21 PM Signed Tootie Wang is a 62 year old female who presents for problem visit for f/u hormone issues. HPI: 62 YOF who has relocated to the area due to 's career presents to establish. 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 Had hot flashes, night sweats, thinning hair on scalp but increased hair on face, trunk. Lack of energy. Also admits she has had a lot of stress, moving, new grandson premature but doing well now, as well as some other issues. 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 Has had adjustments of the doses in the past based on saliva and blood panel testing. She brings some labs w/ her today for review. She feels she has done well on these in the past and would to continue. Admits she hasn't been able to exercise or eat as well due to schedule recently. No past medical history on file. No past surgical history on file. No family history on file. Social History Marital status: Spouse name: Years of education: Number of children: Social History Main Topics Drug use: Unknown No current outpatient prescriptions on file. No current facility-administered medications for this visit. Allergies As of Date: 11/26/2017 (Not on File) REVIEW OF SYSTEMS Abdomen: No bloating, early satiety, indigestion, or increased flatulence. No abdominal pain, nausea, vomiting, diarrhea, or constipation. Bladder: No dysuria, gross hematuria, urinary frequency, urinary urgency, or incontinence. Expanded ROS: no new c/o Allergies and current medication updated:Yes EXAM: There were no vitals taken for this visit. GENERAL: pleasant, female in no apparent distress ASSESSMENT AND PLAN: symptomatic menopause is on thyroid compounded medication as well. I d/w her r/b/a to compounded vs pharaceutical estrogen therapy. She does not have any contraindications. Ok to refill pending review of labs. Her questions were answered to her satisfaction. I d/w her I do not do saliva testing. Majority of this 24 minute appt. spent counseling the patient about the above issues and recommendations. Elham Palacios MD Referring Provider: SELF [[id number]] Allergies As of Date: 11/26/2017 (Not on File) Date Reviewed: 11/26/2017 Reviewed by: Guru Ledezma Ma - Fully Assessed Primary Visit Diagnosis:Brittle hair [L67.8] Other Visit Diagnoses:Hirsutism [L68.0] Hot flashes [R23.2] Encounter for screening mammogram for malignant neoplasm of breast [Z12.31] Order(s):PROGESTERONE BLD [SQPROG] Order #: [id number] FUTURE TESTOSTERONE TOTAL [SQTESTO] Order #: [id number] FUTURE T3 BLD [SQT3] Order #: [id number] FUTURE T4/THYROXINE BLOOD [SQT4] Order #: [id number] FUTURE THYROID PEROXIDASE ANTIBODY BLOOD [SQMICRO] Order #: [id number] FUTURE OSCAR SCREENING W BEKAH [[id number]] Order #: [id number] FUTURE Prescriptions as of 11/26/2017 Sig: LOSARTAN 50 MG TABLET Take 50 mg by mouth once marques* PROGESTERONE MISC 40 mg three times daily. ESTRADIOL 1 MG/GRAM (0.1 %) T* Apply as directed. OMEGA-3 FATTY ACIDS 1,000 MG * Take 2 g by mouth twice daily. PANTOTHENIC ACID ORAL Take 1 capsule by mouth once * PROBIOTIC ORAL Take 1 capsule by mouth once * Medication notes this encounter PROGESTERONE MISC >> Guru Ledezma Ma 11/26/2017 3:17 PM >> GURU LEDEZMA MA WedNov 26, 2017 3:17 PM Cream ESTRADIOL 1 MG/GRAM (0.1 %) TRANSDERMAL GEL PACKET >> Guru Ledezma Ma 11/26/2017 3:18 PM >> GURU LEDEZMA MA WedNov 26, 2017 3:18 PM 2-3 times weekly Problem List As Of Date: 11/26/2017 (None) Encounter Status:Closed by ELHAM PALACIOS MD on 11/30/17 PROGRESS Observed: 11/26/2017 Status: COMPLETED Source: [place] 3:05 PM [facility] REPOSITORY HNO ID: [id number] Author: Elham Palacios Service: (none) Author Type: Physician Type: Progress Notes Filed: 11/30/2017 6:21 PM Note Text: Tootie Wang is a 62 year old female who presents for problem visit for f/u hormone issues. HPI: 62 YOF who has relocated to the area due to 's career presents to establish. 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 Had hot flashes, night sweats, thinning hair on scalp but increased hair on face, trunk. Lack of energy. Also admits she has had a lot of stress, moving, new grandson premature but doing well now, as well as some other issues. 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 Has had adjustments of the doses in the past based on saliva and blood panel testing. She brings some labs w/ her today for review. She feels she has done well on these in the past and would to continue. Admits she hasn't been able to exercise or eat as well due to schedule recently. No past medical history on file. No past surgical history on file. No family history on file. Social History Marital status: Spouse name: Years of education: Number of children: Social History Main Topics Drug use: Unknown No current outpatient prescriptions on file. No current facility-administered medications for this visit. Allergies As of Date: 11/26/2017 (Not on File) REVIEW OF SYSTEMS Abdomen: No bloating, early satiety, indigestion, or increased flatulence. No abdominal pain, nausea, vomiting, diarrhea, or constipation. Bladder: No dysuria, gross hematuria, urinary frequency, urinary urgency, or incontinence. Expanded ROS: no new c/o Allergies and current medication updated:Yes EXAM: There were no vitals taken for this visit. GENERAL: pleasant, female in no apparent distress ASSESSMENT AND PLAN: symptomatic menopause is on thyroid compounded medication as well. I d/w her r/b/a to compounded vs pharaceutical estrogen therapy. She does not have any contraindications. Ok to refill pending review of labs. Her questions were answered to her satisfaction. I d/w her I do not do saliva testing. Majority of this 24 minute appt. spent counseling the patient about the above issues and recommendations. Elham Palacios MD ALLERGIES ALLERGIES DATE TYPE / CODE NAME / CODE REACTION SEVERITY SOURCE 04/15/2018 Drug hydrocodone/ Nausea Unknown [facility] All[facility]/4160 [id number](R [facility] 70005(SNOMED XNORM) Repository CT) 04/15/2018 Drug acetaminophe Nausea Unknown [facility] Allergy/4160 n/[id number] [facility] 00147(SNOMED (RXNORM) Repository CT) 02/07/2018 DRUG/[id number] HYDROCODONE- GI UPSET [facility] 03(SNOMED ACETAMINOPHE [facility] [place] [facility]) N Repository ENCOUNTERS ENCOUNTERS ADMIT/DISCHARGE ACCOUNT ADMITTING ENCOUNTER LOCATION SOURCE NUMBER CLASS 05/24/2018/05/24/19 [id number] Ambulatory [address] Repository 05/24/2018 [id number] [facility] ing:CR Repository 05/23/2018/05/23/19 [id number] Ambulatory [address] Repository 05/19/2018/05/19/19 [id number] Ambulatory [address] Repository 05/16/2018/05/16/19 [id number] Ambulatory [address] Repository 05/09/2018/05/09/19 [id number] Ambulatory [address] Repository 05/09/2018/05/13/19 [id number] Ambulatory [address] Repository 04/15/2018 [id number] Ambulatory [facility] Hospital ing:POLAB3 Repository 04/15/2018/04/15/20 [id number] Ambulatory BMSBuilding:Nilton Hickman MS.[facility] Repository 04/13/2018/04/14/20 [id number] Ambulatory [address] Repository 04/08/2018 [id number] Angelique, Ambulatory BMSBuilding:Nilton Rodriguez MS.[facility] Repository 04/08/2018 [id number] Lindaeletsky, Ambulatory BMSBuilding:B Siobhan Rodriguez MS.[facility] Repository 04/08/2018 [id number] Lindaeletsamanda, Ambulatory BMSBuilding:Nilton Rodriguez MS.CF.[facility] Repository 04/08/2018 [id number] Lindaeletsamanda, Ambulatory BMSBuilding:Nilton Rodriguez MS.[facility] Repository 04/08/2018 [id number] Lindaeletsky, Ambulatory BMSBuilding:Nilton Rodriguez MS.[facility] Repository 04/08/2018/04/11/20 [id number] Ambulatory BMSBuilding:W [place] [facility] Repository 04/08/2018/04/11/20 [id number] Ambulatory BMSBuilding:W Siobhan 18 [facility] Repository 04/08/2018/04/11/20 [id number] Angelique, Inpatient Siobhanandrea Hickman Michael Encounter [facility] ing:PCURoom: Repository SHI221Hhq: 1 04/08/2018 [id number] Marcosamanda, Ambulatory BMSBuilding:B Siobhan Rodriguez MS.CF.[facility] Repository 04/08/2018/04/11/20 [id number] Ambulatory [place] [facility] [place] Repository 04/05/2018/04/05/20 [id number] Ambulatory [place] [facility] [place] Repository 04/05/2018/04/05/20 [id number] Ambulatory [address] [place] Repository 04/05/2018/04/05/20 [id number] Ambulatory [place] [facility] [place] Repository 04/05/2018/04/06/20 [id number] Ambulatory [place] [facility] [place] Repository 02/08/2018/02/09/20 [id number] Ambulatory [place] [facility] [place] Repository 02/07/2018/02/08/20 [id number] Ambulatory [place] [facility] [place] Repository 02/07/2018/02/09/20 [id number] Ambulatory [place] [facility] [place] Repository 02/07/2018/02/09/20 [id number] Ambulatory [place] [facility] [place] Repository 02/03/2018/02/04/20 [id number] Ambulatory [place] [facility] [place] Repository 12/22/2017/12/24/19 [id number] Ambulatory [place] [facility] [place] Repository 11/26/2017/11/27/19 [id number] Ambulatory [place] [facility] [place] Repository 11/26/2017/12/02/19 [id number] Ambulatory [place] [facility] [place] Repository PAYERS PAYERS ENCOUNTER GUARANTOR PAYER SUBSCRIBER SOURCE 05/24/2018 TOOTIE Mccann [id number] Insurance:ANTHEMPolic WOMACKDOB: Community TATUM y [place]: [id number] [id number] Repository 9[address]Ovp: ([phone]) Date:1779-07-55[phone] () [place] [address]SD: 05/24/2018 Secondary NOT GIVENUNK [place] Insurance:SELF PAY [facility] Effective Repository Date:2018-04-18 04/15/2018 TOOTIE Appiah Primary LUCERO T Siobhan [id number] Insurance:ANTHEMPolic WOMACKDOB: Community TATUM y Number: [id number] [id number] Repository 15[address]Cum: ([phone]) Date:0268-80-21NT [phone] () [place] [address]WY: 04/15/2018 Secondary NOT GIVENUNK Siobhan Insurance:SELF PAY [facility] Number: Effective Repository Date:2018-04-15 04/15/2018 TOOTIE Appiah Primary LUCERO T [place] [id number] Insurance:ANTHEMPolic WOMACKDOB: Community TATUM y Number: [id number], [place] [id number] Repository 388[address]Dma: (308) Date:6731-41-44EO [phone] () [place] [address]TD: 04/15/2018 Secondary NOT GIVENUNK Siobhan Insurance:SELF PAY [facility] Number: Effective Repository Date:2018-04-15 04/08/2018 TOOTIE Appiah Primary LUCERO T Siobhan [id number] Insurance:ANTHEMPolic WOMACKDOB: Community TATUM y Number: [id number], [place] [id number] Repository 511[address]Ups: (308) Date:7911-63-23CA [phone] () [place] [address]OS: 04/08/2018 Secondary NOT GIVENUNK Siobhan Insurance:SELF PAY [facility] Number: Effective Repository Date:2018-04-08 04/08/2018 TOOTIE Appiah Primary LUCERO T [place] [id number] Insurance:ANTHEMPolic WOMACKDOB: Community TATUM y Number: [id number], [place] [id number] Repository [address]Jqe: (308) Date:4678-81-23FF [phone] () [place] [address]XE: 04/08/2018 Secondary NOT GIVENUNK Siobhan Insurance:SELF PAY [facility] Number: Effective Repository Date:2018-04-08 04/08/2018 TOOTIE pApiah Primary LUCERO T Siobhan [id number] Insurance:ANTHEMPolic WOMACKDOB: Community TATUM y Number: [id number], [place] [id number] Repository [address]Hlf: (308) Date:4272-26-75CK [phone] () [place] [address]LI: 04/08/2018 Secondary NOT GIVENUNK [place] Insurance:SELF PAY [facility] Number: Effective Repository Date:2018-04-08 04/08/2018 TOOTIE Appiah Primary LUCERO T [place] [id number] Insurance:ANTHEMPolic WOMACKDOB: Community TATUM y Number: [id number], [place] [id number] Repository [address]Yrc: (308) Date:4881-16-35CZ [phone] () [place] [address]BG: 04/08/2018 Secondary NOT GIVENUNK [place] Insurance:SELF PAY [facility] Number: Effective Repository Date:2018-04-08 04/08/2018 TOOTIE Appiah Primary LUCERO T [place] [id number] Insurance:ANTHEMPolic WOMACKDOB: Community TATUM y Number: [id number], [place] [id number] Repository [address]Fas: (308) Date:2556-41-33MP [phone] () [place] [address]JK: 04/08/2018 Secondary NOT GIVENUNK [place] Insurance:SELF PAY [facility] Number: Effective Repository Date:2018-04-08 04/08/2018 TOOTIE Appiah Primary LUCERO T [place] [id number] Insurance:ANTHEMPolic WOMACKDOB: Community TATUM y Number: [id number], [place] [id number] Repository [address]Eto: (308) Date:1341-15-79NR [phone] () [id number], [place] [address]IN: 04/08/2018 Secondary NOT GIVENUNK Siobhan Insurance:SELF PAY [facility] Number: Effective Repository Date:2018-04-08 04/08/2018 TOOTIE Appiah Primary LUCERO T [place] [id number] Insurance:ANTHEMPolic WOMACKDOB: Community TATUM y Number: [id number], [place] [id number] Repository [address]Fhz: (308) Date:7667-40-84JG [phone] () [id number], [place] [address]QV: 04/08/2018 Secondary NOT GIVENUNK [place] Insurance:SELF PAY [facility] Number: Effective Repository Date:2018-04-08 04/08/2018 TOOITE Appiah Primary LUCERO T Siobhan [id number] Insurance:ANTHEMPolic WOMACKDOB: Community TATUM y Number: [id number], [place] [id number] Repository [address]Lkv: (308) Date:1597-79-50GW [phone] () [id number], [place] [address]CC: 04/08/2018 Secondary NOT GIVENUNK Siobhan Insurance:SELF PAY [facility] Number: Effective Repository Date:2018-04-08 04/08/2018 TOOTIE Appiah Primary LUCERO T [place] [id number] Insurance:ANTHEMPolic WOMACKDOB: Community TATUM y Number: [id number], [place] [id number] Repository [address]Iae: 308) Date:8499-65-95RA [phone] () [id number], [place] [address]KX: 04/08/2018 Secondary NOT GIVENUNK Siobhan Insurance:[facility]LF PAY [facility]: Effective Repository Date:2018-04-08
== END ==
PROVIDERS: Family Provider Nurse Practitioner Adult Health; PCP Nurse Practitioner Adult Health; Visit Provider Physician Assistant Medical
DX: I10 Essential (primary) hypertension (principal); I42.9 Cardiomyopathy, unspecified
CPT/HCPCS: 36415; 80048

== ENCOUNTER → 2018-05-24 09:31 | Outpatient (CLI) | payer BC, SELFPAY ==
[2018-04-15 09:36] VITALS: BMI 26.0
--- NOTE | 2018-05-24 10:26 | PCM.CR.HP2 ---
CR - History & Physical - General Arrival date:: 05/24/18 Arrival time:: 09:15 Date of Referral:: 04/15/18 Date of CR Evaluation:: 05/24/18 Referring Physician: DR. JANET HINDS @ [facility] Primary Diagnosis: ACUTE SYSTOLIC HF LV EJ 10-20% - History of Present Cardiac Event Onset Date: Enter Onset Date of cardiac illnesses in Comment field below Heart Failure EF <35%:: Yes - 10-20% 04/09/2018 Type of Symptoms:: THOUGHT IT WAS PNEUMONIA AND THEN WAS SENT TO ER AND FOUND THE HEART PROBLEM BY DR. QUINTERO DURING DIAGNOSTIC HEART CATH FOUND LOW EF 10-20%, NO EVEDINCE OF CORONARY DISEASE. Interventions with present event:: DIAGNOSTIC HEART Were there any complications?: REMOVED LOSARTAN ADN ADDED ENESTRO - Medications Home Medications: Ambulatory Orders Medication Instructions Recorded Calcium Citrate/Vitamin D3 1,000 mg PO DAILY 04/08/18 [Calcium Citrate-Vit D3 Tablet] [place]-3 Fatty Acids [Fish Oil] 1,500 mg PO DAILY 04/08/18 Pnv No.121/Iron/Folic Acid 1 each PO DAILY 04/08/18 [ Multivitamin Tablet] Aspirin [Aspirin, Baby] 81 mg PO DAILY@0800 #30 tab.chew 04/11/18 magnesium oxide 400 mg (241.3 mg 400 mg PO BIDCM #60 tab 04/15/18 magnesium) tablet spironolactone 25 mg tablet 25 mg PO DAILY #30 tab 04/15/18 carvedilol 3.125 mg tablet 3.125 mg PO BID #60 tab 05/04/18 Furosemide [Lasix] 40 mg PO DAILY 05/24/18 Levothyroxine [Synthroid] 75 mcg PO DAILY 05/24/18 - Allergies Allergies/Adverse Reactions: Allergies acetaminophen [From Lortab] Adverse Reaction (Verified 04/15/18 09:36) Nausea hydrocodone [From Lortab] Adverse Reaction (Verified 04/15/18 09:36) Nausea - Sleep Disorder Evaluation Hx of Sleep Apnea: No Do you snore loudly (louder than talking or can be heard through closed doors)?: Yes Do you often feel tired/ fatigued/ sleepy during daytime?: Yes - PRIOR TO CHANGE OF THE MEDICATIONS FELT TOTALLY EXHAUSTED Has anyone observed you stop breathing during sleep?: No History of Hypertension (for STOP score): Yes STOP Results: Positive Advanced Directives - Advanced Directives Power of Supervisor Roller Printing: Yes Living Will: Yes Advance Directives Information Provided: No Advance Directives on File: Yes DNR Order?:: No - MOLST See MOLST form: No Past Medical History - Past Surgical History Surgical History: - - Bilateral rotator cuff repair, x2, hysterectomy. 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 - Hobbies, Recreation, Social Activities Hobbies: Sewing - CROCHETING, GARDENING., Exercise, Other - COOKING AND GRANDCHILDREN Recreational Activities: I am able to engage in most, but not all activities Social Environment - Status Marital Status: - Current Living Arrangements Living Environment:: Spouse - Children How many children do you have?: 3 - TRANSFER JOB TO [facility] Do any of your children live nearby?: No - OUT OF STATE - Safety Do you feel safe in your surroundings?: Yes - Assistance Do you need any assistance at home?: NONE Review of Systems - Review of Systems Hints: Right click = Denies ([place]). Left click = Reports ([place]) Review of Present Symptoms: Reports: Shortness of Breath with Exertion - PRIOR TO THE HOSPITALIZATION EXPERIENCED ALOT, BUT SINCE LOSING ABOUT 14 POUNDS OF FLUID AND BEING HOME IT HAS SUBSIDED., Dizziness/Lightheadedness - SLIGHT AT TIMES, SUGGESTED MAY BE ADJUSTMENT TO THE NEW MEDICATION ADDED., Appetite - Normal, Appetite - Special Diet - LOW SALT, CARDIAC DIET, Sleep - Normal - IT IS FOR THE MOST PART HOWEVER HERMAN LAST THREE OR FOUR NIGHTS HAVE NOT SLEPT VERY WELL.. Denies: Shortness of Breath at Rest, Fatigue, Heart Arrhythmia/Irregularities - Pain Is Patient Pain Free?: Yes Pain Location: none Risk Factor Assessment - Chief Complaint Chief Complaint: PATIENT IS A 62 YR OLD FEMALE WHO PRESENTS TO CR TODAY FOLLOWING A RECENT HOSPITALIZATION FOR HF DIAGNOSED IN APR 2018. THIS IS ALL NEW FOR THE PATIENT WHO HAD NO PRIOR HISTORY OF CARDIAC DISEASE. SHE HAS SINCE CHANGED DOCTORS TO THE [facility]. - Vital Signs Temperature: 98.7 F - EARLY DEC THOUGH WAS PNEUMONIA Respiratory Rate: 14 Pulse Ox: 95 Blood Pressure: 108/66 Nailbeds:: PINK - Pulse Pulse Rate: 71 Pulse Rhythm: Regular - Hypertension How long have you been treated?: 4 On medication(s)?: WELL CONTROLLED WITH LOSARTAN Blood Pressure Sitting - Left Arm: 108/66 - Stress Stress: Recent - Mother deteriorating health, daughter tough , recent move to [place], and then this health scare. It has been a very tough year. - Diabetes Nutrition Referral for Diabetes: No - Obesity Height: 4 ft 11 in Weight:: 132 lb Weight in Pounds: 132.0 lbs Weight Source: Standing Scale Body Mass Index (BMI): 26.6 Nutritional Referral for Obesity: No - Physical Inactivity Physical Inactivity: Recreational activity - NORMALLY A VERY ACTIVE PERSON, PREVIOUS EXERCISE AND WISHES TO RESUME THAT ACTIVITY LEVEL., None - Risk Stratification Risk Guidelines: Lowest Risk: Risk Factor for Smoking, Risk Factor for Dyslipidemia, Risk Factor for Diabetes, Risk Factor for Obesity, Risk Factor for Hypertension, Risk Factor for Sedentary Lifestyle, Risk Factor for Depression - For Smoking Smoking Risk Guidelines: Smoking Low Risk: None or quit greater than 6 months ago. Smoking Moderate Risk: Smoker or quit 6 months or less ago. Smoking High Risk: Smoker - For Dyslipidemia Dyslipidemia Risk Guidelines: Low Risk: Moderate Risk: High Risk: 15-25% fat 25.1-29% fat >/= 30% fat. <7% sat fat 7-9% sat fat >9% sat fat. <150 mg chol 150-299 mg chol >/= 300 mg chol. LDL <100 LDL 100-129 LDL >/= 130. Chol/HDL ratio <5.0 Chol/HDL ratio 5.0-6.0 Chol/HDL ratio >6.0. Triglycerides <100 Triglycerides 100-149 Triglycerides >/= 150 - For Diabetes Mellitus Diabetes Risk Guidelines: Diabetes Low Risk: HgA1c <6.5% and/or FBG <120. Diabetes Moderate Risk: HgA1c 6.6-7.9% and/or FBG 120-180. Diabetes High Risk: HgA1c >/= 8% and/or FBG >180 - For Obesity/Overweight Obesity/Overweight Risk Guidelines: Obesity Low Risk: BMI <25.0. Obesity Moderate Risk: BMI 25-29.9. Obesity High Risk: BMI >/= 30.0 - For Hypertension Hypertension Risk Guidelines: Hypertension Low Risk: Systolic <120 and Diastolic <80. Hypertension Moderate Risk: Systolic 120-139 and Diastolic 80-89. Hypertension High Risk: Systolic >/= 140 and Diastolic >/= 90 - For Sedentary Lifestyle Sedentary Lifestyle Risk Guidelines: Sedentary Lifestyle Low Risk: >/= 1,500 kcal/week. Sedentary Lifestyle Moderate Risk: 700-1,499 kcal/week. Sedentary Lifestyle High Risk: < 700 kcal/week - For Depression Depression Risk Guidelines: Depression Low Risk: Not clinically depressed. Depression Moderate Risk: Mildly depressed. Depression High Risk: Clinically depressed Motivation - Motivation to Participate On a scale of 1 to 10, how prepared are you to commit to attending program?: 10 What do you see as barriers to successfully being able to complete the program?: mother's health, need to travel to [place] What do you see as the benefits of succesfully completing the program? In other words, what do you hope to get out of participating in the program?: learning more about strenthening the heart, living right, diet and exercise Are there issues you are dealing with that will interfere with completing the program?: recent family issues Do you have a spouse or signficant other, family or friends who will help support you to complete the program?: yes, daughter in [place] is an RN.
--- NOTE | 2018-05-24 10:30 | CR.HP_ITS ---
CR - History & Physical - General Arrival date:: 05/24/18 Arrival time:: 09:15 Date of Referral:: 04/15/18 Date of CR Evaluation:: 05/24/18 Referring Physician: DR. JANET HINDS @ [facility] Primary Diagnosis: ACUTE SYSTOLIC HF LV EJ 10-20% - History of Present Cardiac Event Onset Date: Enter Onset Date of cardiac illnesses in Comment field below Heart Failure EF <35%:: Yes - 10-20% 04/09/2018 Type of Symptoms:: THOUGHT IT WAS PNEUMONIA AND THEN WAS SENT TO ER AND FOUND THE HEART PROBLEM BY DR. QUINTERO DURING DIAGNOSTIC HEART CATH FOUND LOW EF 10-20%, NO EVEDINCE OF CORONARY DISEASE. Interventions with present event:: DIAGNOSTIC HEART Were there any complications?: REMOVED LOSARTAN ADN ADDED ENESTRO - Medications Home Medications: Ambulatory Orders Medication Instructions Recorded Calcium Citrate/Vitamin D3 1,000 mg PO DAILY 04/08/18 [Calcium Citrate-Vit D3 Tablet] [place]-3 Fatty Acids [Fish Oil] 1,500 mg PO DAILY 04/08/18 Pnv No.121/Iron/Folic Acid 1 each PO DAILY 04/08/18 [ Multivitamin Tablet] Aspirin [Aspirin, Baby] 81 mg PO DAILY@0800 #30 tab.chew 04/11/18 magnesium oxide 400 mg (241.3 mg 400 mg PO BIDCM #60 tab 04/15/18 magnesium) tablet spironolactone 25 mg tablet 25 mg PO DAILY #30 tab 04/15/18 carvedilol 3.125 mg tablet 3.125 mg PO BID #60 tab 05/04/18 Furosemide [Lasix] 40 mg PO DAILY 05/24/18 Levothyroxine [Synthroid] 75 mcg PO DAILY 05/24/18 - Allergies Allergies/Adverse Reactions: Allergies acetaminophen [From Lortab] Adverse Reaction (Verified 04/15/18 09:36) Nausea hydrocodone [From Lortab] Adverse Reaction (Verified 04/15/18 09:36) Nausea - Sleep Disorder Evaluation Hx of Sleep Apnea: No Do you snore loudly (louder than talking or can be heard through closed doors)?: Yes Do you often feel tired/ fatigued/ sleepy during daytime?: Yes - PRIOR TO CHANGE OF THE MEDICATIONS FELT TOTALLY EXHAUSTED Has anyone observed you stop breathing during sleep?: No History of Hypertension (for STOP score): Yes STOP Results: Positive Advanced Directives - Advanced Directives Power of Pc Support Specialist: Yes Living Will: Yes Advance Directives Information Provided: No Advance Directives on File: Yes DNR Order?:: No - MOLST See MOLST form: No Past Medical History - Past Surgical History Surgical History: - - Bilateral rotator cuff repair, x2, hysterectomy. 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 - Hobbies, Recreation, Social Activities Hobbies: Sewing - CROCHETING, GARDENING., Exercise, Other - COOKING AND GRANDCHILDREN Recreational Activities: I am able to engage in most, but not all activities Social Environment - Status Marital Status: - Current Living Arrangements Living Environment:: Spouse - Children How many children do you have?: 3 - TRANSFER JOB TO [facility] Do any of your children live nearby?: No - OUT OF STATE - Safety Do you feel safe in your surroundings?: Yes - Assistance Do you need any assistance at home?: NONE Review of Systems - Review of Systems Hints: Right click = Denies (Slash). Left click = Reports ([place]) Review of Present Symptoms: Reports: Shortness of Breath with Exertion - PRIOR TO THE HOSPITALIZATION EXPERIENCED ALOT, BUT SINCE LOSING ABOUT 14 POUNDS OF FLUID AND BEING HOME IT HAS SUBSIDED., Dizziness/Lightheadedness - SLIGHT AT TIMES, SUGGESTED MAY BE ADJUSTMENT TO THE NEW MEDICATION ADDED., Appetite - Normal, Appetite - Special Diet - LOW SALT, CARDIAC DIET, Sleep - Normal - IT IS FOR THE MOST PART HOWEVER HERMAN LAST THREE OR FOUR NIGHTS HAVE NOT SLEPT VERY WELL.. Denies: Shortness of Breath at Rest, Fatigue, Heart Arrhythmia/Irregularities - Pain Is Patient Pain Free?: Yes Pain Location: none Risk Factor Assessment - Chief Complaint Chief Complaint: PATIENT IS A 62 YR OLD FEMALE WHO PRESENTS TO CR TODAY FOLLOWING A RECENT HOSPITALIZATION FOR HF DIAGNOSED IN APR 2018. THIS IS ALL NEW FOR THE PATIENT WHO HAD NO PRIOR HISTORY OF CARDIAC DISEASE. SHE HAS SINCE CHANGED DOCTORS TO [facility]. - Vital Signs Temperature: 98.7 F - EARLY DEC THOUGH WAS PNEUMONIA Respiratory Rate: 14 Pulse Ox: 95 Blood Pressure: 108/66 Nailbeds:: PINK - Pulse Pulse Rate: 71 Pulse Rhythm: Regular - Hypertension How long have you been treated?: 4 On medication(s)?: WELL CONTROLLED WITH LOSARTAN Blood Pressure Sitting - Left Arm: 108/66 - Stress Stress: Recent - Mother deteriorating health, daughter tough , recent move to [place], and then this health scare. It has been a very tough year. - Diabetes Nutrition Referral for Diabetes: No - Obesity Height: 4 ft 11 in Weight:: 132 lb Weight in Pounds: 132.0 lbs Weight Source: Standing Scale Body Mass Index (BMI): 26.6 Nutritional Referral for Obesity: No - Physical Inactivity Physical Inactivity: Recreational activity - NORMALLY A VERY ACTIVE PERSON, PREVIOUS EXERCISE AND WISHES TO RESUME THAT ACTIVITY LEVEL., None - Risk Stratification Risk Guidelines: Lowest Risk: Risk Factor for Smoking, Risk Factor for Dyslipidemia, Risk Factor for Diabetes, Risk Factor for Obesity, Risk Factor for Hypertension, Risk Factor for Sedentary Lifestyle, Risk Factor for Depression - For Smoking Smoking Risk Guidelines: Smoking Low Risk: None or quit greater than 6 months ago. Smoking Moderate Risk: Smoker or quit 6 months or less ago. Smoking High Risk: Smoker - For Dyslipidemia Dyslipidemia Risk Guidelines: Low Risk: Moderate Risk: High Risk: 15-25% fat 25.1-29% fat >/= 30% fat. <7% sat fat 7-9% sat fat >9% sat fat. <150 mg chol 150-299 mg chol >/= 300 mg chol. LDL <100 LDL 100-129 LDL >/= 130. Chol/HDL ratio <5.0 Chol/HDL ratio 5.0-6.0 Chol/HDL ratio >6.0. Triglycerides <100 Triglycerides 100-149 Triglycerides >/= 150 - For Diabetes Mellitus Diabetes Risk Guidelines: Diabetes Low Risk: HgA1c <6.5% and/or FBG <120. Diabetes Moderate Risk: HgA1c 6.6-7.9% and/or FBG 120-180. Diabetes High Risk: HgA1c >/= 8% and/or FBG >180 - For Obesity/Overweight Obesity/Overweight Risk Guidelines: Obesity Low Risk: BMI <25.0. Obesity Moderate Risk: BMI 25-29.9. Obesity High Risk: BMI >/= 30.0 - For Hypertension Hypertension Risk Guidelines: Hypertension Low Risk: Systolic <120 and Diastolic <80. Hypertension Moderate Risk: Systolic 120-139 and Diastolic 80-89. Hypertension High Risk: Systolic >/= 140 and Diastolic >/= 90 - For Sedentary Lifestyle Sedentary Lifestyle Risk Guidelines: Sedentary Lifestyle Low Risk: >/= 1,500 kcal/week. Sedentary Lifestyle Moderate Risk: 700-1,499 kcal/week. Sedentary Lifestyle High Risk: < 700 kcal/week - For Depression Depression Risk Guidelines: Depression Low Risk: Not clinically depressed. Depression Moderate Risk: Mildly depressed. Depression High Risk: Clinically depressed Motivation - Motivation to Participate On a scale of 1 to 10, how prepared are you to commit to attending program?: 10 What do you see as barriers to successfully being able to complete the program?: mother's health, need to travel to [place] What do you see as the benefits of succesfully completing the program? In other words, what do you hope to get out of participating in the program?: learning more about strenthening the heart, living right, diet and exercise Are there issues you are dealing with that will interfere with completing the program?: recent family issues Do you have a spouse or signficant other, family or friends who will help support you to complete the program?: yes, daughter in [place] is an RN.
[2018-05-24 10:52] VITALS: BP 108/66; PULSE 71; RESP 14; TEMP 37.1; O2SAT 95; BMI 26.6
--- NOTE | 2018-05-24 11:20 | PCM.CR.ITP ---
General Information - General Information Admitting Diagnosis: ACUTE SYSTOLIC HF LVEF 10-20% - Education/Goals Barriers to Learning: None Individual Counseling: Initial Assessment: Stress - RECENT STRESS PAST YEAR. Cardiac Rehabilitation Goals: 1. Maintain the individual as the primary focus of care. 2. To improve the patient's quality of life. 3. Identification of cardiac risk factors and provide cardiac risk factor management. 4. Enhance the psychosocial status of the patient. 5. Reconditioning enough to allow the patient to resume customary activities. 6. Control symptoms of cardiac disease Scale for measuring improvement of personal goals: Enter appropriate number in Comments. 2 = Unchanged. 3 = Slightly Better. 4 = Moderate Improvement. 5 = Met my Goal Personal Goals: Initial Assessment: Improve energy level, Participate in home exercise program, Get back to work, or to resume activities faster, Improve knowledge of cardiac disease, Improve muscle strength and endurance, Improve diet and eating habits (eat healthier), Control risk factors (learn risk factor modification) Exercise - Initial Assessment - Visit Date of Eval: 05/24/18 Session #:: 0 - START 05/25/2018 - Stages of Change Stages of Change:: Action - Stress Test Date: 05/23/18 HR (bpm):: 160 EKG: OCCASIONAL PACs AND PVCs POST-EXERCISE MET LEVEL:: 10.1 Blood Pressure: 184/94 - Exercise Prescription Mode:: Treadmill Angina with exercise?: No Target Heart Rate:: 109-117 - Hypertension Do any of the following apply?: Yes - PAST 4 YEARS Resting Blood Pressure:: 108/66 Peak Exercise Blood Pressure:: 184/94 - Intervention Home Exercise/Activity Goal:: Moderate Exercise 30 min/day x 5 days/wk - Education Goals:: Warm-up, RPE LAURENCE Scale, S/S, Safe Exercise, Self-Monitoring - Exercise Program Goals Exercise Program Goals: Aerobic Activity >30 min Nutrition - Initial Assessment - Program Goals Nutrition Program Goals: LDL <70. Total Cholesterol <200. HDL >45. Triglycerides <150. HgbA1C <7%. BMI <25 - Visit Date of Assessment:: 05/24/18 - Stages of Change Stages of Change:: Action - Diabetes Diabetes:: No - Weight Management Height: 4 ft 11 in Weight:: 138 lb - Intervention Referral to dietitian:: No Referral to Diabetic Clinic:: No Will attend diet classes:: Yes - Education Gave educational materials for:: Healthy eating Tobacco - Initial Assessment - Program Goals Tobacco Program Goals: Complete smoking cessation. Attend education classes. Improve Knowledge Test score - Stage of Change Stages of Change:: Action - Learning Barriers Learning Barriers: Ready to Learn - Family Support Do you have family support?: Yes - Tobacco Use Tobacco Use: Non-smoker Do you use smokeless tobacco?: No - Intervention Smoking Cessation Referral:: No Individual Education/Counseling:: No Education Schedule Given:: Yes - Education Gave educational material for:: Coronary artery disease, Risk factors, Sexuality, Medical compliance, Cardiac A&P, Angina signs & symptoms Psychosocial - Initial Assess - Target Goals Target Goals: Assess presence or absence of depression. Using a valid screening tool, maximizes coping skills. Positive support system - Stages of Change Stages of Change:: Action - Psychosocial Test Tool Used:: HANDS Depression Questionnaire - Intervention PS - Interventions: Yes Referral to Physician - STRUGGLING WITH EMOTIONAL STRESS THE LAST YEAR., Yes Attend Stress Management Classes, No Referral to Mental Health, No Referral to [facility] Case Management, No Uses Stress Management Skills - Education Gave educational materials for:: Coping techniques, Signs & symptoms of depression, Stress management, Relaxation techniques - Patient/Program Goal Preventative Medication(s):: Aspirin - Assistive Devices Assistive Devices:: None Fall Risk Assessed:: Yes Patient Health Questionnaire Initial Assessment 1. Little interest or pleasure in doing things: Not at all 2. Feeling down, depressed, or hopeless: Several days 3. Trouble falling or staying asleep, or sleeping too much: Several days 4. Feeling tired or having little energy: Several days 5. Poor appetite or overeating: Several days 6. Feeling bad about yourself -- or that you are a failure or have let yourself or your family down: Not at all 7. Trouble concentrating on things, such as reading the newspaper or watching television: Not at all 8. Moving or speaking so slowly that other people could have noticed. Or the opposite - being so fidgety or restless that you have been moving around a lot more than usual: Not at all 9. Thoughts that you would be better off , or of hurting yourself in some way: Not at all How difficult have these problems made it for you to do your work, take care of things at home, or get along with other people?: Not difficult at all Total Score: 4 ESTEFANY-Q SV Test - Statements CAD is a disease of the arteries in the heart: False Examples of risk factors for heart disease: True Angina is chest pain or discomfort: True The benefits of resistance training include: True Eating more meat and dairy products: False Anti-platelet medications such as aspirin are important: True The only effective way to manage stress: False An exercise warm-up slowly increases heart rate: True Prepared, processed foods usually have high sodium: True Depression is common after a heart attack: True The statin medications lower cholesterol: True To control blood pressure, lower the amount of sodium: True If someone gets chest discomfort during walking: False Transfats are partially hydrogenated vegetable oils: True Sleep apnea that is not treated increases the risk: False To control cholesterol, one should become a vegetarian: False Someone knows if he/she is exercising at the right level: True Diabetes cannot be prevented with exercise & health eating: False Stress is a large risk for heart attack: True A diet that can help lower blood pressure is rich in: True - Total Score Total Correct Responses: 20 Self-Efficacy Initial Assessment We would like to know how confident you are in doing certain activities. Please select your confidence level for:: Select your confidence level for the following using the scale 1-10 where 1 is not at all confident and 10 is totally confident. Your score is the average of all 6 responses. Fatigue: How confident are you that you can keep the fatigue caused by your disease from interfering with the things you want to do? Select Number: 10 Physical Discomfort or Pain: How confident are you that you can keep the physical discomfort or pain of your disease from interfering with the things you want to do? Select Number: 10 Emotional Distress: How confident are you that you can keep the emotional distress caused by your disease from interfering with the things you want to do? Select Number: 6 Other Symptoms or Health Problems: How confident are you that you can keep other symptoms or health problems from interfering with the things you want to do? Select Number: 6 Different Tasks and Activities: How confident are you that you can do the different tasks and activities needed to manage your health condition so as to reduce your need to see a doctor? Select Number: 10 Medication: How confident are you that you can do things other than just taking medication to reduce how much your illness affects your everyday life? Select Number: 10 Total Score:: 8 Nutrition Survey - Nutrition Survey Instructions Scoring Instructions: Scoring is as follows: Yes = 1 points. No = 0 point. Patient score that is >/=12 is considered to be at potential nutritional risk and could benefit from a referral to a registered dietitian. - Nutrition Survey Initial Have you lost >10 lbs over the past 2 months without trying?: Yes Are you following a special diet at home for diabetes, low fat, or low salt?: Yes Are you interested in meeting with a dietitian for help understanding your diet?: Yes - Like to have more information on cardiac diet and healthier eating. Do you eat less than 3 meals a day?: Yes Do you eat fatty meats (stubbs, sausage, ribs, etc), fried foods, desserts, large amounts of salad dressings, margarine, butter, or cheese most days?: No Do you have food allergies? [Enter types in comment field]: No Do you eat in restaurants more than 3 times a week?: No Do you season food with salt, seasoning salt, or garlic salt?: No Do you used canned, boxed, frozen meals, or soups, seasoning packets?: No Total Score:: 4
[2018-05-24 11:28] VITALS: BP 108/66; BP 184/94
--- OUTSIDE RECORDS SUMMARY | 2018-07-26 10:47 | XMS RPT_ITS ---
:1955 Author Organization OHIP Support Name Relationship Address Phone MT ELIZABETH Unavailable Unavailable + UE Unavailable Unavailable Unavailable FELIPE, LUCERO T Unavailable [address] + [place] [address] CLAMT JIMÉNEZ Unavailable Unavailable + UE Unavailable Unavailable Unavailable FELIPE, LUCERO T Unavailable [address] + [place] [address] UE Unavailable Unavailable Unavailable FELIPE, LUCEOR T Unavailable [address] + [place] [address] UE Unavailable Unavailable Unavailable FELIPE, LUCERO T Unavailable [address] + [place] [address] UE Unavailable Unavailable Unavailable FELIPE, LUCERO T Unavailable [address] + [place] [address] UE Unavailable Unavailable Unavailable FELIPE, LUCERO T Unavailable [address] + [place] [address] UE Unavailable Unavailable Unavailable FELIPE, LUCERO T Unavailable [address] + [place] [address] UE Unavailable Unavailable Unavailable FELIPE, LUCERO T Unavailable [address] + [place] [address] UE Unavailable Unavailable Unavailable FELIPE, LUCERO T Unavailable [address] + [place] [address] UE Unavailable Unavailable Unavailable FELIPE, LUCERO T Unavailable [address] + [place] [address] UE Unavailable Unavailable Unavailable FELIPE, LUCERO T Unavailable [address] + [place] [address] UE Unavailable Unavailable Unavailable FELIPE, LUCERO T Unavailable [address] + [place] [address] UE Unavailable Unavailable Unavailable LUCERO WANG T Unavailable [address] [phone] [place] [address] Care Team Providers Name Role Phone ELHAM PALACIOS Attending Unavailable ELHAM PALACIOS Referring Unavailable SABINE HARDING ([facility]) Attending Unavailable ADRI GOMEZ ([employer]) Referring Unavailable ADRI GOMEZ ([facility] [employer] [facility] [employer]ARER) Attending Unavailable ELHAM PALACIOS Attending Unavailable RADHA, VANESSA ([facility]) Referring Unavailable RADHA, VANESSA ([facility]) Referring Unavailable CORNIELLO, FAINA L ([facility]) Attending Unavailable CORNIELLO, FAINA L ([facility]) Referring Unavailable CORNIELLO, FAINA L ([facility]) Referring Unavailable CORNIELLO, FAINA L ([facility]) Referring Unavailable CORNIELLO, FAINA L ([facility]) Attending Unavailable CORNIELLO, FAINA L ([facility]) Attending Unavailable AMALFITANO, JANET L Attending Unavailable CORNIELLO, FAINA L ([facility]) Referring Unavailable AMALFITANO, JANET L Referring Unavailable MARTA VARGAS ([facility]) Attending Unavailable CORNIELLO, FAINA L ([facility]) Referring Unavailable CORNIELLO, FAINA L ([facility]) Referring Unavailable AMALFITANO, JANET L Referring Unavailable ELHAM BRAMBILA ([facility]) Attending Unavailable AMALFITANO, JANET L Referring Unavailable Magdy Falk Attending Unavailable Tereletsky, Michael Admitting Unavailable Tereletsky, Michael Referring Unavailable Corniello, Faina RIGHT [employer] [facility] [employer]ER-C Primary Care Unavailable Alena, Med Consulting Unavailable Magdy Falk Consulting Unavailable Amanda Franks Attending Unavailable Corniello, Faina [employer]ER-C Referring Unavailable Amanda Franks Attending Unavailable Corniello, Faina [employer]ARER-C Primary Care Unavailable Jax Neri Attending Unavailable Tereletsky, Michael Referring Unavailable Alena, Med Attending Unavailable Tereletsky, Michael Referring Unavailable SABINE VERDIN Attending Unavailable SABINE VERDIN Referring Unavailable Corniello, Faina [employer]ARER-C Primary Care Unavailable Alena, Nottingham Consulting Unavailable SABINE VERDIN Attending Unavailable SABINE VERDIN Referring Unavailable Corniello, Faina [employer] CLEARER-C Primary Care Unavailable Corniello, Faina RIGHT [employer] CLEARER-C Primary Care Unavailable Tereletsky, Michael Admitting Unavailable Tereletsky, Michael Referring Unavailable Alena, Nottingham Consulting Unavailable Jopperi, Magdy Attending Unavailable Tereletsky, Michael Admitting Unavailable Tereletsky, Michael Referring Unavailable Corniello, Faina RIGHT [employer] CLEARER-C Primary Care Unavailable Alena, Nottingham Consulting Unavailable Tereletsky, Micheal Attending Unavailable Tereletsky, Michael Consulting Unavailable Tereletsky, Michael Admitting Unavailable Tereletsky, Michael Referring Unavailable Corniello, Faina RIGHT [employer] CLEARER-C Primary Care Unavailable Alena, Nottingham Consulting Unavailable Tereletsky, Michael Attending Unavailable Tereletsky, Michael Consulting Unavailable Tereletsky, Michael Admitting Unavailable Alena, Med Attending Unavailable Tereletsky, Michael Referring Unavailable Corniello, Faina RIGHT [employer] CLEARER-C Primary Care Unavailable Alena, Med Consulting Unavailable Tereletsky, Michael Consulting Unavailable Tereletsky, Michael Admitting Unavailable Tereletsky, Michael Referring Unavailable Corniello, Faina RIGHT OF [employer] CLEARER-C Primary Care Unavailable Alena, Nottingham Consulting Unavailable Tereletsky, Michael Attending Unavailable Tereletsky, Michael Consulting Unavailable Tereletsky, Michael Admitting Unavailable Alena, Med Attending Unavailable Tereletsky, Michael Referring Unavailable Corniello, Faina RIGHT OF [address] CLEARER-C Primary Care Unavailable Alena, Med Consulting Unavailable Jopperi, Magdy Consulting Unavailable PROBLEMS PROBLEMS DATE TYPE CONDITION / CODE ATTENDING STATUS SOURCE 05/27/2018 Unknown I50.21 - Acute SABINE VERDIN Active [place] systolic [facility] (congestive) heart Hospital failure / Repository I50.21(ICD-10) 05/27/2018 Unknown I42.0 - Dilated SABINE VERDIN Active [place] cardiomyopathy / [facility] I42.0(ICD-10) Hospital Repository 05/16/2018 Active Other specified NA Active [facility] hypothyroidism / Clinic Main E03.8(ICD-10) [place] Repository 05/16/2018 Active Autoimmune NA Active [facility] thyroiditis / Clinic Main E06.3(ICD-10) [place] Repository 05/19/2018 Active Abnormal levels of NA Active [facility] other serum enzymes Clinic Main / R74.8(ICD-10) [place] Repository 05/19/2018 Active Other specified NA Active [facility] abnormal [facility] Main immunological [place] findings in serum / Repository R76.8(ICD-10) 04/13/2018 Active Other specified NA Active [facility] symptoms and signs Clinic Main involving the [place] circulatory and Repository respiratory systems / R09.89(ICD-10) 05/09/2018 Active Acute on chronic NA Active [facility] systolic [facility] Main (congestive) heart [place] failure / Repository I50.23(ICD-10) 04/15/2018 Unknown I10 - Essential Franks, Active [place] (primary) [facility] hypertension / Hospital I10(ICD-10) Repository 04/15/2018 Unknown I42.9 - Franks, Active [place] Cardiomyopathy, [facility] unspecified / Hospital I42.9(ICD-10) Repository 04/27/2018 Unknown I11.0 - Hypertensive AlenaAmbrosio sparksril Active [place] heart disease with Community heart failure / Hospital I11.0(ICD-10) Repository 04/05/2018 Active Palpitations / [place] PORTE[place]LLO, Active [facility] R00.2(ICD-10) FAINA L (SCREEN PRINTING LOADER UNLOADER) Clinic Main [place] Repository 04/05/2018 Active Shortness of breath [facility], Active [facility] / R06.02(ICD-10) FAINA L (SCREEN PRINTING LOADER UNLOADER) Clinic Main [place] Repository 04/05/2018 Active Lower abdominal [place] PORTEIELLO, Active [facility] pain, unspecified / FAINA L (SCREEN PRINTING LOADER UNLOADER) Clinic Main R10.30(ICD-10) [place] Repository 02/08/2018 Active Other specified Active [facility] abnormal findings of Clinic Main blood chemistry / [place] R79.89(ICD-10) Repository 02/07/2018 Active Disorder of thyroid, NA [facility] unspecified / Clinic Main E07.9(ICD-10) [place] Repository 02/07/2018 Active Essential (primary) ADRI GOMEZ Active [facility] hypertension / ([facility]) Clinic Main I10(ICD-10) [place] Repository 02/03/2018 Active Encounter for NA Active [facility] general adult [facility] Main medical examination [place] without abnormal Repository findings / Z00.00(ICD-10) 12/22/2017 Active Unknown / SABINE HARDING Active [facility] UNK(Unknown) (SCREEN PRINTING LOADER UNLOADER) Clinic Main [place] Repository 11/26/2017 Active Other hair color and NA Active [facility] hair shaft Clinic Main abnormalities / [place] L67.8(ICD-10) Repository 11/26/2017 Active Hirsutism / NA Active [facility] L68.0(ICD-10) Clinic Main [place] Repository 11/26/2017 Active Flushing / NA Active [facility] R23.2(ICD-10) Clinic Main [place] Repository PROCEDURES PROCEDURES No Procedure Records FoundRESULTS RESULTS CR - HISTORY AND Observed: 05/25/2018 Status: F Source: [place] PHYSICAL 4:01 PM [facility] REPOSITORY [facility] Cardiac Rehab [address] [place] [address] CR - History AND Physical MR#: [id number] Acct: [id number] Name: TOOTIE WANG Rep #: [id number] : 1955 62 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 JANET HINDS @ [facility] Primary Diagnosis: ACUTE SYSTOLIC HF LV EJ 10-20% - History of Present Cardiac Event Onset Date: Enter Onset Date of cardiac illnesses in Comment field below Heart Failure EF <35%:: Yes - 10-20% 04/09/2018 Type of Symptoms:: THOUGHT IT WAS PNEUMONIA AND THEN WAS SENT TO ER AND FOUND THE HEART PROBLEM BY DR. CARVAJAL DURING DIAGNOSTIC HEART CATH FOUND LOW EF 10- 20%, NO EVEDINCE OF CORONARY DISEASE. Interventions with present event:: DIAGNOSTIC HEART Were there any complications?: REMOVED LOSARTAN ADN ADDED ENESTRO - Medications Home Medications: Ambulatory Orders Medication Instructions Recorded Calcium Citrate/Vitamin D3 1,000 mg PO DAILY 04/08/18 - Allergies Allergies/Adverse Reactions: Allergies acetaminophen [From Lortab] Adverse Reaction (Verified 04/15/18 09:36) Nausea hydrocodone [From Lortab] Adverse Reaction (Verified 04/15/18 09:36) Nausea - Sleep Disorder Evaluation Hx of Sleep Apnea: No Do you snore loudly (louder than talking or can be heard through closed doors)?: Yes Do you often feel tired/ fatigued/ sleepy during daytime?: Yes - PRIOR TO CHANGE OF THE MEDICATIONS FELT TOTALLY EXHAUSTED Has anyone observed you stop breathing during sleep?: No History of Hypertension (for STOP score): Yes STOP Results: Positive Advanced Directives - Advanced Directives Power of Workers Compensation Specialist: Yes Living Will: Yes Advance Directives Information Provided: No Advance Directives on File: Yes DNR Order?:: No - MOLST See MOLST form: No Past Medical History - Past Surgical History Surgical History: - - Bilateral rotator cuff repair, x2, hysterectomy. 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 - Hobbies, Recreation, Social Activities Hobbies: Sewing - CROCHETING, GARDENING., Exercise, Other - COOKING AND GRANDCHILDREN Recreational Activities: I am able to engage in most, but not all activities Social Environment - Status Marital Status: - Current Living Arrangements Living Environment:: Spouse - Children How many children do you have?: 3 - TRANSFER JOB TO [facility] Do any of your children live nearby?: No - OUT OF STATE - Safety Do you feel safe in your surroundings?: Yes - Assistance Do you need any assistance at home?: NONE Review of Systems - Review of Systems Hints: Right click = Denies (Slash). Left click = Reports ([place]) Review of Present Symptoms: Reports: Shortness of Breath with Exertion - PRIOR TO THE HOSPITALIZATION EXPERIENCED ALOT, BUT SINCE LOSING ABOUT 14 POUNDS OF FLUID AND BEING HOME IT HAS SUBSIDED., Dizziness/Lightheadedness - SLIGHT AT TIMES, SUGGESTED MAY BE ADJUSTMENT TO THE NEW MEDICATION ADDED., Appetite - Normal, Appetite - Special Diet - LOW SALT, CARDIAC DIET, Sleep - Normal - IT IS FOR THE MOST PART HOWEVER HERMAN LAST THREE OR FOUR NIGHTS HAVE NOT SLEPT VERY WELL.. Denies: Shortness of Breath at Rest, Fatigue, Heart Arrhythmia/Irregularities - Pain Is Patient Pain Free?: Yes Pain Location: none Risk Factor Assessment - Chief Complaint Chief Complaint: PATIENT IS A 62 YR OLD FEMALE WHO PRESENTS TO CR TODAY FOLLOWING A RECENT HOSPITALIZATION FOR HF DIAGNOSED IN APR 2018. THIS IS ALL NEW FOR THE PATIENT WHO HAD NO PRIOR HISTORY OF CARDIAC DISEASE. SHE HAS SINCE CHANGED DOCTORS TO THE [facility]. - Vital Signs Temperature: 98.7 F - EARLY APR THOUGH WAS PNEUMONIA Respiratory Rate: 14 Pulse Ox: 95 Blood Pressure: 108/66 Nailbeds:: PINK - Pulse Pulse Rate: 71 Pulse Rhythm: Regular - Hypertension How long have you been treated?: 4 On medication(s)?: WELL CONTROLLED WITH LOSARTAN Blood Pressure Sitting - Left Arm: 108/66 - Stress Stress: Recent - Mother deteriorating health, daughter tough , recent move to [place], and then this health scare. It has been a very tough year. - Diabetes Nutrition Referral for Diabetes: No - Obesity Height: 4 ft 11 in Weight:: 132 lb Weight in Pounds: 132.0 lbs Weight Source: Standing Scale Body Mass Index (BMI): 26.6 Nutritional Referral for Obesity: No - Physical Inactivity Physical Inactivity: Recreational activity - NORMALLY A VERY ACTIVE PERSON, PREVIOUS EXERCISE AND WISHES TO RESUME THAT ACTIVITY LEVEL., None - Risk Stratification Risk Guidelines: Lowest Risk: Risk Factor for Smoking, Risk Factor for Dyslipidemia, Risk Factor for Diabetes, Risk Factor for Obesity, Risk Factor for Hypertension, Risk Factor for Sedentary Lifestyle, Risk Factor for Depression - For Smoking Smoking Risk Guidelines: Smoking Low Risk: None or quit greater than 6 months ago. Smoking Moderate Risk: Smoker or quit 6 months or less ago. Smoking High Risk: Smoker - For Dyslipidemia Dyslipidemia Risk Guidelines: Low Risk: Moderate Risk: High Risk: 15-25% fat 25.1-29% fat >/= 30% fat. <7% sat fat 7-9% sat fat >9% sat fat. <150 mg chol 150-299 mg chol >/= 300 mg chol. LDL <100 LDL 100-129 LDL >/= 130. Chol/HDL ratio <5.0 Chol/HDL ratio 5.0-6.0 Chol/HDL ratio >6.0. Triglycerides <100 Triglycerides 100-149 Triglycerides >/= 150 - For Diabetes Mellitus Diabetes Risk Guidelines: Diabetes Low Risk: HgA1c <6.5% and/or FBG <120. Diabetes Moderate Risk: HgA1c 6.6-7.9% and/or FBG 120- 180. Diabetes High Risk: HgA1c >/= 8% and/or FBG >180 - For Obesity/Overweight Obesity/Overweight Risk Guidelines: Obesity Low Risk: BMI <25.0. Obesity Moderate Risk: BMI 25-29.9. Obesity High Risk: BMI >/= 30.0 - For Hypertension Hypertension Risk Guidelines: Hypertension Low Risk: Systolic <120 and Diastolic <80. Hypertension Moderate Risk: Systolic 120-139 and Diastolic 80-89. Hypertension High Risk: Systolic >/= 140 and Diastolic >/= 90 - For Sedentary Lifestyle Sedentary Lifestyle Risk Guidelines: Sedentary Lifestyle Low Risk: >/= 1,500 kcal/week. Sedentary Lifestyle Moderate Risk: 700-1,499 kcal/week. Sedentary Lifestyle High Risk: < 700 kcal/week - For Depression Depression Risk Guidelines: Depression Low Risk: Not clinically depressed. Depression Moderate Risk: Mildly depressed. Depression High Risk: Clinically depressed Motivation - Motivation to Participate On a scale of 1 to 10, how prepared are you to commit to attending program?: 10 What do you see as barriers to successfully being able to complete the program?: mother's health, need to travel to [place] What do you see as the benefits of succesfully completing the program? In other words, what do you hope to get out of participating in the program?: learning more about strenthening the heart, living right, diet and exercise Are there issues you are dealing with that will interfere with completing the program?: recent family issues Do you have a spouse or signficant other, family or friends who will help support you to complete the program?: yes, daughter in [place] is an RN. 05/24/18 1054 <Electronically signed by Valerio Harris CRT, RCP, BS> Date Valerio Harris CRT, RCP, BS Outcome assessment reviewed. Exercise plan approved as documented. Treatment plan and goals support patient needs/abilities. Continue with current plan. I certify the patient demonstrates improvement and remains willing and capable of participation. the patient continues to benefit from cardiac rehab services/training. The patient may continue at current intensity, endurance and modality and progress per protocol. 05/25/18 1601 <Electronically signed by Med Carvajal MD> Josafat Signature: Date Med Carvajal MD CC: Signed LV Observed: 05/24/2018 Status: COMPLETED Source: [place] 1:30 PM [facility] REPOSITORY Office Visit (CARDMM) TOOTIE WANG ([id number]) 1955 F Date Time Provider Department 05/24/18 1:30 PM ELHAM TYSON ([facility]) CARDMM During your visit today, we recorded the following information about you: Pulse Respiration Blood pressure Weight 65/minute 16/minute 102/76 59 kg Height 1.499 m Elham Tyson APRN.ISAIAS 05/25/2018 4:36 PM Signed [facility] Heart and Vascular [place] [facility] Wade Department of Cardiovascular Medicine SECTION OF REGIONAL CARDIOLOGY Tootie Wang is a 62 year old female who is here today for 2 week follow up. HPI: Patient was last seen by Dr. Hinds on 05/09/2018 where she was started on Entresto 24-26mg BID. She reports that ever since starting it she has had significantly less dyspnea on exertion, less fatigue, and more energy. She feels great overall. When she first started the Entresto, she was seeing some low blood pressure readings in the 80's systolic. This has evened out and she's now back to seeing 90-100's systolic. She weighs herself daily and her dry weight seems to be around 128-130lb. She is now experiencing palpitations occurring 3-4 times a day. They last a second or more, and this has now been occurring for the past 3 days. She's concerned about them. She denies chest pain, orthopnea, PND, lightheadedness, dizziness, syncope, or edema. The patient is starting cardiac rehab tomorrow. Home blood pressure is trending 95-100's systolic and 60's diastolic. Prior history: Tootie Wang is a 62 year old female who is here today for establishment of cardiac care, shortness of breath, palpitations, abnormal echo findings, congestive heart failure and cardiomyopathy. She presents for another opinion after the admission to the hospital for progressive shortness of breath early last month in April 2018. She states that she had been doing well and quite active with exercising using the T 25 disc program through the middle of last year without difficulty. She relocated from [place] in July 2017 and had some challenges with her daughter's requiring her to go back and forth to [place] this past summer in October where she spent 2 weeks there and then came back and immediately had to go to assist her mother in [place]. She states socially quite stressful period for her. She also relates that her mother had congestive heart failure in her early 60s. She was very short of breath and is slightly better now since discharge but is fairly tired after doing her usual activities daily living. During her admit at [facility] she had an Echocardiogram on 04/08/18 and this reported a LVEF [...] to 2 glasses of alcohol a day. PAST MEDICAL HISTORY Diagnosis Date - Arthritis - Dilated cardiomyopathy (HCC) EF % 10, following with Dr. Sullivan. 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 2017 Right arm. - SLING SUBURETHRAL COMPOUNDING SCALER CR TVT 2012 done in [place] uncertain brand - VAGINAL HYSTERECTOMY FAMILY HISTORY [...] Aunt - Breast Cancer Paternal Aunt SOCIAL HISTORY: Social History Marital status: Spouse name: Kris Pickard Years of education: Number of children: 3 Social History Main Topics Smoking status: Never Smoker Smokeless tobacco: Never Used Alcohol use: Yes Comment: Rare, wine Social History Narrative Lives in [place], relocated from [place], 3 adult children and 3 grandchildren in [place], and 1 in [place]. ALLERGIES: Lortab [Hydrocodone-Acetaminophen] CURRENT MEDICATIONS: Current Outpatient Prescriptions: furosemide (LASIX) 20 mg tablet Take 1 tablet by mouth once daily. levothyroxine (SYNTHROID) 75 mcg tablet Take 1 tablet by mouth daily before breakfast. docosahexanoic acid/epa (FISH OIL ORAL) Take 2,000 mg by mouth once daily. aspirin, enteric coated (ASPIRIN, ENTERIC COATED) 81 mg EC tablet Take 1 tablet by mouth once daily. spironolactone (ALDACTONE) 25 mg tablet Take 1 tablet by mouth once daily. vit-iron fumarate-fa ( MULTIVITAMINS) 28 mg iron- [...] Take 1 capsule by mouth once daily. magnesium oxide 400 mg cap Take 1 capsule by mouth twice daily. sacubitril-valsartan (ENTRESTO) 49-51 mg tablet Take 1 tablet by mouth twice daily. carvedilol (COREG) 3.125 mg tablet Take 1 tablet by mouth twice daily with meals. No current facility-administered medications for this visit. ROS: Card: See present history. Pulm: Negative for cough, hemoptysis, wheezing, COPD, dyspnea or shortness of breath Gastro: No nausea, vomiting, or diarrhea GenUr: [...] review of systems is negative. PHYSICAL EXAMINATION: BP 102/76 (BP Site: Right Arm, BP Position: Sitting, BP Cuff Size: Regular Adult) Pulse 65 Resp 16 Ht 149.9 cm (4' 11) Wt 59 kg (130 lb) SpO2 97% BMI 26.26 kg/m? Last 3 Encounter BP Readings: Date: BP: 05/16/2018 107/76 05/09/2018 130/70 04/13/2018 104/60 Last 3 Encounter Pulse Readings: Date: Pulse: 05/16/2018 87 05/09/2018 78 04/13/2018 88 Last 3 Encounter Wt Readings: Date: Wt: 05/16/2018 59.9 kg (132 lb) 05/09/2018 60 kg (132 lb 4.8 oz) 04/13/2018 59 kg (130 lb) GENERAL: alert cooperative, pleasant oriented x 3 (self, time and place) in no acute distress SKIN: warm, dry, no rash. NECK: supple, no palpable masses, no JVD, carotids well felt, no bruits. CARD: Sullivan palpable in the 5th intercostal space mid clavicular line, normal S1 and S2, no murmurs, gallops, or rubs. RESP: Normal respiratory efforts, lungs clear to auscultation bilaterally. ABDOMEN: Soft, no tenderness, rigidity, or masses. No palpable liver or spleen. Normal bowel sounds, no bruits. NEURO: intact cranial nerves II through XII, no motor or sensory deficits in all 4 extremities. EXTREMITIES: No cyanosis, clubbing, or edema. Peripheral pulses well felt. LABS: Glucose (mg/dL) Date Value 05/19/2018 46 Potassium (mmol/L) Date Value 05/19/2018 4.4 Sodium (mmol/L) Date Value 05/19/2018 140 Chloride (mmol/L) Date Value 05/19/2018 97 CO2 (mmol/L) Date Value 05/19/2018 31 Creatinine (mg/dL) Date Value 05/19/2018 0.84 BUN (mg/dL) Date Value 05/19/2018 27 Anion Gap (mmol/L) Date Value 05/19/2018 12 Calcium (mg/dL) Date Value 05/19/2018 10.3 Protein, Total (g/dL) Date Value 05/19/2018 8.0 Albumin (g/dL) Date Value 05/19/2018 4.8 Bilirubin, Total (mg/dL) Date Value 05/19/2018 0.4 Alkaline Phosphatase (U/L) Date Value 05/19/2018 76 AST (U/L) Date Value 05/19/2018 31 ALT (U/L) Date Value 05/19/2018 28 Hemoglobin (g/dL) Date Value 04/05/2018 13.8 Hematocrit (%) Date Value 04/05/2018 42.9 WBC (k/uL) Date Value 04/05/2018 5.84 Cholesterol, Total (mg/dL) Date Value 02/03/2018 232 HDL Cholesterol (mg/dL) Date Value 02/03/2018 79 LDL Cholesterol (mg/dL) Date Value 02/03/2018 134 Triglyceride (mg/dL) Date Value 02/03/2018 96 CARDIAC TESTING: Echocardiogram (04/08/2018Siobhan): INTERPRETATION - The estimated ejection fraction is 10 %. - Stage 2 diastolic dysfunction. - There is severe global hypokinesis of the left ventricle. - Mildly dilated right ventricle. - The left atrium is moderately enlarged. - Mild (1+) mitral valve insufficiency. - Mild (1+) tricuspid valve insufficiency. - Right ventricular systolic pressure estimated to be 35 mmHg. - Trivial aortic valve insufficiency. - Moderate size left pleural effusion. Cardiac Catheterization (04/11/2018, Siobhan): CONCLUSIONS: normal coronaries, dilated cardiomyopathy ASSESSMENT/PLAN: 1. Palpitations - Stated 3 days ago, now occurring 3-4 times a day - Brief and fleeting - I will order a 3 day Zio patch 2. Chronic systolic heart failure - Echo 04/2018: EF 10%, grade II LVDD - NYHA FC III - Appears euvolemic on my exam today - Decrease furosemide to 20mg daily - She is starting cardiac rehab tomorrow - Consult to CHF clinic ? 2. Nonischemic cardiomyopathy - Etiology unclear at this time - Echo did not suggest a classic Takotsubo morphology - [facility] 04/2018 ([place]): normal coronaries - Continue ARNI, MRA, and BB - Increase Entresto to 49-51mg BID - Check lab work in 1 week - Repeat Echo arrange for July 2018 and if LVEF remains < 35%, in spite of optimal medical therapy, ICD will be indicated. ? 3. Essential hypertension - Good control - Encouraged dietary sodium restriction/DASH diet - Reviewed risks of HTN and principles of treatment - Goal of BP <130/80 ? 4. Hypothyroidism - Following with endocrinology Conclusion: Patient here for a 2 week follow up after initiation of Entresto. She feels much better with less fatigue, more energy, and significantly less dyspnea on exertion. Blood pressures have been stable in the high 90's- 100's systolic. No lightheadedness, dizziness, or syncope. I will increase her Entresto to 49-51mg BID and check lab work in 1week. She is currently on 40mg of furosemide daily with no signs of volume overload. I will decrease this to 20mg daily given the increase in ARNI. She is to continue daily weights and call me if her weight goes up by 3-4lb in 1-4 day period of time. She is also reporting palpitations that started 3 days ago. They are now occurring 3-4 times a day and she's quite concerned about this. They are brief, lasting only a few seconds and she has not had any yet today. What she's describing sounds like ectopy, however, I will get a 3 day Zio patch to screen for any arrhythmias given her decreased LV systolic function. She is to return for follow up with me in 2 weeks. Impression and plan discussed and collaborated with Dr. Hinds CONTACT INFORMATION: Elham Tyson APRN.ISAIAS Cardiology Nurse Practitioner Section of [facility] Dept of Cardiovascular Medicine [facility] Heart and Vascular [place] [address] Office Office Elham Tyson APRN.ISAIAS 05/24/2018 2:40 PM Signed Increase Entresto to 49-51mg twice daily Decrease Furosemide (Lasix) to 20mg daily Check labs in 1 week Weigh yourself daily. Call me if your weight increases by 3-4 pounds in a 1-4 day period of time. Be as active as you are able. If you get tired, just stop and rest for a while. Return in 2 weeks for follow up Bernadette Huff RN, RN 05/24/2018 3:14 PM Signed EVENT MONITOR DISPOSABLE PATCH INSTRUCTIONS Patient Name: Tootie Wang Clinic Number: [id number] Skin prepped and cleansed with alcohol Patch secured to prepped area Monitor Activated Serial #: [id number] Patient Instructed: 1.) Prescribed order timeframe 2.) Bathing guidelines 3.) Usage of event button and diary documentation 4.) Return of monitor at the end of prescribed order 5.) Call with problems [phone] or [phone]. [phone] Patient expresses a good understanding of instructions Bernadette Huff RN Referring Provider: JANET HINDS [[id number]] Allergies As of Date: 05/24/2018 Noted Allergy Reaction LORTAB (HYDROCODONE-ACETAMINOPHEN)02/07/2018 8 - GI Upset Comments: Severe nausea Date Reviewed: 05/24/2018 Reviewed by: Areli Moore RN - Fully Assessed Reason for Visit: CARD Follow Up 1 Month [1229] Cmt: med f/u Primary Visit Diagnosis:Chronic systolic (congestive) heart failure [I50.22] Other Visit Diagnoses:NICM (nonischemic cardiomyopathy) (HCC) [I42.8] Essential hypertension [I10] Order(s):magnesium oxide 400 mg capTake 1 capsule by mouth twice daily.Disp: Rfl: sacubitril-valsartan (ENTRESTO) 49-51 mg tabletTake 1 tablet by mouth twice daily.Disp: 30 tabletRfl: 11 furosemide (LASIX) 20 mg tabletTake 1 tablet by mouth once daily.Disp: 30 tabletRfl: 11 carvedilol (COREG) 3.125 mg tabletTake 1 tablet by mouth twice daily with meals.Disp: 60 tabletRfl: 11 BASIC METABOLIC PNL [SQBMP] Order #: [id number] FUTURE MAGNESIUM BLD [SQMG1] Order #: [id number] FUTURE OUTSIDE VENDOR CARDIAC OUTPATIENT EXTENDED RHYTHM RECORDING (WITHOUT TELEMETRY) [[id number]] Order #: [id number]: 1 Prescriptions as of 05/24/2018 Sig: FUROSEMIDE 20 MG TABLET Take 1 tablet by mouth once d* LEVOTHYROXINE 75 MCG TABLET Take 1 tablet by mouth daily * FISH OIL ORAL Take 2,000 mg by mouth once d* ASPIRIN 81 MG TABLET,DELAYED * Take 1 tablet by mouth once d* SPIRONOLACTONE 25 MG TABLET Take 1 tablet by mouth once d* VIT NO.95-FERROUS FU* Take 2 tablets by mouth once * CALCIUM CITRATE 250 MG TABLET Take 2 tablets by mouth once * COMPOUNDED PRESCRIPTION progesterone 40 mg/ML cream, * COMPOUNDED PRESCRIPTION estriol vaginal 0.1 % cream, * PROBIOTIC ORAL Take 1 capsule by mouth once * MAGNESIUM OXIDE 400 MG CAPSULE Take 1 capsule by mouth twice* SACUBITRIL 49 MG-VALSARTAN 51* Take 1 tablet by mouth twice * CARVEDILOL 3.125 MG TABLET Take 1 tablet by mouth twice * X COMPOUNDED PRESCRIPTION Compounded formulation of T3 * Medication notes this encounter MULTIVITAMIN CAPSULE >> Areli Moore RN 05/24/2018 1:44 PM >> ARELI MOORE RN May 24, 2018 1:44 PM Taking only 2 tablets daily LOW-DOSE ASPIRIN ORAL >> Areli Moore RN 05/24/2018 1:41 PM >> ARELI MOORE RN WedMay 24, 2018 1:41 PM Already om med sheet FUROSEMIDE 40 MG TABLET >> Areli Moore RN 05/24/2018 1:39 PM >> ARELI MOORE RN WedMay 24, 2018 1:39 PM Only taking once a day Per Dr. Hinds On 05/09/17 >> Areli Moore RN 05/24/2018 1:40 PM >> ARELI MOORE RN WedMay 24, 2018 1:40 PM On 05/09/18 MAGNESIUM OXIDE 420 MG TABLET >> Areli Moore RN 05/24/2018 1:42 PM >> ARELI MOORE RN WedMay 24, 2018 1:42 PM Taking 40 mg twice a day >> Areli Moore RN 05/24/2018 1:43 PM >> ARELI MOORE RN WedMay 24, 2018 1:43 PM Taking 400 mg twice a day FISH OIL 360 MG-1,200 MG CAPSULE >> Areli Moore RN 05/24/2018 1:45 PM >> ARELI MOORE RN WedMay 24, 2018 1:45 PM Taking 2000 mg once a day Problem List As Of Date 05/24/2018 Noted Resolved Hypertension, essential [I10] INVALID FOR* Family history of breast cancer [Z80.3] INVALID FOR* More... 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 Call me if your weight increases by 3-4 pounds in a 1-4 day period of time. Be as active as you are able. If you get tired, just stop and rest for a while. Return in 2 weeks for follow up Visit Notes: >> Bernadette SparksRnKaren Huff RN May 24, 2018 3:13 PM Status: Signed EVENT MONITOR DISPOSABLE PATCH INSTRUCTIONS Patient Name: Tootie Wang Clinic Number: [id number] Skin prepped and cleansed with alcohol Patch secured to prepped area Monitor Activated Serial #: [id number] Patient Instructed: 1.) Prescribed order timeframe 2.) Bathing guidelines 3.) Usage of event button and diary documentation 4.) Return of monitor at the end of prescribed order 5.) Call with problems [phone] or [phone]. [phone] Patient expresses a good understanding of instructions Bernadette Huff RN Prescriptions ordered this encounter Disp Refills Start End MAGNESIUM OXIDE 400 MG CAPSULE 05/24/2018 Class: Med Update Route: ORAL Sig: Take 1 capsule by mouth twice daily. SACUBITRIL 49 MG-VALSARTAN 51 MG TAB* 30 t* 11 05/24/2018 Route: ORAL Sig: Take 1 tablet by mouth twice daily. FUROSEMIDE 20 MG TABLET 30 t* 11 05/24/2018 Class: Med Update Route: ORAL Sig: Take 1 tablet by mouth once daily. CARVEDILOL 3.125 MG TABLET 60 t* 11 05/24/2018 Route: ORAL Sig: Take 1 tablet by mouth twice daily with meals. Medications Discontinued During This Encounter spironolactone (ALDACTONE) 25 mg tab* 05/24/2018 Class: Historical Med Route: ORAL Sig: Take 25 mg by mouth once daily. Disc: Duplicate Entry perflutren lipid microspheres (DEFIN* 1.3 * 0 05/09/2018 05/24/2018 Class: In Office Route: INTRAVENOUS Sig: Inject 1.3 mL intravenously as directed. Disc: Discontinued by another Health Care Provider pantothenic acid, vit B5, (PANTOTHEN* 05/24/2018 Class: Historical Med Route: ORAL Sig: Take 500 mcg by mouth once daily. Disc: Discontinued by Patient Multivitamin capsule 05/24/2018 Class: Historical Med Route: ORAL Sig: Take 4 capsules by mouth once daily. Disc: Duplicate Entry Magnesium Oxide 420 mg tab 05/24/2018 Class: Historical Med Route: ORAL Sig: Take 1 tablet by mouth twice daily. Disc: Duplicate Entry LOW-DOSE ASPIRIN ORAL 05/24/2018 Class: Historical Med Route: ORAL Sig: Take 81 mg by mouth once daily. Disc: Duplicate Entry ibuprofen (MOTRIN) 200 mg tablet 01/31/2018 05/24/2018 Class: Historical Med Route: ORAL Sig: Take 1-2 tablets by mouth every 4 hours as needed for Pain (Take with food.). Disc: Duplicate Entry furosemide (LASIX) 40 mg tablet 05/24/2018 Class: Historical Med Route: ORAL Sig: Take 40 mg by mouth twice daily. Disc: Duplicate Entry CALCIUM ORAL 05/24/2018 Class: Historical Med Route: ORAL Sig: Take 4 tablets by mouth once daily. Disc: Duplicate Entry [place]-3 Fatty Acids, FISH OIL, (FISH* 01/31/2018 05/24/2018 Class: Historical Med Route: ORAL Sig: Take 1 capsule by mouth daily with breakfast. Disc: Duplicate Entry magnesium oxide 400 mg cap 04/12/2018 05/24/2018 Class: Historical Med Route: ORAL Sig: Take 400 mg by mouth once daily. Disc: Reason for discontinue is not on file. sacubitril-valsartan (ENTRESTO) 24-2* 60 t* 1 05/09/2018 05/24/2018 Route: ORAL Sig: Take 1 tablet by mouth twice daily. Do not start until 05/11/17 when you have been off the losartan for 36 hours Disc: Reason for discontinue is not on file. furosemide (LASIX) 40 mg tablet 04/12/2018 05/24/2018 Class: Historical Med Route: ORAL Sig: Take 1 tablet by mouth twice daily. Disc: Reason for discontinue is not on file. Disposition: Return in about 2 weeks (around 06/07/2018). Follow-up and Disposition History Recorded Encounter Status:Closed by ELHAM TYSON CNP on 05/25/18 PROGRESS Observed: 05/24/2018 Status: COMPLETED Source: [place] 12:[address] [facility] [place] REPOSITORY HNO ID: [id number] Author: Elham Wilson) Jah Service: (none) Author Type: Nurse Practitioner Type: Progress Notes Filed: 05/25/2018 4:36 PM Note Text: [facility] Heart and Vascular [place] [facility] Department of Cardiovascular Medicine SECTION OF REGIONAL CARDIOLOGY Tootie Wang is a 62 year old female who is here today for 2 week follow up. HPI: Patient was last seen by Dr. Hinds on 05/09/2018 where she was started on Entresto 24-26mg BID. She reports that ever since starting it she has had significantly less dyspnea on exertion, less fatigue, and more energy. She feels great overall. When she first started the Entresto, she was seeing some low blood pressure readings in the 80's systolic. This has evened out and she's now back to seeing 90-100's systolic. She weighs herself daily and her dry weight seems to be around 128-130lb. She is now experiencing palpitations occurring 3-4 times a day. They last a second or more, and this has now been occurring for the past 3 days. She's concerned about them. She denies chest pain, orthopnea, PND, lightheadedness, dizziness, syncope, or edema. The patient is starting cardiac rehab tomorrow. Home blood pressure is trending 95-100's systolic and 60's diastolic. Prior history: Tootie Wang is a 62 year old female who is here today for establishment of cardiac care, shortness of breath, palpitations, abnormal echo findings, congestive heart failure and cardiomyopathy. She presents for another opinion after the admission to the hospital for progressive shortness of breath early last month in April 2018. She states that she had been doing well and quite active with exercising using the T 25 disc program through the middle of last year without difficulty. She relocated from [place] in July 2017 and had some challenges with her daughter's requiring her to go back and forth to [place] this past summer in October where she spent 2 weeks there and then came back and immediately had to go to assist her mother in [place]. She states socially quite stressful period for her. She also relates that her mother had congestive heart failure in her early 60s. She was very short of breath and is slightly better now since discharge but is fairly tired after doing her usual activities daily living. During her admit at [facility] she had an Echocardiogram on 04/08/18 and this reported a LVEF [...] to 2 glasses of alcohol a day. PAST MEDICAL HISTORY Diagnosis Date - Arthritis - Dilated cardiomyopathy (HCC) EF % 10, following with Dr. Sullivan. 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 2017 Right arm. - SLING SUBURETHRAL COMPOUNDING SCALER CR TVT 2013 done in [place] uncertain brand - VAGINAL HYSTERECTOMY FAMILY HISTORY [...] Aunt - Breast Cancer Paternal Aunt SOCIAL HISTORY: Social History Marital status: Spouse name: LuceroKris Years of education: Number of children: 3 Social History Main Topics Smoking status: Never Smoker Smokeless tobacco: Never Used Alcohol use: Yes Comment: Rare, wine Social History Narrative Lives in [place], relocated from [place], 3 adult children and 3 grandchildren in [place], and 1 in [place]. ALLERGIES: Lortab [Hydrocodone-Acetaminophen] CURRENT MEDICATIONS: Current Outpatient Prescriptions: furosemide (LASIX) 20 mg tablet Take 1 tablet by mouth once daily. levothyroxine (SYNTHROID) 75 mcg tablet Take 1 tablet by mouth daily before breakfast. docosahexanoic acid/epa (FISH OIL ORAL) Take 2,000 mg by mouth once daily. aspirin, enteric coated (ASPIRIN, ENTERIC COATED) 81 mg EC tablet Take 1 tablet by mouth once daily. spironolactone (ALDACTONE) 25 mg tablet Take 1 tablet by mouth once daily. vit-iron fumarate-fa ( MULTIVITAMINS) 28 mg iron- [...] Take 1 capsule by mouth once daily. magnesium oxide 400 mg cap Take 1 capsule by mouth twice daily. sacubitril-valsartan (ENTRESTO) 49-51 mg tablet Take 1 tablet by mouth twice daily. carvedilol (COREG) 3.125 mg tablet Take 1 tablet by mouth twice daily with meals. No current facility-administered medications for this visit. ROS: Card: See present history. Pulm: Negative for cough, hemoptysis, wheezing, COPD, dyspnea or shortness of breath Gastro: No nausea, vomiting, or diarrhea GenUr: [...] review of systems is negative. PHYSICAL EXAMINATION: BP 102/76 (BP Site: Right Arm, BP Position: Sitting, BP Cuff Size: Regular Adult) Pulse 65 Resp 16 Ht 149.9 cm (4' 11) Wt 59 kg (130 lb) SpO2 97% BMI 26.26 kg/m? Last 3 Encounter BP Readings: Date: BP: 05/16/2018 107/76 05/09/2018 130/70 04/13/2018 104/60 Last 3 Encounter Pulse Readings: Date: Pulse: 05/16/2018 87 05/09/2018 78 04/13/2018 88 Last 3 Encounter Wt Readings: Date: Wt: 05/16/2018 59.9 kg (132 lb) 05/09/2018 60 kg (132 lb 4.8 oz) 04/13/2018 59 kg (130 lb) GENERAL: alert cooperative, pleasant oriented x 3 (self, time and place) in no acute distress SKIN: warm, dry, no rash. NECK: supple, no palpable masses, no JVD, carotids well felt, no bruits. CARD: Sullivan palpable in the 5th intercostal space mid clavicular line, normal S1 and S2, no murmurs, gallops, or rubs. RESP: Normal respiratory efforts, lungs clear to auscultation bilaterally. ABDOMEN: Soft, no tenderness, rigidity, or masses. No palpable liver or spleen. Normal bowel sounds, no bruits. NEURO: intact cranial nerves II through XII, no motor or sensory deficits in all 4 extremities. EXTREMITIES: No cyanosis, clubbing, or edema. Peripheral pulses well felt. LABS: Glucose (mg/dL) Date Value 05/19/2018 46 Potassium (mmol/L) Date Value 05/19/2018 4.4 Sodium (mmol/L) Date Value 05/19/2018 140 Chloride (mmol/L) Date Value 05/19/2018 97 CO2 (mmol/L) Date Value 05/19/2018 31 Creatinine (mg/dL) Date Value 05/19/2018 0.84 BUN (mg/dL) Date Value 05/19/2018 27 Anion Gap (mmol/L) Date Value 05/19/2018 12 Calcium (mg/dL) Date Value 05/19/2018 10.3 Protein, Total (g/dL) Date Value 05/19/2018 8.0 Albumin (g/dL) Date Value 05/19/2018 4.8 Bilirubin, Total (mg/dL) Date Value 05/19/2018 0.4 Alkaline Phosphatase (U/L) Date Value 05/19/2018 76 AST (U/L) Date Value 05/19/2018 31 ALT (U/L) Date Value 05/19/2018 28 Hemoglobin (g/dL) Date Value 04/05/2018 13.8 Hematocrit (%) Date Value 04/05/2018 42.9 WBC (k/uL) Date Value 04/05/2018 5.84 Cholesterol, Total (mg/dL) Date Value 02/03/2018 232 HDL Cholesterol (mg/dL) Date Value 02/03/2018 79 LDL Cholesterol (mg/dL) Date Value 02/03/2018 134 Triglyceride (mg/dL) Date Value 02/03/2018 96 CARDIAC TESTING: Echocardiogram (04/08/2018, Siobhan): INTERPRETATION - The estimated ejection fraction is 10 %. - Stage 2 diastolic dysfunction. - There is severe global hypokinesis of the left ventricle. - Mildly dilated right ventricle. - The left atrium is moderately enlarged. - Mild (1+) mitral valve insufficiency. - Mild (1+) tricuspid valve insufficiency. - Right ventricular systolic pressure estimated to be 35 mmHg. - Trivial aortic valve insufficiency. - Moderate size left pleural effusion. Cardiac Catheterization (04/11/2018, Siobhan): CONCLUSIONS: normal coronaries, dilated cardiomyopathy ASSESSMENT/PLAN: 1. Palpitations - Stated 3 days ago, now occurring 3-4 times a day - Brief and fleeting - I will order a 3 day Zio patch 2. Chronic systolic heart failure - Echo 04/2018: EF 10%, grade II LVDD - NYHA FC III - Appears euvolemic on my exam today - Decrease furosemide to 20mg daily - She is starting cardiac rehab tomorrow - Consult to CHF clinic ? 2. Nonischemic cardiomyopathy - Etiology unclear at this time - Echo did not suggest a classic Takotsubo morphology - [facility] 04/2018 (Siobhan): normal coronaries - Continue ARNI, MRA, and BB - Increase Entresto to 49-51mg BID - Check lab work in 1 week - Repeat Echo arrange for July 2018 and if LVEF remains < 35%, in spite of optimal medical therapy, ICD will be indicated. ? 3. Essential hypertension - Good control - Encouraged dietary sodium restriction/DASH diet - Reviewed risks of HTN and principles of treatment - Goal of BP <130/80 ? 4. Hypothyroidism - Following with endocrinology Conclusion: Patient here for a 2 week follow up after initiation of Entresto. She feels much better with less fatigue, more energy, and significantly less dyspnea on exertion. Blood pressures have been stable in the high 90's-100's systolic. No lightheadedness, dizziness, or syncope. I will increase her Entresto to 49-51mg BID and check lab work in 1week. She is currently on 40mg of furosemide daily with no signs of volume overload. I will decrease this to 20mg daily given the increase in ARNI. She is to continue daily weights and call me if her weight goes up by 3-4lb in 1-4 day period of time. She is also reporting palpitations that started 3 days ago. They are now occurring 3-4 times a day and she's quite concerned about this. They are brief, lasting only a few seconds and she has not had any yet today. What she's describing sounds like ectopy, however, I will get a 3 day Zio patch to screen for any arrhythmias given her decreased LV systolic function. She is to return for follow up with me in 2 weeks. Impression and plan discussed and collaborated with Dr. Hinds CONTACT INFORMATION: Elham Tyson APRN.[facility] Cardiology Nurse Practitioner Section of Regional Cardiology [facility] Dept of Cardiovascular Medicine [facility] Heart and Vascular [place] [address] [place] [address] Office Office PROGRESS Observed: 05/23/2018 Status: COMPLETED Source: [place] 10:54 AM [facility] RE[facility] HNO ID: [id number] Author: Todd Bocanegra (Marylin Terrazas Service: (none) Author Type: Front Maker Type: Progress Notes Filed: 05/23/2018 10:54 AM Note Text: Preliminary report complete; results under cardiac tab. TCOLETTE Curran CNOV Observed: 05/23/2018 Status: COMPLETED Source: [place] 10:00 AM [facility] REPOS[facility] Office Visit ([facility]) TOOTIE WANG ([id number]) 1955 F Date Time Provider Department 05/23/18 10:00 AM ALEX TERRAZAS ([facility]) [facility] During your visit today, we recorded the following information about you: COLETTE Delgado 05/23/2018 10:54 AM Signed Preliminary report complete; results under cardiac tab. COLETTE Delgado Referring Provider: JANET HINDS [[id number]] Allergies As of Date: 05/23/2018 Noted Allergy Reaction LORTAB (HYDROCODONE-ACETAMINOPHEN)02/07/2018 8 - GI Upset Comments: Severe nausea Date Reviewed: 05/16/2018 Reviewed by: Martha Marina Ma - Fully Assessed Primary Visit Diagnosis:Cardiomyopathy, nonischemic (HCC) [I42.8] Order(s):STRESS REGULAR W/TREAD [[id number]] Order #: [id number]: 1 FUTURE STRESS REGULAR W/TREAD [[id number]] Order #: [id number]: 1 Prescriptions as of 05/23/2018 Sig: LEVOTHYROXINE [...] METABOLIC PANEL Collected: 05/19/2018 Status: F Source: [place] 10:[address] [facility] [place] REPOSITORY TYPE CODE TESTS RESULT OUT OF REFERENCE UNITS RANGE LAB TP 6.3-8.0 g/dL Protein, Total 8.0 LAB ALB 3.9-4.9 g/dL Albumin 4.8 LAB CA 8.5-10.2 mg/dL Calcium, High Total 10.3 LAB TBIL 0.2-1.3 mg/dL Bilirubin, Total 0.4 LAB ALKP 34-123 U/L Alkaline Phosphatase 76 LAB AST 13-35 U/L AST 31 LAB GLU 74-99 mg/dL Low Glucose 46 Result Comment: The [place] Diabetes Association (ADA) provides guidance for cutoff [...] Standards of Medical Care in Diabetes 2016, [place] Diabetes Association. Diabetes Care. 2016.39(Suppl 1). This [...] By: #### CMP, TSH, T4FTI, MICRO #### [facility] [employer] [address] [place], [place] [address] TSH Collected: 05/19/2018 Status: F Source: [place] 10:42 AM [facility] RE[facility] TYPE CODE TESTS RESULT OUT OF RANGE REFERENCE UNITS LAB TSH 0.400-5.500 uU/mL TSH 1.220 Performed By: #### CMP, TSH, T4FTI, MICRO #### [facility] [employer] [address] [place], [place] [address] T4/FTI Collected: 05/19/2018 Status: F Source: [place] 10:42 AM [facility] RE[facility] TYPE CODE TESTS RESULT OUT OF REFERENCE UNITS RANGE LAB T4 5.5-10.2 ug/dL T4 6.5 LAB T4U 0.91-1.19 T4 Uptake 1.08 LAB FTI 5.3-10.8 ug/dL FTI 6.0 Performed By: #### CMP, TSH, T4FTI, MICRO #### [facility] [address] [place] [address] TPO ANTIBODY Collected: 05/19/2018 Status: F Source: [place] 10:42 AM [facility] TYPE CODE TESTS RESULT OUT OF REFERENCE UNITS RANGE LAB MICRO <5.6 IU/mL High TPO Antibody 11.9 Performed By: #### CMP, TSH, T4FTI, MICRO #### [facility] [address] [place] [address] FREE T3 Collected: 05/19/2018 Status: F Source: [place] 10:42 AM [facility] RE[facility] TYPE CODE TESTS RESULT OUT OF RANGE REFERENCE UNITS LAB FREET3 2.3-4.1 pg/mL High Free T3 6.1 Performed By: #### FREET3, FT4 #### [place] [address] FREE T4 Collected: 05/19/2018 Status: F Source: [place] 10:42 AM [facility] TYPE CODE TESTS RESULT OUT OF RANGE REFERENCE UNITS LAB FT4 0.9-1.7 ng/dL Free T4 1.2 Performed By: #### FREET3, FT4 #### [facility] [address] [place] [address] PROGRESS Observed: 05/16/2018 Status: COMPLETED Source: [place] 12:45 PM [facility] HNO ID: [id number] Author: Marta Vargas Service: (none) Author Type: [...] negative cardiac cath - Hypertension - Pneumonia 2015 - Squamous cell skin cancer 2016 right hand - Thyroid disorder PAST SURGICAL HISTORY Procedure Laterality Date - COLONOSCOPY 04/04/2013 splenic fixure polyp, removed and sent for path- hyperplastic polyp; [facility] - LAPAROSCOPIC BLADDER REPAIR 2014 - ROTATOR CUFF REPAIR Bilateral 2015 Left arm. 2017 Right arm. - SLING SUBURETHRAL COMPOUNDING SCALER CR TVT 2012 done in [place] uncertain brand - VAGINAL HYSTERECTOMY Social History Marital status: Spouse name: Kris Pickard Years of education: Number of children: 3 Social History Main Topics Smoking status: Never Smoker Smokeless tobacco: Never Used Alcohol use: Yes Comment: Rare, wine Social History Narrative Lives in [place], relocated from [place], 3 adult children and 3 grandchildren in [place], and 1 in [place]. Immunization History Administered Date(s) Administered Influenza Seasonal Inj Age 3+ 01/18/2015 03/01/2017 Influenza Seasonal Inj Quadrivalent Age 3+ 02/07/2018 Pneumococcal-13 Vac Conjugate 05/17/2014 Pneumovax 01/29/2014 Tdap (Age 7+) 01/18/2015 04/13/2018 Zostavax 01/18/2015 ALLERGIES Allergen Reactions - Lortab [Hydrocodone* GI Upset Severe nausea Current Outpatient Prescriptions on File Prior to Visit: perflutren lipid microspheres (DEFINNomios) 1.1 mg/mL injection (to be provided with [...] as needed for Pain (Take with food.). [place]-3 Fatty Acids, FISH OIL, (FISH OIL) 360-1,200 [...] labs--labs reviewed Labs drawn Apr 11, 2018 ([facility]) showed TSH 1.98, free T4 1.0, free T3 2.6--all WNL I reviewed the Striper Spray Gun's notes with this visit for vital signs, [...] was treated with compounding Rxs by her CATTYMAN when she lived in [place] and moved to [place] this past spring due to 's career. The patient is presently taking compounded thyroid hormone from [facility] [place] with T3 20 mcg + T4 60 mcg one tablet daily except on Wednesday when she takes 2 tablets to manage her hypothyroidism (she has been on this dosage since Apr 11--it was increased from T4 40 mcg to 60 mcg and one extra tablet was added per week also). She was admitted to [facility] with SOB and edema, with the suspicion that she had pneumonia but was found to have CHF. States she has always been healthy--this hospitalization and diagnosis of CHF was a shock to her. She reports being under much stress this summer -elderly mother in [place] was ill -- she travelled to care for her -her daughter (daughter is a nurse) who lives in [place] had difficult and had premature of grandson---she [...] constipation REPRODUCTIVE/Gyne: using compounding creams --followed by COMPOUNDING SCALER Eyes: denies any recent visual changes ; [...] was treated with compounding Rxs by her CATTYMAN when she lived in [place] and moved to [place] this past spring due to 's career. The patient is presently taking compounded thyroid hormone from [facility] in [place] with T3 20 mcg + T4 60 mcg one tablet daily except on Wednesday when she takes 2 tablets to manage her hypothyroidism (she has been on this dosage since Apr 11--it was increased from T4 40 mcg to 60 mcg and one extra tablet was added per week also). She was admitted to [facility] last month for CHF. Plan -labs: [...] up in 3 months. Marta Vargas MSN, SCREEN PRINTING LOADER UNLOADER, CDE Department of Endocrinology, Diabetes and Metabolism CNOV Observed: 05/16/2018 Status: COMPLETED Source: [place] 12:45 PM [facility] REPOSITORY Office Visit (ENDMED) TOOTIE WANG ([id number]) 1955 F Date Time Provider Department 05/16/18 12:45 PM MARTA VARGAS (ISAIAS) END[facility] During your visit today, we recorded the [...] removed and sent for path- hyperplastic polyp; [facility] - LAPAROSCOPIC BLADDER REPAIR 2014 - ROTATOR CUFF REPAIR Bilateral 2015 Left arm. 2017 Right arm. - SLING SUBURETHRAL COMPOUNDING SCALER CR TVT 2013 done in [place] uncertain brand - VAGINAL HYSTERECTOMY Social History Marital status: Spouse name: Kris Pickard Years of education: Number of children: 3 Social History Main Topics Smoking status: Never Smoker Smokeless tobacco: Never Used Alcohol use: Yes Comment: Rare, wine Social History Narrative Lives in [place], relocated from [place], 3 adult children and 3 grandchildren in [place], and 1 in [place]. Immunization History Administered Date(s) Administered Influenza Seasonal Inj Age 3+ 01/18/2015 03/01/2017 Influenza Seasonal Inj Quadrivalent Age 3+ 02/07/2018 Pneumococcal-13 Vac Conjugate 05/17/2014 Pneumovax 01/29/2014 Tdap (Age 7+) 01/18/2015 04/13/2018 Zostavax 01/18/2015 ALLERGIES Allergen Reactions - Lortab [Hydrocodone* GI Upset Severe nausea Current Outpatient Prescriptions on File Prior to Visit: perflutren lipid microspheres (DEFINNomios) 1.1 mg/mL injection (to be provided with [...] as needed for Pain (Take with food.). [place]-3 Fatty Acids, FISH OIL, (FISH OIL) 360-1,200 [...] labs--labs reviewed Labs drawn Apr 11, 2018 ([facility]) showed TSH 1.98, free T4 1.0, free T3 2.6--all WNL I reviewed the Striper Spray Gun's notes with this visit for vital signs, [...] was treated with compounding Rxs by her CATTYMAN when she lived in [place] and moved to [place] this past spring due to 's career. The patient is presently taking compounded thyroid hormone from [facility] in [place] with T3 20 mcg + T4 60 mcg one tablet daily except on Wednesday when she takes 2 tablets to manage her hypothyroidism (she has been on this dosage since Apr 11--it was increased from T4 40 mcg to 60 mcg and one extra tablet was added per week also). She was admitted to [facility] with SOB and edema, with the suspicion that she had pneumonia but was found to have CHF. States she has always been healthy--this hospitalization and diagnosis of CHF was a shock to her. She reports being under much stress this summer -elderly mother in [place] was ill -- she travelled to care for her -her daughter (daughter is a nurse) who lives in [place] had difficult and had premature of grandson---she [...] constipation REPRODUCTIVE/Gyne: using compounding creams --followed by COMPOUNDING SCALER Eyes: denies any recent visual changes ; [...] was treated with compounding Rxs by her CATTYMAN when she lived in [place] and moved to [place] this past spring due to 's career. The patient is presently taking compounded thyroid hormone from [facility] in [place] with T3 20 mcg + T4 60 mcg one tablet daily except on Wednesday when she takes 2 tablets to manage her hypothyroidism (she has been on this dosage since Apr 11--it was increased from T4 40 mcg to 60 mcg and one extra tablet was added per week also). She was admitted to [facility] last month for CHF. Plan -labs: [...] up in 3 months. Marta Vargas MSN, SCREEN PRINTING LOADER UNLOADER, CDE Department of Endocrinology, Diabetes and Metabolism Marta Vargas APRN.ISAIAS 05/16/2018 1:58 PM Signed Have labs drawn at the end of this week Free T3 Free T4 TSH I will send you message via Lexdir and will send Rx of levothyroxine to your [facility] pharmacy after I review the labs Follow up here in 3 months AACE Referring Provider: FAINA KWON ([facility]) [[id number]] Allergies As of Date: 05/16/2018 Noted Allergy Reaction LORTAB (HYDROCODONE-ACETAMINOPHEN)02/07/2018 8 - GI Upset Comments: Severe nausea Date Reviewed: 05/16/2018 Reviewed by: Martha Marina Ma - Fully Assessed Reason for Visit: Thyroid Problem [110] Visit Diagnosis: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 [E03.8, E06.3] Order(s):TSH BLD [SQTSH] Order #: [id number] FUTURE T3 FREE BLD [SQFREET3] Order #: [id number] FUTURE T4 FREE/FREE THYROX [SQFT4] Order #: [id number] FUTURE COMPOUNDED PRESCRIPTIONCompounded formulation of T3 20 [...] TSH I will send you message via Lexdir and will send Rx of levothyroxine to your [facility] pharmacy after I review the labs Follow [...] 05/17/18 MANUEL Observed: 05/12/2018 Status: COMPLETED Source: [place] 12:00 AM [facility] REPOS[facility] Telephone (CARDMM) TOOTIE WANG ([id number]) 1955 F Date Time Provider Department 05/12/18 [...] today. Has an Endo appt. Wednesday at [facility] Elham Tyson APRN.ISAIAS 05/13/2018 3:51 PM Signed [...] COMPLETE W Observed: 05/09/2018 Status: F Source: [facility] 2:[address] [facility] REPOSITORY NAME : TOOTIE WANG PID : [id number] : 1955 Gender : Female Race : ORD : [id number] Procedure Date : May 09 2018 14:00:39 [...] ms QTC Calculation(Bezet) : 476 ms P [place] : 74 degrees R [place] : 1 degrees T [place] : 67 degrees Test Reason : Location : 158 : MEFM Overread By : JANET HINDS D.O. Edited By : JANET HINDS D.O. Referred By : JANET HINDS Acquired by : SUNDAR, PROGRESS Observed: 05/09/2018 Status: COMPLETED Source: [place] 1:[address] [facility] REPOSITORY HNO ID: [id number] Author: Janet Hinds Service: (none) Author Type: Physician Type: Progress Notes Filed: 05/09/2018 6:01 PM Note Text: [facility] Heart and Vascular [place] Rosy Wade Department of Cardiovascular Medicine SECTION [...] for another opinion after the admission to [facility] to the hospital for progressive shortness of breath early last month in April 2018. She states that she had been doing well and quite active with exercising using the T 25 disc program through the middle of last year without difficulty. She relocated from [place] in July 2017 and had some challenges with her daughter's requiring her to go back and forth to [place] this past summer in October where she spent 2 weeks there and then came back and immediately had to go to assist her mother in [place]. She states socially quite stressful period for her. She also relates that her mother had congestive heart failure in her early 60s. She was very short of breath and is slightly better now since discharge but is fairly tired after doing her usual activities daily living. During her admit at [facility] she had an echocardiogram on 04/08/18 [...] removed and sent for path- hyperplastic polyp; [facility] - LAPAROSCOPIC BLADDER REPAIR 2013 - ROTATOR CUFF REPAIR Bilateral 2015 Left arm. 2017 Right arm. - SLING SUBURETHRAL COMPOUNDING SCALER CR TVT 2012 done in [place] uncertain brand - VAGINAL HYSTERECTOMY FAMILY HISTORY [...] Rare, wine Social History Narrative Lives in [place], relocated from [place], 3 adult children and 3 grandchildren in [place], and 1 in [place]. ALLERGIES: Lortab [Hydrocodone-Acetaminophen] CURRENT MEDICATIONS: Current Outpatient [...] as needed for Pain (Take with food.). [place]-3 Fatty Acids, FISH OIL, (FISH OIL) 360-1,200 [...] JVD, carotids well felt, no bruits. CARDIAC: Sullivan palpable in the 5th intercostal space mid [...] well felt. CARDIAC (AND OTHER IMPORTANT) TESTING: [place] Echo: ECHOCARDIOGRAM COMPLETE Observed: 04/08/2018 4:11 PM Status: F Source: [facility] REPOSITORY [facility] Cardiovascular Services [address] [place] [address] Echo Complete 04/08/18 1347 MR#: [id number] Acct: [id number] Name: TOOTIE WANG Rep #: [id number] : 1955 62 From: Jax Neri MD [...] - Etiology unclear at this time - [facility] with normal coronaries 04/2018 - ECHO 3 [...] DO, FACC, FCCP, FACOI CC: Faina Kwon APRN.SCREEN PRINTING LOADER UNLOADER [address] [place] [address] MICHAELOV Observed: 05/09/2018 Status: COMPLETED Source: [place] 1:40 PM [facility] Office Visit (DANIELA) TOOTIE WANG ([id number]) 1955 F Date Time Provider Department 05/09/18 1:40 PM JANET HINDS During your visit today, we recorded the following information about you: Pulse Blood pressure Weight Height 78/minute 130/70 60 kg 1.499 m Janet Hinds DO 05/09/2018 6:01 PM Signed [facility] Heart and Vascular [place] Wade Department of Cardiovascular Medicine SECTION [...] for another opinion after the admission to [facility] to the hospital for progressive shortness of breath early last month in April 2018. She states that she had been doing well and quite active with exercising using the T 25 disc program through the middle of last year without difficulty. She relocated from [place] in July 2017 and had some challenges with her daughter's requiring her to go back and forth to [place] this past summer in October where she spent 2 weeks there and then came back and immediately had to go to assist her mother in [place]. She states socially quite stressful period for her. She also relates that her mother had congestive heart failure in her early 60s. She was very short of breath and is slightly better now since discharge but is fairly tired after doing her usual activities daily living. During her admit at [facility] she had an echocardiogram on 04/08/18 [...] removed and sent for path- hyperplastic polyp; [facility] - LAPAROSCOPIC BLADDER REPAIR 2014 - ROTATOR CUFF REPAIR Bilateral 2015 Left arm. 2017 Right arm. - SLING SUBURETHRAL COMPOUNDING SCALER CR TVT 2013 done in [place] uncertain brand - VAGINAL HYSTERECTOMY FAMILY HISTORY [...] Rare, wine Social History Narrative Lives in [place], relocated from [place], 3 adult children and 3 grandchildren in [place], and 1 in [place]. ALLERGIES: Lortab [Hydrocodone-Acetaminophen] CURRENT MEDICATIONS: Current Outpatient [...] as needed for Pain (Take with food.). [place]-3 Fatty Acids, FISH OIL, (FISH OIL) 360-1,200 [...] JVD, carotids well felt, no bruits. CARDIAC: Sullivan palpable in the 5th intercostal space mid [...] well felt. CARDIAC (AND OTHER IMPORTANT) TESTING: [place] Echo: ECHOCARDIOGRAM COMPLETE Observed: 04/08/2018 4:11 PM Status: F Source: [facility] REPOSITORY [facility] Cardiovascular Services [address] [place] [address] Echo Complete 04/08/18 1347 MR#: [id number] Acct: [id number] Name: TOOTIE WANG Rep #: [id number] : 1955 62 From: Jax Neri MD [...] - Etiology unclear at this time - [facility] with normal coronaries 04/2018 - ECHO 3 [...] DO, FACC, FCCP, FACOI CC: Faina Kwon APRN.SCREEN PRINTING LOADER UNLOADER [address] [place] [address] Janet Hinds DO 05/09/2018 2:54 PM Addendum [...] our cardiology nurse practitioner, Elham Hinds DO, FACC, FCCP, FACOI Referring Provider: FAINA KWON ([facility]) [[id number]] Allergies As of Date: 05/09/2018 Noted Allergy [...] Order(s):ECG COMPLETE W INTERPRETATION [ECG01] Order #: [id number] FUTURE ECHO [987562] Order #: [id number]: 1 FUTURE perflutren lipid microspheres (DEFINITY) 1.1 mg/mL injection (to be provided with echo procedure)Inject 1.3 mL intravenously as directed.Disp: 1.3 mLRfl: 0 sacubitril-valsartan (ENTRESTO) 24-26 mg tabletTake 1 tablet by mouth twice daily. Do not start until 05/11/17 when you have been off the losartan for 36 hoursDisp: 60 tabletRfl: 1 [facility] [] Order #: [id number]: 1 Prescriptions as of 05/09/2018 Sig: ASPIRIN [...] 05/09/2018 1:44 PM >> GENIE DEE MA May 09, 2018 1:44 PM duplicate SPIRONOLACTONE 25 MG TABLET >> Genie Dee Ma 05/09/2018 1:46 PM >> GENIE DEE MA May 09, 2018 1:46 PM duplicate CARVEDILOL 3.125 MG TABLET >> Genie Dee Ma 05/09/2018 1:44 PM >> GENIE DEE MA May 09, 2018 1:44 PM duplicate LOSARTAN 50 MG TABLET >> Genie Dee Ma 05/09/2018 1:45 PM >> KENNEDY MANGENIE Erika May 09, 2018 1:45 PM duplicate Problem List [...] CARDIOLOGY VISIT Observed: 04/16/2018 Status: F Source: [place] RE[facility] 11:46 AM [facility] REPOSITORY [facility] [address] [place] [address]. [address] [place] [address] OFFICE VISIT Date of Service: 04/15/18 MR#: [id number] Acct: [id number] Name: TOOTIE WANG Rep #: [id number] : 1955 Provider: Amanda Franks Age/Sex: 62/F Location: [facility] Status: Signed HPI HPI Chief Complaint: CHF [...] 12-10 post-cath, wants sooner than 1 mo Laser Beam Trim Operator Required: No Accompanied by: none Is patient in pain?: No Allergies acetaminophen [From Lortab] Adverse Reaction (Verified 04/15/18 09:36) Nausea hydrocodone [From Lortab] Adverse Reaction (Verified 04/15/18 09:36) Nausea Medications Calcium Citrate/Vitamin D3 [Calcium Citrate-Vit D3 Tablet] 1,000 mg PO DAILY 04/08/18 [History Confirmed 04/08/18] Losartan Potassium [Cozaar] 75 mg PO DAILY 04/08/18 [History Confirmed 04/08/18] [place]-3 Fatty Acids [Fish Oil] 1,500 mg PO [...] prior to saving. Follow Up 1 Month (GROVE WORKER/MMM) Coding Level of Care Code Off vis,est,level [...] BASIC METABOLIC Collected: 04/15/2018 Status: F Source: [place] PROFILE (BMP) 10:49 AM [facility] REPOSITORY TYPE CODE TESTS RESULT OUT [...] GAP 11 Performed By: #### L500.2500 #### [facility] [address] [place], [address] PROGRESS Observed: 04/14/2018 Status: COMPLETED Source: [place] 11:42 AM [facility] HNO ID: [id number] Author: Marc Cabrera) Service: (none) Author Type: Registered Nurse Type: Progress Notes Filed: 04/14/2018 5:46 PM Note Text: PRIMARY CARE COORDINATION FOLLOW-UP NOTE Provider Action/FYI The new / changed medications were pended 04/12/18 for PCP/SCREEN PRINTING LOADER UNLOADER review Patient identified by name and date of . YES Signature Tawny Tran RN April 14, 2018 PROGRESS Observed: 04/13/2018 Status: COMPLETED Source: [place] 3:[address] [facility] [place] REPOSITORY HNO ID: [id number] Author: Manjit Sandhu (Sw) Service: (none) Author Type: Car Driver Type: Progress Notes Filed: 04/13/2018 3:23 PM Note Text: Patria provided patient and spouse both with healthcare poa and living will copies. Patient and spouse will review and then have witnesses sign forms. PROGRESS Observed: 04/13/2018 Status: COMPLETED Source: [place] 3:04 PM [facility] HNO ID: [id number] Author: Faina Lei (Isaias) Marisa Service: (none) [...] who presents for TCM after hospitalization at [facility] New onset CHF, EF 10%. PHYSICAL [...] APRN.ISAIAS CNOV Observed: 04/13/2018 Status: COMPLETED Source: [place] 1:20 PM [facility] Office Visit (FAMPWS) TOOTIE WANG ([id number]) 1955 F Date Time Provider Department 04/13/18 1:20 PM [facility] During your visit today, we recorded [...] vm for Manjit Sandhu Pt is from [place] and wants to complete POA paper work. ? Initial contact with patient post discharge, spoke to Pt. Patient identified by name and . ? TRANSITION CARE MANAGEMENT: Date of Outreach: 04/12/2018 Outreach Attempt 1: Contact Made Date of Discharge 04/11/2018 Some recent data might be hidden ? ? SUMMARY: -Pt discharged from [facility] on 04/11/18. -Follow up appointment on 04/13/18. -Medication review done 04/12/18. -Admitted for: CHF ? NEW MEDICATIONS: Medications pended for review ? MEDS HELD/DISCONTINUED: ? ? BRIEF HOSPITAL COURSE: [facility] Discharge Excerpt ? Pt is a [...] 1 wk. ? Received Discharge info to Pcp/SCREEN PRINTING LOADER UNLOADER for review Tawny Tran RN April 12, 2018 10:11 AM ? ? Patient Outreach Open 04/12/2018 Family Medicine [place] Marc Steel (Tereso) Transition Of Care Reason for Visit Progress [...] Discussed ACP: Left a vm for Manjit Samuelsbilly Pt is from [place] and wants to complete POA paper work. ? Initial contact with patient post discharge, spoke to Pt. Patient identified by name and . ? TRANSITION CARE MANAGEMENT: Date of Outreach: 04/12/2018 Outreach Attempt 1: Contact Made Date of Discharge 04/11/2018 Some recent data might be hidden ? ? SUMMARY: -Pt discharged from [facility] on 04/11/18. -Follow up appointment on 04/13/18. -Medication review done 04/12/18. -Admitted for: CHF ? NEW MEDICATIONS: Medications pended for review ? MEDS HELD/DISCONTINUED: ? ? BRIEF HOSPITAL COURSE: [facility] Discharge Excerpt ? Pt is a [...] 1 wk. ? Received Discharge info to Pcp/SCREEN PRINTING LOADER UNLOADER for review Tawny Tran RN April 12, [...] who presents for TCM after hospitalization at [facility] New onset CHF, EF 10%. PHYSICAL [...] - f/u in 1 month Faina Kwon APRN.SCREEN PRINTING LOADER UNLOADER Referring Provider: ER STAFF [[id number]] Allergies As of Date: 04/13/2018 Noted Allergy [...] tabletRfl: 1 TDAP VACCINE AGE 7+ IM [[id number]] Order #: [id number] Prescriptions as of 04/13/2018 Sig: CALCIUM CITRATE [...] a for Manjit Sandhu Pt is from [place] and wants to complete POA paper work. ? Initial contact with patient post discharge, spoke to Pt. Patient identified by name and . ? TRANSITION CARE MANAGEMENT: Date of Outreach: 04/12/2018 Outreach Attempt 1: Contact Made Date of Discharge 04/11/2018 Some recent data might be hidden ? ? SUMMARY: -Pt discharged from [facility] on 04/11/18. -Follow up appointment on 04/13/18. -Medication review done 04/12/18. -Admitted for: CHF ? NEW MEDICATIONS: Medications pended for review ? MEDS HELD/DISCONTINUED: ? ? BRIEF HOSPITAL COURSE: [facility] Discharge Excerpt ? Pt is a [...] 1 wk. ? Received Discharge info to Pcp/SCREEN PRINTING LOADER UNLOADER for review Tawny Tran RN April 12, 2018 10:11 AM ? ? Patient Outreach Open 04/12/2018 Family Medicine [place] Marc Steel (Rn) Transition Of Care Reason [...] vm for Manjit Sandhu Pt is from [place] and wants to complete POA paper work. ? Initial contact with patient post discharge, spoke to Pt. Patient identified by name and . ? TRANSITION CARE MANAGEMENT: Date of Outreach: 04/12/2018 Outreach Attempt 1: Contact Made Date of Discharge 04/11/2018 Some recent data might be hidden ? ? SUMMARY: -Pt discharged from [facility] on 04/11/18. -Follow up appointment on 04/13/18. -Medication review done 04/12/18. -Admitted for: CHF ? NEW MEDICATIONS: Medications pended for review ? MEDS HELD/DISCONTINUED: ? ? BRIEF HOSPITAL COURSE: [facility] Discharge Excerpt ? Pt is a [...] 1 wk. ? Received Discharge info to Pcp/SCREEN PRINTING LOADER UNLOADER for review Tawny Tran RN April 12, [...] 04/13/18 CNSW Observed: 04/13/2018 Status: COMPLETED Source: [place] 12:00 AM [facility] Social Work (ANDREAS) TOOTIE WANG ([id number]) 1955 F Date Time Provider Department 04/13/18 MANJIT SANDHU) ANDREAS During your visit today, we recorded the following information about you: IRIS Mukherjee-[employer] WEBSPHERE COMMERCE DEVELOPER 04/13/2018 3:23 PM Signed Patria provided patient and spouse both with healthcare [...] 04/13/18 PROGRESS Observed: 04/12/2018 Status: COMPLETED Source: [place] 10:[address] [facility] [place] REPOSITORY HNO ID: [id number] Author: Marc Steel (Rn) Service: (none) Author [...] vm for Manjit Sandhu Pt is from [place] and wants to complete POA paper work. Initial contact with patient post discharge, spoke to Pt. Patient identified by name and . TRANSITION CARE MANAGEMENT: Date of Outreach: 04/12/2018 Outreach Attempt 1: Contact Made Date of Discharge 04/11/2018 Some recent data might be hidden SUMMARY: -Pt discharged from [facility] on 04/11/18. -Follow up appointment on 04/13/18. -Medication review done 04/12/18. -Admitted for: CHF NEW MEDICATIONS: Medications pended for review MEDS HELD/DISCONTINUED: BRIEF HOSPITAL COURSE: [facility] Discharge Excerpt Pt is a 62 [...] in 1 wk. Received Discharge info to Pcp/SCREEN PRINTING LOADER UNLOADER for review Tawny Tran RN April 12, 2018 10:11 AM 12 LEAD ELECTROCARDIOGRAM Observed: 04/12/2018 Status: F Source: [place] 9:02 AM [facility] REPOSITORY [facility] Cardiovascular Services [address] [place] [address] 12 Lead EKG 04/11/18 0459 MR#: [id number] Acct: [id number] Name: TOOTIE WANG Rep #: [id number] : 1955 62 From: Med Carvajal MD Attending Dr: Magdy Falk DO Status: DIS IN Ordering Dr: Med Carvajal MD Date: 04/11/18 Location: [facility] Sex: F C Admitted: 04/08/18 Test [...] UNCONFIRMED Confirmed by ALENA MALONE, MED ([id number]), television news video editor ELVIA FIELD ([id number]) on 04/12/2018 9:04:14 AM Referred By: Michael Merino Confirmed By:MED CARVAJAL MD 04/12/18 0904 Date Med Carvajal MD CC: MAHAD Kwon; Med Carvajal MD; Magdy Falk DO; Michael Merino DO Signed CNPTOUTREACH Observed: 04/12/2018 Status: COMPLETED Source: [place] 12:00 AM [facility] REPOSITORY Patient Outreach (FAMPWS) TOOTIE WANG ([id number]) 1955 F Date Time Provider Department 04/12/18 MARC CABRERA) FAMPWS During your visit today, we recorded [...] vm for Manjit Sandhu Pt is from [place] and wants to complete POA paper work. Initial contact with patient post discharge, spoke to Pt. Patient identified by name and . TRANSITION CARE MANAGEMENT: Date of Outreach: 04/12/2018 Outreach Attempt 1: Contact Made Date of Discharge 04/11/2018 Some recent data might be hidden SUMMARY: -Pt discharged from [facility] on 04/11/18. -Follow up appointment on 04/13/18. -Medication review done 04/12/18. -Admitted for: CHF NEW MEDICATIONS: Medications pended for review MEDS HELD/DISCONTINUED: BRIEF HOSPITAL COURSE: [facility] Discharge Excerpt Pt is a 62 [...] in 1 wk. Received Discharge info to Pcp/SCREEN PRINTING LOADER UNLOADER for review Tawny Tran RN April 12, 2018 10:11 AM Tawny Tran RN 04/14/2018 5:46 PM Signed PRIMARY CARE COORDINATION FOLLOW-UP NOTE Provider Action/FYI The new / changed medications were pended 04/12/18 for PCP/SCREEN PRINTING LOADER UNLOADER review Patient identified by name and date of . YES Signature Tawny Tran RN April 14, 2018 Allergies As of Date: 04/12/2018 Noted Allergy Reaction LORTAB (HYDROCODONE-ACETAMINOPHEN)02/07/2018 8 - GI Upset Comments: Severe nausea Date Reviewed: 04/08/2018 Reviewed by: Bucky Cavanaugh LPN - Fully Assessed Reason for Visit: Transition Of Care [4074] Cmt: [facility] D/C 04/11/18 DX: CHF Reason For [...] DISCHARGE SUMMARY Observed: 04/11/2018 Status: F Source: [place] 2:40 PM [facility] REPOSITORY [facility] Medical Records Department [address] [place] [address] Discharge Summary 04/11/18 1137 MR#: [id number] Acct: [id number] Name: TOOTIE WANG Rep #: [id number] : 1955 62 From: Catalina Bhardwaj RIGHT OF WAY CLEARER-C PCP: Faina Kwon NP Status: DIS IN Y [facility] <Catalina Bhardwaj - Last Filed: 04/11/18 11:50> [...] Jayce Granger MD at 11:32 EST Tel [phone], Service support , Thoracic Spine MRI 04/08/18 [...] Potassium [Cozaar] 75 mg PO DAILY 04/08/18 [place]-3 Fatty Acids [Fish Oil] 1,500 mg PO [...] Up With: Med Carvajal MD - See RIGHT OF WAY CLEARER/PA When: 1-2 Weeks Patient Instructions: Tips for [...] had bilateral pleural effusions and a BNP 1992. Patient was in clinical heart failure and [...] 10 Code Visit Inpatient E AND M: [id number] Disch Hosp 04/11/18 1151 <Electronically signed by Catalina POSEYC> Date Catalina Bhardwaj RIGHT OF WAY CLEARER-C 04/11/18 1440<Electronically signed by Magdy Falk DO> Cosigner Signature (if applicable): Date Magdy Falk DO CC: MAHAD Kwon; RIGHT OF WAY CLEARER-C Catalina Bhardwaj; Magdy Falk DO Signed 12 LEAD ELECTROCARDIOGRAM Observed: 04/11/2018 Status: F Source: [place] 1:55 PM [facility] REPOSITORY [facility] Cardiovascular Services [address] [place] [address] 12 Lead EKG 04/08/18 1026 MR#: [id number] Acct: [id number] Name: TOOTIE WANG Rep #: [id number] : 1955 62 From: Med Carvajal MD Attending Dr: Magdy Falk DO Status: ADM IN Ordering Dr: Lucero Vicente MD Date: 04/08/18 Location: [facility] Sex: F C Admitted: 04/08/18 Test [...] ECG Confirmed by MED CARVAJAL MD ([id number]), television news video editor ELVIA FIELD ([id number]) on 04/11/2018 1:54:45 PM Referred By: Michael Merino Confirmed By:MED CARVAJAL MD 04/11/18 1354 Date Med Carvajal MD CC: MAHAD Kwon; Magdy Falk DO; Michael Merino DO; Lucero Vicente MD Signed DISCHARGE INSTRUCTION Observed: 04/11/2018 Status: F Source: [place] 11:37 AM [facility] REPOSITORY [facility] Medical Records Department [address] [place] [address] Instructions for Home/Discharge Instructions 04/11/18 1133 MR#: [id number] Acct: [id number] Name: TOOTIE WANG Rep #: [id number] : 1955 62 From: Catalina MORTENSEN PCP: Faina Kwon NP Status: ADM IN [...] Potassium [Cozaar] 75 mg PO DAILY 04/08/18 [place]-3 Fatty Acids [Fish Oil] 1,500 mg PO [...] Up With: Med Carvajal MD - See RIGHT OF WAY CLEARER/PA When: 1-2 Weeks Proposed Discharge Date: 04/11/18 04/11/18 113 <Electronically signed by Catalina MORTENSEN> Date Catalina MORTENSEN CC: MAHAD Kwon; Med Carvajal MD CONSULTATION Observed: 04/11/2018 Status: F Source: [place] 7:29 [facility] [place] [facility] Medical Records Department [address] [place] [address] Consultation 04/09/18 1009 MR#: [id number] Acct: [id number] Name: TOOTIE WANG Rep #: [id number] : 1955 62 From: Med Carvajal MD PCP: Faina Kwon NP Status: ADM IN Y Location: [place] [address]-1 Reason for Consult Date of Consultation: 04/09/18 [...] hysterectomy. Psychiatric History: No pertinent psych hx COMPOUNDING SCALER History: No pertinent COMPOUNDING SCALER history - *Family History Maternal History Items: [...] 74.1 H, Lymph % (Auto) 18.2 L, [place] % (Auto) 6.6, Eos % (Auto) 0.4, [...] MD Cosigner Signature (if applicable): Date CC: MAHAD Kwon; Med Carvajal MD; Michael Merino DO Signed CBC W/DIFF, AUTOMATED Collected: 04/11/2018 Status: F Source: [place] 4:48 AM [facility] REPOSITORY TYPE CODE TESTS RESULT OUT [...] Lymph 1.16 Performed By: #### L100.0100 #### [facility] [address] [place], [address] PROTHROMBIN TIME W/INR Collected: 04/11/2018 Status: F Source: [place] 4:48 AM [facility] REPOSITORY TYPE CODE TESTS RESULT OUT OF RANGE REFERENCE UNITS LAB L300.4150 11.7-14.9 SECONDS Normal PROTIME 13.2 LAB L300.4200 Normal INR 1.0 Performed By: #### L300.3900, L300.4310 #### [facility] [address] [place], [place], [address] PARTIAL THROMBOPLAST Collected: 04/11/2018 Status: F Source: [place] TIME 4:48 AM [facility] REPOSITORY TYPE CODE TESTS RESULT OUT OF RANGE REFERENCE UNITS LAB L300.4310 24.1-36.2 Seconds Normal PTT 25.1 Performed By: #### L300.3900, L300.4310 #### [facility] [address] [place], [address] BASIC METABOLIC Collected: 04/11/2018 Status: F Source: [place] PROFILE (BMP) 4:48 AM [facility] REPOSITORY TYPE CODE TESTS RESULT OUT [...] GAP 10 Performed By: #### L500.2500 #### [facility] [address] [place], [address] URINALYSIS, COMPLETE Collected: 04/10/2018 Status: F Source: [place] 10:55 PM [facility] REPOSITORY Order Comment: How was Urine Obtained? CANDY WAFFLE ASSEMBLER TO SPECIFY TYPE CODE TESTS RESULT OUT [...] URINE SEEN Performed By: #### L400.0001 #### [facility] [address] [place], [address] CHEST PA AND LATERAL Observed: 04/10/2018 Status: F Source: [place] 7:54 AM [facility] REPOSITORY [facility] Imaging Services [address] [place] [address] Chest PA and Lateral MR#: [id number] Acct: [id number] Name: TOOTIE WANG Rep #: [id number] : 1955 F 62 From: Omer Mayorga DO PCP: Faina Kwon NP Status: ADM IN Study: Chest PA and Lateral Date of Exam: 04/10/18 Exam# [id number] Ordering Dr: Michael Merino DO STUDY: X-RAY [...] , CC: MAHAD Kwon; Michael Merino DO It Director: Signed BASIC METABOLIC Collected: 04/10/2018 Status: F Source: [place] PROFILE (BMP) 5:08 AM [facility] REPOSITORY TYPE CODE TESTS RESULT OUT [...] GAP 9 Performed By: #### L500.2500 #### [facility] [address] [place], [address] BASIC METABOLIC Collected: 04/09/2018 Status: F Source: [place] PROFILE (BMP) 5:15 AM [facility] REPOSITORY TYPE CODE TESTS RESULT OUT [...] 10 Performed By: #### L500.2500, L500.4100 #### [facility] [address] [place], [address] LIPID PROFILE Collected: 04/09/2018 Status: F Source: [place] 5:15 AM [facility] REPOSITORY TYPE CODE TESTS RESULT OUT [...] 24 Performed By: #### L500.2500, L500.4100 #### [facility] [address] [place], [address] MAGNESIUM Collected: 04/09/2018 Status: F Source: [place] 5:15 AM [facility] REPOSITORY TYPE CODE TESTS RESULT OUT OF RANGE REFERENCE UNITS LAB L501.5200 1.6-2.6 mg/dL Normal MG 1.6 Performed By: #### L501.5200 #### [facility] [address] [place], [address] HISTORY AND PHYSICAL Observed: 04/08/2018 Status: F Source: [place] EXAM 6:57 PM [facility] REPOSITORY [facility] Medical Records Department [address] [place] [address] History and Physical 04/08/18 1507 MR#: [id number] Acct: [id number] Name: TOOTIE WANG Rep #: [id number] : 1955 62 From: Catalina Bhardwaj RIGHT OF WAY CLEARER-C PCP: Faina Kwon NP Status: ADM IN Y Location: [place] [address] ADDENDUM by Michael Merino DO on 04/08/18 [...] show any abnormality. Patient was admitted to PCU for acute congestive heart failure, echocardiogram was [...] and endorse it Inpatient E AND M: 25349 Init Hosp L3 04/08/18 1857 <Electronically signed by Michael Merino DO> Date Michael Merino DO cc: MAHAD Kwon; RIGHT OF WAY CLEARER-C Catalina Bhardwaj; Michael Merino DO * Signed Problem [...] her mother's poor health who lives in [place] and also a premature grandchild who has [...] hysterectomy. Psychiatric History: No pertinent psych hx COMPOUNDING SCALER History: No pertinent COMPOUNDING SCALER history Lives: Spouse/ Significant Other Smoking Status: [...] Status: F Source: [place] SUMMARY 5:53 PM [facility] REPOSITORY [facility] Medical Records Department [address] [place] [address] Emergency Department Summary 04/08/18 1130 MR#: [id number] Acct: [id number] Name: TOOTIE WANG Rep #: [id number] : 1955 62 From: Lucero Vicente MD [...] worst. Patient reports that they drove to [place] for Thanksgiving. This was a 10 Hour [...] for chloride 110. Troponin [address] RIGHT OF WAY CLEARER is 1992.2. D-dimer is 2.89. CT of the chest [...] or T8. This note was generated with [employer] dictation software. It may contain incorrect words, spelling, and punctuation that were not noted in review of the chart prior to signing ED Disposition - Plan for ED Patient: Chief Complaint: Shortness of Breath Referrals: Faina Kwon, FESTUS [Primary Care Provider] - What to do if you have Problems For any increased pain, shortness of breath, bleeding, nausea or vomiting, chest pain, or any unexpected problems, contact your Primary Care Provider. Call [employer] [facility] ([phone]) or report to the closest Emergency Room. Call 911 if necessary. 04/08/18 1313 <Electronically signed by Lucero Vicente MD> Date Lucero Vicente MD Cosigner Signature (If Indicated): Date CC: MAHAD Kwon TROPONIN-I Collected: 04/08/2018 Status: F Source: [place] 5:46 PM [facility] REPOSITORY Order Comment: 'TROP' Serial specimen #1, #2 or #3: 3 TYPE CODE TESTS RESULT OUT OF RANGE REFERENCE UNITS LAB L501.4010 <0.045 ng/mL Normal 0.023 TROPONIN-I Result Comment: TROPONIN-I EXPECTED VALUES <0.045 Negative 0.045 - 0.590 Consistent with Cardiac Damage > OR = 0.600 Critical Value Not every elevated troponin is indicative of TN. These values should be used with clinical judgement in examining the patient's clinical picture for diagnosis. To establish a diagnosis of TN versus myocardial injury, there must be a demonstrated rise and/or fall in the troponin values, in addition to ischemic symptoms, EKG changes, new regional wall motion abnormality, and/or angiographical evidence. PLEASE NOTE: REFERENCE RANGES EDITED 17 Performed By: #### L501.4010 #### [facility] [address] [place], [address] ECHOCARDIOGRAM COMPLETE Observed: 04/08/2018 Status: F Source: [place] 4:11 PM [facility] REPOSITORY [facility] Cardiovascular Services [address] [place] [address] Echo Complete 04/08/18 1347 MR#: [id number] Acct: [id number] Name: TOOTIE WANG Rep #: [id number] : 1955 62 From: Jax Neri MD [...] Merino Performed By: Nickie Gillis, BARBARA, RVT 04/08/18 1610 Date Jax Neri MD CC: MAHAD Kwon; Michael Merino DO Date Dictated: 04/08/18 1347 Date Transcribed: 04/08/18 1610 It Director: Signed SPINE THORACIC W/WO Observed: 04/08/2018 Status: F Source: [place] CONTRAST 3:40 PM [facility] REPOSITORY [facility] Imaging Services [address] [place] [address] Spine Thoracic W/WO Contrast MR#: [id number] Acct: [id number] Name: TOOTIE WANG Rep #: [id number] : 1955 F 62 From: Kareen Urban MD PCP: Faina Kwon NP Status: ADM IN Study: Spine Thoracic W/WO Contrast Date of Exam: 04/08/18 Exam# [id number] Ordering Dr: Catalina Bhardwaj STUDY: MRI THORACIC [...] support , CC: MAHAD Kwon; FESTUS Bhardwaj It Director: Signed TROPONIN-I Collected: 04/08/2018 Status: F Source: [place] 3:12 PM [facility] REPOSITORY Order Comment: 'TROP' Serial specimen #1, #2 or #3: 2 TYPE CODE TESTS RESULT OUT OF RANGE REFERENCE UNITS LAB L501.4010 <0.045 ng/mL Normal 0.022 TROPONIN-I Result Comment: TROPONIN-I EXPECTED VALUES <0.045 Negative 0.045 - 0.590 Consistent with Cardiac Damage > OR = 0.600 Critical Value Not every elevated troponin is indicative of TN. These values should be used with clinical judgement in examining the patient's clinical picture for diagnosis. To establish a diagnosis of TN versus myocardial injury, there must be a demonstrated rise and/or fall in the troponin values, in addition to ischemic symptoms, EKG changes, new regional wall motion abnormality, and/or angiographical evidence. PLEASE NOTE: REFERENCE RANGES EDITED 17 Performed By: #### L501.4010 #### [facility] [address] [place], [place], [address] FREE T3 Collected: 04/08/2018 Status: F Source: [place] 3:12 PM [facility] REPOSITORY Order Comment: Comments: add on to admission labs if possible TYPE CODE TESTS RESULT OUT OF RANGE REFERENCE UNITS LAB L501.26872 2.18-3.98 pg/mL Normal FREE T3 2.6 Performed By: #### L501.19587, L501.9520, L506.0400 #### [facility] [address] [place], [place], [address] THYROID STIM HORMONE Collected: 04/08/2018 Status: F Source: [place] (TSH) 3:12 PM [facility] REPOSITORY Order Comment: Comments: add on to admission labs if possible TYPE CODE TESTS RESULT OUT OF RANGE REFERENCE UNITS LAB L501.9520 0.358-3.74 uIU/mL Normal TSH 1.98 Performed By: #### L501.47545, L501.9520, L506.0400 #### [facility] [address] [place], [address] T4 FREE DIRECT Collected: 04/08/2018 Status: F Source: [place] 3:12 PM [facility] REPOSITORY Order Comment: Comments: add on to admission labs if possible TYPE CODE TESTS RESULT OUT OF RANGE REFERENCE UNITS LAB L506.0400 0.76-1.46 ng/dL Normal T4 FREE 1.00 DIRECT Performed By: #### L501.19403, L501.9520, L506.0400 #### [facility] [address] [place], [address] CTA CHEST W/WO Observed: 04/08/2018 Status: F Source: [place] CONTRAST 10:53 AM [facility] REPOSITORY [facility] Imaging Services [address] [place] [address] CTA Chest W/WO Contrast MR#: [id number] Acct: [id number] Name: TOOTIE WANG Rep #: [id number] : 1955 F 62 From: Jayce Granger MD PCP: Faina Kwon NP Status: REG ER Study: CTA Chest W/WO Contrast Date of Exam: 04/08/18 Exam# [id number] Ordering Dr: Lucero Vicente MD STUDY: CTA [...] Jayce Granger MD at 11:32 EST Tel [phone], Service support , CC: MAHAD Kwon; Lucero Vicente MD It Director: Signed Observed: 04/08/2018 Status: F Source: [place] CULTURE, BLOOD (WB) 10:45 AM [facility] REPOSITORY BC No growth in 5 days. Performed By: #### M200.1000 #### [facility] [address] [place], [address] CBC W/DIFF, AUTOMATED Collected: 04/08/2018 Status: F Source: [place] 10:13 AM [facility] REPOSITORY TYPE CODE TESTS RESULT OUT [...] Lymph 1.28 Performed By: #### L100.0100 #### [facility] [address] [place], [place], [address] D-DIMER QUANTITATIVE Collected: 04/08/2018 Status: F Source: [place] (DVT/PE) 10:13 AM [facility] REPOSITORY TYPE CODE TESTS RESULT OUT OF RANGE REFERENCE UNITS LAB L300.8000 0.27-0.49 FEU/ug/m High alert D-DIMER 2.89 QUANT Result Comment: CRITICAL VALUE VERIFIED. CALLED TO [facility] 04/08/18 1045 Rinku Navas. RESULTS READ BACK BY SAME . D-Dimer ELEVATED (>0.49): Additional studies and clinical assessments are indicated to conclude diagnosis of: Deep Vein Thrombosis (DVT) or Pulmonary Embolism (PE) Performed By: #### L300.8000 #### [facility] [address] [place], [place], [address] BASIC METABOLIC Collected: 04/08/2018 Status: F Source: [place] PROFILE (BMP) 10:13 AM [facility] REPOSITORY TYPE CODE TESTS RESULT OUT [...] 8 Performed By: #### L500.2500, L501.4010 #### [facility] [address] [place], [place], [address] TROPONIN-I Collected: 04/08/2018 Status: F Source: [place] 10:13 AM [facility] REPOSITORY TYPE CODE TESTS RESULT OUT OF RANGE REFERENCE UNITS LAB L501.4010 <0.045 ng/mL Normal 0.024 TROPONIN-I Result Comment: TROPONIN-I EXPECTED VALUES <0.045 Negative 0.045 - 0.590 Consistent with Cardiac Damage > OR = 0.600 Critical Value Not every elevated troponin is indicative of TN. These values should be used with clinical judgement in examining the patient's clinical picture for diagnosis. To establish a diagnosis of TN versus myocardial injury, there must be a demonstrated rise and/or fall in the troponin values, in addition to ischemic symptoms, EKG changes, new regional wall motion abnormality, and/or angiographical evidence. PLEASE NOTE: REFERENCE RANGES EDITED 17 Performed By: #### L500.2500, L501.4010 #### [facility] [address] [place], [address] LACTIC ACID Collected: 04/08/2018 Status: F Source: [place] 10:13 AM [facility] REPOSITORY Order Comment: Yes/No query for Sepsis Lactate Rule Y TYPE CODE TESTS RESULT OUT OF RANGE REFERENCE UNITS LAB L503.6005 0.4-2.0 mmol/L Normal LACTIC ACID 1.1 Performed By: #### L503.6005 #### [facility] [address] [place], [address] BNP,B-TYPE NATRIURETIC Collected: 04/08/2018 Status: F Source: [place] PEPTIDE 10:13 AM [facility] REPOSITORY TYPE CODE TESTS RESULT OUT OF RANGE REFERENCE UNITS LAB L503.6620 0-100 pg/mL High B-TYPE 1992.2 JESSICA PEP Performed By: #### L503.6620 #### [facility] [address] [place], [address] Observed: 04/08/2018 Status: F Source: [place] CULTURE, BLOOD (WB) 10:13 AM [facility] REPOSITORY BC No growth in 5 days. Performed By: #### M200.1000 #### [facility] [address] [place], [address] PROGRESS Observed: 04/08/2018 Status: COMPLETED Source: [place] 9:[address] [facility] REPOSITORY HNO ID: [id number] Author: Faina Lei (Craft Artist) Marisa Service: (none) Author Type: Nurse Practitioner [...] elevated BP and HR. Patient agreeable to [facility] ER - called report to ER. Faina Kwon APRN.CNP CNBELEN Observed: 04/08/2018 Status: COMPLETED Source: [place] 9:00 AM [facility] REPOSITORY Office Visit (FAMPWS) FELIPETOOTIE Bautista ([id number]) 1955 F Date Time Provider Department 04/08/18 9:00 AM [facility] During your visit today, we recorded the following information about you: Pulse Respiration Blood pressure Weight 108/minute 16/minute 164/110 64 kg Faina Kwon APRN.CNP 04/08/2018 11:34 AM Signed HPI/CC: Tootieabhishek Cabreramack is a 62 year old female who [...] elevated BP and HR. Patient agreeable to [facility] ER - called report to ER. Faina Kwon APRN.SCREEN PRINTING LOADER UNLOADER Referring Provider: SELF [200] Allergies As of Date: 04/08/2018 Noted Allergy Reaction LORTAB (HYDROCODONE-ACETAMINOPHEN)02/07/2018 8 - GI Upset Comments: Severe nausea Date Reviewed: 04/08/2018 Reviewed by: Bucyk Cavanaugh LPN - Fully Assessed Reason for [...] 04/08/18 PROGRESS Observed: 04/05/2018 Status: COMPLETED Source: [place] 1:[address] [facility] REPOSITORY HNO ID: [id number] Author: Faina Lei (Isaias) Marisa Service: (none) [...] above. May need echo, cardiology. Faina Kwon APRN.SCREEN PRINTING LOADER UNLOADER XR CHEST 2V FRONTAL/LAT Observed: 04/05/2018 Status: F Source: [place] 12:34 PM [facility] REPOSITORY * * *Final Report* * [...] or developing infiltrate. Follow-up to resolution recommended. It Director: PSCB Transcribe Date/Time: Apr 06 2018 9:00A Dictated by : GARY FORDE MD This examination was interpreted and the report reviewed and electronically signed by: GARY FORDE MD on Apr 06 2018 9:13AM EST [id number] Observed: 04/05/2018 Status: F Source: [place] URINE CULTURE 12:24 PM [facility] REPOSITORY Sp. Request/Comment: - Specimen received in preservative Culture Result - 10,000 - <50,000 CFU/ml Normal urogenital power Performed By: #### URCUL #### [facility] [address] [place], [place] [address] PROGRESS Observed: 04/05/2018 Status: COMPLETED Source: [place] 12:22 PM [facility] REPOSITORY HNO ID: [id number] Author: Amelia Lei (Rt) Vance Singh Service: (none) Author Type: Director Of Public Relations Type: Progress Notes Filed: 04/05/2018 12:35 PM [...] AND DIFFERENTIAL Collected: 04/05/2018 Status: F Source: [place] 12:20 PM [facility] REPOSITORY TYPE CODE TESTS RESULT OUT [...] k/uL Abs Lymph 1.12 LAB AMONO % [place]% 7.4 LAB AAMONO <0.87 k/uL Abs [place] 0.43 LAB AEOS % Eosin% 0.7 LAB AAEOS <0.46 k/uL Abs Eosin 0.04 LAB ABASO % Baso% 0.9 LAB AABASO <0.11 k/uL Abs Baso 0.05 LAB AUNRBC 0 /100 WBC NRBCs 0.0 LAB ABNRBC <0.01 k/uL Absolute nRBC <0.01 LAB DTYP DTYPE Auto Diff Performed By: #### CBCDIF, CMP, TSH, FT4, T3, MICRO #### [facility] [address] [place], [place] [address] COMP METABOLIC PANEL Collected: 04/05/2018 Status: F Source: [place] 12:[address] [facility] REPOSITORY TYPE CODE TESTS RESULT OUT OF REFERENCE UNITS RANGE LAB TP 6.3-8.0 g/dL Protein, Total 6.8 LAB ALB 3.9-4.9 g/dL Albumin 4.3 LAB CA 8.5-10.2 mg/dL Calcium, Total 9.0 LAB TBIL 0.2-1.3 mg/dL Bilirubin, Total 0.6 LAB ALKP 34-123 U/L Alkaline Phosphatase 102 LAB AST 13-35 U/L AST High 62 LAB GLU 74-99 mg/dL Glucose High 103 Result Comment: The [place] Diabetes Association (ADA) provides guidance for cutoff [...] Standards of Medical Care in Diabetes 2016, [place] Diabetes Association. Diabetes Care. 2016.39(Suppl 1). LAB [...] CBCDIF, CMP, TSH, FT4, T3, MICRO #### [place] [address] TSH Collected: 04/05/2018 Status: F Source: [place] 12:20 PM [facility] REPOSITORY TYPE CODE TESTS RESULT OUT OF RANGE REFERENCE UNITS LAB TSH 0.400-5.500 uU/mL TSH 1.760 Performed By: #### CBCDIF, CMP, TSH, FT4, T3, MICRO #### [place] [id number] FREE T4 Collected: 04/05/2018 Status: F Source: [place] 12:20 PM [facility] REPOSITORY TYPE CODE TESTS RESULT OUT OF RANGE REFERENCE UNITS LAB FT4 0.9-1.7 ng/dL Free T4 1.2 Performed By: #### CBCDIF, CMP, TSH, FT4, T3, MICRO #### [place] [address] T3 Collected: 04/05/2018 Status: F Source: [facility] 12:20 PM [facility] REPOSITORY TYPE CODE TESTS RESULT OUT OF RANGE REFERENCE UNITS LAB T3 79-165 ng/dL T3 120 Performed By: #### CBCDIF, CMP, TSH, FT4, T3, MICRO #### [place] [address] TPO ANTIBODY Collected: 04/05/2018 Status: F Source: [place] 12:20 PM [facility] REPOSITORY TYPE CODE TESTS RESULT OUT OF REFERENCE UNITS RANGE LAB MICRO <5.6 IU/mL High TPO Antibody 11.3 Performed By: #### CBCDIF, CMP, TSH, FT4, T3, MICRO #### [facility] [address] [place], [place] [address] ECG COMPLETE W Observed: 04/05/2018 Status: F Source: [place] INTERPRET[place] 11:39 AM [facility] REPOSITORY NAME : TOOTIE WANG PID : [id number] : 1955 Gender : Female Race : ORD : [id number] Procedure Date : Apr 05 2018 11:39:30 [...] ms QTC Calculation(Bezet) : 466 ms P [place] : 78 degrees R [place] : -23 degrees T [place] : 99 degrees Test Reason : Location : 185 : [facility] Overread By : JANET HINDS D.O. Edited By : JANET HINDS D.O. Referred By : FAINA KWON Acquired by : BUCKY CAVANAUGH CNOV Observed: 04/05/2018 Status: COMPLETED Source: [place] 11:20 AM [facility] REPOSITORY Office Visit (FAMPWS) TOOTIE WANG Bijal ([id number]) 1955 F Date Time Provider Department 04/05/18 11:20 AM FAINA KWON (ISAIAS) FAMPWS During your [...] above. May need echo, cardiology. Faina Kwon APRN.SCREEN PRINTING LOADER UNLOADER Referring Provider: SELF [200] Allergies As of [...] Order(s):ECG COMPLETE W INTERPRETATION [ECG01] Order #: [id number] FUTURE TSH BLD [SQTSH] Order #: [id number] FUTURE T3 BLD [SQT3] Order #: [id number] FUTURE T4 FREE/FREE THYROX [SQFT4] Order #: [id number] FUTURE THYROID PEROXIDASE ANTIBODY BLOOD [SQMICRO] Order #: [id number] FUTURE CBC + DIFF [SQCBCDIF] Order #: [id number] FUTURE XR CHEST 2V FRONTAL/LAT [3253199] Order #: [id number] FUTURE COMPLETE ECG [] Order #: [id number]. #:[id number]--FMHEkioPgd: 1 URINE CULTURE [SQURCUL] Order #: [id number] FUTURE UA DIP W/MICRO B/O [3665224] Order #: [id number] COMP METABOLIC PANEL [SQCMP] Order #: [id number] FUTURE Prescriptions as of 04/05/2018 Sig: LOSARTAN [...] 04/05/18 PROGRESS Observed: 02/09/2018 Status: COMPLETED Source: [place] 8:39 AM [facility] REPOSITORY HNO ID: [id number] Author: Lanette Adorno Service: (none) Author Type: (none) Type: Progress Notes Filed: 02/09/2018 8:39 AM Note Text: Scheduled patient for open access colonoscopy with Dr. Morris on 04/08/2018, patient had to have a Wednesday, mailing colonoscopy instructions Lanette Adorno TPO ANTIBODY Collected: 02/08/2018 Status: F Source: [place] 3:40 PM [facility] REPOSITORY TYPE CODE TESTS RESULT OUT OF REFERENCE UNITS RANGE LAB MICRO <5.6 IU/mL High TPO Antibody 16.3 Performed By: #### MICRO #### [facility] [address] [place], [place] [address] FREE T4 Collected: 02/07/2018 Status: F Source: [place] 3:40 PM [facility] REPOSITORY TYPE CODE TESTS RESULT OUT OF RANGE REFERENCE UNITS LAB FT4 0.9-1.7 ng/dL Free T4 1.1 Performed By: #### FT4, T3 #### [facility] [address] [place], [place] [address] T3 Collected: 02/07/2018 Status: F Source: [facility] 3:40 PM [facility] CAMPUS REPOSITORY TYPE CODE TESTS RESULT OUT OF RANGE REFERENCE UNITS LAB T3 79-165 ng/dL T3 108 Performed By: #### FT4, T3 #### [facility] [address] [place], [place] [address] PROGRESS Observed: 02/07/2018 Status: COMPLETED Source: [place] 2:[address] [facility] REPOSITORY HNO ID: [id number] Author: Vanessa Wilson) [place] Service: (none) Author Type: Nurse Practitioner Type: [...] removed and sent for path- hyperplastic polyp; [facility] - LAPAROSCOPIC BLADDER REPAIR 2013 - ROTATOR CUFF REPAIR Bilateral 2015 Left arm. 2017 Right arm. - SLING SUBURETHRAL COMPOUNDING SCALER CR TVT 2012 done in [place] uncertain brand - VAGINAL HYSTERECTOMY FAMILY HISTORY [...] external genitalia normal, normal Bartholin's glands, urethra, [place]'s glands, no vulvar lesions, no cervical lesions, [...] APRN.ISAIAS CNOV Observed: 02/07/2018 Status: COMPLETED Source: [place] 2:30 PM [facility] REPOSIT[facility] Office Visit (WOOB) TOOTIE WANG ([id number]) 1955 F Date Time Provider Department 02/07/18 2:30 PM VANESSA GARCIA (ISAIAS) MANDIE During your visit today, we recorded [...] removed and sent for path- hyperplastic polyp; [facility] - LAPAROSCOPIC BLADDER REPAIR 2013 - ROTATOR CUFF REPAIR Bilateral 2015 Left arm. 2017 Right arm. - SLING SUBURETHRAL COMPOUNDING SCALER CR TVT 2012 done in [place] uncertain brand - VAGINAL HYSTERECTOMY FAMILY HISTORY [...] external genitalia normal, normal Bartholin's glands, urethra, [place]il[place]'s glands, no vulvar lesions, no cervical lesions, [...] condition [E07.9] Order(s):T3 BLD [SQT3] Order #: [id number] FUTURE T4 FREE/FREE THYROX [SQFT4] Order #: [id number] FUTURE Prescriptions as of 02/07/2018 Sig: LOSARTAN [...] More... Medications Discontinued During This Encounter [facility] Class: Historical Med Route: Miscell. (Med.Supl.;Non-Drugs) Si mg three times daily. Disc: Duplicate Entry Estradiol 1 mg/gram (0.1 %) [facility] 02/07/2018 Class: Historical Med Route: TRANSDERMAL Sig: Apply as directed. Disc: Duplicate Entry Disposition: Return in 1 year (on 02/07/2019) for Annual Exam. Follow-up and Disposition History Recorded Encounter Status:Closed by VANESSA GARCIA on 02/07/18 PROGRESS Observed: 02/07/2018 Status: COMPLETED Source: [place] 9:[address] [facility] [place] REPOSITORY HNO ID: [id number] Author: Adri Escamilla (Mahad) Jason Service: (none) Author Type: Nurse Practitioner Type: Progress Notes Filed: 02/07/2018 10:38 AM Note Text: 62 year old female here for INACTIVATED INFLUENZA VACCINE. 6788-9655 Season Patient is identified by name and date of : Yes [] CONTRAINDICATIONS color enhanced section Age less than 6 months? No Allergy to eggs, chicken, chicken feathers, or chicken dander? No Allergy to thimerosal (a preservative) or formaldehyde, gelatin? No History of severe reaction to any vaccine component or a previous dose of influenza vaccination? No History of Guillain-[place] Syndrome within 6 weeks after a previous [...] sheet given? Yes See immunization activity in [facility] for details of immunizations adminstered today. Patient age: [age] year old For The 7152-8439 Flu Season 6-35 months old: Fluzone 0.25 [...] a second dose in one months time. [facility] OPEN ACCESS QUESTIONNAIRE 1. Are you or [...] Please send all open access questionnaires to [facility] Sched Pool #[id number] CNOV Observed: 02/07/2018 Status: COMPLETED Source: [place] 9:00 AM [facility] REPOSITORY Office Visit (FAMPWS) TOOTIE WANG ([id number]) 1955 F Date Time Provider Department 02/07/18 9:00 AM ADRI GOMEZ (RIGHT OF WAY CLEARER) [facility] your visit today, we recorded the following information about you: Temperature Pulse Respiration Blood pressure 98.4 degrees 88/minute 16/minute 133/82 Weight Height 62.1 kg 1.499 m Adri Gomez, MSN HEAT TREATER APPRENTICE.SCREEN PRINTING LOADER UNLOADER 02/07/2018 1:17 PM Addendum SUBJECTIVE: Chief Complaint: Tootie Wang is a 62 year old female who presents for a comprehensive problem evaluation. Lab review. 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 New to [facility], recent move from [place]. New to [facility], will eventually establish with new provider. [...] BP: 02/07/2018 138/90 12/22/2017 138/82 11/26/2017 142/86 COMPOUNDING SCALER Care at [facility]-apt later today. Using bioidentical hormonal manipulation. Also Thyroid therapy through [facility] Pharmacy. Exercises regularly - Yes, Walking and [...] removed and sent for path- hyperplastic polyp; [facility] - LAPAROSCOPIC BLADDER REPAIR 2013 - ROTATOR CUFF REPAIR Bilateral 2015 Left arm. 2017 Right arm. - SLING SUBURETHRAL COMPOUNDING SCALER CR TVT 2012 done in [place] uncertain brand - VAGINAL HYSTERECTOMY FAMILY HISTORY [...] Rare, wine Social History Narrative Lives in [place], relocated from [place], 3 adult children and 3 grandchildren in [place], and 1 in [place]. Immunization History Administered Date(s) Administered Influenza Seasonal [...] with supplements or by diet (goal of 9837-1557 mg/day - Colon cancer screening reviewed and [...] SCRN NOT HIGH RISK Adri Gomez, MSN HEAT TREATER APPRENTICE.SCREEN PRINTING LOADER UNLOADER Adri Gomez, MSN HEAT TREATER APPRENTICE.ISAIAS 02/07/2018 10:38 AM Signed 62 year old female here for INACTIVATED INFLUENZA VACCINE. 7757-9038 Season Patient is identified by name and date of : Yes [] CONTRAINDICATIONS color enhanced section Age less than 6 months? No Allergy to eggs, chicken, chicken feathers, or chicken dander? No Allergy to thimerosal (a preservative) or formaldehyde, gelatin? No History of severe reaction to any vaccine component or a previous dose of influenza vaccination? No History of Guillain-[place] Syndrome within 6 weeks after a previous [...] sheet given? Yes [facility] details of immunizations adminstered today. Patient age: [age] year old For The 8086-5933 Flu Season 6-35 months old: Fluzone 0.25 [...] a second dose in one months time. [facility] OPEN ACCESS QUESTIONNAIRE 1. Are you or [...] Please send all open access questionnaires to [facility] Sched Pool #[id number] James Hill LPN 02/07/2018 9:13 AM Signed Patient's waist circumference 32 James Gomez, MSN HEAT TREATER APPRENTICE.SCREEN PRINTING LOADER UNLOADER 02/07/2018 10:[address] Suzy Gresham with [facility], office in [facility]. [facility]-Dr. Cory Bruner-[place] Health Information For Patients and the Community [...] until the day before your colonoscopy. Designated Diving Judge on the Day of Your Exam A responsible family member or friend MUST come with you to your colonoscopy and REMAIN in the endoscopy area until you are discharged! You are NOT ALLOWED to drive, take a taxi or bus, or leave the Endoscopy Center ALONE. If you do not have a responsible driver service technician (family member or friend) with you to [...] beverages such as subhash maria c or lemon-iliamna soda; Gatorade? or other sports drinks (not [...] calling after 5:00 PM, please call Nurse conveyor line battery charger at [phone]. [facility] [address] [place] [address] Index # 67865 Revised 06/2016 3 Colonoscopy Procedure Overview Please [...] If the nausea persists, please contact nurse professional nursing tutor at [phone]. You may experience skin irritation around the anus due to the passage of liquid stools. To prevent and treat skin irritation, you should: ?Apply Vaseline? or Desitin? ointment to the skin around the anus before drinking the bowel preparation medications. These products can be purchased at any [employer]. ?Wipe the skin after each bowel movement [...] performed your exam. 6 Revised 06/2016 ?Copyright 4180-1623 [facility]. All rights reserved. Revised 06/2016 Lanette Adorno 02/09/2018 8:39 AM Signed Scheduled patient for open access colonoscopy with Dr. Morris on 04/08/2018, patient had to have a Wednesday, mailing colonoscopy instructions Lanette Adorno Referring Provider: SELF [200] Allergies As of Date: 02/07/2018 Noted Allergy Reaction LORTAB (HYDROCODONE-ACETAMINOPHEN)02/07/2018 8 - GI Upset Comments: Severe nausea Date Reviewed: 02/07/2018 Reviewed by: Vanessa SparksCraft Artist) Radha - Fully Assessed Reason for Visit: [...] QUADRIVALENT AGE 3 YRS PLUS + IM [20503ZOD] Order #: [id number] losartan (COZAAR) 50 mg tabletTake 1 tablet by mouth once daily.Disp: Rfl: [] peg 3350-electrolytes (COLYTE) 240-22.72-6.72 -5.84 gram solutionTake 4,000 mL by mouth one time only for 1 dose.Disp: 4000 mLRfl: 0 COLONOSCOPY SCRN NOT HIGH RISK [[id number]] Order #: [id number] FUTURE Prescriptions as of 02/07/2018 Sig: LOSARTAN [...] clinician: Dr. Suzy Gresham with [facility], office in [facility]. [facility]-Dr. Cory Bruner-[place] Health Information For Patients and the Community [...] until the day before your colonoscopy. Designated Diving Judge on the Day of Your Exam A responsible family member or friend MUST come with you to your colonoscopy and REMAIN in the endoscopy area until you are discharged! You are NOT ALLOWED to drive, take a taxi or bus, or leave the Endoscopy Center ALONE. If you do not have a responsible driver service technician (family member or friend) with you to [...] beverages such as subhash maria c or lemon-iliamna soda; Gatorade? or other sports drinks (not [...] calling after 5:00 PM, please call Nurse conveyor line battery charger at [phone]. [facility] [address] [place] [address] Index # 85340 Revised 06/2016 3 Colonoscopy Procedure Overview Please [...] If the nausea persists, please contact nurse professional nursing tutor at [phone]. You may experience skin irritation around the anus due to the passage of liquid stools. To prevent and treat skin irritation, you should: ?Apply Vaseline? or Desitin? ointment to the skin around the anus before drinking the bowel preparation medications. These products can be purchased at any [employer]. ?Wipe the skin after each bowel movement [...] performed your exam. 6 Revised 06/2016 ?Copyright 1086-1049 [facility]. All rights reserved. Revised 06/2016 Visit Notes: [...] History Recorded Encounter Status:Closed by ADRI GOMEZ SCREEN PRINTING LOADER UNLOADER on 02/07/18 PROGRESS Observed: 02/07/2018 Status: COMPLETED Source: [place] 7:22 AM [facility] RE[facility] HNO ID: [id number] Author: Adri Escamilla (Railcar Carpenter) Jason Service: (none) Author Type: Nurse Practitioner Type: Progress Notes Filed: 02/07/2018 1:17 PM Note Text: SUBJECTIVE: Chief Complaint: Tootie Wang is a 62 year old female who presents for a comprehensive problem evaluation. Lab review. 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 New to [facility], recent move from [place]. New to [facility], will eventually establish with new provider. [...] BP: 02/07/2018 138/90 12/22/2017 138/82 11/26/2017 142/86 COMPOUNDING SCALER Care at [facility]-apt later today. Using bioidentical hormonal manipulation. Also Thyroid therapy through [facility] Pharmacy. Exercises regularly - Yes, Walking and [...] removed and sent for path- hyperplastic polyp; [facility] - LAPAROSCOPIC BLADDER REPAIR 2013 - ROTATOR CUFF REPAIR Bilateral 2015 Left arm. 2017 Right arm. - SLING SUBURETHRAL COMPOUNDING SCALER CR TVT 2012 done in [place] uncertain brand - VAGINAL HYSTERECTOMY FAMILY HISTORY [...] Rare, wine Social History Narrative Lives in [place], relocated from [place], 3 adult children and 3 grandchildren in [place], and 1 in [place]. Immunization History Administered Date(s) Administered Influenza Seasonal [...] with supplements or by diet (goal of 2621-5078 mg/day - Colon cancer screening reviewed and [...] SCRN NOT HIGH RISK Adri Gomez, MSN HEAT TREATER APPRENTICE.SCREEN PRINTING LOADER UNLOADER COMP METABOLIC PANEL Collected: 02/03/2018 Status: F Source: [place] 9:12 AM [facility] REPOSITORY TYPE CODE TESTS RESULT OUT OF REFERENCE UNITS RANGE LAB TP 6.3-8.0 g/dL Protein, Total 7.1 LAB ALB 3.9-4.9 g/dL Albumin 4.5 LAB CA 8.5-10.2 mg/dL Calcium, Total 9.6 LAB TBIL 0.2-1.3 mg/dL Bilirubin, Total 0.7 LAB ALKP 34-123 U/L Alkaline Phosphatase 76 LAB AST 13-35 U/L AST 31 LAB GLU 74-99 mg/dL Glucose 95 Result Comment: The [place] Diabetes Association (ADA) provides guidance for cutoff [...] Standards of Medical Care in Diabetes 2016, [place] Diabetes Association. Diabetes Care. 2016.39(Suppl 1). LAB [...] GFR. Performed By: #### CMP, LIPB #### [facility] [address] [place] [id number] LIPID PANEL, BASIC Collected: 02/03/2018 Status: F Source: [place] 9:[address] [facility] REPOSITORY TYPE CODE TESTS RESULT [...] Desk Reference: National Heart, Lung, and Blood [place]. National Institutes of Health. 2001: NIH Publication No. 01-3305. 2. An International Atherosclerosis Society position paper: global recommendations for the management of dyslipidemia: executive summary, Atherosclerosis. 2014: 232(2):410-413. Performed By: #### CMP, LIPB #### [facility] [employer] [address] [place] [address] Observed: 12/22/2017 Status: F Source: [place] BACT/CAND VAG [facility] 8:30 AM [facility] REPOSITORY Sp. Request/Comment: - Swab Smear Result - BACTERIAL VAGINOSIS RESULT: Stain results consistent with normal vaginal power. No Yeast observed Rare Polymorphonuclear leukocytes Many Epithelial cells Performed By: #### BVCNSM #### [facility] [employer] [address] [place] [address] PROGRESS Observed: 12/22/2017 Status: COMPLETED Source: [place] 8:03 AM [facility] REPOSIT[facility] HNO ID: [id number] Author: Sabine Haridng Service: (none) Author Type: Nurse Practitioner Type: [...] When symptoms began, she remembers being in [place] and sweating a lot and wearing Spandex [...] Procedure Laterality Date - LAPAROSCOPIC BLADDER REPAIR 2013 - ROTATOR CUFF REPAIR Bilateral 2015 Left arm. 2017 Right arm. - SLING SUBURETHRAL COMPOUNDING SCALER CR TVT 2013 done in [place] uncertain brand - VAGINAL HYSTERECTOMY FAMILY HISTORY [...] external genitalia normal, normal Bartholin's glands, urethra, [place]il[place]'s glands, no vulvar lesions, no cervical lesions, [...] with results. Follow-up as needed. Sabine Harding APRN.CNP CNOV Observed: 12/22/2017 Status: COMPLETED Source: [place] 8:00 AM [facility] RE[facility] Office Visit (WOOB) TOOTIE WANG ([id number]) 1955 F Date Time Provider Department 12/22/17 8:00 AM SABINE HARDING (ISAIAS) WOOB During your visit today, we recorded the [...] When symptoms began, she remembers being in [place] and sweating a lot and wearing Spandex [...] Procedure Laterality Date - LAPAROSCOPIC BLADDER REPAIR 2013 - ROTATOR CUFF REPAIR Bilateral 2015 Left arm. 2017 Right arm. - SLING SUBURETHRAL COMPOUNDING SCALER CR TVT 2013 done in [place] uncertain brand - VAGINAL HYSTERECTOMY FAMILY HISTORY [...] external genitalia normal, normal Bartholin's glands, urethra, [place]il[place]'s glands, no vulvar lesions, no cervical lesions, [...] with results. Follow-up as needed. Sabine Harding APRN.[facility] Referring Provider: SELF [200] Allergies As of Date: 12/22/2017 (Not on File) Date Reviewed: 12/22/2017 Reviewed by: Sabine Harding - Fully Assessed Primary Visit Diagnosis:Acute vaginitis [N76.0] Other Visit Diagnosis:Dysuria [R30.0] Order(s):UA DIP B/O [[id number]] Order #: [id number] BACT/ALYSIA VAG GRAM STAIN [SQBVCNSM] Order #: [id number] FUTURE fluconazole (DIFLUCAN) 150 mg tabletTake 1 [...] 12/22/17 TESTOSTERONE Collected: 11/26/2017 Status: F Source: [place] 4:26 PM [facility] REPOSIT[facility] TYPE CODE TESTS RESULT OUT OF REFERENCE UNITS RANGE LAB TESTO <40 ng/dL Testosterone 17 Performed By: #### TESTO, PROG, T3, T4, MICRO #### [facility] [address] [place], [place] [address] PROGESTERONE Collected: 11/26/2017 Status: F Source: [place] 4:26 PM [facility] RE[facility]IT[facility] TYPE CODE TESTS RESULT OUT [...] Progesterone (Progesterone III) [package insert V 1.0 Mal[place]ian]. [facility], [place], [place]. January 2015. Performed By: #### TESTO, PROG, T3, T4, MICRO #### [facility] [address] [place] [address] T3 Collected: 11/26/2017 Status: F Source: [facility] 4:26 PM [facility] REPOSITORY TYPE CODE TESTS RESULT OUT OF RANGE REFERENCE UNITS LAB T3 79-165 ng/dL Low T3 78 Performed By: #### TESTO, PROG, T3, T4, MICRO #### [facility] [address] [place] [address] T4 Collected: 11/26/2017 Status: F Source: [facility] 4:26 PM [facility] [place] REPOSITORY TYPE CODE TESTS RESULT OUT OF RANGE REFERENCE UNITS LAB T4 5.5-10.2 ug/dL T4 7.0 Performed By: #### TESTO, PROG, T3, T4, MICRO #### [place] [address] [place] [address] TPO ANTIBODY Collected: 11/26/2017 Status: F Source: [place] 4:26 PM [facility] REPOSITORY TYPE CODE TESTS RESULT OUT OF REFERENCE UNITS RANGE LAB MICRO <5.6 IU/mL High TPO Antibody 22.9 Performed By: #### TESTO, PROG, T3, T4, MICRO #### [place] [address] CNOV Observed: 11/26/2017 Status: COMPLETED Source: [place] 3:20 PM [facility] Office Visit (WOOB) TOOTIE WANG ([id number]) 1955 F Date Time Provider Department 11/26/17 [...] presents to establish. 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 REPOSITORY O ID: [id number] Author: Elham Palacios Service: (none) Author Type: Physician Type: Progress Notes Filed: 11/30/2017 6:21 PM Note Text: Tootie Wang is a 62 year old female who presents for problem visit for f/u hormone issues. HPI: 62 YOF who has relocated to the area due to 's career presents to establish. 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 [...] SEVERITY SOURCE 04/15/2018 Drug hydrocodone/ Nausea Unknown [facility]160 [id number](R [facility] 86436(SNOMED XNORM) Repository CT) 04/15/2018 Drug acetaminophe Nausea Unknown [facility]/4160 n/[id number] [facility] 13316(SNOMED (RXNORM) Repository CT) 02/07/2018 DRUG/[id number] HYDROCODONE- GI UPSET [facility] 03(SNOMED ACETAMINOPHE [address] [place] [facility]) N Repository ENCOUNTERS ENCOUNTERS ADMIT/DISCHARGE ACCOUNT ADMITTING ENCOUNTER LOCATION SOURCE NUMBER CLASS 05/27/2018 [id number] Ambulatory [facility] ing:CR Repository 05/24/2018/05/24/19 [id number] Ambulatory [address] Repository 05/24/2018 [id number] [facility] ing:CR Repository 05/23/2018/05/23/19 [id number] Ambulatory [address] Repository 05/19/2018/05/19/19 [id number] Ambulatory [address] Repository 05/16/2018/05/16/19 [id number] Ambulatory [address] Repository 05/09/2018/05/09/19 [id number] Ambulatory [address] Repository 05/09/2018/05/13/19 [id number] Ambulatory [address] Repository 04/15/2018 [id number] [facility] ing:POLAB3 Repository 04/15/2018/04/15/20 [id number] Ambulatory BMSBuilding:B Siobhan 16 MS.[facility] Repository 04/13/2018/04/14/20 [id number] Ambulatory [address] Repository 04/08/2018 [id number] Tereletsky, Ambulatory BMSBuilding:B Siobhan Rodriguez MS.[facility] Repository 04/08/2018 [id number] Lindaeletsky, Ambulatory BMSBuilding:B Siobhan Rodriguez MS.[facility] Repository 04/08/2018 [id number] Tereletsky, Ambulatory BMSBuilding:B Siobhan Rodriguez MS.CF.[facility] Repository 04/08/2018 [id number] Lindaeletsky, Ambulatory BMSBuilding:B Siobhan Rodriguez MS.[facility] Repository 04/08/2018 [id number] Tereletsky, Ambulatory BMSBuilding:B Siobhan Rodriguez MS.[facility] Repository 04/08/2018/04/11/20 [id number] Ambulatory BMSBuilding:W Siobhan 18 [facility] Repository 04/08/2018/04/11/20 [id number] Ambulatory BMSBuilding:W Siobhan 18 [facility] Repository 04/08/2018/04/11/20 [id number] Angelique, Inpatient Capacandrea Hickman Michael Encounter [facility] ing:PCURoom: Repository [id number]: 1 04/08/2018 [id number] Angelique, Ambulatory BMSBuilding:B Siobhan Rodriguez MS.CF.[facility] Repository 04/08/2018/04/11/20 [id number] Ambulatory [facility] Repository 04/05/2018/04/05/20 [id number] Ambulatory [facility] Repository 04/05/2018/04/05/20 [id number] Ambulatory [facility] Repository 04/05/2018/04/05/20 [id number] Ambulatory [facility] Repository 04/05/2018/04/06/20 [id number] Ambulatory [facility] Repository 02/08/2018/02/09/20 [id number] Ambulatory [facility] Repository 02/07/2018/02/08/20 [id number] Ambulatory [facility] Repository 02/07/2018/02/09/20 [id number] Ambulatory [facility] Repository 02/07/2018/02/09/20 [id number] Ambulatory [facility] Repository 02/03/2018/02/04/20 [id number] Ambulatory [facility] Repository 12/22/2017/12/24/19 [id number] Ambulatory [facility] Repository 11/26/2017/11/27/19 [id number] Ambulatory [facility] Repository 11/26/2017/12/02/19 [id number] Ambulatory [facility] Repository PAYERS PAYERS ENCOUNTER GUARANTOR PAYER SUBSCRIBER SOURCE 05/27/2018 TOOTIE Mccann [id number] Insurance:ANTHEMPolic WOMACKDOB: Community TATUM y [place]: [id number] [id number] Repository 00594Vvf: (308) Date:9836-13-84RC [phone] () [id number] [place], [place] [address]WP: 05/27/2018 Secondary NOT GIVENUNK Capac Insurance:SELF PAY [facility] Number: Effective Repository Date:2018-05-24 05/24/2018 TOOTIE Appiah Primary LUCERO T Siobhan [id number] Insurance:ANTHEMPolic WOMACKDOB: Community TATUM y Number: [id number], [place] [id number] Repository 59[address]Cmi: (308) Date:5258-00-51PN [phone] () [id number] BERNAL [address]KA: 05/24/2018 Secondary NOT GIVENUNK Siobhan Insurance:SELF PAY [facility] Number: Effective Repository Date:2018-04-18 04/15/2018 TOOTIE Appiah Primary LUCERO T [place] [id number] Insurance:ANTHEMPolic WOMACKDOB: Community TATUM y Number: [id number], [place] [id number] Repository 69788Lgy: (308) Date:0490-30-97WS [phone] () 537994SYXYKHR, [place] [address]GE: 04/15/2018 Secondary NOT GIVENUNK Capac Insurance:SELF PAY [facility] Number: Effective Repository Date:2018-04-15 04/15/2018 TOOTIE Appiah Primary LUCERO T [place] [id number] Insurance:ANTHEMPolic WOMACKDOB: Community TATUM y Number: [id number], [place] [id number] Repository 318[address]Znj: (308) Date:4706-88-78HY [phone] () [id number] BERNAL [address]EP: 04/15/2018 Secondary NOT GIVENUNK Siobhan Insurance:SELF PAY [facility] Number: Effective Repository Date:2018-04-15 04/08/2018 TOOTIE Appiah Primary LUCERO T [place] [id number] Insurance:ANTHEMPolic WOMACKDOB: Community TATUM y Number: [id number], [place] [id number] Repository 35323Ppd: (308) Date:5624-51-49ZQ [phone] () ARLEY BROOKS 198[address]JF: 04/08/2018 Secondary NOT GIVENUNK Capac Insurance:SELF PAY [facility] Number: Effective Repository Date:2018-04-08 04/08/2018 TOOTIE Appiah Primary LUCERO T [place] [id number] Insurance:ANTHEMPolic WOMACKDOB: Community TATUM y Number: [id number], [place] [id number] Repository 201[address]Fqs: (308) Date:5229-78-65MS [phone] () ARLEY BROOKS [address]LX: 04/08/2018 Secondary NOT GIVENUNK Siobhan Insurance:SELF PAY [facility] Number: Effective Repository Date:2018-04-08 04/08/2018 TOOTIE Appiah Primary LUCERO T [place] [id number] Insurance:ANTHEMPolic WOMACKDOB: Community TATUM y Number: [id number], [place] [id number] Repository 88741Odk: (308) Date:0779-24-98GE [phone] () ARLEY BROOKS [address]JI: 04/08/2018 Secondary NOT GIVENUNK Siobhan Insurance:SELF PAY [facility] Number: Effective Repository Date:2018-04-08 04/08/2018 TOOTIE Appiah Primary LUCERO T [place] [id number] Insurance:ANTHEMPolic WOMACKDOB: Community TATUM y Number: [id number], [place] [id number] Repository 74386Ldu: (308) Date:7785-26-50LH [phone] () ARLEY BROOKS [address]89[address]MS: 04/08/2018 Secondary NOT GIVENUNK Siobhan Insurance:SELF PAY [facility] Number: Effective Repository Date:2018-04-08 04/08/2018 TOOTIE Appiah Primary LUCERO T [place] [id number] Insurance:ANTHEMPolic WOMACKDOB: Community TATUM y Number: [id number], [place] [id number] Repository 367[address]Agk: (308) Date:0642-03-71AF [phone] () ARLEY BROOKS [address]LL: 04/08/2018 Secondary NOT GIVENUNK Siobhan Insurance:SELF PAY [facility] Number: Effective Repository Date:2018-04-08 04/08/2018 TOOTIE Appiah Primary LUCERO T [place] [id number] Insurance:ANTHEMPolic WOMACKDOB: Community TATUM y Number: [id number], [place] [id number] Repository 328[address]Vop: (308) Date:6234-99-46TI [phone] () ARLEY BROOKS [address]1116BQ: 04/08/2018 Secondary NOT GIVENUNK Siobhan Insurance:SELF PAY [facility] Number: Effective Repository Date:2018-04-08 04/08/2018 TOOTIE Appiah Primary LUCERO T Siobhan [id number] Insurance:ANTHEMPolic WOMACKDOB: Community TATUM y Number: [id number], [place] [id number] Repository [address]Mhp: (308) Date:8814-27-80CX [phone] () ARLEY BROOKS 11552UJ: 04/08/2018 Secondary NOT GIVENUNK Cap[place] Insurance:SELF PAY [facility] Number: Effective Repository Date:2018-04-08 04/08/2018 TOOTIE Appiah Primary LUCERO T Siobhan [id number] Insurance:ANTHEMPolic WOMACKDOB: Community TATUM y Number: [id number], [place] [id number] Repository 265[address]Izy: (308) Date:3198-37-01CG [phone] () ARLEY BROOKS 107[address]CT: 04/08/2018 Secondary NOT GIVENUNK Cap[place] Insurance:SELF PAY [facility] Number: Effective Repository Date:2018-04-08 04/08/2018 TOOTIE Bijal Primary LUCERO Brooks [place] [id number] Insurance:ANTHEMPolic WOMACKDOB: Community TATUM y Number: [id number], [place] [id number] Repository 68933Dsq: (308) Date:3910-87-78JD [phone] () [id number], [place] [address]LV: 04/08/2018 Secondary NOT GIVENUNK Capac Insurance:SELF PAY [facility] Number: Effective Repository Date:2018-04-08
== END ==
PROVIDERS: Family Provider Nurse Practitioner Adult Health; PCP Nurse Practitioner Adult Health
DX: I50.23 Acute on chronic systolic (congestive) heart failure (principal); R09.89 Other specified symptoms and signs involving the circulatory and respiratory systems; I10 Essential (primary) hypertension; Z79.82 Long term (current) use of aspirin; Z79.899 Other long term (current) drug therapy

== ENCOUNTER 2018-05-30 13:00 | Outpatient (RCR) | payer BC, SELFPAY ==
[2018-05-24 10:52] VITALS: BMI 26.6
== END 2018-06-02 23:59 ==
LOC: CR 13:00
PROVIDERS: Family Provider Nurse Practitioner Adult Health; PCP Nurse Practitioner Adult Health
DX: I50.21 Acute systolic (congestive) heart failure (principal); I42.0 Dilated cardiomyopathy
CPT/HCPCS: 93798

== ENCOUNTER 2018-06-20 13:00 | Outpatient (RCR) | payer BC, SELFPAY ==
[2018-05-24 10:52] VITALS: BMI 26.6
--- NOTE | 2018-06-24 08:02 | PCM.CR.ITP ---
Exercise - 30-day Assessment - Visit Date of Eval: 06/24/18 Session #:: 7 - Stages of Change Stages of Change:: Action - Exercise Prescription Mode:: Treadmill, Rower, Airdyne Frequency (x/week): 3 Duration:: 30-45 METs - Progression: 0.5-1 MET as tolerated: 4.0 Target Heart Rate:: 124-132 with max HR 131 - Hypertension Resting Blood Pressure:: 108/56 Peak Exercise Blood Pressure:: 148/90 Medication Changes:: Yes - Intervention Home Exercise/Activity Goal:: Moderate Exercise 30 min/day x 5 days/wk - Education Goals:: Warm-up, RPE LAURENCE Scale, S/S, Safe Exercise, Self-Monitoring - Exercise Program Goals Exercise Program Goals: Aerobic Activity >30 min Nutrition - 30-Day Assessment - Program Goals Nutrition Program Goals: LDL <70. Total Cholesterol <200. HDL >45. Triglycerides <150. HgbA1C <7%. BMI <25 - Visit Date of Eval: 06/24/18 - Stages of Change Stages of Change:: Action - Lipids Has the patient seen the dietitian?: No - Diabetes Diabetes:: No - Weight Management Weight:: 132 lb - down 7 pounds - Intervention Referral to dietitian:: No Will attend diet classes:: Yes - Education Attended class for:: Healthy eating Tobacco - Initial Assessment - Program Goals Tobacco Program Goals: Complete smoking cessation. Attend education classes. Improve Knowledge Test score - Learning Barriers Learning Barriers: Ready to Learn Tobacco - 30-Day Assessment - Program Goals Tobacco Program Goals: Complete smoking cessation. Attend education classes. Improve Knowledge Test score - Stage of Change Stages of Change:: Action - Learning Barriers Learning Barriers: Participates in education - Family Support Do you have family support?: Yes - Tobacco Use Tobacco Use: Non-smoker Do you use smokeless tobacco?: No - Intervention Smoking Cessation Referral:: No Education Schedule Given:: Yes - Education Attended class for:: Coronary artery disease, Risk factors, Sexuality, Medical compliance, Cardiac A&P, Angina signs & symptoms Psychosocial - Initial Assess - Target Goals Target Goals: Assess presence or absence of depression. Using a valid screening tool, maximizes coping skills. Positive support system - Psychosocial Test Tool Used:: HANDS Depression Questionnaire - Assistive Devices Fall Risk Assessed:: Yes Psychosocial - 30-Day Assess - Target Goals Target Goals: Assess presence or absence of depression. Using a valid screening tool, maximizes coping skills. Positive support system - Stages of Change Stages of Change:: Action - Psychosocial Test Tool Used:: HANDS Depression Questionnaire - Intervention PS - Interventions: Yes Attend Stress Management Classes, Yes Uses Stress Management Skills, No Referral to Mental Health, No Referral to [facility] Case Management, No Referral to Physician - Education Attended classes for:: Coping techniques, Signs & symptoms of depression, Stress management, Relaxation techniques - Patient/Program Goal Preventative Medication(s):: Aspirin, JANEL inhibitor, Clopidogrel, Beta juliann, Statin/lipid - Assistive Devices Assistive Devices:: None Fall Risk Assessed:: Yes Patient Health Questionnaire 30-Day Re-eval Assessment 1. Little interest or pleasure in doing things: Not at all 2. Feeling down, depressed, or hopeless: Several days 3. Trouble falling or staying asleep, or sleeping too much: Several days 4. Feeling tired or having little energy: Not at all 5. Poor appetite or overeating: Not at all 6. Feeling bad about yourself -- or that you are a failure or have let yourself or your family down: Not at all 7. Trouble concentrating on things, such as reading the newspaper or watching television: Not at all 8. Moving or speaking so slowly that other people could have noticed. Or the opposite - being so fidgety or restless that you have been moving around a lot more than usual: Not at all 9. Thoughts that you would be better off , or of hurting yourself in some way: Not at all How difficult have these problems made it for you to do your work, take care of things at home, or get along with other people?: Not difficult at all Total Score: 2 Self-Efficacy 30-Day Re-eval Assessment We would like to know how confident you are in doing certain activities. Please select your confidence level for:: Select your confidence level for the following using the scale 1-10 where 1 is not at all confident and 10 is totally confident. Your score is the average of all 6 responses. Fatigue: How confident are you that you can keep the fatigue caused by your disease from interfering with the things you want to do? Select Number: 9 Physical Discomfort or Pain: How confident are you that you can keep the physical discomfort or pain of your disease from interfering with the things you want to do? Select Number: 10 Emotional Distress: How confident are you that you can keep the emotional distress caused by your disease from interfering with the things you want to do? Select Number: 10 Other Symptoms or Health Problems: How confident are you that you can keep other symptoms or health problems from interfering with the things you want to do? Select Number: 10 Different Tasks and Activities: How confident are you that you can do the different tasks and activities needed to manage your health condition so as to reduce your need to see a doctor? Select Number: 10 Medication: How confident are you that you can do things other than just taking medication to reduce how much your illness affects your everyday life? Select Number: 10 Total Score:: 9
[2018-06-24 08:07] VITALS: BP 108/56; BP 148/90
== END 2018-06-30 23:59 ==
LOC: CR 13:00
PROVIDERS: Family Provider Nurse Practitioner Adult Health; PCP Nurse Practitioner Adult Health
DX: I50.21 Acute systolic (congestive) heart failure (principal); I42.0 Dilated cardiomyopathy
CPT/HCPCS: 93798

== ENCOUNTER 2018-07-27 09:15 | Outpatient (RCR) | payer BC, SELFPAY ==
[2018-05-24 10:52] VITALS: BMI 26.6
[2018-07-01 01:25] VITALS: BP 108/56; BP 148/90
--- NOTE | 2018-07-22 12:01 | PCM.CR.ITP ---
Exercise - 60-Day Assessment - Visit Date of Eval: 07/22/18 Session #:: 19 - Stages of Change Stages of Change:: Action - Physician Prescribed Exercise Modalities: Treadmill, Rower, Airdyne Frequency (days/week): 3 Duration (Minutes):: 30-45 Intensity: 60-80% age predicted maximum heart rate reserve METs - Progression: 0.5-1.0 MET, RPE 11-14 WEEK: 5.5 Target Heart Rate:: 126360 max HR 150 - Hypertension Resting Blood Pressure:: 90/60 Peak Exercise Blood Pressure:: 150/90 Medication Changes:: Yes - Intervention Home Exercise/Activity Goal:: Moderate Exercise 30 min/day x 5 days/wk - Education Goals:: Warm-up, RPE LAURENCE Scale, S/S, Safe Exercise, Self-Monitoring - Exercise Program Goals Exercise Program Goals: Aerobic Activity >30 min Nutrition - 60-Day Assessment - Program Goals Nutrition Program Goals: LDL <70. Total Cholesterol <200. HDL >45. Triglycerides <150. HgbA1C <7%. BMI <25 - Visit Date of Eval: 07/22/18 - Stages of Change Stages of Change:: Action - Lipids Has the patient seen the dietitian?: No - Diabetes Diabetes:: No - Intervention Referral to dietitian:: No Referral to Diabetic Clinic:: No Will attend diet classes:: Yes - Education Attended class for:: Healthy eating Tobacco - Initial Assessment - Program Goals Tobacco Program Goals: Complete smoking cessation. Attend education classes. Improve Knowledge Test score - Learning Barriers Learning Barriers: Ready to Learn Tobacco - 60-Day Assessment - Program Goals Tobacco Program Goals: Complete smoking cessation. Attend education classes. Improve Knowledge Test score - Stage of Change Stages of Change:: Action - Learning Barriers Learning Barriers: Participates in education - Family Support Do you have family support?: Yes - Tobacco Use Tobacco Use: Non-smoker Do you use smokeless tobacco?: No - Intervention Smoking Cessation Referral:: No Individual Education/Counseling:: No Education Schedule Given:: Yes - Education Attended class for:: Coronary artery disease, Risk factors, Sexuality, Medical compliance, Cardiac A&P, Angina signs & symptoms Psychosocial - Initial Assess - Target Goals Target Goals: Assess presence or absence of depression. Using a valid screening tool, maximizes coping skills. Positive support system - Psychosocial Test Tool Used:: HANDS Depression Questionnaire - Assistive Devices Fall Risk Assessed:: Yes Psychosocial - 60-Day Assess - Target Goals Target Goals: Assess presence or absence of depression. Using a valid screening tool, maximizes coping skills. Positive support system - Stages of Change Stages of Change:: Action - Psychosocial Test Tool Used:: HANDS Depression Questionnaire - Intervention PS - Interventions: Yes Attend Stress Management Classes, Yes Uses Stress Management Skills, No Referral to Mental Health, No Referral to [facility] Case Management, No Referral to Physician - Education Attended classes for:: Coping techniques, Signs & symptoms of depression, Stress management, Relaxation techniques - Patient/Program Goal Preventative Medication(s):: Aspirin, Beta juliann - Assistive Devices Assistive Devices:: None Fall Risk Assessed:: Yes Patient Health Questionnaire 60-Day Re-eval Assessment 1. Little interest or pleasure in doing things: Not at all 2. Feeling down, depressed, or hopeless: Not at all 3. Trouble falling or staying asleep, or sleeping too much: Not at all 4. Feeling tired or having little energy: Not at all 5. Poor appetite or overeating: Not at all 6. Feeling bad about yourself -- or that you are a failure or have let yourself or your family down: Not at all 7. Trouble concentrating on things, such as reading the newspaper or watching television: Not at all 8. Moving or speaking so slowly that other people could have noticed. Or the opposite - being so fidgety or restless that you have been moving around a lot more than usual: Not at all 9. Thoughts that you would be better off , or of hurting yourself in some way: Not at all How difficult have these problems made it for you to do your work, take care of things at home, or get along with other people?: Not difficult at all Total Score: 0 Self-Efficacy 60-Day Re-eval Assessment We would like to know how confident you are in doing certain activities. Please select your confidence level for:: Select your confidence level for the following using the scale 1-10 where 1 is not at all confident and 10 is totally confident. Your score is the average of all 6 responses. Fatigue: How confident are you that you can keep the fatigue caused by your disease from interfering with the things you want to do? Select Number: 10 Physical Discomfort or Pain: How confident are you that you can keep the physical discomfort or pain of your disease from interfering with the things you want to do? Select Number: 10 Emotional Distress: How confident are you that you can keep the emotional distress caused by your disease from interfering with the things you want to do? Select Number: 10 Other Symptoms or Health Problems: How confident are you that you can keep other symptoms or health problems from interfering with the things you want to do? Select Number: 10 Different Tasks and Activities: How confident are you that you can do the different tasks and activities needed to manage your health condition so as to reduce your need to see a doctor? Select Number: 10 Medication: How confident are you that you can do things other than just taking medication to reduce how much your illness affects your everyday life? Select Number: 10 Total Score:: 10
[2018-07-22 12:04] VITALS: BP 150/90; BP 90/60
== END 2018-07-31 23:59 ==
LOC: CR 09:15
PROVIDERS: Family Provider Nurse Practitioner Adult Health; PCP Nurse Practitioner Adult Health
DX: I50.21 Acute systolic (congestive) heart failure (principal); I42.0 Dilated cardiomyopathy
CPT/HCPCS: 93798

== ENCOUNTER → 2019-04-19 12:07 | Outpatient (CLI) | payer BC, SELFPAY ==
[2018-05-24 10:52] VITALS: BMI 26.6
[2019-04-19 13:15] LABS: BNP,B-Type NATRIURETIC PEPTIDE 27.3 pg/mL (0-100)
== END ==
PROVIDERS: Family Provider Nurse Practitioner Adult Health; PCP Nurse Practitioner Adult Health; Referring Provider Registered Nurse; Visit Provider Registered Nurse
DX: I50.22 Chronic systolic (congestive) heart failure (principal)
CPT/HCPCS: 83880